=== PATIENT | male | born 1970 | race Caucasian/White ===

== ENCOUNTER 2020-08-15 13:59 | Outpatient (REF) | payer OTHER, SELFPAY ==
[2020-08-15 16:24] LABS: Alanine Aminotransferase 40 U/L (0-40); Albumin Level 3.9 g/dL (3.5-5.0); Alkaline Phosphatase 117 U/L (39-117); Anion Gap 12 (12-20); Aspartate Amino Transferase 35 U/L (5-37); Bilirubin Total 0.8 mg/dL (0.0-1.0); Blood Urea Nitrogen 10 mg/dL (9-16); Calcium 8.8 mg/dL (8.4-10.2); Carbon Dioxide 31 mmol/L (22-29); Chloride 101 mmol/L (96-108); Cholesterol 142 mg/dL; Estimated Glomerular Filt Rate > 60; Glucose Fasting 135 mg/dL (60-99); HDL Cholesterol 52 mg/dL; LDL Cholesterol Calculated 74 mg/dl; Potassium 3.7 mmol/l (3.3-5.1); Sodium 140 mmol/L (135-145); Total Protein 6.6 g/dL (6.5-8.0); Triglycerides 82 mg/dL
[2020-08-15 16:32] LABS: Creatinine Urine 97.21 mg/dL; Microalbum/Creatinine Ratio Ur 17.4 ug/mg cr
[2020-08-15 16:43] LABS: Vitamin B12 266 pg/mL (200-900)
[2020-08-16 06:47] LABS: LDL Cholesterol Direct 78 mg/dL (<100)
== END 2020-08-15 14:00 | disposition home or self-care (01) ==
LOC: HO.LAB 13:59
PROVIDERS: PCP Internal Medicine; Referring Provider Internal Medicine; Visit Provider Internal Medicine Endocrinology, Diabetes & Metabolism
DX: E11.65 Type 2 diabetes mellitus with hyperglycemia (principal); E78.5 Hyperlipidemia, unspecified; N20.0 Calculus of kidney; E66.9 Obesity, unspecified; Z68.34 Body mass index [BMI] 34.0-34.9, adult; E55.9 Vitamin D deficiency, unspecified; E53.8 Deficiency of other specified B group vitamins; E04.2 Nontoxic multinodular goiter; Z79.84 Long term (current) use of oral hypoglycemic drugs
CPT/HCPCS: 80053; 80061; 82043; 82607; 82947; 83721; 99214

== ENCOUNTER 2020-08-25 06:20 | Day surgery (SDC) | payer OTHER, SELFPAY ==
[2020-08-22 12:07] VITALS: BMI 33.3
--- NOTE | 2020-08-23 15:29 | HO.ANESPROP2 ---
Documented by User: Monica Peña 08/23/20 15:35 HPI - Anesthesia Eval Consult details Narrative: 50yo M for colonoscopy 06/27/20 [facility] [place] discharge for SBO, resolved with bowel rest EGD done 06/27/20 with recommendation of outpt colonoscopy PMF Past Medical History Medical History Anaphylaxis Anxiety Asthma B12 deficiency COPD (chronic obstructive pulmonary disease) Diabetes type 2, uncontrolled Dyslipidemia Dysphagia Fatty liver History of postoperative nausea and vomiting Hypertension IBS (irritable bowel syndrome) Nephrolithiasis Non-toxic multinodular goiter Obesity (BMI 30-39.9) Sleep apnea Vitamin D deficiency Family History Family History (Updated 08/15/20 @ 12:09 by Faith Jimenez LPN) Father Diabetes Mother CVD (cardiovascular disease) Cancer Surgical History Surgical History Hx of adenoidectomy Hx of appendectomy Hx of esophagogastroduodenoscopy Hx of hernia repair Social History Social History Smoking Status: Former smoker Tobacco Type: Cigarette Smoking Quit Date: >20 yrs ago Use of substances other than those prescribed or required for medical reasons: No Advance Directives: No Advance Directives Information Provided: No Advance Directives on File: No Meds Allergies Allergy/AdvReac Type Severity Reaction Status Date / Time MONALISA Inhibitors Allergy Severe SHORTNESS Verified 08/22/20 12:03 [MONALISA INHIBITORS] OF BREATH Penicillins AdvReac Intermediate STOMACH Verified 08/22/20 12:02 UPSET Home Medications Medication Instructions Recorded Confirmed Type blood sugar diagnostic #10 ea 08/15/20 08/22/20 History cyanocobalamin (vitamin B-12) 250 250 mcg PO DAILY 08/15/20 08/22/20 History mcg tablet empagliflozin 25 mg tablet 25 mg PO QAM 08/15/20 08/22/20 History fluticasone propionate 50 1 - 2 spray INTRANASAL DAILY 08/15/20 08/22/20 History mcg/actuation nasal spray,suspension gabapentin 100 mg capsule 100 mg PO TID 08/15/20 08/22/20 History lancets 28 gauge #100 ea 08/15/20 08/22/20 History omeprazole 40 mg capsule,delayed 40 mg PO BID 08/15/20 08/25/20 History release salmeterol 50 mcg/dose blister 1 inh PO BID 08/15/20 08/22/20 History powder for inhalation Exam Exam Date and Time: August 23, 2020 1529 Height,Weight and Vital Signs: Height 5 ft 5 in Weight 90.718 kg Pertinent Lab Results Pertinent Lab Results: Laboratory Tests 06/24/20 08/15/20 05:26 15:23 WBC 5.0 Hgb 15.9 Hct 46.3 Plt Count 149 L Sodium 140 Potassium 3.7 Chloride 101 BUN 10 Creatinine 0.82 Narrative Narrative: EKG 06/22/20: NSR@99 Assessment and Plan Assessment Anesthesia Assessment: Chart Reviewed Documented by User: Kp Ledezma 08/25/20 07:31 PMF Past Medical History Medical History Anaphylaxis Anxiety Asthma B12 deficiency COPD (chronic obstructive pulmonary disease) Diabetes type 2, uncontrolled Dyslipidemia Dysphagia Fatty liver History of postoperative nausea and vomiting Hypertension IBS (irritable bowel syndrome) Nephrolithiasis Non-toxic multinodular goiter Obesity (BMI 30-39.9) Sleep apnea Vitamin D deficiency Family History Family History (Updated 08/15/20 @ 12:09 by Faith Jimenez LPN) Father Diabetes Mother CVD (cardiovascular disease) Cancer Surgical History Surgical History Hx of adenoidectomy Hx of appendectomy Hx of esophagogastroduodenoscopy Hx of hernia repair Social History Social History Smoking Status: Former smoker Tobacco Type: Cigarette Smoking Quit Date: >20 yrs ago Use of substances other than those prescribed or required for medical reasons: No Advance Directives: No Advance Directives Information Provided: No Advance Directives on File: No Meds Allergies Allergy/AdvReac Type Severity Reaction Status Date / Time MONALISA Inhibitors Allergy Severe SHORTNESS Verified 08/22/20 12:03 [MONALISA INHIBITORS] OF BREATH Penicillins AdvReac Intermediate STOMACH Verified 08/22/20 12:02 UPSET Home Medications Medication Instructions Recorded Confirmed Type blood sugar diagnostic #10 ea 08/15/20 08/22/20 History cyanocobalamin (vitamin B-12) 250 250 mcg PO DAILY 08/15/20 08/22/20 History mcg tablet empagliflozin 25 mg tablet 25 mg PO QAM 08/15/20 08/22/20 History fluticasone propionate 50 1 - 2 spray INTRANASAL DAILY 08/15/20 08/22/20 History mcg/actuation nasal spray,suspension gabapentin 100 mg capsule 100 mg PO TID 08/15/20 08/22/20 History lancets 28 gauge #100 ea 08/15/20 08/22/20 History omeprazole 40 mg capsule,delayed 40 mg PO BID 08/15/20 08/25/20 History release salmeterol 50 mcg/dose blister 1 inh PO BID 08/15/20 08/22/20 History powder for inhalation Exam Airway Mallampati Class: III TM Dist: >3cm Neck ROM: Full Heart: RRR Assessment and Plan Assessment Anesthesia Assessment: Anesthesia Plan Discussed Final Anesthetic Review NPO: Yes (Except medications) ASA Class: III Final Preanesthetic Review: Consent Obtained/Reviewed Anesthetic Plan Anesthetic Plan: MAC:
[2020-08-25 06:43] VITALS: BP 119/81; PULSE 86; RESP 16; TEMP 37; O2SAT 97
[2020-08-25 06:43] LABS: Glucose, Whole Blood 147 mg/dL (60-115)
--- NOTE | 2020-08-25 07:19 | P.HPSUR_ITS ---
Pre-Procedural Eval Section A The History & Physical has been completed within 30 days and I have reviewed it.: No Section B Chief Complaint: GASTROPARESIS Details of Present Illness: Abdominal pain, hx of partial sbo Relevant Family History (Specify if Yes): No Relevant Social History: Tobacco Use (Past smoker, quitted > 10 yrs ago) Present Medications: see Short Stay Collaborative assessment Medical History: Significant History (GERD. Dysphagia. IBS-D. Obesity. Asthma-controlled. anxiety-managed w/ Remeron HS. Renal stones. IBS (irritable bowel syndrome). Hepatic steatosis. Esophageal ring, acquired. type II diabetes. Obstructive apnea. Mil) History of Previous Operations: Relevant previous surgery/procedure and date(s) (appendectomy hernia repair adenoidectomy EGD w/ bx-- Lujan--H. Pylori neg 09/22/2013 EGD--(C)--foreign body 05/14/14 EGD with Dilation-Ring est to be 18mm dilated to 20mm. 09/14/14 EGD-rim of inflamed tissue just below the GE Junction--area bx as mild reflux-no ring @ this time. 05/01/16 EGD@[facility] [place] 04/21/) Allergies: Allergies Allergy/AdvReac Type Severity Reaction Status Date / Time MONALISA Inhibitors Allergy Severe SHORTNESS Verified 08/22/20 12:03 [MONALISA INHIBITORS] OF BREATH Penicillins AdvReac Intermediate STOMACH Verified 08/22/20 12:02 UPSET Review of Systems Sugical H&P ROS: Negative: Constitution, Cardiovascular and Respiratory and Yes, Specify: Gastrointestinal (Abdominal pain) Exam Surgical H&P Exam: Normal: Heart, Normal: Lungs, Normal: Extremities and Normal: Abdomen Plan Diagnosis/Plan: Unchanged Patient has been examined and remains a candidate for the planned procedure
--- NOTE | 2020-08-25 08:15 | PM.OP ---
Brief Operative Note Date of procedure: 08/25/20 Pre-op diagnosis: Colon cancer screening, abdominal pain, hx of partial SBO Post-op diagnosis: other (Rectal polyp, diverticulosis, hemorrhoids) Procedure: COLONOSCOPY TILL CECUM/TI WITH BIOPSIES AND SNARE POLYPECTOMY Consent: Indications for the procedure and potential complications of bleeding, perforation, reaction to medications and missed diagnosis were discussed with the patient and informed consent was obtained. Instrument: Olympus PCF H 190 L variable stiffness pediatric colonoscope Monitoring: Vital signs and clinical assessment, intermittent blood pressure monitoring, continuous EKG monitoring, Pulse oximetry and Carbon Dioxide monitoring were done throughout the procedure. Colon withdrawl time was 18 minutes. Procedure: The patient was placed in the left lateral decubitis position and pre-procedure medications were administered. After a digital rectal examination of the ano-rectum, the video colonoscope was inserted into the rectum and advanced through the colon to the cecum. The colonoscope was slowly withdrawn in a retrograde panoramic fashion and the colon mucosa was carefully examined including a retroflexed view of the rectum. Findings and interventions are described below. Procedure Difficulty: Without difficulty Findings: Terminal Ileum: Distal 15 cms was examined and appeared normal - random bxs obtained Cecum: Normal Ascending Colon: Normal Transverse Colon: Normal Descending Colon: Moderate diverticulosis Sigmoid Colon: Moderate diverticulosis Rectum: A 1.5 cms sessile polyp just proximal to the anal verge removed with a hot snare. Ano-rectum: Small internal hemorrhoids. Colon preparation: Good after some irrigation Impression and Post Procedure Diagnosis: Colonoscopy Findings: One 1.5 cms polyp removed from the rectum Moderate diverticulosis seen in the left colon Small hemorrhoids on retroflexed exam. Plan: Await pathology results Patient has an appointment on 09/06/20 in the GI Clinic with Griselda Ko NP. Repeat Colonoscopy interval based on path results - in 3 years if polyp is adenomatous and 10 years if polyp is hyperplastic. Consider further evaluation with CT enterography or MR enterography if biopsies are normal Above findings were reviewed with the patient and colon polyps and diverticulosis handouts were given in the discharge area Surgeon: Lynsey Wen MD Anesthesia: MAC (Dr Ledezma) Aircraft Sheet Metal Mechanic: Eriberto Pendleton Estimated blood loss (mL): 0 Pathology: other (A. TI, B. Random colon bxs, C. Rectal polyp) Condition: stable Disposition: PACU
[2020-08-25 08:17] VITALS: BP 109/68; PULSE 94; RESP 18; TEMP 36.6; O2SAT 95
[2020-08-25] MEDS: Lactated Ringers 1,000 ML 100 ML IVCONT (08:17)
[2020-08-25 08:31] VITALS: BP 123/79; PULSE 94; RESP 18; TEMP 36.3; O2SAT 98
--- NOTE | 2020-08-25 08:51 | HO.POSTANES ---
Post Anesthesia Evaluation Post Anesthesia Evaluation Vital Signs: Vital Signs Temp Pulse Resp BP Pulse Ox 08/25/20 08:31 97.4 F 94 18 123/79 98 08/25/20 08:17 97.8 F 94 18 109/68 95 08/25/20 06:43 98.6 F 86 16 119/81 97 Anesthesia: Monitored Mental Status: Awake Pain Control: Satisfactory Nausea/Vomiting: None Hydration: Adequate Anesthesia-Related Issues: No Anes. Related Issues
== END 2020-08-25 09:08 | disposition home or self-care (01) ==
PROVIDERS: PCP Internal Medicine; Visit Provider Internal Medicine Gastroenterology
PROC: 0DJD8ZZ Inspection of Lower Intestinal Tract, Via Natural or Artificial Opening Endoscopic (ICD-10-PCS; CPT 45378; principal; 2020-08-25 07:30)
DX: Z12.11 Encounter for screening for malignant neoplasm of colon (principal); E11.43 Type 2 diabetes mellitus with diabetic autonomic (poly)neuropathy; K31.84 Gastroparesis; D12.8 Benign neoplasm of rectum; K57.30 Diverticulosis of large intestine without perforation or abscess without bleeding; K64.8 Other hemorrhoids; K58.0 Irritable bowel syndrome with diarrhea; K76.0 Fatty (change of) liver, not elsewhere classified; Z87.19 Personal history of other diseases of the digestive system; I10 Essential (primary) hypertension; J44.9 Chronic obstructive pulmonary disease, unspecified; G47.33 Obstructive sleep apnea (adult) (pediatric); K21.9 Gastro-esophageal reflux disease without esophagitis; Z79.51 Long term (current) use of inhaled steroids; Z99.89 Dependence on other enabling machines and devices; Z79.84 Long term (current) use of oral hypoglycemic drugs; Z79.899 Other long term (current) drug therapy; Z87.891 Personal history of nicotine dependence; Z88.0 Allergy status to penicillin; Z88.8 Allergy status to other drugs, medicaments and biological substances
CPT/HCPCS: 45385; 45380; 82947; 88305

== ENCOUNTER → 2020-09-06 14:17 | Outpatient (BNVA) | payer OTHER, SELFPAY | PROVIDERS: PCP Internal Medicine; Referring Provider Internal Medicine; Visit Provider Nurse Practitioner | DX: K31.84 Gastroparesis (principal); K58.0 Irritable bowel syndrome with diarrhea; K21.9 Gastro-esophageal reflux disease without esophagitis; K56.609 Unspecified intestinal obstruction, unspecified as to partial versus complete obstruction; Z79.899 Other long term (current) drug therapy | CPT/HCPCS: 99212 ==

== ENCOUNTER → 2020-10-11 15:22 | Outpatient (BNVA) | payer OTHER, SELFPAY | PROVIDERS: PCP Internal Medicine; Referring Provider Internal Medicine; Visit Provider Nurse Practitioner | DX: Z76.89 Persons encountering health services in other specified circumstances (principal) ==

== ENCOUNTER → 2020-11-09 11:03 | Outpatient (BNVA) | payer OTHER, SELFPAY | PROVIDERS: PCP Internal Medicine; Visit Provider Internal Medicine | DX: Z76.89 Persons encountering health services in other specified circumstances (principal) ==

== ENCOUNTER → 2021-02-17 13:58 | Outpatient (BNVA) | payer OTHER, SELFPAY | PROVIDERS: PCP Internal Medicine; Visit Provider Internal Medicine Endocrinology, Diabetes & Metabolism | DX: E11.65 Type 2 diabetes mellitus with hyperglycemia (principal); E78.5 Hyperlipidemia, unspecified; I10 Essential (primary) hypertension; N20.0 Calculus of kidney; E66.9 Obesity, unspecified; E55.9 Vitamin D deficiency, unspecified; E53.8 Deficiency of other specified B group vitamins; E04.2 Nontoxic multinodular goiter | CPT/HCPCS: 82947; 99212 ==

== ENCOUNTER 2021-04-05 15:08 | Outpatient (REF) | payer OTHER, SELFPAY ==
--- NOTE | ~2021-04-05 | US_ITS ---
EXAMINATION: US RETROPERITONEAL LIMITED (RENAL ONLY) CLINICAL INFORMATION: Renal calculus. COMPARISON: CT abdomen and pelvis 06/22/2020. Ultrasound abdomen 06/22/2020. Renal ultrasound 03/17/2020. MRI abdomen 06/27/2020. KUB 06/24/2020. TECHNIQUE: Real-time imaging of the kidneys. FINDINGS: RIGHT KIDNEY: 9.8 x 6.3 x 6.2 cm (SAG x AP x TRV). The kidney is normal in size, contour, and echogenicity. Renal cortical thickness is normal. There are multiple stones. The largest measures 4 x 7 mm in the upper pole. No focal parenchymal lesions or hydronephrosis. LEFT KIDNEY: 10.7 x 5.6 x 6.0 cm (SAG x AP x TRV). The kidney is normal in size, contour, and echogenicity. Renal cortical thickness is normal. There are 2 stones measuring 4 x 3 mm in the midpole 4 x 2 mm in the upper pole. There is a 1 x 0.8 x 0.8 cm cyst in the lower pole. No hydronephrosis. US/US renal BI IMPRESSION: Bilateral renal stones. Small left renal cyst.
== END 2021-04-05 15:09 | disposition home or self-care (01) ==
LOC: HO.US 15:08
PROVIDERS: Visit Provider Urology
DX: N20.0 Calculus of kidney (principal)
CPT/HCPCS: 76775

== ENCOUNTER → 2021-04-07 08:49 | Outpatient (BNVA) | payer OTHER, SELFPAY | PROVIDERS: PCP Internal Medicine; Visit Provider Urology ==

== ENCOUNTER → 2021-05-09 14:39 | Outpatient (BNVA) | payer OTHER, SELFPAY | PROVIDERS: PCP Internal Medicine; Visit Provider Internal Medicine | DX: G47.33 Obstructive sleep apnea (adult) (pediatric) (principal); J44.9 Chronic obstructive pulmonary disease, unspecified; J30.9 Allergic rhinitis, unspecified; I10 Essential (primary) hypertension; E11.65 Type 2 diabetes mellitus with hyperglycemia; E66.9 Obesity, unspecified; Z68.32 Body mass index [BMI] 32.0-32.9, adult; Z88.0 Allergy status to penicillin; Z88.8 Allergy status to other drugs, medicaments and biological substances; Z79.899 Other long term (current) drug therapy | CPT/HCPCS: 99212 ==

== ENCOUNTER → 2021-05-16 14:14 | Outpatient (BNVA) | payer OTHER, SELFPAY | PROVIDERS: PCP Internal Medicine; Referring Provider Internal Medicine; Visit Provider Nurse Practitioner | DX: K21.9 Gastro-esophageal reflux disease without esophagitis (principal); K58.0 Irritable bowel syndrome with diarrhea; K31.84 Gastroparesis; D12.6 Benign neoplasm of colon, unspecified | CPT/HCPCS: 99212 ==

== ENCOUNTER 2021-05-31 06:11 | Day surgery (SDC) | payer OTHER, SELFPAY ==
[2021-05-24 14:10] VITALS: BMI 32.1
--- NOTE | 2021-05-30 10:23 | HO.ANESPROP2 ---
Documented by User: Monica Peña 05/30/21 10:24 HPI - Anesthesia Eval Consult details Narrative: 51yo M for Right Lithotripsy ESW Last ESWL 2016 with [facility] Active Problems Active Problems: All Active Problems (Updated 05/16/21 @ 17:13 by BOB Castle) Gastroparesis (Acute) GERD (gastroesophageal reflux disease) (Acute) Irritable bowel syndrome with diarrhea (Acute) Small bowel obstruction (Acute) Neck pain (Acute) Tubular adenoma of colon (Acute) Allergic rhinitis (Acute) SARAH (obstructive sleep apnea) (Acute) Diverticulosis (Acute) Colon polyp (Acute) Fatty liver (Acute) Non-toxic multinodular goiter (Acute) B12 deficiency (Acute) Vitamin D deficiency (Acute) Obesity (BMI 30-39.9) (Acute) Nephrolithiasis (Acute) Hypertension (Acute) Dyslipidemia (Acute) Diabetes type 2, uncontrolled (Acute) COPD (chronic obstructive pulmonary disease) (Acute) Past Medical History Medical History Allergic rhinitis Anaphylaxis Anxiety Asthma B12 deficiency Colon polyp COPD (chronic obstructive pulmonary disease) Diabetes type 2, uncontrolled Diverticulosis Dyslipidemia Dysphagia Fatty liver History of postoperative nausea and vomiting Hypertension IBS (irritable bowel syndrome) Nephrolithiasis Non-toxic multinodular goiter Obesity (BMI 30-39.9) SARAH (obstructive sleep apnea) Sleep apnea Vitamin D deficiency Family History Family History Father Diabetes Mother CVD (cardiovascular disease) Cancer Surgical History Surgical History Hx of adenoidectomy Hx of appendectomy Hx of colonoscopy Hx of cystoscopy Hx of esophagogastroduodenoscopy Hx of hernia repair Hx of lithotripsy Hx of umbilical hernia repair Social History Social History Housing: House Alcohol intake: current Alcohol intake frequency: a few times a week Patient Tobacco Use Status: Former Tobacco user Tobacco use type: Cigarette e-Cigarette/Vaping Use: Never Used Second Hand Smoke Exposure: No Advance Directives Information Provided: No service: No Current occupational status: unemployed and disabled Meds Allergies Allergy/AdvReac Type Severity Reaction Status Date / Time MONALISA Inhibitors Allergy Severe SHORTNESS Verified 05/31/21 06:50 [MONALISA INHIBITORS] OF BREATH Penicillins AdvReac Intermediate STOMACH Verified 05/31/21 06:50 UPSET stress induced anaphylaxis Allergy Severe Anaphylaxis Uncoded 11/09/20 11:05 Home Medications Medication Instructions Recorded Confirmed Last Taken Type cyanocobalamin (vitamin B-12) 250 250 mcg PO DAILY 08/15/20 05/24/21 Unknown History mcg tablet fluticasone propionate 50 1 - 2 spray INTRANASAL DAILY 08/15/20 05/24/21 Unknown History mcg/actuation nasal spray,suspension gabapentin 100 mg capsule 100 mg PO TID 08/15/20 05/24/21 Unknown History salmeterol 50 mcg/dose blister 1 inh PO BID 08/15/20 05/24/21 Unknown History powder for inhalation flu vacc [id number] 6mos up(PF) ml IM 11/09/20 05/09/21 Unknown History Exam Exam Date and Time: May 30, 2021 1023 Height,Weight and Vital Signs: Height 5 ft 5 in Weight 87.5 kg Assessment and Plan Assessment Anesthesia Assessment: Chart Reviewed Documented by User: Debra Piña 05/31/21 07:50 [facility] Past Medical History Medical History Allergic rhinitis Anaphylaxis Anxiety Asthma B12 deficiency Colon polyp COPD (chronic obstructive pulmonary disease) Diabetes type 2, uncontrolled Diverticulosis Dyslipidemia Dysphagia Fatty liver History of postoperative nausea and vomiting Hypertension IBS (irritable bowel syndrome) Nephrolithiasis Non-toxic multinodular goiter Obesity (BMI 30-39.9) SARAH (obstructive sleep apnea) Sleep apnea Vitamin D deficiency Family History Family History Father Diabetes Mother CVD (cardiovascular disease) Cancer Surgical History Surgical History Hx of adenoidectomy Hx of appendectomy Hx of colonoscopy Hx of cystoscopy Hx of esophagogastroduodenoscopy Hx of hernia repair Hx of lithotripsy Hx of umbilical hernia repair History of Problems with Anesthesia: No Social History Social History Housing: House Alcohol intake: current Alcohol intake frequency: a few times a week Patient Tobacco Use Status: Former Tobacco user Tobacco use type: Cigarette e-Cigarette/Vaping Use: Never Used Second Hand Smoke Exposure: No Advance Directives Information Provided: No service: No Current occupational status: unemployed and disabled Meds Allergies Allergy/AdvReac Type Severity Reaction Status Date / Time MONALISA Inhibitors Allergy Severe SHORTNESS Verified 05/31/21 06:50 [MONALISA INHIBITORS] OF BREATH Penicillins AdvReac Intermediate STOMACH Verified 05/31/21 06:50 UPSET stress induced anaphylaxis Allergy Severe Anaphylaxis Uncoded 11/09/20 11:05 Home Medications Medication Instructions Recorded Confirmed Last Taken Type cyanocobalamin (vitamin B-12) 250 250 mcg PO DAILY 08/15/20 05/24/21 Unknown History mcg tablet fluticasone propionate 50 1 - 2 spray INTRANASAL DAILY 08/15/20 05/24/21 Unknown History mcg/actuation nasal spray,suspension gabapentin 100 mg capsule 100 mg PO TID 08/15/20 05/24/21 Unknown History salmeterol 50 mcg/dose blister 1 inh PO BID 08/15/20 05/24/21 Unknown History powder for inhalation flu vacc [id number] 6mos up(PF) ml IM 11/09/20 05/09/21 Unknown History Exam Airway Mallampati Class: III (Small mouth) TM Dist: >3cm Neck ROM: Full Loose/Missing/Broken Teeth: No Heart: RRR Lungs: CTA Assessment and Plan Assessment Anesthesia Assessment: Anesthesia Plan Discussed Final Anesthetic Review History of Problems with Anesthesia: No NPO: Yes ASA Class: II Final Preanesthetic Review: Meds/Allgs Chart Reviewed, Consent Obtained/Reviewed and Anes Risks/Benef Reviewed Patient Risk: Low Procedure Risk: Low Anesthetic Plan Anesthetic Plan: MAC: Disposition: Standard PACU
--- NOTE | ~2021-05-31 | XR_ITS ---
EXAMINATION: XR ABDOMEN KUB CLINICAL INDICATION: Nephrolithiasis COMPARISON: CT scan of June 22, 2020 TECHNIQUE: AP view of the abdomen. FINDINGS: The bowel gas pattern is normal with no evidence of ileus or obstruction. No unusual soft tissue calcifications are noted. No destructive bony lesions identified. Psoas margins intact. Phleboliths seen about the pelvis. XR/XR KUB IMPRESSION: The known renal calcifications are not identified on this plain film study.
[2021-05-31 06:40] VITALS: BP 167/110; PULSE 76; RESP 16; TEMP 36.3; O2SAT 98
[2021-05-31 06:50] VITALS: BP 158/106
[2021-05-31] MEDS: Acetaminophen 325 MG TABLET 650 MG PO (06:55)
[2021-05-31] MEDS: Lactated Ringers 1,000 ML 100 ML IVCONT (07:03)
[2021-05-31 07:04] VITALS: BP 149/105
[2021-05-31 07:09] LABS: Glucose, Whole Blood 100 mg/dL (60-115)
--- NOTE | 2021-05-31 07:46 | MHC.SHP ---
Pre-Procedural Eval Section A Date of Service: 05/31/21 Section B Chief Complaint: kidney stone Details of Present Illness: right renal stones Relevant Social History: None Present Medications: see Short Stay Collaborative assessment Medical History: No relevant PMH History of Previous Operations: No relevant previous surgery Allergies: Allergies Allergy/AdvReac Type Severity Reaction Status Date / Time MONALISA Inhibitors Allergy Severe SHORTNESS Verified 05/31/21 06:50 [MONALISA INHIBITORS] OF BREATH Penicillins AdvReac Intermediate STOMACH Verified 05/31/21 06:50 UPSET stress induced anaphylaxis Allergy Severe Anaphylaxis Uncoded 11/09/20 11:05 Review of Systems Sugical H&P ROS: Negative: Constitution, Cardiovascular, Respiratory, Neurological, Psychiatric, Hem-Onc, Allergic/Immunologic, Gastrointestinal, Genitourinary, Musculoskeletal, Integumentary, Endocrine and Eyes/Ears/Nose/Throat Exam Surgical H&P Exam: Normal: HEENT, Normal: Heart, Normal: Lungs, Normal: Extremities, Normal: Abdomen, Normal: Skin and Normal: Neurological Plan Diagnosis/Plan: Unchanged (right ESWL) I have reviewed the history and physical and performed a pertinent physical examination on my patient. No changes have occurred unless specified.
--- NOTE | 2021-05-31 09:07 | W.PM.OPN ---
Operative Note Operative Note Date of Service: 05/31/21 Narrative: PreOperative Diagnosis: right Renal stones Post Operative Diagnosis: right Renal stones Procedure: right ESWL Surgeon: Dr Darryl Stover Anesthesia: mac/sedation Indications for procedure: They understand ESWL may be a staged procedure and subsequent intervention may be required based on imaging after ESWL. They also understand there is a risk of bleeding, infection, damage to adjacent organs. - right 6mm upper pole stone Procedure: After informed consent was verified the patient was brought to the operating room and placed in a supine position. Anesthesia was performed per protocol. Safety pause time-out was performed. Imaging was in the room and laterality confirmed. ESWL was performed. The 1st 500 shocks were performed at 60 hertz. These were performed with increasing power. Once maximum power was reached the rate was increased to 180 hertz. A total of 2500 shocks were given. Fluoroscopy showed stone disintegration. They tolerated procedure well and was transferred to the recovery area upon completion.
[2021-05-31 09:15] VITALS: BP 138/93; PULSE 69; RESP 16; TEMP 36.2; O2SAT 95
[2021-05-31 09:30] VITALS: BP 143/93; PULSE 70; RESP 18; O2SAT 95
[2021-05-31] MEDS: oxyCODONE HCl Immed Release 5 MG TABLET PO (09:35)
[2021-05-31 09:42] VITALS: BP 153/103; PULSE 64; RESP 18; O2SAT 96
== END 2021-05-31 10:34 | disposition home or self-care (01) ==
PROVIDERS: PCP Internal Medicine; Visit Provider Urology
PROC: (CPT 50590; principal; 2021-05-31 08:10)
DX: N20.0 Calculus of kidney (principal); J44.9 Chronic obstructive pulmonary disease, unspecified; I10 Essential (primary) hypertension; E11.9 Type 2 diabetes mellitus without complications; G47.33 Obstructive sleep apnea (adult) (pediatric); Z88.0 Allergy status to penicillin; Z88.8 Allergy status to other drugs, medicaments and biological substances; Z79.899 Other long term (current) drug therapy; Z87.891 Personal history of nicotine dependence
CPT/HCPCS: 50590; 74018; 82947; J2250; J2405

== ENCOUNTER 2021-06-02 08:08 | Observation (INO) | payer OTHER, SELFPAY ==
[2021-06-02] VITALS (7 sets, daily range): BP systolic 92–140; BP diastolic 48–82; PULSE 83–104; RESP 16–19; TEMP 36.5–37.2; O2SAT 95–100; BMI 30.7
--- NOTE | 2021-06-02 | ECG_ITS ---
Test Reason : CHEST PAIN Blood Pressure : / mmHG Vent. Rate : 089 BPM Atrial Rate : 089 BPM P-R Int : 140 ms QRS Dur : 104 ms QT Int : 406 ms P-R-T Axes : 058 054 012 degrees QTc Int : 493 ms Normal sinus rhythm Prolonged QT Abnormal ECG When compared with ECG of 22-JUN-2020 21:53, Nonspecific T wave abnormality now evident in Inferior leads Referred By: Generic ED Physician Electronically Signed By:Lino Aldridge
--- NOTE | ~2021-06-02 | XR_ITS ---
EXAMINATION: XR CHEST CLINICAL INFORMATION: Chest pain COMPARISON: Chest 06/23/2020 TECHNIQUE: Frontal view of the chest was obtained. FINDINGS: No significant abnormality is noted involving the heart, lungs, mediastinum, bony thorax or soft tissues. XR/XR chest 1V IMPRESSION: Unremarkable chest exam. No major change from 06/23/2020.
--- NOTE | ~2021-06-02 | CT_ITS ---
EXAMINATION: CT ANGIOGRAM OF THE CHEST WITH AND WITHOUT CONTRAST (CT PULMONARY ANGIOGRAM FOR PE) CLINICAL INFORMATION: Reason for Exam chest pain, SOB, back pain COMPARISON: Chest radiograph 06/02/2021, CT chest noncontrast 01/26/2019. TECHNIQUE: Prior to contrast administration, noncontrast localization images were obtained. Subsequently, multidetector volumetric imaging was performed from the thoracic inlet to below the diaphragms following the administration of 65 mL Omnipaque 350 intravenous contrast. No contrast reaction reported Sagittal, coronal, and MIP oblique sagittal reformatted images were obtained on the CT workstation, uploaded to PACS, and reviewed. This CT examination was performed using dose optimization techniques as appropriate, variously including the following: *Automated exposure control *Adjustment of mA and/or kV according to patient size (this includes techniques or standardized protocols for targeted exams where dose is matched to indication/reason for exam; i.e. extremities or head) *Use of iterative reconstruction technique Total exam dose-length product 393 mGy-cm FINDINGS: QUALITY OF STUDY/CONTRAST BOLUS: Satisfactory. PULMONARY ARTERIES: No central or segmental pulmonary emboli. THORACIC AORTA: No aneurysm or dissection. LUNG: The central airways are clear and there is no endobronchial lesion or bronchiectasis. There is no lobar or segmental airspace consolidation or groundglass opacity. Trace disc atelectasis. Present at both posterior bases. PLEURA: No pleural thickening, or effusion, or pneumothorax. MEDIASTINUM: Normal heart size. No pericardial effusion. No hilar or mediastinal lymphadenopathy. No evidence of septal bowing or right heart strain. CHEST WALL/AXILLA: No axillary or internal mammary lymphadenopathy. OSSEOUS STRUCTURES: No acute or suspicious osseous abnormality. UPPER ABDOMEN: Unremarkable. No reflux of contrast into the hepatic veins to suggest elevated right heart pressures. Small incidental splenule left upper quadrant 1.[address]/CT angio chest PE protocol IMPRESSION: 1. No pulmonary embolism. 2. No thoracic aortic dissection. 3. Minor bibasilar lateral posterior basilar disc atelectasis. No airspace consolidation or groundglass opacity or effusion. VTE: negative
--- NOTE | 2021-06-02 09:43 | ED_ITS ---
HPI - Chest Pain General Chief Complaint: Chest Pain Stated Complaint: CP Time Seen by Provider: 06/02/21 09:23 Source: patient and EMS Mode of arrival: EMS Limitations: no limitations History of Present Illness HPI narrative: 51 y/o male with history of DM, HTN, SARAH not on CPAP, asthma/COPD, GERD, gastroparesis, kidney stones s/p recent lithotripsy who presents to the ER with acute onset of epigastric pain and left arm pain that started this morning when he was cooking breakfast. He reports some dizziness and upset stomach last night along with some mental fog and confusion. He woke up this morning feeling ok. When he was standing cooking he felt pain and fullness in his epigastric area he thought was indigestion. He got dizzy and diaphoretic. His left arm started having pain from shoulder down to his fin gertips. It feels heavy. He slightly SOB but has underlying COPD/asthma. He also reported left sided upper back pains. EMS was called. He was given SL nitro and ASA en route with some improvement in the pain. He has no personal cardiac history. His father had cardiac disease and in his mid 70's. MD complaint: chest pain Onset (ago): hour(s) Timing of current episode: constant Prior episodes: No Onset: during rest Pain location: epigastric Pain radiation: left arm Severity: severe Quality: heaviness and dull Relieving factors: nitroglycerin Exacerbating factors: palpation Associated symptoms: nausea Treatment prior to arrival: aspirin and nitroglycerin Risk Factors Coronary artery disease risk factors: diabetes and hypertension Related Data Home Medications Medication Instructions Recorded Confirmed cyanocobalamin (vitamin B-12) 250 250 mcg PO DAILY 08/15/20 06/02/21 mcg tablet fluticasone propionate 50 1 - 2 spray INTRANASAL DAILY 08/15/20 06/02/21 mcg/actuation nasal spray,suspension gabapentin 100 mg capsule 100 mg PO TID 08/15/20 06/02/21 salmeterol 50 mcg/dose blister 1 inh PO BID 08/15/20 06/02/21 powder for inhalation flu vacc [id number] 6mos up(PF) ml IM 11/09/20 05/09/21 chlorhexidine gluconate 0.12 % 15 ml PO BID 06/02/21 06/02/21 mouthwash clindamycin HCl 150 mg capsule 150 mg PO QID 06/02/21 06/02/21 dulaglutide 1.5 mg/0.5 mL 1.5 mg SUBCUT TH@0900 06/02/21 06/02/21 subcutaneous pen injector (Trulicity) sucralfate 1 gram tablet 1 g PO BID 06/02/21 06/02/21 Previous Rx's Medication Instructions Recorded albuterol sulfate 90 mcg/actuation 2 puff INHALATION Q6H PRN #6.7 g 08/10/20 aerosol inhaler (ProAir HFA) fluticasone propionate 110 1 puff INHALATION BID #12 g 08/10/20 mcg/actuation HFA aerosol inhaler (Flovent HFA) amlodipine 10 mg tablet 10 mg PO DAILY 30 Days #30 tab 08/15/20 losartan 25 mg tablet 25 mg PO DAILY 30 Days #30 tab 08/15/20 metoclopramide HCl 10 mg tablet 10 mg PO QIDACHS #120 tab 09/06/20 (Reglan) omeprazole 40 mg capsule,delayed 40 mg PO BID 30 Days #60 cap 01/05/21 release hydrochlorothiazide 25 mg tablet 25 mg PO DAILY 30 Days #30 tab 02/17/21 FreeStyle Lancets 28 gauge #100 ea NS 03/16/21 (lancets) blood sugar diagnostic (FreeStyle #100 ea 03/16/21 Lite Strips) allopurinol 100 mg tablet 100 mg PO DAILY 90 Days #90 tab 05/31/21 tamsulosin 0.4 mg capsule 0.4 mg PO BEDTIME 14 Days #14 cap 05/31/21 tramadol 50 mg tablet 50 mg PO Q6H PRN #14 tab 05/31/21 Allergies Allergy/AdvReac Type Severity Reaction Status Date / Time MONALISA Inhibitors Allergy Severe SHORTNESS Verified 05/31/21 06:50 [MONALISA INHIBITORS] OF BREATH Penicillins AdvReac Intermediate STOMACH Verified 05/31/21 06:50 UPSET stress induced anaphylaxis Allergy Severe Anaphylaxis Uncoded 11/09/20 11:05 Review of Systems 2 Constitutional: Constitutional: Denies chills, Denies fever(s) and Reports malaise Eyes: Eyes: Reports no additional eye complaints ENT: Reports dental pain and Reports dizziness Neurologic: Reports confusion and Reports dizziness Psychiatric: Psychiatric: Reports confusion and Denies panic attacks Hematologic/Lymphatic: Hematologic/Lymphatic: Denies easy bleeding and Denies easy bruising [facility] Past Medical History Attestation statement: The following information was validated with the patient. Medical History Allergic rhinitis Anaphylaxis Anxiety Asthma B12 deficiency Colon polyp COPD (chronic obstructive pulmonary disease) Diabetes type 2, uncontrolled Diverticulosis Dyslipidemia Dysphagia Fatty liver History of postoperative nausea and vomiting Hypertension IBS (irritable bowel syndrome) Nephrolithiasis Non-toxic multinodular goiter Obesity (BMI 30-39.9) SARAH (obstructive sleep apnea) Sleep apnea Vitamin D deficiency Surgical History Hx of adenoidectomy Hx of appendectomy Hx of colonoscopy Hx of cystoscopy Hx of esophagogastroduodenoscopy Hx of hernia repair Hx of lithotripsy Hx of umbilical hernia repair Family History Family History Father Diabetes Mother CVD (cardiovascular disease) Cancer Social History Social History Housing: House Alcohol intake: current Alcohol intake frequency: does not drink Patient Tobacco Use Status: Former Tobacco user Tobacco use type: Cigarette e-Cigarette/Vaping Use: Never Used Second Hand Smoke Exposure: No Use of substances other than those prescribed or required for medical reasons: No Advance Directives: No Advance Directives Information Provided: Yes service: No Current occupational status: unemployed and disabled Physical Exam Vital Signs: Vital Signs: Last Vital Signs Temp 97.7 F 06/02/21 08:36 Pulse 92 06/02/21 11:46 Resp 16 06/02/21 11:46 BP 92/58 L 06/02/21 11:46 Pulse Ox 96 06/02/21 11:46 Body Mass Index 30.7 Appearance: Alert. Oriented X3. No acute distress. Eyes: Pupils equal, round and reactive to light. ENT: Pharynx normal. Neck: Normal inspection. Neck supple. CVS: Normal heart rate and rhythm. Pulses normal. Respiratory: No respiratory distress. Breath sounds normal. Abdomen: Round, well healed surgical scar. Soft with epigastric tenderness, no rebound guarding. +BS x4 Skin: Skin warm and dry. Normal skin color. Normal skin turgor. No rashes. Extremities: No lower extremity edema. Left arm with normal ROM of shoulder, el bow and wrist. Mild diffuse tenderness of LUE, normal strength and sensation. No calf tenderness Neuro: Oriented X 3. No motor deficit. No sensory deficit. Const: General: confusion Orientation/consciousness: confusion Neuro: General: confusion Course Course Course Narrative: 51 y/o male presenting with epigastric pain radiating to his chest and left arm associated with diaphoresis and SOB. s/p SL nitro and ASA with some improvement. BP soft on arrival, likely due to nitro. Concern for ACS vs possible PE given recent procedure vs possible dissection given back pain. Case was d/w Dr. Correia - will get full metabolic workup, EKG, and CTA chest to r/o PE & dissection. IV morphine ordered for ongoing left arm pain and IVF for BP support. No signs of sepsis. Reevaluation(s) Reevaluation #1: BP improving with fluids. EKG is without ST elevation or depressions. Labs showing pancytopenia. Troponin negative. Will get a repeat in 3 hours. Pain improving with morphine. Reevaluation #2: CTA is negative for PE and dissection. 2nd troponin remains flat. His clinical presentation remains concerning for ACS / cardiac etiology. Spoke with Dr. Aldridge from Cardiology via TT who agrees with admission for further monitoring and workup. Recs repeat EKG and repeating a 3rd troponin. Discussed results and plan of care with patient who is agreeable. Left arm pain is improved. Reevaluation #3: TT Dr. Curtis for admission at 1:56 pm Consultations Consultation #1: Cardiology - Dr. Aldridge Time: 14:04 [facility] - Chest Pain Lab Data Result diagrams: 06/02/21 09:45 06/02/21 09:45 Labs: Lab Results 06/02/21 06/02/21 06/02/21 Range/Units 09:45 09:45 09:45 WBC 4.5 L (4.8-10.8) X10*3/uL RBC 4.04 L (4.60-5.80) X10*6/uL Hgb 14.8 (14.0-18.0) g/dl Hct 40.9 L (42-52) % MCV 101.2 H (80-98) fL MCH 36.6 H (27.0-33.0) pg MCHC 36.2 H (31.0-36.0) g/dl RDW 11.3 (11.0-16.0) % Plt Count 156 L (160-400) X10*3/uL MPV 8.9 L (9.4-12.4) fL Immature Gran % (Auto) 0.4 (0.0-0.4) % Neut % (Auto) 59.0 (45-73) % Lymph % (Auto) 28.3 (20-40) % [place] % (Auto) 8.4 (2-11) % Eos % (Auto) 3.5 (0-4) % Baso % (Auto) 0.4 (0-2) % Lymph # (Auto) 1.3 (1.2-4.9) X10*3/uL [place] # (Auto) 0.4 (0.1-1.2) X10*3/uL Eos # (Auto) 0.2 (0.0-0.4) X10*3/uL Baso # (Auto) 0.0 (0.0-0.2) X10*3/uL Abs Immat Gran (auto) 0.02 (0.00-0.03) X10*3/uL Absolute Neuts (auto) 2.7 (2.0-8.3) X10*3/uL Absolute Nucleated RBC 0.000 (0.0-0.012) X10*3/uL Nucleated RBC % (auto) 0.0 (0.0-0.2) /100WBC PT (9.9-13.0) SEC INR (0.9-1.1) APTT (24.1-38.0) SEC Sodium 136 (135-145) mmol/L Potassium 3.5 (3.3-5.1) mmol/L Chloride 103 (96-108) mmol/L Carbon Dioxide 22 (22-29) mmol/L Anion Gap 15 (12-20) BUN 7 L (9-16) mg/dL Creatinine 0.85 (0.5-1.4) mg/dL Estim Creat Clear Calc 102.4 Estimated GFR > 60 Random Glucose 124 H (60-115) mg/dL Calcium 7.9 L D (8.4-10.2) mg/dL Magnesium 1.6 (1.6-2.6) mg/dL Total Bilirubin 0.6 (0.0-1.0) mg/dL Direct Bilirubin 0.3 (0.0-0.5) mg/dL AST 28 (5-37) U/L ALT 25 (0-40) U/L Alkaline Phosphatase 97 (39-117) U/L Troponin I High Sens 3.7 (<3.5-35.0) ng/L B-Natriuretic Peptide < 10 (<100) pg/mL Total Protein 6.2 L (6.5-8.0) g/dL Albumin 3.5 (3.5-5.0) g/dL Urine Color Urine Appearance Urine pH (5.0-8.0) Ur Specific [place] (1.005-1.025) Urine Protein (NEG-TRACE) MG/DL Urine Glucose (UA) (NEG) MG/DL Urine Ketones (NEG) MG/DL Urine Blood (NEG) Urine Nitrite (NEG) Ur Leukocyte Esterase (NEG) Urine RBC (0) /HPF Urine WBC (0-4) /HPF Ur Squamous Epith Cells /LPF Calcium Phosphate Cryst /LPF Urine Bacteria /LPF Coronavirus (PCR) (Negative) Influenza Type A (PCR) (Negative) Influenza Type B (PCR) (Negative) RSV RNA Qual (PCR) (Negative) 06/02/21 06/02/21 06/02/21 Range/Units 09:45 09:46 10:03 WBC (4.8-10.8) X10*3/uL RBC (4.60-5.80) X10*6/uL Hgb (14.0-18.0) g/dl Hct (42-52) % MCV (80-98) fL MCH (27.0-33.0) pg MCHC (31.0-36.0) g/dl RDW (11.0-16.0) % Plt Count (160-400) X10*3/uL MPV (9.4-12.4) fL Immature Gran % (Auto) (0.0-0.4) % Neut % (Auto) (45-73) % Lymph % (Auto) (20-40) % [place] % (Auto) (2-11) % Eos % (Auto) (0-4) % Baso % (Auto) (0-2) % Lymph # (Auto) (1.2-4.9) X10*3/uL [place] # (Auto) (0.1-1.2) X10*3/uL Eos # (Auto) (0.0-0.4) X10*3/uL Baso # (Auto) (0.0-0.2) X10*3/uL Abs Immat Gran (auto) (0.00-0.03) X10*3/uL Absolute Neuts (auto) (2.0-8.3) X10*3/uL Absolute Nucleated RBC (0.0-0.012) X10*3/uL Nucleated RBC % (auto) (0.0-0.2) /100WBC PT 12.1 (9.9-13.0) SEC INR 1.1 (0.9-1.1) APTT 30.5 (24.1-38.0) SEC Sodium (135-145) mmol/L Potassium (3.3-5.1) mmol/L Chloride (96-108) mmol/L Carbon Dioxide (22-29) mmol/L Anion Gap (12-20) BUN (9-16) mg/dL Creatinine (0.5-1.4) mg/dL Estim Creat Clear Calc Estimated GFR Random Glucose (60-115) mg/dL Calcium (8.4-10.2) mg/dL Magnesium (1.6-2.6) mg/dL Total Bilirubin (0.0-1.0) mg/dL Direct Bilirubin (0.0-0.5) mg/dL AST (5-37) U/L ALT (0-40) U/L Alkaline Phosphatase (39-117) U/L Troponin I High Sens (<3.5-35.0) ng/L B-Natriuretic Peptide (<100) pg/mL Total Protein (6.5-8.0) g/dL Albumin (3.5-5.0) g/dL Urine Color YELLOW Urine Appearance CLEAR Urine pH 6.0 (5.0-8.0) Ur Specific [place] <= 1.005 (1.005-1.025) Urine Protein NEG (NEG-TRACE) MG/DL Urine Glucose (UA) NEG (NEG) MG/DL Urine Ketones NEG (NEG) MG/DL Urine Blood 3+ H (NEG) Urine Nitrite NEG (NEG) Ur Leukocyte Esterase NEG (NEG) Urine RBC 5-9 H (0) /HPF Urine WBC 0-2 (0-4) /HPF Ur Squamous Epith Cells TRACE /LPF Calcium Phosphate Cryst TRACE /LPF Urine Bacteria TRACE /LPF Coronavirus (PCR) NEGATIVE (Negative) Influenza Type A (PCR) NEGATIVE (Negative) Influenza Type B (PCR) NEGATIVE (Negative) RSV RNA Qual (PCR) NEGATIVE (Negative) 06/02/21 Range/Units 12:59 WBC (4.8-10.8) X10*3/uL RBC (4.60-5.80) X10*6/uL Hgb (14.0-18.0) g/dl Hct (42-52) % MCV (80-98) fL MCH (27.0-33.0) pg MCHC (31.0-36.0) g/dl RDW (11.0-16.0) % Plt Count (160-400) X10*3/uL MPV (9.4-12.4) fL Immature Gran % (Auto) (0.0-0.4) % Neut % (Auto) (45-73) % Lymph % (Auto) (20-40) % [place] % (Auto) (2-11) % Eos % (Auto) (0-4) % Baso % (Auto) (0-2) % Lymph # (Auto) (1.2-4.9) X10*3/uL [place] # (Auto) (0.1-1.2) X10*3/uL Eos # (Auto) (0.0-0.4) X10*3/uL Baso # (Auto) (0.0-0.2) X10*3/uL Abs Immat Gran (auto) (0.00-0.03) X10*3/uL Absolute Neuts (auto) (2.0-8.3) X10*3/uL Absolute Nucleated RBC (0.0-0.012) X10*3/uL Nucleated RBC % (auto) (0.0-0.2) /100WBC PT (9.9-13.0) SEC INR (0.9-1.1) APTT (24.1-38.0) SEC Sodium (135-145) mmol/L Potassium (3.3-5.1) mmol/L Chloride (96-108) mmol/L Carbon Dioxide (22-29) mmol/L Anion Gap (12-20) BUN (9-16) mg/dL Creatinine (0.5-1.4) mg/dL Estim Creat Clear Calc Estimated GFR Random Glucose (60-115) mg/dL Calcium (8.4-10.2) mg/dL Magnesium (1.6-2.6) mg/dL Total Bilirubin (0.0-1.0) mg/dL Direct Bilirubin (0.0-0.5) mg/dL AST (5-37) U/L ALT (0-40) U/L Alkaline Phosphatase (39-117) U/L Troponin I High Sens 3.6 (<3.5-35.0) ng/L B-Natriuretic Peptide (<100) pg/mL Total Protein (6.5-8.0) g/dL Albumin (3.5-5.0) g/dL Urine Color Urine Appearance Urine pH (5.0-8.0) Ur Specific [place] (1.005-1.025) Urine Protein (NEG-TRACE) MG/DL Urine Glucose (UA) (NEG) MG/DL Urine Ketones (NEG) MG/DL Urine Blood (NEG) Urine Nitrite (NEG) Ur Leukocyte Esterase (NEG) Urine RBC (0) /HPF Urine WBC (0-4) /HPF Ur Squamous Epith Cells /LPF Calcium Phosphate Cryst /LPF Urine Bacteria /LPF Coronavirus (PCR) (Negative) Influenza Type A (PCR) (Negative) Influenza Type B (PCR) (Negative) RSV RNA Qual (PCR) (Negative) Scores Heart Score History: -2- highly suspicious ECG: -1- non specific repolarization disturbance Age: -1- >45 - <65 Risk factory: -1- 1 or 2 risk factors Troponin: -0- < or = normal limit Score: 5 Risk: 16.6% Discharge Plan Discharge Clinical Impression: Chest pain Patient Disposition: Admitted As Inpatient Prescriptions: No Action Flovent HFA 110 mcg/actuation HFA aerosol inhaler 1 puff inhalation BID Qty: 12 RF: 3 albuterol sulfate [ProAir HFA] 90 mcg/actuation HFA aerosol inhaler 2 puff inhalation Q6H PRN (Reason: shortness of breath or wheezing) Qty: 6.7 RF: 3 omeprazole 40 mg capsule,delayed release(DR/EC) 40 mg PO BID 30 Days Qty: 60 RF: 3 (DME) FreeStyle Lite Strips Strip See Rx Instructions strip .ROUTE .MEDSUPPLY Qty: 100 RF: 11 (DME) lancets [FreeStyle Lancets] 28 gauge misc See Rx Instructions ea topical TID Qty: 100 RF: 11 clindamycin HCl 150 mg capsule 150 mg PO QID RF: 0 chlorhexidine gluconate 0.12 % mouthwash 15 ml PO BID RF: 0 sucralfate 1 gram Tablet 1 g PO BID RF: 0 Trulicity 1.5 mg/0.5 mL pen injector 1.5 mg subcut TH@0900 RF: 0 allopurinol 100 mg tablet 100 mg PO DAILY 90 Days Qty: 90 RF: 1 tramadol 50 mg tablet 50 mg PO Q6H PRN (Reason: pain (scale score 4-6)) Qty: 14 RF: 0 tamsulosin 0.4 mg capsule 0.4 mg PO BEDTIME 14 Days Qty: 14 RF: 0 metoclopramide HCl [Reglan] 10 mg tablet 10 mg PO QIDACHS Qty: 120 RF: 6 hydrochlorothiazide 25 mg tablet 25 mg PO DAILY 30 Days Qty: 30 RF: 6 salmeterol 50 mcg/dose blister with device 1 inh PO BID RF: 0 cyanocobalamin (vitamin B-12) 250 mcg tablet 250 mcg PO DAILY RF: 0 fluticasone propionate 50 mcg/actuation spray,suspension 1 - 2 spray intranasal DAILY RF: 0 gabapentin 100 mg capsule 100 mg PO TID RF: 0 losartan 25 mg tablet 25 mg PO DAILY 30 Days Qty: 30 RF: 6 amlodipine 10 mg tablet 10 mg PO DAILY 30 Days Qty: 30 RF: 6 flu vacc [id number] 6mos up(PF) 60 mcg (15 mcg x 4)/0.5 mL syringe IM RF: 0
[2021-06-02 09:53] LABS: MANUAL DIFF FLAG NO
[2021-06-02 09:54] LABS: Basophils Percent Auto 0.4 % (0-2); Eosinophils Absolute Auto 0.2 X10*3/uL (0.0-0.4); Eosinophils Percent Auto 3.5 % (0-4); Hematocrit 40.9 % (42-52); Hemoglobin 14.8 g/dl (14.0-18.0); Imm Gran Abs Auto 0.02 X10*3/uL (0.00-0.03); Imm Gran Pct Auto 0.4 % (0.0-0.4); Lymphocytes Absolute Auto 1.3 X10*3/uL (1.2-4.9); Lymphocytes Percent Auto 28.3 % (20-40); Mean Corpuscular HGB Conc 36.2 g/dl (31.0-36.0); Mean Corpuscular Hemoglobin 36.6 pg (27.0-33.0); Mean Corpuscular Volume 101.2 fL (80-98); Mean Platelet Volume 8.9 fL (9.4-12.4); Monocytes Absolute Auto 0.4 X10*3/uL (0.1-1.2); Monocytes Percent Auto 8.4 % (2-11); Neutrophils Absolute Auto 2.7 X10*3/uL (2.0-8.3); Platelet Count 156 X10*3/uL (160-400); Red Blood Count 4.04 X10*6/uL (4.60-5.80); Red Cell Distribution Width 11.3 % (11.0-16.0); White Blood Count 4.5 X10*3/uL (4.8-10.8)
[2021-06-02 09:57] LABS: Glucose Urine UA NEG (NEG); Leukocyte Esterase Urine NEG (NEG); Nitrite Urine NEG (NEG); Specific Gravity - Urine <= 1.005 (1.005-1.025); UACC Culture Trigger NO; Urine Blood 3+ (NEG); Urine Ketones NEG (NEG); Urine Protein NEG (NEG-TRACE)
[2021-06-02 09:59] LABS: Appearance Urine CLEAR; Color Urine YELLOW
[2021-06-02] MEDS: 0.9 % Sodium Chloride 1,000 ML 999 ML IVCONT (10:05)
[2021-06-02 10:10] LABS: Bacteria Urine TRACE /LPF; Calcium Phosphate Crystals Ur TRACE /LPF; Squamous Epithelial Cell Urine TRACE /LPF; WBC Urine 0-2 /HPF (0-4)
[2021-06-02 10:19] LABS: Alanine Aminotransferase 25 U/L (0-40); Albumin Level 3.5 g/dL (3.5-5.0); Alkaline Phosphatase 97 U/L (39-117); Anion Gap 15 (12-20); Aspartate Amino Transferase 28 U/L (5-37); Bilirubin Direct 0.3 mg/dL (0.0-0.5); Bilirubin Total 0.6 mg/dL (0.0-1.0); Blood Urea Nitrogen 7 mg/dL (9-16); Calcium 7.9 mg/dL (8.4-10.2); Carbon Dioxide 22 mmol/L (22-29); Chloride 103 mmol/L (96-108); Creatinine Clr Calc Pharmacy 102.4; Estimated Glomerular Filt Rate > 60; Glucose Random 124 mg/dL (60-115); Magnesium 1.6 mg/dL (1.6-2.6); Potassium 3.5 mmol/L (3.3-5.1); Sodium 136 mmol/L (135-145); Total Protein 6.2 g/dL (6.5-8.0)
[2021-06-02 10:23] LABS: B Type Natriuretic Peptide < 10 pg/mL (<100); Troponin-I High Sensitivity 3.7 ng/L (<3.5-35.0)
[2021-06-02 10:31] LABS: INTERNATIONAL NORM RATIO 1.1 (0.9-1.1); Prothrombin Time 12.1 SEC (9.9-13.0)
[2021-06-02] MEDS: Morphine Sulfate 4 MG/ML CARTRIDGE IVPUSH (10:32)
[2021-06-02 10:34] LABS: Partial Thromboplastin Time 30.5 SEC (24.1-38.0)
--- NOTE | 2021-06-02 10:54 | PHA.MEDREC ---
Pharmacy Consult ? Medication Reconciliation Pharmacy has completed the medication reconciliation.
[2021-06-02] MEDS: iohexoL 350 MG/ML 100 ML INFUS..BTL 65 ML IV (10:56)
[2021-06-02 11:42] LABS: Influenza A PCR NEGATIVE (Negative); Influenza B PCR NEGATIVE (Negative); Resp Syncy Virus RNA Qual PCR NEGATIVE (Negative); SARS COV2 PCR INHOUSE NEGATIVE (Negative)
[2021-06-02 13:38] LABS: Troponin-I High Sensitivity 3.6 ng/L (<3.5-35.0)
--- NOTE | 2021-06-02 15:55 | PC.NURSE ---
bedside echo at this time, plan for repeat troponin
--- NOTE | 2021-06-02 15:57 | PM.IMHP ---
History of Present Illness Date of Service: 06/02/21 Chief Complaint: chest pain 51M presented with chest pain. patient states on am of presentation was standing in kitchen, felt sudden 10/10 midsternal chest pressure, radiating to left arm, associared with diaphoresis and sob, continued for several hours then resolved. some improvement with asa and nitro. in ED ekg and 2 sets of troponin negative. Review of Systems Review of Systems: Constitutional: Denies fever, denies Chills Eyes: denies blurry vision ENT: denies sore throat CVS: chest pain Respiratory: dyspnea GI: no abdominal pain : denies dysuria MSK: denies neck pain Skin: denies rash Neuro: denies specific motor weakness Psych: denies suicidal ideation Endocrine: denies heat/cold intolerance Hematologic: denies easy bleeding Allergy: denies hives PMFSH Medical History Allergic rhinitis Anaphylaxis Anxiety Asthma B12 deficiency Colon polyp COPD (chronic obstructive pulmonary disease) Diabetes type 2, uncontrolled Diverticulosis Dyslipidemia Dysphagia Fatty liver History of postoperative nausea and vomiting Hypertension IBS (irritable bowel syndrome) Nephrolithiasis Non-toxic multinodular goiter Obesity (BMI 30-39.9) SARAH (obstructive sleep apnea) Sleep apnea Vitamin D deficiency Family History Father Diabetes Mother CVD (cardiovascular disease) Cancer Family history: reviewed and not pertinent Surgical History Hx of adenoidectomy Hx of appendectomy Hx of colonoscopy Hx of cystoscopy Hx of esophagogastroduodenoscopy Hx of hernia repair Hx of lithotripsy Hx of umbilical hernia repair Social History Housing: House Alcohol intake: current Alcohol intake frequency: does not drink Patient Tobacco Use Status: Former Tobacco user Tobacco use type: Cigarette e-Cigarette/Vaping Use: Never Used Second Hand Smoke Exposure: No Use of substances other than those prescribed or required for medical reasons: No Advance Directives: No Advance Directives Information Provided: Yes service: No Current occupational status: unemployed and disabled Meds Allergies Allergy/AdvReac Type Severity Reaction Status Date / Time MONALISA Inhibitors Allergy Severe SHORTNESS Verified 05/31/21 06:50 [MONALISA INHIBITORS] OF BREATH Penicillins AdvReac Intermediate STOMACH Verified 05/31/21 06:50 UPSET stress induced anaphylaxis Allergy Severe Anaphylaxis Uncoded 11/09/20 11:05 Active Medications: Current Medications Generic Name Dose Route Start Last Admin Trade Name Freq PRN Reason Stop Dose Admin Albuterol Sulfate 2 puff 06/02/21 15:48 Albuterol Sulfate 90 Mcg 8 Gm Inhaler INHALE Q6H PRN shortness of breath or wheezing Allopurinol 100 mg 06/03/21 09:00 Allopurinol 100 Mg Tablet PO DAILY [facility] Amlodipine Besylate 10 mg 06/03/21 09:00 Amlodipine Besylate 10 Mg Tablet PO DAILY [facility] Protocol Cyanocobalamin 250 mcg 06/03/21 09:00 Cyanocobalamin (Vitamin B-12) 500 Mcg Tablet PO DAILY [facility] Gabapentin 100 mg 06/02/21 21:00 Gabapentin 100 Mg Capsule PO TID [facility] Hydrochlorothiazide 25 mg 06/03/21 09:00 Hydrochlorothiazide 25 Mg Tablet PO DAILY [facility] Protocol Losartan Potassium 25 mg 06/03/21 09:00 Losartan Potassium 25 Mg Tablet PO DAILY [facility] Protocol Metoclopramide HCl 10 mg 06/02/21 16:30 Metoclopramide Hcl 10 Mg Tablet PO QIDACHS [facility] Non-Formulary Medication 1 puff 06/02/21 21:00 Fluticasone Propionate [Flovent Hfa] INHALE BID [facility] Omeprazole 40 mg 06/02/21 21:00 Omeprazole 40 Mg Capsule. PO BID [facility] Pharmacy Consult 1 each 06/02/21 09:24 Consult Rx Perform Med Rec MISCELLANE ONCE PRN Consult order Sucralfate 1 gm 06/02/21 21:00 Sucralfate 1 Gm Tablet PO BID [facility] Tamsulosin HCl 0.4 mg 06/02/21 21:00 Tamsulosin Hcl 0.4 Mg Capsule PO BEDTIME [facility] Tramadol HCl 50 mg 06/02/21 15:48 Tramadol Hcl 50 Mg Tablet PO Q6H PRN pain (scale score 4-6) Home Medications Medication Instructions Recorded Confirmed Last Taken Type cyanocobalamin (vitamin B-12) 250 250 mcg PO DAILY 08/15/20 06/02/21 Unknown History mcg tablet fluticasone propionate 50 1 - 2 spray INTRANASAL DAILY 08/15/20 06/02/21 Unknown History mcg/actuation nasal spray,suspension gabapentin 100 mg capsule 100 mg PO TID 08/15/20 06/02/21 Unknown History salmeterol 50 mcg/dose blister 1 inh PO BID 08/15/20 06/02/21 Unknown History powder for inhalation flu vacc [id number] 6mos up(PF) ml IM 11/09/20 05/09/21 Unknown History chlorhexidine gluconate 0.12 % 15 ml PO BID 06/02/21 06/02/21 Unknown History mouthwash clindamycin HCl 150 mg capsule 150 mg PO QID 06/02/21 06/02/21 Unknown History dulaglutide 1.5 mg/0.5 mL 1.5 mg SUBCUT TH@0900 06/02/21 06/02/21 Unknown History subcutaneous pen injector (Trulicity) sucralfate 1 gram tablet 1 g PO BID 06/02/21 06/02/21 Unknown History Physical Exam Vital Signs and Narrative: Vital Signs: Last Vital Signs Temp 97.7 F 06/02/21 08:36 Pulse 83 06/02/21 14:41 Resp 16 06/02/21 14:41 BP 126/71 06/02/21 14:41 Pulse Ox 96 06/02/21 14:41 Body Mass Index 30.7 General: no acute distress HEENT: atraumatic Neck: normal to visual inspection CVS: S1, S2, RRR Resp: CTA bilateral Chest: non tender GI: soft, non tender, non distended : no CVA tenderness Skin: no rashes Extremities: no edema Neuro: Oriented X3, grossly intact Psych: cooperative Results Labs CBC and Chem 7: 06/02/21 09:45 06/02/21 09:45 Labs: Laboratory Results - last 24 hr 06/02/21 06/02/21 06/02/21 09:45 09:45 09:45 MCV 101.2 H MCH 36.6 H MCHC 36.2 H RDW 11.3 Plt Count 156 L MPV 8.9 L Immature Gran % (Auto) 0.4 Neut % (Auto) 59.0 Lymph % (Auto) 28.3 [place] % (Auto) 8.4 Eos % (Auto) 3.5 Baso % (Auto) 0.4 Lymph # (Auto) 1.3 [place] # (Auto) 0.4 Eos # (Auto) 0.2 Baso # (Auto) 0.0 Abs Immat Gran (auto) 0.02 Absolute Neuts (auto) 2.7 Absolute Nucleated RBC 0.000 Nucleated RBC % (auto) 0.0 PT INR APTT Anion Gap 15 Estim Creat Clear Calc 102.4 Estimated GFR > 60 Random Glucose 124 H Calcium 7.9 L D Magnesium 1.6 Total Bilirubin 0.6 Direct Bilirubin 0.3 AST 28 ALT 25 Alkaline Phosphatase 97 Troponin I High Sens 3.7 B-Natriuretic Peptide < 10 Total Protein 6.2 L Albumin 3.5 Urine Color Urine Appearance Urine pH Ur Specific [place] Urine Protein Urine Glucose (UA) Urine Ketones Urine Blood Urine Nitrite Ur Leukocyte Esterase Urine RBC Urine WBC Ur Squamous Epith Cells Calcium Phosphate Cryst Urine Bacteria Coronavirus (PCR) Influenza Type A (PCR) Influenza Type B (PCR) RSV RNA Qual (PCR) 06/02/21 06/02/21 06/02/21 09:45 09:46 10:03 MCV MCH MCHC RDW Plt Count MPV Immature Gran % (Auto) Neut % (Auto) Lymph % (Auto) [place] % (Auto) Eos % (Auto) Baso % (Auto) Lymph # (Auto) [place] # (Auto) Eos # (Auto) Baso # (Auto) Abs Immat Gran (auto) Absolute Neuts (auto) Absolute Nucleated RBC Nucleated RBC % (auto) PT 12.1 INR 1.1 APTT 30.5 Anion Gap Estim Creat Clear Calc Estimated GFR Random Glucose Calcium Magnesium Total Bilirubin Direct Bilirubin AST ALT Alkaline Phosphatase Troponin I High Sens B-Natriuretic Peptide Total Protein Albumin Urine Color YELLOW Urine Appearance CLEAR Urine pH 6.0 Ur Specific [place] <= 1.005 Urine Protein NEG Urine Glucose (UA) NEG Urine Ketones NEG Urine Blood 3+ H Urine Nitrite NEG Ur Leukocyte Esterase NEG Urine RBC 5-9 H Urine WBC 0-2 Ur Squamous Epith Cells TRACE Calcium Phosphate Cryst TRACE Urine Bacteria TRACE Coronavirus (PCR) NEGATIVE Influenza Type A (PCR) NEGATIVE Influenza Type B (PCR) NEGATIVE RSV RNA Qual (PCR) NEGATIVE 06/02/21 12:59 MCV MCH MCHC RDW Plt Count MPV Immature Gran % (Auto) Neut % (Auto) Lymph % (Auto) [place] % (Auto) Eos % (Auto) Baso % (Auto) Lymph # (Auto) [place] # (Auto) Eos # (Auto) Baso # (Auto) Abs Immat Gran (auto) Absolute Neuts (auto) Absolute Nucleated RBC Nucleated RBC % (auto) PT INR APTT Anion Gap Estim Creat Clear Calc Estimated GFR Random Glucose Calcium Magnesium Total Bilirubin Direct Bilirubin AST ALT Alkaline Phosphatase Troponin I High Sens 3.6 B-Natriuretic Peptide Total Protein Albumin Urine Color Urine Appearance Urine pH Ur Specific [place] Urine Protein Urine Glucose (UA) Urine Ketones Urine Blood Urine Nitrite Ur Leukocyte Esterase Urine RBC Urine WBC Ur Squamous Epith Cells Calcium Phosphate Cryst Urine Bacteria Coronavirus (PCR) Influenza Type A (PCR) Influenza Type B (PCR) RSV RNA Qual (PCR) Imaging Radiologist's Impressions: Impressions Chest X-Ray 06/02/21 09:24 IMPRESSION: Unremarkable chest exam. No major change from 06/23/2020. Chest CTA 06/02/21 10:06 IMPRESSION: 1. No pulmonary embolism. 2. No thoracic aortic dissection. 3. Minor bibasilar lateral posterior basilar disc atelectasis. No airspace consolidation or groundglass opacity or effusion. VTE: negative Assessment and Plan (1) SARAH (obstructive sleep apnea): Status: Acute 51M presented wtih chest pain chest pain follow up repeat troponin, echo, cardio eval asa, statin DM insulin htn losartan, hctz, amlodipine gout allopurinol pud ppi, carafate nephrolithiasis flomax Quality Stroke Does the patient have a stroke diagnosis?: No VTE Prior VTE?: No VTE Risk Level:: Medical - moderate - high VTE Device Contraindication: Treatment Not Indicated VTE Drug Contraindication: N/A - Med Ordered
--- NOTE | 2021-06-02 16:00 | CA_ITS ---
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 - No RWMA. - Normal biventricular function. Findings Procedure Information Contrast agent, definity, is being given per protocol without apparent complications. Left Ventricle Normal left ventricular size, thickness, and systolic function. The visually estimated ejection fraction is between 60-65%. There is no evidence of regional wall motion abnormalities. Diastolic function is indeterminate on the basis of available data. Right Ventricle Normal right ventricular cavity size and systolic function. Pericardium/Pleural There is no evidence of pericardial effusion. Prior Study Comparison No significant change compared to prior study dated: 07/06/2017. Measurements 2D Linear Measurements IVSd: 1.05 0.6-0.9/0.6-1.0 cm LVIDd: 4.40 3.9-5.3/4.2-5.9 cm LVIDd Index: 2.30 2.4-3.2/2.2-3.1 cm/m2 LVIDs: 2.56 2.0-3.6 cm LVPWd: 1.05 0.7-1.1 cm LV Mass: 197.02 67-162/88-224 g LV Mass Index: 103.15 43-95/49-115 g/m2 Updated in Other Vendor System with Status of Final Lino Aldridge MD electronically signed on 06/02/2021 8:59:19 PM with status of Final
[2021-06-02 17:57] LABS: Troponin-I High Sensitivity 3.7 ng/L (<3.5-35.0)
[2021-06-02 18:10] LABS: Glucose, Whole Blood 108 mg/dL (60-115)
[2021-06-02] MEDS: Metoclopramide HCl 10 MG TABLET PO ×2 (18:10→20:30)
[2021-06-02] MEDS: Enoxaparin Sodium 40 MG/0.4 ML SYRINGE SUBCUT (18:10)
[2021-06-02] MEDS: 0.9 % Sodium Chloride Flush 3 ML SYRINGE IVFLUSH ×2 (18:10→20:30)
--- NOTE | 2021-06-02 18:31 | PC.NURSE ---
Patient arrived to unit from ED around 1800. Admitted to [facility]. Patient A+O x 4, denies chest pain, dizziness, and nausea at this time. Patient low fall risk, no assistance required with ambulation/ADL's; patient instructed to not get up if he feels dizzy/lightheaded and to utilize call tracy for staff assistance, patient verbalizes understanding. Urinal also placed at bedside. Lungs clear throughout, HR regular, abdomen large/round/soft, patient reports last BM yesterday. No issues with urination, just that he urinates frequently due to having diabetes . POC 108, no insulin coverage per SSI. +1 edema noted to extremities, + CMS. No skin issues. Sinus/sinus tach in low 100s on monitor. Patient given dinner tray, at the bedside. No further issues reported. Will pass to oncoming RN.
[2021-06-02] MEDS: Sucralfate 1 GM TABLET PO (20:30)
[2021-06-02] MEDS: Tamsulosin HCL 0.4 MG CAPSULE PO (20:30)
[2021-06-02] MEDS: Omeprazole 40 MG CAPSULE.DR PO (20:30)
[2021-06-02] MEDS: Gabapentin 100 MG CAPSULE PO (20:30)
[2021-06-02] MEDS: Atorvastatin Calcium 40 MG TABLET PO (20:30)
[2021-06-02 21:09] LABS: Glucose, Whole Blood 115 mg/dL (60-115)
[2021-06-03 03:53] VITALS: BP 111/63; PULSE 84; RESP 18; TEMP 37.1; O2SAT 97
[2021-06-03] MEDS: Omeprazole 40 MG CAPSULE.DR PO (05:59)
[2021-06-03 07:24] VITALS: BP 119/73; PULSE 78; RESP 17; TEMP 37.1; O2SAT 95
[2021-06-03 07:31] LABS: Glucose, Whole Blood 109 mg/dL (60-115)
[2021-06-03 08:01] VITALS: BP 119/73; PULSE 78
[2021-06-03] MEDS: Sucralfate 1 GM TABLET PO (08:01)
[2021-06-03] MEDS: Metoclopramide HCl 10 MG TABLET PO ×2 (08:01→11:37)
[2021-06-03] MEDS: Cyanocobalamin (Vitamin B-12) 500 MCG TABLET 250 MCG PO (08:01)
[2021-06-03] MEDS: Losartan Potassium 25 MG TABLET PO (08:01)
[2021-06-03] MEDS: hydroCHLOROthiazide 25 MG TABLET PO (08:01)
[2021-06-03] MEDS: allopurinoL 100 MG TABLET PO (08:01)
[2021-06-03] MEDS: Gabapentin 100 MG CAPSULE PO (08:01)
[2021-06-03 08:02] VITALS: BP 119/73; PULSE 78
[2021-06-03] MEDS: amLODIPine Besylate 10 MG TABLET PO (08:02)
[2021-06-03] MEDS: 0.9 % Sodium Chloride Flush 3 ML SYRINGE IVFLUSH (08:02)
[2021-06-03] MEDS: Aspirin Enteric Coated 81 MG TABLET.DR PO (08:02)
[2021-06-03 11:08] LABS: Glucose, Whole Blood 131 mg/dL (60-115)
[2021-06-03 11:15] VITALS: BP 119/68; PULSE 86; RESP 18; TEMP 36.8; O2SAT 96
--- NOTE | 2021-06-03 12:18 | PM.CNCAR ---
History of Present Illness History of Present Illness Date of Service: 06/03/21 Requesting physician: Dave Encinas Chief complaint: Chest pain Narrative: 51-year-old gentleman with background history of gastroesophageal reflux disease, gastroparesis, atrial bowel syndrome, small-bowel obstruction, obstructive sleep apnea, hypertension, diabetes, COPD and hyperlipidemia who is presenting for chest pain. He said he has sudden-onset epigastric sharp chest pain and left arm weakness and per pressure-like feeling. These symptoms started suddenly and were quite severe from the start. He was given nitroglycerin and morphine with some relief. With symptoms ongoing he had normal echocardiogram without any wall motion abnormalities. His EKG did not show any dynamic changes. His troponins have been normal. He is now pain-free. He was fairly active at home before this happened and denied any exertional symptoms preceding this event. [facility] Past Medical History Medical History Allergic rhinitis Anaphylaxis Anxiety Asthma B12 deficiency Colon polyp COPD (chronic obstructive pulmonary disease) Diabetes type 2, uncontrolled Diverticulosis Dyslipidemia Dysphagia Fatty liver History of postoperative nausea and vomiting Hypertension IBS (irritable bowel syndrome) Nephrolithiasis Non-toxic multinodular goiter Obesity (BMI 30-39.9) SARAH (obstructive sleep apnea) Sleep apnea Vitamin D deficiency Family History Family History Father Diabetes Mother CVD (cardiovascular disease) Cancer Family history: reviewed and not pertinent Surgical History Surgical History Hx of adenoidectomy Hx of appendectomy Hx of colonoscopy Hx of cystoscopy Hx of esophagogastroduodenoscopy Hx of hernia repair Hx of lithotripsy Hx of umbilical hernia repair Social History Social History Housing: House Alcohol intake: current Alcohol intake frequency: does not drink Patient Tobacco Use Status: Former Tobacco user Tobacco use type: Cigarette e-Cigarette/Vaping Use: Never Used Second Hand Smoke Exposure: No Use of substances other than those prescribed or required for medical reasons: No Advance Directives: No Advance Directives Information Provided: Yes service: No Current occupational status: unemployed and disabled Meds Allergies Allergy/AdvReac Type Severity Reaction Status Date / Time MONALISA Inhibitors Allergy Severe SHORTNESS Verified 05/31/21 06:50 [MONALISA INHIBITORS] OF BREATH Penicillins AdvReac Intermediate STOMACH Verified 05/31/21 06:50 UPSET stress induced anaphylaxis Allergy Severe Anaphylaxis Uncoded 11/09/20 11:05 Active Medications: Current Medications Generic Name Dose Route Start Last Admin Trade Name Freq PRN Reason Stop Dose Admin Albuterol Sulfate 2 puff 06/02/21 15:48 Albuterol Sulfate 90 Mcg 8 Gm Inhaler INHALE Q6H PRN shortness of breath or wheezing Allopurinol 100 mg 06/03/21 09:00 06/03/21 08:01 Allopurinol 100 Mg Tablet PO 100 mg DAILY [facility] Administration Amlodipine Besylate 10 mg 06/03/21 09:00 06/03/21 08:02 Amlodipine Besylate 10 Mg Tablet PO 10 mg DAILY [facility] Administration Protocol Aspirin 81 mg 06/03/21 09:00 06/03/21 08:02 Aspirin Enteric Coated 81 Mg Tablet.Dr PO 81 mg DAILY SO Administration Atorvastatin Calcium 40 mg 06/02/21 21:00 06/02/21 20:30 Atorvastatin Calcium 40 Mg Tablet PO 40 mg BEDTIME SO Administration Cyanocobalamin 250 mcg 06/03/21 09:00 06/03/21 08:01 Cyanocobalamin (Vitamin B-12) 500 Mcg Tablet PO 250 mcg DAILY SO Administration Dextrose 25 gm 06/02/21 15:52 Dextrose 50 % 25 Gm/50 Ml Vial IVPUSH Q15M PRN per Hypoglycemia Standing Ord. Protocol Enoxaparin Sodium 40 mg 06/02/21 16:00 06/02/21 18:10 Enoxaparin Sodium 40 Mg/0.4 Ml Syringe SUBCUT 40 mg Q24H SO Administration Fluticasone Propionate 1 puff 06/02/21 20:00 06/03/21 08:16 Fluticasone Propionate 100 Mcg Blst.W.Dev INHALE Not Given RBID SO Gabapentin 100 mg 06/02/21 21:00 06/03/21 08:01 Gabapentin 100 Mg Capsule PO 100 mg TID SO Administration Glucose 15 gm 06/02/21 15:52 Glucose Gel 15 Gm Gel..Gram. PO Q15M PRN per Hypoglycemia Standing Ord. Protocol Hydrochlorothiazide 25 mg 06/03/21 09:00 06/03/21 08:01 Hydrochlorothiazide 25 Mg Tablet PO 25 mg DAILY SO Administration Protocol Insulin Human Lispro 0 unit 06/02/21 16:30 06/03/21 11:19 Insulin Lispro 100 Unit/Ml 3 Ml [facility]ial [facility]BC[facility] Losartan Potassium 25 mg 06/03/21 09:00 06/03/21 08:01 Losartan Potassium 25 Mg Tablet PO 25 mg DAILY [facility] Administration Protocol Metoclopramide HCl 10 mg 06/02/21 16:30 06/03/21 11:37 Metoclopramide Hcl 10 Mg Tablet PO 10 mg QIDACHS [facility] Administration Omeprazole 40 mg 06/02/21 21:00 06/03/21 05:59 Omeprazole 40 Mg Capsule.Dr PO 40 mg BID@[id number] [facility] Administration Pharmacy Consult 1 each 06/02/21 09:24 Consult Rx Perform Med Rec MISCELLANE ONCE PRN Consult order Sodium Chloride 3 ml 06/02/21 16:00 06/03/21 08:02 0.9 % Sodium Chloride Flush 3 Ml Syringe IVFLUSH 3 ml QSHIFT [facility] Administration Sucralfate 1 gm 06/02/21 21:00 06/03/21 08:01 Sucralfate 1 Gm Tablet PO 1 gm BID [facility] Administration Tamsulosin HCl 0.4 mg 06/02/21 21:00 06/02/21 20:30 Tamsulosin Hcl 0.4 Mg Capsule PO 0.4 mg BEDTIME [facility] Administration Tramadol HCl 50 mg 06/02/21 15:48 Tramadol Hcl 50 Mg Tablet PO Q6H PRN pain (scale score 4-6) Home Medications Medication Instructions Recorded Confirmed Last Taken Type cyanocobalamin (vitamin B-12) 250 250 mcg PO DAILY 08/15/20 06/02/21 Unknown History mcg tablet fluticasone propionate 50 1 - 2 spray INTRANASAL DAILY 08/15/20 06/02/21 Unknown History mcg/actuation nasal spray,suspension gabapentin 100 mg capsule 100 mg PO TID 08/15/20 06/02/21 Unknown History salmeterol 50 mcg/dose blister 1 inh PO BID 08/15/20 06/02/21 Unknown History powder for inhalation flu vacc [id number] 6mos up(PF) ml IM 11/09/20 05/09/21 Unknown History chlorhexidine gluconate 0.12 % 15 ml PO BID 06/02/21 06/02/21 Unknown History mouthwash clindamycin HCl 150 mg capsule 150 mg PO QID 06/02/21 06/02/21 Unknown History dulaglutide 1.5 mg/0.5 mL 1.5 mg SUBCUT TH@0900 06/02/21 06/02/21 Unknown History subcutaneous pen injector (Trulicity) sucralfate 1 gram tablet 1 g PO BID 06/02/21 06/02/21 Unknown History Physical Exam Vital Signs: Vital Signs: Last Vital Signs Temp 98.3 F 06/03/21 11:15 Pulse 86 06/03/21 11:15 Resp 18 06/03/21 11:15 BP 119/68 06/03/21 11:15 Pulse Ox 96 06/03/21 11:15 Body Mass Index 30.7 GENERAL APPEARANCE: in no acute distress, pleasant. NECK: no carotid bruit, no jugular venous distention. SKIN: no suspicious lesions, warm and dry. HEART: no murmurs, regular rate and rhythm. LUNGS: clear to auscultation bilaterally. ABDOMEN: soft, nontender. EXTREMITIES: no edema. PERIPHERAL PULSES: equal. NEUROLOGIC: No gross deficits, AAO X 3 Results Labs and Meds Result diagrams: 06/02/21 09:45 06/02/21 09:45 Lab results: Laboratory Results - last 24 hr 06/02/21 06/02/21 06/02/21 12:59 17:22 18:06 POC Glucose 108 Troponin I High Sens 3.6 3.7 06/02/21 06/03/21 06/03/21 21:05 07:21 10:59 POC Glucose 115 109 131 H Troponin I High Sens Imaging Radiologist's impression: Impressions Chest X-Ray 06/02/21 09:24 IMPRESSION: Unremarkable chest exam. No major change from 06/23/2020. Chest CTA 06/02/21 10:06 IMPRESSION: 1. No pulmonary embolism. 2. No thoracic aortic dissection. 3. Minor bibasilar lateral posterior basilar disc atelectasis. No airspace consolidation or groundglass opacity or effusion. VTE: negative Assessment and Plan (1) Chest pain: Qualifiers: Chest pain type: unspecified Qualified Code(s): R07.9 - Chest pain, unspecified Status: Acute Pleasant 51 year gentleman with past medical history as above who is presenting for chest pain. The chest pain is atypical in character. His biomarkers, EKG as well as echocardiogram were normal. He has significant GI issues. He has been ambulating the hallways without any symptoms. I think he can be discharged home and can have an exercise stress test as outpatient. We will arrange for next week. I have also given him the option to stay in the hospital and have it done on Saturday but he wishes to go home. Thank you for allowing me to participate in the care of your patient. Please feel free to contact me if you have any questions. Procedures Date of Service Date of Service: 06/03/21
--- NOTE | 2021-06-03 12:22 | PM.DS ---
DS: Providers Provider Date of Service: 06/03/21 Date of admission: 06/02/21 15:52 Primary care physician: eBto Kelly MD Consults: 06/02/21 13:51 Consult to Cardiology Stat Consulting Provider: Lino Aldridge Reason for consultation: chest pain radiating to left arm 06/02/21 15:50 Consult to Cardiology Routine Consulting Provider: Lino Aldridge Reason for consultation: chest pain DS: Diagnosis Discharge Diagnosis (1) SARAH (obstructive sleep apnea): Status: Acute DS: Medications Discharge Medications Home Medications: Home Medications Medication Instructions Recorded Confirmed cyanocobalamin (vitamin B-12) 250 250 mcg PO DAILY 08/15/20 06/02/21 mcg tablet fluticasone propionate 50 1 - 2 spray INTRANASAL DAILY 08/15/20 06/02/21 mcg/actuation nasal spray,suspension gabapentin 100 mg capsule 100 mg PO TID 08/15/20 06/02/21 salmeterol 50 mcg/dose blister 1 inh PO BID 08/15/20 06/02/21 powder for inhalation flu vacc [id number] 6mos up(PF) ml IM 11/09/20 05/09/21 chlorhexidine gluconate 0.12 % 15 ml PO BID 06/02/21 06/02/21 mouthwash clindamycin HCl 150 mg capsule 150 mg PO QID 06/02/21 06/02/21 dulaglutide 1.5 mg/0.5 mL 1.5 mg SUBCUT TH@0900 06/02/21 06/02/21 subcutaneous pen injector (Trulicity) sucralfate 1 gram tablet 1 g PO BID 06/02/21 06/02/21 Previous Rx's Medication Instructions Recorded albuterol sulfate 90 mcg/actuation 2 puff INHALATION Q6H PRN #6.7 g 08/10/20 aerosol inhaler (ProAir HFA) fluticasone propionate 110 1 puff INHALATION BID #12 g 08/10/20 mcg/actuation HFA aerosol inhaler (Flovent HFA) amlodipine 10 mg tablet 10 mg PO DAILY 30 Days #30 tab 08/15/20 losartan 25 mg tablet 25 mg PO DAILY 30 Days #30 tab 08/15/20 metoclopramide HCl 10 mg tablet 10 mg PO QIDACHS #120 tab 09/06/20 (Reglan) omeprazole 40 mg capsule,delayed 40 mg PO BID 30 Days #60 cap 01/05/21 release hydrochlorothiazide 25 mg tablet 25 mg PO DAILY 30 Days #30 tab 02/17/21 FreeStyle Lancets 28 gauge #100 ea NS 03/16/21 (lancets) blood sugar diagnostic (FreeStyle #100 ea 03/16/21 Lite Strips) allopurinol 100 mg tablet 100 mg PO DAILY 90 Days #90 tab 05/31/21 tamsulosin 0.4 mg capsule 0.4 mg PO BEDTIME 14 Days #14 cap 05/31/21 tramadol 50 mg tablet 50 mg PO Q6H PRN #14 tab 05/31/21 DS: Summary Hospital Course Hospital Course: patient was observed for chest pain, pain eventually subsided, troponin were negative, echo unremarkable. he will be discharged home. should follow up with cardiology for outpatient stress test. Time Spent with Patient Time attestation: Total time spent providing and/or coordinating discharge services: Discharge coordination time: Greater than 30 minutes Quality: Stroke Does the patient have a stroke diagnosis?: No Physical Exam Vital Signs: Vital Signs: Last Vital Signs Temp 98.3 F 06/03/21 11:15 Pulse 86 06/03/21 11:15 Resp 18 06/03/21 11:15 BP 119/68 06/03/21 11:15 Pulse Ox 96 06/03/21 11:15 Body Mass Index 30.7 General: AO X 3, no acute distress Resp: CTA bilateral CVS: S1,S2,RRR GI: soft, non tender, non distended Neuro: motor grossly intact Psych: appropriate affect DS: Data Data Completed and Pending Labs on day of discharge: Laboratory Results - last 24 hr 06/02/21 06/02/21 06/02/21 12:59 17:22 18:06 POC Glucose 108 Troponin I High Sens 3.6 3.7 06/02/21 06/03/21 06/03/21 21:05 07:21 10:59 POC Glucose 115 109 131 H Troponin I High Sens Discharge Plan Discharge Patient Disposition: Home, Self-Care Discharge Diagnosis: chest pain Referrals: Beto Kelly MD [Primary Care Provider] - 1 Week Discharge Medications: Continued Flovent HFA 110 mcg/actuation HFA aerosol inhaler 1 puff inhalation BID Qty: 12 RF: 3 albuterol sulfate [ProAir HFA] 90 mcg/actuation HFA aerosol inhaler 2 puff inhalation Q6H PRN (Reason: shortness of breath or wheezing) Qty: 6.7 RF: 3 omeprazole 40 mg capsule,delayed release(DR/EC) 40 mg PO BID 30 Days Qty: 60 RF: 3 (DME) FreeStyle Lite Strips Strip See Rx Instructions strip .ROUTE .MEDSUPPLY Qty: 100 RF: 11 (DME) lancets [FreeStyle Lancets] 28 gauge misc See Rx Instructions ea topical TID Qty: 100 RF: 11 clindamycin HCl 150 mg capsule 150 mg PO QID RF: 0 chlorhexidine gluconate 0.12 % mouthwash 15 ml PO BID RF: 0 sucralfate 1 gram Tablet 1 g PO BID RF: 0 Trulicity 1.5 mg/0.5 mL pen injector 1.5 mg subcut TH@0900 RF: 0 allopurinol 100 mg tablet 100 mg PO DAILY 90 Days Qty: 90 RF: 1 tramadol 50 mg tablet 50 mg PO Q6H PRN (Reason: pain (scale score 4-6)) Qty: 14 RF: 0 tamsulosin 0.4 mg capsule 0.4 mg PO BEDTIME 14 Days Qty: 14 RF: 0 metoclopramide HCl [Reglan] 10 mg tablet 10 mg PO QIDACHS Qty: 120 RF: 6 hydrochlorothiazide 25 mg tablet 25 mg PO DAILY 30 Days Qty: 30 RF: 6 salmeterol 50 mcg/dose blister with device 1 inh PO BID RF: 0 cyanocobalamin (vitamin B-12) 250 mcg tablet 250 mcg PO DAILY RF: 0 fluticasone propionate 50 mcg/actuation spray,suspension 1 - 2 spray intranasal DAILY RF: 0 gabapentin 100 mg capsule 100 mg PO TID RF: 0 losartan 25 mg tablet 25 mg PO DAILY 30 Days Qty: 30 RF: 6 amlodipine 10 mg tablet 10 mg PO DAILY 30 Days Qty: 30 RF: 6 flu vacc [id number] 6mos up(PF) 60 mcg (15 mcg x 4)/0.5 mL syringe IM RF: 0 Discharge Orders: Discharge Order (Routine); Ordered 06/03/21 Ordered By: Dave Encinas Diet: advance to usual diet Activity on Discharge: As tolerated Stand Alone Forms: Patient Portal Discharge page Care Plan Goals: work up symptoms Health Concerns: chest pain Plan of Treatment: follow up with cardiology for stress test Assessment: see above
== END 2021-06-03 14:19 | disposition home or self-care (01) ==
LOC: HO.ED 14:35 → HO.EDOVER 16:02 → HO.IMC 17:02
PROVIDERS: Physician Assistant; Admitting Provider Internal Medicine; Emergency Provider Emergency Medicine Emergency Medical Services; PCP Internal Medicine; Visit Provider Internal Medicine
DX: G47.33 Obstructive sleep apnea (adult) (pediatric) (principal); R07.9 Chest pain, unspecified; K21.9 Gastro-esophageal reflux disease without esophagitis; E11.65 Type 2 diabetes mellitus with hyperglycemia; E11.43 Type 2 diabetes mellitus with diabetic autonomic (poly)neuropathy; K31.84 Gastroparesis; I10 Essential (primary) hypertension; E78.5 Hyperlipidemia, unspecified; E66.01 Morbid (severe) obesity due to excess calories; Z68.30 Body mass index [BMI] 30.0-30.9, adult; Z87.891 Personal history of nicotine dependence; Z88.0 Allergy status to penicillin; Z88.8 Allergy status to other drugs, medicaments and biological substances; Z79.4 Long term (current) use of insulin; Z79.899 Other long term (current) drug therapy; Z53.29 Procedure and treatment not carried out because of patient's decision for other reasons
CPT/HCPCS: 0241U; 36415; 71045; 71275; 80048; 80076; 81001; 82947; 83735; 83880; 84484; 85025; 85610; 85730; 93005; 93308; 96361; 96372; 96374; 96375; 99219; 99285; J1650; J2270; J2405; Q9957; Q9967

== ENCOUNTER → 2021-06-08 08:28 | Outpatient (REF) | payer OTHER, SELFPAY ==
--- NOTE | 2021-06-08 08:30 | CA_ITS ---
Acquisition Time: 2021-06-08 08:27:10 Total Exercise Time: 00:08:00 Test Indications: Chest Pain Medications: FLOVENT OMEPRAZOLE ALBUTEROL SULCRAFATE ALLOPURINOL TRAMADOL TAMSULOSIN HCTZ GABAPENTIN LOSARTAN Protocol: MEGHANN Max HR: 148 BPM 87% of Pred: 169 BPM Max BP: 140/080 mmHG Max Work Load: 10.1 METS Exercise stress test with exercise 8 min of Meghann protocol, with mild to moderate shortness of breath, no chest discomfort, with isolated PVC in recovery, with normotensive response to exercise, with artifact at peak exercise, without EKG changes of ischemia at 13 sec of recovery, with nonspecific ST changes by 41 min recovery then with downsloping ST inferiorly, V5-6 with gradual improvement back to baseline. Test reviewed with Dr Mosher Will order stress echo to further evaluate for ischemia. Referred By: Lino Aldridge Overread By: LUCIO BOX
== END ==
LOC: HO.CARD 08:28
PROVIDERS: Visit Provider Internal Medicine Cardiovascular Disease
DX: R07.9 Chest pain, unspecified (principal)
CPT/HCPCS: 93017

== ENCOUNTER 2021-06-20 13:59 | Outpatient (REF) | payer OTHER, SELFPAY ==
--- NOTE | ~2021-06-20 | US_ITS ---
EXAMINATION: US RETROPERITONEAL LIMITED (RENAL ONLY) CLINICAL INFORMATION: Calculus of kidney. COMPARISON: KUB dated 05/31/2021 and 06/24/2020. Bilateral renal ultrasound dated 04/05/2021. MR abdomen without and with contrast dated 06/27/2020. CT abdomen and pelvis with intravenous contrast only dated 06/22/2020. Ultrasound abdomen complete dated 06/22/2020. TECHNIQUE: Real-time imaging of the kidneys. FINDINGS: RIGHT KIDNEY: 9.9 x 5.8 x 4.6 cm (SAG x AP x TRV). The kidney is normal in size, contour, and echogenicity. Renal cortical thickness is normal. There are several small echogenic foci with twinkle artifact questionable for stones. The largest measures 4 mm in the upper pole. No focal parenchymal lesions or hydronephrosis. LEFT KIDNEY: 10.3 x 4.9 x 5.1 cm (SAG x AP x TRV). The kidney is normal in size, contour, and echogenicity. Renal cortical thickness is normal. There is a 1 cm peripelvic cyst in the upper pole. There is a 5 mm echogenic foci in the upper pole with twinkle artifact questionable for a small stone. No hydronephrosis. US/US renal BI IMPRESSION: Question small bilateral renal stones. 1 cm left renal cyst.
== END 2021-06-20 14:00 | disposition home or self-care (01) ==
LOC: HO.US 13:59
PROVIDERS: PCP Internal Medicine; Visit Provider Urology
DX: N20.0 Calculus of kidney (principal)
CPT/HCPCS: 76775

== ENCOUNTER → 2021-06-21 10:57 | Outpatient (BNVA) | payer OTHER, SELFPAY | PROVIDERS: PCP Internal Medicine; Visit Provider Urology ==

== ENCOUNTER → 2021-07-05 10:27 | Outpatient (BNVA) | payer OTHER, SELFPAY | PROVIDERS: PCP Internal Medicine; Referring Provider Internal Medicine; Visit Provider Internal Medicine Cardiovascular Disease | DX: R07.9 Chest pain, unspecified (principal); I10 Essential (primary) hypertension; J44.9 Chronic obstructive pulmonary disease, unspecified; E11.65 Type 2 diabetes mellitus with hyperglycemia; E55.9 Vitamin D deficiency, unspecified; E53.8 Deficiency of other specified B group vitamins; E04.2 Nontoxic multinodular goiter; E66.9 Obesity, unspecified; Z68.31 Body mass index [BMI] 31.0-31.9, adult; Z88.0 Allergy status to penicillin; Z88.8 Allergy status to other drugs, medicaments and biological substances; Z79.4 Long term (current) use of insulin; Z79.899 Other long term (current) drug therapy | CPT/HCPCS: 99212 ==

== ENCOUNTER 2021-10-02 06:34 | Outpatient (REF) | payer OTHER, SELFPAY ==
[2021-10-02 06:48] LABS: MANUAL DIFF FLAG NO
[2021-10-02 06:54] LABS: Basophils Percent Auto 0.5 % (0-2); Eosinophils Absolute Auto 0.2 X10*3/uL (0.0-0.4); Eosinophils Percent Auto 6.1 % (0-4); Hematocrit 43.2 % (42.0-52.0); Hemoglobin 15.2 g/dl (14.0-18.0); Imm Gran Abs Auto 0.01 X10*3/uL (0.00-0.03); Imm Gran Pct Auto 0.3 % (0.0-0.4); Lymphocytes Absolute Auto 1.2 X10*3/uL (1.2-4.9); Lymphocytes Percent Auto 32.5 % (20-40); Mean Corpuscular HGB Conc 35.2 g/dl (31.0-36.0); Mean Corpuscular Hemoglobin 36.1 pg (27.0-33.0); Mean Corpuscular Volume 102.6 fL (80.0-98.0); Mean Platelet Volume 8.9 fL (9.4-12.4); Monocytes Absolute Auto 0.4 X10*3/uL (0.1-1.2); Monocytes Percent Auto 9.5 % (2-11); Neutrophils Absolute Auto 1.9 x10*3/uL (2.0-8.3); Neutrophils Percent Auto 51.1 % (45-73); Platelet Count 173 X10*3/uL (160-400); Red Blood Count 4.21 X10*6/uL (4.60-5.80); Red Cell Distribution Width 12.2 % (11.0-16.0); White Blood Count 3.8 X10*3/uL (4.8-10.8)
[2021-10-02 07:21] LABS: Alanine Aminotransferase 37 U/L (0-40); Albumin Level 3.8 g/dL (3.5-5.0); Alkaline Phosphatase 100 U/L (39-117); Anion Gap 11 (12-20); Aspartate Amino Transferase 36 U/L (5-37); Bilirubin Total 0.5 mg/dL (0.0-1.0); Blood Urea Nitrogen 8 mg/dL (9-16); Calcium 8.4 mg/dL (8.4-10.2); Carbon Dioxide 26 mmol/L (22-29); Chloride 107 mmol/L (96-108); Cholesterol 123 mg/dL; Estimated Glomerular Filt Rate > 60; Glucose Fasting 126 mg/dL (60-99); HDL Cholesterol 56 mg/dL; LDL Cholesterol Calculated 32 mg/dl; Potassium 3.7 mmol/L (3.3-5.1); Sodium 140 mmol/L (135-145); Total Protein 6.5 g/dL (6.5-8.0); Triglycerides 175 mg/dL
[2021-10-02 07:43] LABS: Prostate Specific Antigen Scr 0.89 ng/mL (<0.05-4.0)
[2021-10-02 08:33] LABS: Creatinine Urine 121.87 mg/dL; Microalbum/Creatinine Ratio Ur 50.8 ug/mg cr
== END 2021-10-02 06:35 | disposition home or self-care (01) ==
LOC: HO.LAB 06:34
PROVIDERS: PCP Internal Medicine; Visit Provider Internal Medicine
DX: Z00.00 Encounter for general adult medical examination without abnormal findings (principal); E11.9 Type 2 diabetes mellitus without complications; E03.9 Hypothyroidism, unspecified; R35.1 Nocturia; Z12.5 Encounter for screening for malignant neoplasm of prostate
CPT/HCPCS: 36415; 80053; 80061; 82043; 84153; 84443; 85025

== ENCOUNTER → 2021-10-03 12:35 | Outpatient (BNVA) | payer OTHER, SELFPAY | PROVIDERS: PCP Internal Medicine; Visit Provider Nurse Practitioner Gerontology | DX: E11.65 Type 2 diabetes mellitus with hyperglycemia (principal); E78.5 Hyperlipidemia, unspecified; E66.9 Obesity, unspecified; E55.9 Vitamin D deficiency, unspecified; E53.8 Deficiency of other specified B group vitamins; I10 Essential (primary) hypertension | CPT/HCPCS: 82947; 83036; 99212 ==

== ENCOUNTER → 2021-10-04 12:34 | Outpatient (BNVA) | payer OTHER, SELFPAY | PROVIDERS: PCP Internal Medicine; Referring Provider Internal Medicine; Visit Provider Internal Medicine Cardiovascular Disease | DX: I10 Essential (primary) hypertension (principal) | CPT/HCPCS: 99212 ==

== ENCOUNTER → 2021-11-09 14:40 | Outpatient (BNVA) | payer OTHER, SELFPAY | PROVIDERS: PCP Internal Medicine; Visit Provider Internal Medicine ==

== ENCOUNTER 2021-11-30 08:59 | Outpatient (REF) | payer OTHER, SELFPAY ==
--- NOTE | ~2021-11-30 | US_ITS ---
EXAMINATION: US RETROPERITONEAL LIMITED (RENAL ONLY) CLINICAL INFORMATION: Calculus of kidney. COMPARISON: Renal ultrasound 06/20/2021 and 04/05/2021. X-ray KUB 05/31/2021. MRI abdomen 06/27/2020. CT abdomen and pelvis 06/22/2020. TECHNIQUE: Real-time imaging of the kidneys. FINDINGS: RIGHT KIDNEY: 10.0 x 5.3 x 5.6 cm (SAG x AP x TRV). The kidney is normal in size, contour, and echogenicity. Renal cortical thickness is normal. There is a 4 mm nonobstructing mid pole calculus. There is no hydronephrosis of the right kidney. LEFT KIDNEY: 0.6 x 4.8 x 4.8 cm (SAG x AP x TRV). The kidney is normal in size, contour, and echogenicity. Renal cortical thickness is normal. There are several tiny nonobstructing calculi the left kidney, the largest measures 3 mm. There is no hydronephrosis of the left kidney. An approximately 1 cm parapelvic midpole cyst is again noted. US/US renal BI IMPRESSION: Tiny nonobstructing renal calculi bilaterally. No hydronephrosis.
== END 2021-11-30 09:00 | disposition home or self-care (01) ==
LOC: HO.HMGCX 08:59
PROVIDERS: PCP Internal Medicine; Visit Provider Urology
DX: N20.0 Calculus of kidney (principal)
CPT/HCPCS: 76775

== ENCOUNTER → 2021-12-22 10:18 | Outpatient (BNVA) | payer OTHER, SELFPAY | PROVIDERS: PCP Internal Medicine; Visit Provider Urology ==

== ENCOUNTER 2022-03-27 09:11 | Outpatient (REF) | payer OTHER, SELFPAY ==
[2022-03-27 10:51] LABS: Vitamin D 25-OH Total 22.5 ng/mL (>30)
[2022-03-27 11:07] LABS: Vitamin B12 < 146 pg/mL (200-900)
== END 2022-03-27 09:12 | disposition home or self-care (01) ==
LOC: HO.LAB 09:11
PROVIDERS: PCP Internal Medicine; Visit Provider Nurse Practitioner Gerontology
DX: E55.9 Vitamin D deficiency, unspecified (principal); E11.65 Type 2 diabetes mellitus with hyperglycemia
CPT/HCPCS: 36415; 82306; 82607

== ENCOUNTER 2022-03-28 09:17 | Outpatient (REF) | payer OTHER, SELFPAY ==
[2022-04-01 21:21] LABS: Intrinsic Factor Antibodies Negative (Negative)
== END 2022-03-28 09:18 | disposition home or self-care (01) ==
LOC: HO.LAB 09:17
PROVIDERS: PCP Internal Medicine; Visit Provider Nurse Practitioner Gerontology
DX: E53.8 Deficiency of other specified B group vitamins (principal)
CPT/HCPCS: 36415; 83516; 86340

== ENCOUNTER 2022-06-15 08:21 | Outpatient (REF) | payer OTHER, SELFPAY ==
--- NOTE | ~2022-06-15 | XR_ITS ---
Indication: Contusion EXAMINATION: Right hand. 4 views Findings; Probable fracture deformities of the distal fourth and fifth metacarpal. There is no acute fracture or dislocation is seen. XR/XR hand wrist RT IMPRESSION: No acute fracture or dislocation.
== END 2022-06-15 08:22 | disposition home or self-care (01) ==
LOC: HO.HMGCX 08:21
PROVIDERS: PCP Internal Medicine; Visit Provider Internal Medicine
DX: S60.211A Contusion of right wrist, initial encounter (principal)
CPT/HCPCS: 73110; 73130

== ENCOUNTER → 2022-07-11 09:04 | Outpatient (BNVA) | payer OTHER, SELFPAY | PROVIDERS: PCP Internal Medicine; Referring Provider Internal Medicine; Visit Provider Internal Medicine Cardiovascular Disease | DX: I10 Essential (primary) hypertension (principal) | CPT/HCPCS: 93005; 99212 ==

== ENCOUNTER → 2022-08-15 09:09 | Outpatient (BNVA) | payer OTHER, SELFPAY | PROVIDERS: PCP Internal Medicine; Visit Provider Nurse Practitioner | DX: K21.9 Gastro-esophageal reflux disease without esophagitis (principal); K31.84 Gastroparesis; K58.0 Irritable bowel syndrome with diarrhea | CPT/HCPCS: 99212 ==

== ENCOUNTER → 2022-09-12 08:53 | Outpatient (BNVA) | payer OTHER, SELFPAY | PROVIDERS: PCP Internal Medicine; Visit Provider Nurse Practitioner | DX: K58.0 Irritable bowel syndrome with diarrhea (principal); K21.9 Gastro-esophageal reflux disease without esophagitis; K31.84 Gastroparesis; R11.2 Nausea with vomiting, unspecified | CPT/HCPCS: 99212 ==

== ENCOUNTER 2022-09-28 12:20 | Outpatient (REF) | payer OTHER, SELFPAY ==
--- NOTE | ~2022-09-28 | US_ITS ---
EXAMINATION: US RETROPERITONEAL LIMITED (RENAL ONLY) CLINICAL INFORMATION: Calculus of kidney. COMPARISON: Renal ultrasound 11/30/2021 and 06/20/2021. X-ray KUB 05/31/2021 and 06/24/2020. MRI abdomen 06/27/2020. CT abdomen and pelvis 06/22/2020. TECHNIQUE: Real-time imaging of the kidneys. Technically limited study secondary to body habitus. FINDINGS: RIGHT KIDNEY: 10.6 x 6.2 x 6.1 cm (SAG x AP x TRV). The kidney is normal in size, contour, and echogenicity. Renal cortical thickness is normal. No focal parenchymal lesions or hydronephrosis. At the interpolar aspect, a 5 mm nonobstructing calculus is redemonstrated. LEFT KIDNEY: 10.1 x 4.3 x 4.9 cm (SAG x AP x TRV). The kidney is normal in size, contour, and echogenicity. Renal cortical thickness is normal. No definite renal calculi or hydronephrosis. At the interpolar aspect, a 1.1 cm in maximal diameter anechoic, simple cyst is seen. US/US renal BI IMPRESSION: 1. A 5 mm nonobstructing right renal calculus is redemonstrated. 2. A 1.1 cm in maximal diameter benign, simple left renal cyst is seen. This requires no imaging follow-up.
== END 2022-09-28 12:21 | disposition home or self-care (01) ==
LOC: HO.US 12:20
PROVIDERS: Visit Provider Urology
DX: N20.0 Calculus of kidney (principal); K58.0 Irritable bowel syndrome with diarrhea; K56.609 Unspecified intestinal obstruction, unspecified as to partial versus complete obstruction; K21.9 Gastro-esophageal reflux disease without esophagitis; K31.84 Gastroparesis
CPT/HCPCS: 76775; 99212

== ENCOUNTER → 2022-11-29 10:48 | Outpatient (BNVA) | payer OTHER, SELFPAY | PROVIDERS: PCP Internal Medicine; Visit Provider Nurse Practitioner | DX: K58.0 Irritable bowel syndrome with diarrhea (principal); K21.9 Gastro-esophageal reflux disease without esophagitis; K31.84 Gastroparesis | CPT/HCPCS: 99212 ==

== ENCOUNTER 2022-12-21 09:00 | Outpatient (REF) | payer OTHER, SELFPAY ==
[2022-12-21 11:29] LABS: Prostate Specific Antigen 1.12 ng/mL (<0.05-4.0)
[2022-12-21 11:51] LABS: Appearance Urine Clear; Color Urine Yellow; Glucose Urine UA Negative (Negative); Leukocyte Esterase Urine Negative (Negative); Nitrite Urine Negative (Negative); UMIC TRIGGER UACC YES; Urine Blood Negative (Negative); Urine Ketones Negative (Negative); Urine Protein 30 (1+) mg/dL (Neg-Trace)
[2022-12-21 11:57] LABS: Bacteria Urine None Seen (None Seen); RBC Urine 0-2 /HPF (0-2); Squamous Epithelial Cell Urine 0-2 /HPF (0-2); WBC Urine 0-5 /HPF (0-5)
== END 2022-12-21 09:01 | disposition home or self-care (01) ==
LOC: HO.LAB 09:00
PROVIDERS: Absent Provider Internal Medicine; PCP Internal Medicine; Visit Provider Urology
DX: N40.0 Benign prostatic hyperplasia without lower urinary tract symptoms (principal); N20.0 Calculus of kidney; E11.65 Type 2 diabetes mellitus with hyperglycemia; R39.9 Unspecified symptoms and signs involving the genitourinary system; Z79.899 Other long term (current) drug therapy
CPT/HCPCS: 36415; 81001; 84153; 99212

== ENCOUNTER → 2022-12-24 10:51 | Outpatient (BNVA) | payer OTHER, SELFPAY | PROVIDERS: PCP Internal Medicine; Visit Provider Internal Medicine | DX: J44.9 Chronic obstructive pulmonary disease, unspecified (principal); J30.9 Allergic rhinitis, unspecified; R05.9 Cough, unspecified; G47.33 Obstructive sleep apnea (adult) (pediatric); Z79.899 Other long term (current) drug therapy | CPT/HCPCS: 99212 ==

== ENCOUNTER → 2023-01-10 08:21 | Outpatient (BNVA) | payer OTHER, SELFPAY | PROVIDERS: PCP Internal Medicine; Visit Provider Nurse Practitioner | DX: K58.0 Irritable bowel syndrome with diarrhea (principal); K21.9 Gastro-esophageal reflux disease without esophagitis; K31.84 Gastroparesis; Z79.899 Other long term (current) drug therapy | CPT/HCPCS: 99212 ==

== ENCOUNTER → 2023-02-20 08:04 | Outpatient (BNVA) | payer OTHER, SELFPAY | PROVIDERS: PCP Internal Medicine; Visit Provider Nurse Practitioner | DX: K22.4 Dyskinesia of esophagus (principal); K21.9 Gastro-esophageal reflux disease without esophagitis; K58.0 Irritable bowel syndrome with diarrhea; K31.84 Gastroparesis | CPT/HCPCS: 99212 ==

== ENCOUNTER → 2023-03-21 08:33 | Outpatient (BNVA) | payer OTHER, SELFPAY | PROVIDERS: PCP Internal Medicine; Visit Provider Nurse Practitioner | DX: K58.0 Irritable bowel syndrome with diarrhea (principal); K21.9 Gastro-esophageal reflux disease without esophagitis; K31.84 Gastroparesis; K22.4 Dyskinesia of esophagus | CPT/HCPCS: 99212 ==

== ENCOUNTER 2023-07-03 07:50 | Outpatient (AMB) | payer OTHER, SELFPAY ==
[2023-07-03 08:31] VITALS: BP 119/60; PULSE 85; O2SAT 98; BMI 38.4
--- NOTE | 2023-07-03 08:31 | MHC.PC.OV ---
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 Accompanied by: Self / Same As Patient Allergies MONALISA Inhibitors [MONALISA INHIBITORS] Allergy (Severe, Verified 07/03/23 08:32) SHORTNESS OF BREATH Penicillins Adverse Reaction (Intermediate, Verified 07/03/23 08:32) STOMACH UPSET stress induced anaphylaxis Allergy (Severe, Uncoded 07/03/23 08:32) Anaphylaxis Medication List - Last Reconciled 07/03/23 by Beto Kelly MD allopurinol 100 mg PO DAILY 90 days amlodipine 10 mg PO DAILY 30 days blood sugar diagnostic (FreeStyle Lite Strips) 3 jeremias a day cholecalciferol (vitamin D3) 25 mcg PO DAILY cyanocobalamin (vitamin B-12) (Vitamin B-12) 250 mcg PO DAILY 60 days dorzolamide-timolol 22.3-6.8 mg/mL 1 drp ophthalmic (eye) BID eluxadoline (Viberzi) 75 mg PO BID eluxadoline (Viberzi) 100 mg PO BID epinephrine (EpiPen 2-Benedict) 0.3 mg (0.3 mL) IM ONCE PRN flash glucose sensor (FreeStyle Arnulfo 14 Day Sensor kit) As directed fluticasone propionate 50 mcg/actuation 1 - 2 sprays intranasal DAILY fluticasone propionate 110 mcg/actuation (Flovent HFA) 1 puff inhalation BID FreeStyle Lancets (lancets) 3 times a day NS gabapentin 100 mg PO TID hydrochlorothiazide 25 mg PO DAILY 30 days losartan 50 mg PO DAILY metoclopramide HCl (Reglan) 1 tabs qac tid and 2 qhs orally 4 times a day before meal/bed; omeprazole 40 mg PO DAILY pyridoxine (vitamin B6) 100 mg PO DAILY 90 days salmeterol (Serevent Diskus) 1 inh inhalation BID 30 days semaglutide (Ozempic) 0.5 mg (0.4 mL) subcut QWEEK tirzepatide (Mounjaro) 5 mg (0.5 mL) subcut QWEEK Ventolin HFA 90 mcg/actuation (albuterol sulfate) 2 puffs inhalation Q6H PRN 30 days NS Tobacco use date assessed: 12/28/22 Dental Screening Dental Screen Date: 07/03/23 Did you have a dental visit in the last 12 months?: Yes Did you have a dental problem in the last 6 months where you did not have access to dental care?: No Was dental information given to patient?: Patient has dentist HPI 6m F/U HPI Details DM gout and HTN; doing well; A1C fine PFSH Medical History Allergic rhinitis Anaphylaxis Anxiety Asthma Asthma B12 deficiency BPH (benign prostatic hyperplasia) COPD (chronic obstructive pulmonary disease) Diabetes type 2, uncontrolled Diverticulosis Dyslipidemia Dysphagia Fatty liver History of postoperative nausea and vomiting Hypertension IBS (irritable bowel syndrome) Nephrolithiasis Non-toxic multinodular goiter Obesity Obesity (BMI 30-39.9) SARAH (obstructive sleep apnea) Sleep apnea Type 2 diabetes mellitus with obesity Vitamin D deficiency Surgical History Hx of adenoidectomy Hx of appendectomy Hx of colonoscopy Hx of cystoscopy Hx of esophagogastroduodenoscopy Hx of hernia repair Hx of lithotripsy Hx of umbilical hernia repair Family History Father Diabetes Mother CVD (cardiovascular disease) Cancer Social History Housing: House Alcohol intake: current Alcohol intake frequency: a few times a week Patient Tobacco Use Status: Former Tobacco user Tobacco use type: Cigarette e-Cigarette/Vaping Use: Never Used Second Hand Smoke Exposure: No service: No Current occupational status: unemployed and disabled Cognitive needs: No Hearing needs: No Vision needs: No Questionnaire PHQ-9 Over the last 2 weeks, how often have you been bothered by any of the following problems? 1. Little interest or pleasure in doing things: not at all 2. Feeling down, depressed, or hopeless: not at all 3. Trouble falling or staying asleep, or sleeping too much: not at all 4. Feeling tired or having little energy: not at all 5. Poor appetite or overeating: not at all 6. Feeling bad about yourself - or that you are a failure or have let yourself or your family down: not at all 7. Trouble concentrating on things, such as reading the newspaper or watching television: not at all 8. Moving or speaking so slowly that other people could have noticed. Or the opposite - being so fidgety or restless that you have been moving around a lot more than usual: not at all 9. Thoughts that you would be better off or of hurting yourself in some way: not at all Total score: 0 Depression Screening Interpretation: Negative [id number] - PHQ-9 Billing: Yes Source: Developed by Drs. Sam Sharp, Paula Allen, Samson Zavala and colleagues, with an educational fawn from [employer]. Thrive Questionnaire Date Thrive assessed: 12/28/22 Currently or been in a relationship where the following occur: no concerns reported AUDIT C Alcohol Use Questionnaire (AUDIT-C) 1. How often do you have a drink containing alcohol?: 2-3 times a week 2. How many drinks containing alcohol do you have on a typical day when you are drinking?: 1 or 2 3. How often do you have six or more drinks on one occasion?: Never Total Score: 3 Score Reviewed/Action Taken: Yes VILLA-7 AMB Questionnaire VILLA-7 Date VILLA - 7 assessed: 12/28/22 Source: Developed by Drs. Sam Sharp, Paula Allen, Samson Zavala and colleagues, with an educational fawn from [employer]. Review of Systems Const Denies chills, Denies headache(s) and Denies weight loss ENT Denies headache(s) Card Denies chest pain, Denies syncope, Denies irregular heart rhythm and Denies dyspnea Resp Denies chest congestion, Denies cough and Denies dyspnea GI Denies abdominal pain, Denies change in stool character, Denies nausea and Denies vomiting Musc Denies deformity and Denies joint swelling Neuro Denies syncope and Denies headache(s) Physical exam (Primary Care) Vital Signs: Last Vital Signs Pulse 85 07/03/23 08:31 BP 119/60 07/03/23 08:31 Pulse Ox 98 07/03/23 08:31 Oxygen Delivery Method Room Air 07/03/23 08:31 BMI result Body Mass Index 38.4 Tobacco/Smoking Status: Tobacco use Status Tobacco use date assessed 12/28/22 07/03/23 08:32 Patient Tobacco Use Status Former Tobacco user 07/03/23 08:32 Tobacco use type Cigarette 07/03/23 08:32 e-Cigarette/Vaping Use Never Used 07/03/23 08:32 PHQ-9: PHQ-9 Score PHQ-9: Total score 0 07/03/23 08:44 Depression Screening Interpretation: Negative Thrive Assessment: Date of Thrive Assessment Date Thrive assessed 12/28/22 07/03/23 08:32 Currently or been in a relationship where the following occur: no concerns reported Const General: cooperative, comfortable and no acute distress Resp Effort & Inspection: normal respiratory effort Auscultation: clear to auscultation bilaterally Percussion: percussion normal Cardio Jugular venous distension: no JVD Rate: regular rate GI Inspection: Yes normal to inspection Results AMB Hemoglobin A1c AMB Hemoglobin A1c 6.1 % Last Edit by JUAN Omalley on 07/03/23 08:45 Results Reviewed Results Reviewed: Laboratory Last Values Hgb A1c (Clinic) 6.1 % (4.0-6.0) H 07/03/23 08:33 Assessment and Plan Assessment & Plan (1) Type 2 diabetes mellitus with obesity: Code(s): E11.69 - Type 2 diabetes mellitus with other specified complication; E66.9 - Obesity, unspecified Plan: stable; same rx; do labs (2) Hypertension: Code(s): I10 - Essential (primary) hypertension Plan: stable; same rx (3) Gout: Code(s): M10.9 - Gout, unspecified Plan: stable; same rx Orders: Orders AMB Hemoglobin A1c Today E11.65 - Type 2 diabetes mellitus with hyperglycemia Coding Level of Care Code Est Pt Level 4 (33893) Diagnoses Type 2 diabetes mellitus with obesity E11.69; E66.9 Hypertension I10 Gout M10.9
== END 2023-07-03 08:56 | disposition home or self-care (01) ==
PROVIDERS: PCP Internal Medicine; Visit Provider Internal Medicine
DX: E11.69 Type 2 diabetes mellitus with other specified complication (principal); I10 Essential (primary) hypertension; E66.9 Obesity, unspecified; Z68.38 Body mass index [BMI] 38.0-38.9, adult; E11.65 Type 2 diabetes mellitus with hyperglycemia; M10.9 Gout, unspecified
CPT/HCPCS: 83036; 99214

== ENCOUNTER 2023-07-10 10:21 | Outpatient (AMB) | payer OTHER, SELFPAY ==
[2023-07-10 10:52] VITALS: BP 120/62; PULSE 93; BMI 38.7
--- NOTE | 2023-07-10 10:52 | A.OFFVIS_ITS ---
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 by: Spouse Allergies MONALISA Inhibitors [MONALISA INHIBITORS] Allergy (Severe, Verified 07/10/23 10:56) SHORTNESS OF BREATH Penicillins Adverse Reaction (Intermediate, Verified 07/10/23 10:56) STOMACH UPSET stress induced anaphylaxis Allergy (Severe, Uncoded 07/03/23 08:32) Anaphylaxis Medication List - Last Reconciled 07/10/23 by Lino Aldridge MD allopurinol 100 mg PO DAILY 90 days amlodipine 10 mg PO DAILY 30 days blood sugar diagnostic (FreeStyle Lite Strips) 3 jeremias a day cholecalciferol (vitamin D3) 25 mcg PO DAILY cyanocobalamin (vitamin B-12) (Vitamin B-12) 250 mcg PO DAILY 60 days dorzolamide-timolol 22.3-6.8 mg/mL 1 drp ophthalmic (eye) BID eluxadoline (Viberzi) 75 mg PO BID eluxadoline (Viberzi) 100 mg PO BID epinephrine (EpiPen 2-Benedict) 0.3 mg (0.3 mL) IM ONCE PRN flash glucose sensor (FreeStyle Arnulfo 14 Day Sensor kit) As directed fluticasone propionate 50 mcg/actuation 1 - 2 sprays intranasal DAILY fluticasone propionate 110 mcg/actuation (Flovent HFA) 1 puff inhalation BID FreeStyle Lancets (lancets) 3 times a day NS gabapentin 100 mg PO TID hydrochlorothiazide 25 mg PO DAILY 30 days losartan 50 mg PO DAILY metoclopramide HCl (Reglan) 1 tabs qac tid and 2 qhs orally 4 times a day before meal/bed; omeprazole 40 mg PO DAILY pyridoxine (vitamin B6) 100 mg PO DAILY 90 days salmeterol (Serevent Diskus) 1 inh inhalation BID 30 days tirzepatide (Mounjaro) 5 mg (0.5 mL) subcut QWEEK Ventolin HFA 90 mcg/actuation (albuterol sulfate) 2 puffs inhalation Q6H PRN 30 days NS HPI HPI Comments History of Present Illness Details Pleasant 53-year-old gentleman here for follow-up. He was seen for sharp epigastric and lower chest pain as well as left arm weakness/numbness. He was ruled out and sent home and underwent exercise stress test. He was able to exercise for 8 minutes on Pietro protocol achieving 10.1 metabolic equivalents. There was significant artifact during exercise but in recovery he had some nonspecific ST changes with mild depressions. He had no chest discomfort in particular or arm discomfort/numbness during exercise. He has done well. He takes care of his mother and is quite active at home. He denies any chest pain or shortness of breath while doing any activities. 07/10/23: He returns for follow-up. He has been doing well and is denying any chest discomfort. He has asthma and has been using albuterol more frequently but that helps his breathing. He has been taking his blood pressure medications regularly. Blood pressure control is good. [facility] Medical History Allergic rhinitis Anaphylaxis Anxiety Asthma Asthma B12 deficiency BPH (benign prostatic hyperplasia) COPD (chronic obstructive pulmonary disease) Diabetes type 2, uncontrolled Diverticulosis Dyslipidemia Dysphagia Fatty liver History of postoperative nausea and vomiting Hypertension IBS (irritable bowel syndrome) Nephrolithiasis Non-toxic multinodular goiter Obesity Obesity (BMI 30-39.9) SARAH (obstructive sleep apnea) Sleep apnea Type 2 diabetes mellitus with obesity Vitamin D deficiency Surgical History Hx of umbilical hernia repair Hx of cystoscopy Hx of lithotripsy Hx of colonoscopy Hx of esophagogastroduodenoscopy Hx of adenoidectomy Hx of hernia repair Hx of appendectomy Family History Father Diabetes Mother CVD (cardiovascular disease) Cancer Social History Housing: House Alcohol intake: current Alcohol intake frequency: a few times a week Patient Tobacco Use Status: Former Tobacco user Tobacco use type: Cigarette e-Cigarette/Vaping Use: Never Used Second Hand Smoke Exposure: No service: No Current occupational status: unemployed and disabled Cognitive needs: No Hearing needs: No Vision needs: No Review of Systems ENT Reports dizziness Card Denies chest pain, Denies chest pain at rest, Denies chest pain with activity, Denies rapid heart rate, Denies pedal edema, Denies edema, Denies leg edema, Denies lightheadedness, Denies palpitations, Denies dyspnea, Denies dyspnea on exertion and Denies orthopnea Resp Denies cough, Denies dyspnea and Denies dyspnea on exertion GI Denies hematochezia and Denies change in stool character Musc Denies abnormal gait, Reports limited range of motion, Reports muscle cramps, Denies muscle weakness, Denies numbness, Denies radiating pain into limb, Denies stiffness and Denies tingling Neuro Denies abnormal gait, Reports dizziness, Denies numbness and Denies tingling Endo Denies palpitations Physical Exam Vital Signs: Last Vital Signs Pulse 93 07/10/23 10:52 BP 120/62 07/10/23 10:52 BMI result Body Mass Index 38.7 GENERAL APPEARANCE: in no acute distress, pleasant. NECK: no carotid bruit, no jugular venous distention. SKIN: no suspicious lesions, warm and dry. HEART: no murmurs, regular rate and rhythm. LUNGS: clear to auscultation bilaterally. ABDOMEN: soft, nontender. EXTREMITIES: no edema. PERIPHERAL PULSES: equal. NEUROLOGIC: No gross deficits, AAO X 3 Office Procedures EKG Details: Sinus rhythm 93 beats per minute, normal axis, QTC 460 milliseconds. [id number], Complete Assessment & Plan Assessment & Plan (1) Hypertension: Code(s): I10 - Essential (primary) hypertension (2) Dyslipidemia: Code(s): E78.5 - Hyperlipidemia, unspecified Plan Pleasant 53-year-old gentleman who is here for follow-up. He has hypertension and is currently taking losartan 50 mg and hydrochlorothiaz manny 25 mg daily. His blood pressure control is good. Being a diabetic, he should be on statin therapy. I have discussed this with the patient and have started him on Crestor 20 mg once a day. He will see us back in 6 months. Thank you for allowing me to participate in the care of your patient. Please feel free to contact me if you have any questions. Medications: New rosuvastatin 20 mg PO DAILY 60 tabs 3RF E11.69 - Type 2 diabetes mellitus with other specified complication, E66.9 - Obesity, unspecified Coding Level of Care Code Est Pt Level 4 (68428) Diagnoses Hypertension I10 Dyslipidemia E78.5 CPT Codes EKG - CPT: 00205-[id number], Complete ([id number])
== END 2023-07-10 11:52 | disposition home or self-care (01) ==
PROVIDERS: PCP Internal Medicine; Referring Provider Internal Medicine; Visit Provider Internal Medicine Cardiovascular Disease
DX: I10 Essential (primary) hypertension (principal); E78.5 Hyperlipidemia, unspecified
CPT/HCPCS: 93010; 99214

== ENCOUNTER → 2023-07-10 10:21 | Outpatient (BNVA) | payer OTHER, SELFPAY | PROVIDERS: PCP Internal Medicine; Referring Provider Internal Medicine; Visit Provider Internal Medicine Cardiovascular Disease | DX: I10 Essential (primary) hypertension (principal); E78.5 Hyperlipidemia, unspecified | CPT/HCPCS: 93005; 99212 ==

== ENCOUNTER 2023-07-12 08:10 | Outpatient (REF) | payer OTHER, SELFPAY ==
[2023-07-12 08:30] LABS: MANUAL DIFF FLAG NO
[2023-07-12 09:26] LABS: Basophils Percent Auto 0.6 % (0-2); Eosinophils Absolute Auto 0.3 X10*3/uL (0.0-0.4); Eosinophils Percent Auto 4.1 % (0-4); Hematocrit 45.7 % (42.0-52.0); Hemoglobin 15.6 g/dl (14.0-18.0); Imm Gran Abs Auto 0.02 X10*3/uL (0.00-0.03); Imm Gran Pct Auto 0.3 % (0.0-0.4); Lymphocytes Percent Auto 45.6 % (20-40); Mean Corpuscular HGB Conc 34.1 g/dl (31.0-36.0); Mean Corpuscular Hemoglobin 33.9 pg (27.0-33.0); Mean Corpuscular Volume 99.3 fL (80.0-98.0); Mean Platelet Volume 9.8 fL (9.4-12.4); Monocytes Absolute Auto 0.6 X10*3/uL (0.1-1.2); Monocytes Percent Auto 9.4 % (2-11); Neutrophils Absolute Auto 2.6 x10*3/uL (2.0-8.3); Platelet Count 208 X10*3/uL (160-400); Red Cell Distribution Width 12.6 % (11.0-16.0); White Blood Count 6.5 X10*3/uL (4.8-10.8)
[2023-07-12 09:27] LABS: Estimated Average Glucose 126 mg/dL
[2023-07-12 10:27] LABS: Alanine Aminotransferase 29 U/L (0-40); Albumin Level 3.8 g/dL (3.5-5.0); Alkaline Phosphatase 96 U/L (39-117); Anion Gap 12 (12-20); Aspartate Amino Transferase 26 U/L (5-37); Bilirubin Total 0.5 mg/dL (0.0-1.0); Blood Urea Nitrogen 8 mg/dL (9-16); Calcium 8.8 mg/dL (8.4-10.2); Carbon Dioxide 28 mmol/L (22-29); Chloride 103 mmol/L (96-108); Cholesterol 131 mg/dL (<200); Estimated Glomerular Filt Rate > 60; Glucose Fasting 136 mg/dL (60-99); HDL Cholesterol 53 mg/dL (>40); LDL Cholesterol Calculated 61 mg/dL (<100); Potassium 3.8 mmol/L (3.3-5.1); Sodium 139 mmol/L (135-145); Total Protein 6.7 g/dL (6.5-8.0); Triglycerides 85 mg/dL (<150)
[2023-07-12 10:30] LABS: Thyroid Stimulating Hormone 2.38 uIU/mL (0.32-4.0)
== END 2023-07-12 08:11 | disposition home or self-care (01) ==
LOC: HO.LAB 08:10
PROVIDERS: PCP Internal Medicine; Visit Provider Internal Medicine
DX: E03.9 Hypothyroidism, unspecified (principal); E78.5 Hyperlipidemia, unspecified; R73.9 Hyperglycemia, unspecified; N28.9 Disorder of kidney and ureter, unspecified; D64.9 Anemia, unspecified
CPT/HCPCS: 36415; 80053; 80061; 83036; 84443; 85025

== ENCOUNTER 2023-08-12 13:28 | Outpatient (AMB) | payer OTHER, SELFPAY ==
[2023-08-12 13:31] VITALS: BP 132/82; PULSE 86; O2SAT 95; BMI 38.3
--- NOTE | 2023-08-12 13:31 | A.OFFVIS_ITS ---
Intake Vital Signs 08/12/23 13:31 Height 5 ft 1 in Weight 202 lb 13.204 oz BMI 38.3 BP 132/82 Blood Pressure Location Lt brachial Position Sitting Pulse 86 Pulse Source Doppler Pulse Oximetry (%) 95 Oxygen Delivery Method Room Air Intake Visit Reasons: productive cough/SOB Intake Note: Patient is here for a sick visit, pt c/o clear productive cough/ sob for 3 weeks, tested negative for covid Allergies MONALISA Inhibitors [MONALISA INHIBITORS] Allergy (Severe, Verified 08/12/23 13:43) SHORTNESS OF BREATH Penicillins Adverse Reaction (Intermediate, Verified 08/12/23 13:43) STOMACH UPSET stress induced anaphylaxis Allergy (Severe, Uncoded 08/12/23 13:43) Anaphylaxis Medication List - Last Reconciled 08/12/23 by Jovita Parrish MD allopurinol 100 mg PO DAILY 90 days amlodipine 10 mg PO DAILY 30 days blood sugar diagnostic (FreeStyle Lite Strips) 3 jeremias a day cholecalciferol (vitamin D3) 25 mcg PO DAILY cyanocobalamin (vitamin B-12) (Vitamin B-12) 250 mcg PO DAILY 60 days dorzolamide-timolol 22.3-6.8 mg/mL 1 drp ophthalmic (eye) BID eluxadoline (Viberzi) 75 mg PO BID eluxadoline (Viberzi) 100 mg PO BID epinephrine (EpiPen 2-Benedict) 0.3 mg (0.3 mL) IM ONCE PRN flash glucose sensor (FreeStyle Arnulfo 14 Day Sensor kit) As directed fluticasone propionate 50 mcg/actuation 1 - 2 sprays intranasal DAILY fluticasone propionate 110 mcg/actuation (Flovent HFA) 1 puff inhalation BID FreeStyle Lancets (lancets) 3 times a day NS gabapentin 100 mg PO TID hydrochlorothiazide 25 mg PO DAILY 30 days losartan 50 mg PO DAILY metoclopramide HCl (Reglan) 1 tabs qac tid and 2 qhs orally 4 times a day before meal/bed; omeprazole 40 mg PO DAILY pyridoxine (vitamin B6) 100 mg PO DAILY 90 days rosuvastatin 20 mg PO DAILY salmeterol (Serevent Diskus) 1 inh inhalation BID 30 days tirzepatide (Mounjaro) 5 mg (0.5 mL) subcut QWEEK Ventolin HFA 90 mcg/actuation (albuterol sulfate) 2 puffs inhalation Q6H PRN 30 days NS Do you need a note to return to daycare/school/sports/work: No HPI productive cough/SOB HPI Details THIS 53 YEARS OLD GENTLEMAN COMES AFTER. 6 MONTHS FOR FOLLOW-UP DURING THE PAST 6 MONTHS HE HAS BEEN DOING VERY WELL BUT, IN THE LAST 3 WEEKS HE HAS BEEN SUFFERING FROM UPPER RESPIRATORY INFECTION SYMPTOMS. IT STARTED WITH NASAL CONGESTION POSTNASAL DRIP AND COUGH WHICH HE COURT FROM HIS , THE INITIAL SYMPTOMS OF URI DID CLEAR BUT HE CONTINUES TO HAVE VERY FREQUENT COUGH, AND. IT IS NOT GOING AWAY SOMETIMES THE COUGH MAKES HIM SHORT OF BREATH. HIS ASTHMA/COPD HAS BEEN UNDER CONTROL WITH THE USE OF FLOVENT AND SEREVENT. HE HAS BEEN USING ALBUTEROL HFA ONCE IN A WHILE BUT NOW FOR THE PAST 2 WEEKS HE IS USING IT FREQUENTLY. AT THIS TIME HE DENIES ANY FEVER CHILLS OR CHEST PAIN. PER HIS SLEEP APNEA IS CONCERNED THE SYMPTOMS HAVE RESOLVED AND HE SAY IS HE SLEEPS VERY GOOD HE DOES NOT NEED TO USE THE CPAP. [facility]LY [facility], [facility] Medical History (Updated 08/12/23 @ 14:06 by Jovita Parrish MD) Bronchitis Obesity BPH (benign prostatic hyperplasia) Asthma Type 2 diabetes mellitus with obesity Allergic rhinitis SARAH (obstructive sleep apnea) Diverticulosis History of postoperative nausea and vomiting Anaphylaxis Anxiety Dysphagia IBS (irritable bowel syndrome) Asthma Sleep apnea Fatty liver Non-toxic multinodular goiter B12 deficiency Vitamin D deficiency Obesity (BMI 30-39.9) Nephrolithiasis Hypertension Dyslipidemia Diabetes type 2, uncontrolled COPD (chronic obstructive pulmonary disease) Surgical History Hx of umbilical hernia repair Hx of cystoscopy Hx of lithotripsy Hx of colonoscopy Hx of esophagogastroduodenoscopy Hx of adenoidectomy Hx of hernia repair Hx of appendectomy Family History Father Diabetes Mother CVD (cardiovascular disease) Cancer Social History Housing: House Alcohol intake: current Alcohol intake frequency: a few times a week Patient Tobacco Use Status: Former Tobacco user Tobacco use type: Cigarette e-Cigarette/Vaping Use: Never Used Second Hand Smoke Exposure: No service: No Current occupational status: unemployed and disabled Cognitive needs: No Hearing needs: No Vision needs: No Review of Systems Const All systems reviewed & are unremarkable except as noted in HPI and below Eyes Reports no additional complaints ENT Reports nasal congestion (INTERMITTENT USUALLY WITH CHANGE OF WEATHER) Card Denies chest pain, Denies irregular heart rhythm and Denies leg edema Resp Reports as per HPI GI Reports no additional complaints Reports no additional complaints Musc Reports no additional complaints Skin/Breast Reports system reviewed and no additional complaints, except as documented Neuro Reports no additional complaints Psych Reports no additional complaints Physical Exam Vital Signs: Last Vital Signs Pulse 86 08/12/23 13:31 BP 132/82 08/12/23 13:31 Pulse Ox 95 08/12/23 13:31 Oxygen Delivery Method Room Air 08/12/23 13:31 BMI result Body Mass Index 38.3 Const General: healthy appearing, comfortable, no acute distress, alert and awake Orientation/consciousness: patient oriented x3 HEENT Head: Yes normal to inspection General nose exam: No nasal polyps present, No nasal discharge present and Other nasal findings present (HE DOES HAVE MILD BILATERAL NASAL CONGESTION) Face and sinus: Yes sinuses nontender Mouth: oropharynx normal (THERE IS MILD ERYTHEMA THE OROPHARYNX) Throat: Yes posterior oropharynx normal Eyes General: appearance normal, both eyes and all related structures Neck Neck: Yes normal visual inspection, Yes no lymphadenopathy, Yes trachea midline and Yes no JVD Thyroid: Thyroid normal Chest Chest palpation & inspection: normal inspection of the chest, normal palpation of entire chest wall and no tenderness Resp Other: Percussion note is resonant, breath sounds are distant and especially decreased over the basilar areas. But there are no wheezes . TODAY THERE ARE A FEW FINE CREPITATIONS OVER THE LEFT UPPER CHEST , POSTERIORLY. Cardio Palpation: normal PMI Rate: regular rate Rhythm: regular rhythm Heart sounds: no gallops and no murmurs Peripheral pulses: Peripheral pulses 2+ throughout GI Palpation (GI): Soft to palpation, nontender, No hepatosplenomegaly present and no masses Auscultation: normal bowel sounds Back/Spine/Pelvis Thoracic/Lumbar Spine: thoracic and lumbar spine normal to inspection Skin General skin exam: no rashes or lesions noted Neuro General: patient oriented x3 and no focal motor deficits Cranial nerves: Yes CN's II-XII intact bilaterally Extrem General: Yes normal to inspection, Yes no clubbing, cyanosis or edema and Yes no calf tenderness Psych Speech and movement: Normal speech and movement present Assessment & Plan Assessment & Plan (1) SARAH (obstructive sleep apnea): Comment: SARAH HAS RESOLVED AFTER SIGNIFICANT WEIGHT LOSS. DOES NOT USE CPAP, CLAIMS THAT HE IS SLEEPING OKAY, I DID CAUTION HIM THAT HE NEEDS TO LOSE SOME WEIGHT , HIS GOAL SHOULD BE TO KEEP HIS WEIGHT BELOW 200 LB. Code(s): G47.33 - Obstructive sleep apnea (adult) (pediatric) (2) Allergic rhinitis: Comment: MINIMAL. USE FLONASE 2 SPRAY EACH NOSTRIL ONLY P.R.N. Code(s): J30.9 - Allergic rhinitis, unspecified (3) COPD (chronic obstructive pulmonary disease): Comment: [id number] as under ASTHMA/COPD overlap . [place] FLOVENT-110 2 PUFFS B.I.D. SEREVENT -50 1 INHALATION B.I.D. PROAIR HFA 2 PUFFS Q 4-6 HOURS ONLY P.R.N. Code(s): J44.9 - Chronic obstructive pulmonary disease, unspecified (4) Bronchitis: Comment: HE HAS POST URI , PERSISTENT BRONCHITIS. TX: USE STEAM INHALATIONS 3 TIMES A DAY. MAY USE ROBITUSSIN 2 TSP T.I.D.. COURSE OF DOXYCYCLINE 100 B.I.D. FOR 10 DAYS. Code(s): J40 - Bronchitis, not specified as acute or chronic Medications: New doxycycline hyclate 100 mg PO BID 20 tabs 0RF BRONCHITIS 10 days Coding Level of Care Code Est Pt Level 3 (13245) Diagnoses SARAH (obstructive sleep apnea) G47.33 Allergic rhinitis J30.9 COPD (chronic obstructive pulmonary disease) J44.9 Bronchitis J40
== END 2023-08-12 13:53 | disposition home or self-care (01) ==
PROVIDERS: PCP Internal Medicine; Visit Provider Internal Medicine
DX: G47.33 Obstructive sleep apnea (adult) (pediatric) (principal); J30.9 Allergic rhinitis, unspecified; J44.9 Chronic obstructive pulmonary disease, unspecified; J40 Bronchitis, not specified as acute or chronic
CPT/HCPCS: 99213

== ENCOUNTER → 2023-08-12 13:28 | Outpatient (BNVA) | payer OTHER, SELFPAY | PROVIDERS: PCP Internal Medicine; Visit Provider Internal Medicine | DX: J44.9 Chronic obstructive pulmonary disease, unspecified (principal); J30.9 Allergic rhinitis, unspecified; J40 Bronchitis, not specified as acute or chronic; G47.33 Obstructive sleep apnea (adult) (pediatric) | CPT/HCPCS: 99212 ==

== ENCOUNTER 2023-09-17 08:55 | Outpatient (AMB) | payer OTHER, SELFPAY ==
--- NOTE | 2023-09-17 09:06 | A.OFFVIS_ITS ---
Intake Vital Signs 09/17/23 09:07 Height 5 ft 1 in Weight 196 lb 10.437 oz BMI 37.2 BP 135/88 Blood Pressure Location Lt brachial Position Sitting Pulse 94 Intake Visit Reasons: 6 mnth follow up Intake Note: Jonn presents in office today in 6 months follow up of IBS. CC: Pt reports he continues having the same symptoms and nausea and dry heaves. 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 He finally received the Viberzi and at 100mg he is doing well!! He used the. bentyl until he received the Viberzi but does not need it anymore. He also continues on his Reglan with good control of his gastroparesis and is omeprazole with good control of his GERD. At this time he is quite satisfied with his GI regimen. ROV 6 mos. (2) GERD (gastroesophageal reflux diseas e): Code(s): K21.9 - Gastro-esophageal reflux disease without esophagitis (3) Gastroparesis: Code(s): K31.84 - Gastroparesis (4) Esophageal spasm: Code(s): K22.4 - Dyskinesia of esophagus Medications: Refilled omeprazole 40 mg PO DAILY 30 days 30 caps 6RF insurance not cove ring bid metoclopramide HCl (Reglan) 1 tabs qac tid an d 2 qhs orally 4 t imes a day before meal/bed; 150 tab s 6RF K31.84 - Gastropar esis eluxadoline (Viber zi) must admini ster with a meal/f ood 100 mg PO BID 60 t abs 5RF Discontinued alosetron (Lotrone x) Discontinued Reason: Doctor's Order 1 mg (2 x 0.5 mg) PO BID 60 tabs 3RF K58.0 - Irritable bowel syndrome wit h diarrhea dicyclomine Dis continued Reason: Doctor's Order 20 mg PO QID 30 d ays 120 tabs 3RF K22.4 - Dyskinesia of esophagus CORRESPONDENCE On 08/26/23 @ 09:49 Lynsey Wen Wrote To Griselda Ko (2) Pt due for a 3 year FU colon He has an appt with January on 09/17/23. January! can you schedule and order the prep ThanksThe Laboratory Tests 07/03/23 07/12/23 07/12/23 08:33 08:29 08:29 WBC 6.5 Hgb 15.6 Hct 45.7 MCV 99.3 H MCH 33.9 H Plt Count 208 Estimated GFR > 60 Hgb A1c (Clinic) 6.1 H Total Bilirubin 0.5 AST 26 ALT 29 Alkaline Phosphata se 96 TSH 2.38 TODAY'S VISIT. HE IS HERE TODAY WITH HIS who is supportive. His GI conditions continue and really has quite a lot of irritability of the smooth muscle areas of the GI tract from the esophagus, which continues to spasm midsternally when he goes out to a restaurant and causes dysphagia, to gastroparesis, to history of small-bowel obstruction, to bowel irritability that ranges from formed stools to urgent diarrhea. So far medical interventions of had limited success. His nausea and vomiting is a little bit better on the Reglan but he is already max the dose. The Viberzi has made a little bit of difference in the diarrhea but has not solve the problem. In the past he has tried things like dicyclomine for esophageal spasm and is currently on amlodi pine. Were going to have him try adding p.r.n. loperamide to the Viberzi when he has diarrhea since he never has severe constipation. I have cautioned him to start with half a tablet because of his history of bowel obstruction. He is not done well on fiber as that is what seem to of caused a small-bowel obstruction in the past. He did have some mild relief with his dysphagia when he would be dilated by Dr. Lujan. We may need to try serial dilations every 3 months to see if we can sustain the affect since it tends to only last for about 3 months after the procedure before the symptoms return. Sadly most of the medical interventions to date have not worked. I may consider having 1 of the physicians see him after the procedures to get a 2nd opinion about his general condition. He is on Mounjaro for diabetes and I am uncertain how much this may be affecting his motility. He has sleep apnea and asthma/COPD which she says are well controlled and denies any cardiac problems. He has a history of postop nausea and vomiting but no other problems with anesthesia or sedation. There are no infectious disease problems. He has a history of a 1.5 cm sessile polyp for years ago that necessitate colonoscopy repeat. Return office visit to be determined after the procedures are scheduled. [facility] Medical History (Updated 09/17/23 @ 16:34 by BOB Castle) Bronchitis Obesity BPH (benign prostatic hyperplasia) Asthma Type 2 diabetes mellitus with obesity Allergic rhinitis SARAH (obstructive sleep apnea) Diverticulosis History of postoperative nausea and vomiting Anaphylaxis Anxiety Dysphagia IBS (irritable bowel syndrome) Asthma Sleep apnea Fatty liver Non-toxic multinodular goiter B12 deficiency Vitamin D deficiency Obesity (BMI 30-39.9) Nephrolithiasis Hypertension Dyslipidemia Diabetes type 2, uncontrolled COPD (chronic obstructive pulmonary disease) Surgical History Hx of umbilical hernia repair Hx of cystoscopy Hx of lithotripsy Hx of colonoscopy Hx of esophagogastroduodenoscopy Hx of adenoidectomy Hx of hernia repair Hx of appendectomy Family History Father Diabetes Mother CVD (cardiovascular disease) Cancer Housing: House Alcohol intake: current Alcohol intake frequency: a few times a week Patient Tobacco Use Status: Former Tobacco user Tobacco use type: Cigarette e-Cigarette/Vaping Use: Never Used Second Hand Smoke Exposure: No service: No Current occupational status: unemployed and disabled Cognitive needs: No Hearing needs: No Vision needs: No Review of Systems Const Denies fatigue, Denies fever(s), Denies night sweats, Denies poor appetite and Denies weight loss ENT Reports Normal hearing present, Denies dental pain, Reports dysphagia, Denies hearing loss, Denies mouth pain, Denies odynophagia, Denies throat swelling, Denies tongue swelling and Reports other (Dentition adequate) Card Reports no additional complaints Resp Reports no additional complaints GI Denies abdominal pain, Denies melena, Denies bloating, Denies hematochezia, Denies constipation, Denies GI cramping, Reports dysphagia, Denies excessive flatus, Denies early satiety, Reports heartburn, Reports diarrhea, Reports nausea, Denies odynophagia, Reports vomiting and Denies hematemesis Skin/Breast Denies pruritus, Denies lesions, Denies rash and Denies jaundice Neuro Reports Normal hearing present and Denies Abnormal speech present Psych Reports anxiety Endo Denies fatigue Aller/Immun Denies throat swelling and Denies tongue swelling Physical Exam Vital Signs: Last Vital Signs Pulse 94 09/17/23 09:07 BP 135/88 09/17/23 09:07 BMI result Body Mass Index 37.2 Const General: cooperative, no acute distress, well developed and well groomed Nutritional Appearance: well nourished and obese Orientation/consciousness: oriented to person, oriented to place and oriented to time Limitations: No language barrier HEENT Head: Yes normocephalic and Yes atraumatic Eyes General: appearance normal, both eyes and all related structures Pupils: Equal, round and reactive pupils present Neck Neck: Yes normal visual inspection and Yes no lymphadenopathy Thyroid: Thyroid normal Resp Effort & Inspection: normal respiratory effort and able to speak in complete sentences Auscultation: clear to auscultation bilaterally Cardio Rate: regular rate Rhythm: regular rhythm Heart sounds: Normal, physiologic split S2 sound present Peripheral pulses: radial pulses present and posterior tibial pulses present GI Inspection: No distended, No Abdominal panniculus present and Yes obesity Palpation (GI): Soft to palpation, nontender, no guarding, not rigid and No hepatosplenomegaly present Percussion: Yes normal to percussion Auscultation: normal bowel sounds Rectal Exam - Male: Yes deferred Skin General skin exam: no rashes or lesions noted, turgor normal, skin not dry, no jaundice, No spider nevi and no striae Rashes: no rashes Nails: normal Neuro General: oriented to person, oriented to place and oriented to time Cranial nerves: Yes Equal, round and reactive pupils present and Yes Normal hearing present Speech: No Abnormal speech present Extrem General: Yes normal to inspection, No clubbing, No cyanosis and No edema Psych Appearance: grossly normal and well kempt Mental Status: mental status grossly normal Speech and movement: Normal speech and movement present Affect: normal affect Attitude: cooperative Thought process: Normal thought process present and not confabulating Thought content: Normal thought content present Insight: Limited insight present (Psych) Judgement: Limited judgement present (Psych) Assessment & Plan Assessment & Plan (1) Dysphagia: Code(s): R13.10 - Dysphagia, unspecified Plan: HE IS HERE TODAY WITH HIS who is supportive. His GI conditions continue and really has quite a lot of irritability of the smooth muscle areas of the GI tract from the esophagus, which continues to spasm midsternally when he goes out to a restaurant and causes dysphagia, to gastroparesis, to history of small-bowel obstruction, to bowel irritability that ranges from formed stools to urgent diarrhea. So far medical interventions of had limited success. His nausea and vomiting is a little bit better on the Reglan but he is already max the dose. The Viberzi has made a little bit of difference in the diarrhea but has not solve the problem. In the past he has tried things like dicyclomine for esophageal spasm and is currently on amlodipine. Were going to have him try adding p.r.n. loperamide to the Viberzi when he has diarrhea since he never has severe constipation. I have cautioned him to start with half a tablet because of his history of bowel obstruction. He is not done well on fiber as that is what seem to of caused a small-bowel obstruction in the past. He did have some mild relief with his dysphagia when he would be dilated by Dr. Lujan. We may need to try serial dilations every 3 months to see if we can sustain the affect since it tends to only last for about 3 months after the procedure before the symptoms return. Sadly most of the medical interventions to date have not worked. I may consider having 1 of the physicians see him after the procedures to get a 2nd opinion about his general condition. He is on Mounjaro for diabetes and I am uncertain how much this may be affecting his motility. He has sleep apnea and asthma/COPD which she says are well controlled and denies any cardiac problems. He has a history of postop nausea and vomiting but no other problems with anesthesia or sedation. There are no infectious disease problems. He has a history of a 1.5 cm sessile polyp for years ago that necessitate colonoscopy repeat. Return office visit to be determined after the procedures are scheduled. (2) Tubular adenoma of colon: Comment: 2019 scope repeat 5 years 2024 Code(s): D12.6 - Benign neoplasm of colon, unspecified (3) Irritable bowel syndrome with diarrhea: Code(s): K58.0 - Irritable bowel syndrome with diarrhea (4) Gastroparesis: Code(s): K31.84 - Gastroparesis (5) Esophageal spasm: Comment: Failed a trial of dicyclomine is already on amlodipine Code(s): K22.4 - Dyskinesia of esophagus (6) Nausea and vomiting: Comment: . Better with Reglan but not completely resolved Code(s): R11.2 - Nausea with vomiting, unspecified (7) GERD (gastroesophageal reflux disease): Code(s): K21.9 - Gastro-esophageal reflux disease without esophagitis (8) Small bowel obstruction: Comment: 06/2020 with inflammation in the jejunum uncertain cause but may be related to him running out of his Reglan and taking Metamucil Code(s): K56.609 - Unspecified intestinal obstruction, unspecified as to partial versus complete obstruction Plan HE IS HERE TODAY WITH HIS who is supportive. His GI conditions continue and really has quite a lot of irritability of the smooth muscle areas of the GI tract from the esophagus, which continues to spasm midsternally when he goes out to a restaurant and causes dysphagia, to gastroparesis, to history of small-bowel obstruction, to bowel irritability that ranges from formed stools to urgent diarrhea. So far medical interventions of had limited success. His nausea and vomiting is a little bit better on the Reglan but he is already max the dose. The Viberzi has made a little bit of difference in the diarrhea but has not solve the problem. In the past he has tried things like dicyclomine for esophageal spasm and is currently on amlodipine. Were going to have him try adding p.r.n. loperamide to the Viberzi when he has diarrhea since he never has severe constipation. I have cautioned him to start with half a tablet because of his history of bowel obstruction. He is not done well on fiber as that is what seem to of caused a small-bowel obstruction in the past. He did have some mild relief with his dysphagia when he would be dilated by Dr. Lujan. We may need to try serial dilations every 3 months to see if we can sustain the affect since it tends to only last for about 3 months after the procedure before the symptoms return. Sadly most of the medical interventions to date have not worked. I may consider having 1 of the physicians see him after the procedures to get a 2nd opinion about his general condition. He is on Mounjaro for diabetes and I am uncertain how much this may be affecting his motility. He has sleep apnea and asthma/COPD which she says are well controlled and denies any cardiac problems. He has a history of postop nausea and vomiting but no other problems with anesthesia or sedation. There are no infectious disease problems. He has a history of a 1.5 cm sessile polyp for years ago that necessitate colonoscopy repeat. Return office visit to be determined after the procedures are scheduled. Orders: Orders EGD/[place] Combo - GI Use Only Today K56.609 - Unspecified intestinal obstruction, unspecified as to partial versus complete obstruction, K58.0 - Irritable bowel syndrome with diarrhea Medications: New sodium,potassium,mag sulfates 17.5-3.13-1.6 gram (Suprep Bowel Prep Kit) 480 mL orally; colonoscopy screening 354 mL 0RF D12.6 - Benign neoplasm of colon, unspecified, R13.10 - Dysphagia, unspecified loperamide (Imodium A-D) 2 mg PO Q6H PRN 60 caps 6RF loose stool K58.0 - Irritable bowel syndrome with diarrhea Discontinued eluxadoline (Viberzi) must administer with a meal/food Discontinued Reason: Doctor's Order 75 mg PO BID 60 tabs 3RF Coding Level of Care Code Est Pt Level 4 (25746) Diagnoses Dysphagia R13.10 Tubular adenoma of colon D12.6 Irritable bowel syndrome with diarrhea K58.0 Gastroparesis K31.84 Esophageal spasm K22.4 Nausea and vomiting R11.2 GERD (gastroesophageal reflux disease) K21.9 Small bowel obstruction K56.609 Time Spent (min) 40 Comment Thirty-five [id number] 5 chart
[2023-09-17 09:07] VITALS: BP 135/88; PULSE 94; BMI 37.2
== END 2023-09-17 10:05 | disposition home or self-care (01) ==
PROVIDERS: Visit Provider Nurse Practitioner
DX: R13.10 Dysphagia, unspecified (principal); D12.6 Benign neoplasm of colon, unspecified; K58.0 Irritable bowel syndrome with diarrhea; K31.84 Gastroparesis; K22.4 Dyskinesia of esophagus; R11.2 Nausea with vomiting, unspecified; K21.9 Gastro-esophageal reflux disease without esophagitis; K56.609 Unspecified intestinal obstruction, unspecified as to partial versus complete obstruction
CPT/HCPCS: 99214

== ENCOUNTER → 2023-09-17 08:55 | Outpatient (BNVA) | payer OTHER, SELFPAY | PROVIDERS: Visit Provider Nurse Practitioner | DX: R13.10 Dysphagia, unspecified (principal); K31.84 Gastroparesis; K58.0 Irritable bowel syndrome with diarrhea; K22.4 Dyskinesia of esophagus; K21.9 Gastro-esophageal reflux disease without esophagitis; K56.609 Unspecified intestinal obstruction, unspecified as to partial versus complete obstruction; D12.6 Benign neoplasm of colon, unspecified; R11.2 Nausea with vomiting, unspecified | CPT/HCPCS: 99212 ==

== ENCOUNTER 2023-10-17 09:22 | Emergency (ER) | payer OTHER, SELFPAY ==
--- NOTE | ~2023-10-17 | XR_ITS ---
EXAMINATION: XR CHEST CLINICAL INFORMATION: Dyspnea COMPARISON: May 2021. TECHNIQUE: 2 views of the chest were obtained. FINDINGS: No dominant airspace consolidation observed. Slight blunting of a posterior sulcus suggests a small effusion. Pulmonary vascularity unremarkable. XR/XR chest 2V IMPRESSION: No evidence for focal infiltrate. Slight blunting of a posterior sulcus suggests a small effusion.
[2023-10-17 09:25] VITALS: BP 159/106; PULSE 88; RESP 24; TEMP 37; O2SAT 96; BMI 32.4
--- NOTE | 2023-10-17 09:36 | ECG_ITS ---
Test Reason : sob Blood Pressure : / mmHG Vent. Rate : 080 BPM Atrial Rate : 080 BPM P-R Int : 138 ms QRS Dur : 094 ms QT Int : 396 ms P-R-T Axes : 045 062 045 degrees QTc Int : 456 ms Normal sinus rhythm Normal ECG When compared with ECG of 02-JUN-2021 08:18, No significant change was found Referred By: Generic ED Physician Electronically Signed By:CARLY ALONSO MD
--- NOTE | 2023-10-17 09:40 | ED_ITS ---
HPI - General Adult General Chief complaint: Dyspnea Stated complaint: Difficulty breathing Time Seen by Provider: 10/17/23 09:40 Source: patient and family () Mode of arrival: ambulatory Limitations: no limitations History of Present Illness HPI narrative: 53 year old male with pmhx signifcant for DM, HTN, SARAH not on CPAP, asthma/COPD, GERD, gastroparesis, kidney stones, anxiety presents to the ED today for evaluation of shortness of breath beginning [employer] SAL[employer]. States he was at his friends house, standing in the garage when he took a breath in and had trouble exhaling. Endorses using a third of his albuterol inhaler without relief of symptoms. Admits that after using his inhaler, he began having chest discomfort/ tightness. Reports improvement in shortness of breath en route to ED. Denies fever, chills, vision changes, cough, sputum production, hemoptysis, nausea, vomiting. Denies recent travel or long car rides. Related Data Home Medications Medication Instructions Recorded Confirmed fluticasone propionate 50 1 - 2 spray intranasal DAILY 08/15/20 10/17/23 mcg/actuation nasal spray,suspension dorzolamide 22.3 mg-timolol 6.8 1 drp ophthalmic (eye) BID 08/15/22 07/10/23 mg/mL eye drops metoclopramide HCl 10 mg tablet 10 mg PO QIDACHS 10/17/23 10/17/23 (Reglan) Previous Rx's Medication Instructions Recorded hydrochlorothiazide 25 mg tablet 25 mg PO DAILY 30 days #30 tabs 02/17/21 FreeStyle Lancets 28 gauge #100 ea 03/16/21 (lancets) blood sugar diagnostic (FreeStyle #100 ea 03/16/21 Lite Strips) allopurinol 100 mg tablet 100 mg PO DAILY 90 days #90 tabs 05/31/21 cyanocobalamin (vitamin B-12) 250 250 mcg PO DAILY 60 days #60 tabs 08/31/21 mcg tablet (Vitamin B-12) cholecalciferol (vitamin D3) 25 25 mcg PO DAILY #30 caps 04/13/22 mcg (1,000 unit) capsule amlodipine 10 mg tablet 10 mg PO DAILY 30 days #30 tabs 04/23/22 flash glucose sensor (FreeStyle #2 ea 12/21/22 Arnulfo 14 Day Sensor kit) losartan 50 mg tablet 50 mg PO DAILY #30 tabs 12/23/22 pyridoxine (vitamin B6) 100 mg 100 mg PO DAILY 90 days #90 tabs 12/28/22 tablet salmeterol 50 mcg/dose blister 1 inh inhalation BID copd 30 days 01/02/23 powder for inhalation (Serevent #60 ea Diskus) eluxadoline 100 mg tablet (Viberzi) 100 mg PO BID #60 tabs 03/21/23 omeprazole 40 mg capsule,delayed 40 mg PO DAILY #30 caps 05/29/23 release epinephrine 0.3 mg/0.3 mL 0.3 mg (0.3 mL) IM ONCE PRN 07/03/23 injection, auto-injector (EpiPen anaphylaxis #2 ea 2-Benedict) rosuvastatin 20 mg tablet 20 mg PO DAILY #60 tabs 07/10/23 fluticasone propionate 110 1 puff inhalation BID #12 grams 08/29/23 mcg/actuation HFA aerosol inhaler (Flovent HFA) Ventolin HFA 90 mcg/actuation 2 puff inhalation Q6H PRN for 09/18/23 aerosol inhaler (albuterol sulfate) wheezing #18 grams tirzepatide 5 mg/0.5 mL 5 mg (0.5 mL) subcut QWEEK #2 mL 10/14/23 subcutaneous pen injector (Mounjaro) Allergies Allergy/AdvReac Type Severity Reaction Status Date / Time MONALISA Inhibitors Allergy Severe SHORTNESS Verified 10/17/23 15:16 [MONALISA INHIBITORS] OF BREATH Penicillins AdvReac Intermediate STOMACH Verified 10/17/23 15:16 UPSET stress induced anaphylaxis Allergy Severe Anaphylaxis Uncoded 08/12/23 13:43 Review of Systems 2 Review of Systems: Constitutional: No fever, chills, fatigue, night sweats, weight changes ENT/Mouth: No ear pain, hearing loss, nasal congestion, sinus pain, rhinorrhea, sore throat Eyes: No eye pain, swelling, redness, vision changes, discharge Cardio: +chest discomfort, No palpitations, BYRNE, orthopnea, peripheral edema Pulm: +SOB, No cough, sputum, wheezing, dyspnea, hemoptysis GI: No nausea, vomiting, hematemesis, abdominal pain, diarrhea, constipation, hematochezia, melena : No irregular bleeding, dysuria, frequency, urgency, hesitancy, hematuria, flank pain, urinary flow changes, urinary incontinence or retention MSK: No back pain, neck pain, joint pain, myalgias Skin: No lesions, rashes Neuro: No weakness, numbness, paresthesias, LOC, dizziness, headache All other systems reviewed and are negative. [facility] Past Medical History Attestation statement: The following information was validated with the patient. Source: old records reviewed and nursing notes reviewed Medical History Bronchitis Obesity BPH (benign prostatic hyperplasia) Asthma Type 2 diabetes mellitus with obesity Allergic rhinitis SARAH (obstructive sleep apnea) Diverticulosis History of postoperative nausea and vomiting Anaphylaxis Anxiety Dysphagia IBS (irritable bowel syndrome) Asthma Sleep apnea Fatty liver Non-toxic multinodular goiter B12 deficiency Vitamin D deficiency Obesity (BMI 30-39.9) Nephrolithiasis Hypertension Dyslipidemia Diabetes type 2, uncontrolled COPD (chronic obstructive pulmonary disease) Surgical History Hx of umbilical hernia repair Hx of cystoscopy Hx of lithotripsy Hx of colonoscopy Hx of esophagogastroduodenoscopy Hx of adenoidectomy Hx of hernia repair Hx of appendectomy Family History Family History Father Diabetes Mother CVD (cardiovascular disease) Cancer Social History Social History Housing: House Alcohol intake: current Alcohol intake frequency: a few times a week Patient Tobacco Use Status: Former Tobacco user Tobacco use type: Cigarette e-Cigarette/Vaping Use: Never Used Second Hand Smoke Exposure: No Use of substances other than those prescribed or required for medical reasons: No Advance Directives: No service: No Current occupational status: unemployed and disabled Cognitive needs: No Hearing needs: No Vision needs: No Physical Exam ED Vital Signs: Vital Signs - 24 hr 10/17/23 09:25 10/17/23 10:23 10/17/23 11:50 Temperature 98.6 F Pulse Rate 88 95 79 Respiratory Rate 24 H 16 16 Blood Pressure 159/106 H 157/90 H Pulse Oximetry 96 97 Oxygen Delivery Method Room Air Room Air BMI result Body Mass Index 32.4 VS notable for tachypnea and hypertension. Const Other: + patient lying comfortably on exam bed General: cooperative, healthy appearing, comfortable, no acute distress, alert and awake Nutritional Appearance: overweight Orientation/consciousness: patient oriented x3 Limitations: no limitations HENMT Head: Yes normal to inspection, Yes normocephalic and Yes atraumatic Ears: hearing grossly normal bilaterally General nose exam: Normal external nose present, Normal nares present, Normal septum present and No nasal discharge present Eyes General: appearance normal, both eyes and all related structures Conjunctivae: conjunctivae normal Sclerae: sclerae normal Pupils: Equal, round and reactive pupils present EOM: EOMs intact bilaterally Neck Neck: Yes normal visual inspection, Yes full ROM, Yes no lymphadenopathy and Yes no JVD Thyroid: Thyroid normal Resp Other: + initially noted to be tripoding/ using accessory muscles. On my examination, patient lying comfortably in bed. no acute signs of respiratory distress. + expiratory wheezes bilaterally. Effort & Inspection: normal respiratory effort, able to speak in complete sentences, no nasal flaring, no respiratory distress, no retractions, not tachypneic, no tripod positioning and no use of accessory muscles Cardio Other: + no peripheral edema Jugular venous distension: no JVD Rate: regular rate Rhythm: regular rhythm Peripheral pulses: radial pulses present GI Inspection: Yes normal to inspection Palpation (GI): Soft to palpation, nontender and no guarding Skin General skin exam: no rashes or lesions noted Neuro General: patient oriented x3, gait normal and moves all extremities Cranial nerves: Yes Equal, round and reactive pupils present Extrem General: Yes normal to inspection, Yes full ROM, Yes capillary refill normal, Yes no clubbing, cyanosis or edema, Yes no pedal edema and Yes no calf tenderness Course Course Course Narrative: 1054-- CBC without leukocytosis. Chemistry without acute electrolyte abnormality requiring intervention. D-dimer negative > low suspicion for PE. EKG showing NSR with a rate of 80 beats per minute, QT 396, QT 456, no acute ischemic changes or ST elevations, undetectable troponin > unlikely ACS. BNP wnl. > patient receiving high dose albuterol treatment via RT. 1333-- CXR does not show pneumonia. There is slight blunting of the posterior sulcus suggesting a small effusion. Patient's BMP is wnl. He has no pedal edema to suggest fluid overload. Patient's symptoms are consistent with asthma exacerbation. >> on re-evaluation, patient states that he feels much better. He no longer feels short of breath. Sitting up in bed stating that he would like to go home. His lungs are CTA b/l, no wheezes. Speaking in complete sentences. No tripoding or accessory muscle use. Not hypoxic. >> I informed him of imaging and lab results. I discussed follow-up with paste mixer liquid regarding CXR findings. I also educated him on albuterol use and how excessive albuterol use can cause rebound tachycardia and worsen his symptoms. He verbalizes understanding. Patient has remained stable throughout ED visit today. Discussed strict return precautions. All questions answered at this time. Patient is agreeable with disposition and stable for discharge. Medications Administered Discontinued Medications Generic Name Dose Route Start Last Admin Trade Name Freq PRN Reason Stop Dose Admin Albuterol Sulfate 2.5 mg 10/17/23 10:19 10/17/23 10:21 Albuterol Sulfate (0.083%) 2.5 Mg/3 Ml Vial.Neb INHALE 10/17/23 10:20 2.5 mg ONCE ONE Administration Medical Decision Making Medical Decision Making MDM Narrative: 53 year old male with pmhx signifcant for DM, HTN, SARHA not on CPAP, asthma/COPD, GERD, gastroparesis, kidney stones, anxiety presents to the ED today for evaluation of shortness of breath beginning [employer] SAL[employer]. On arrival, vital signs notable for tachypnea and hypertension. These have now normalized. Patient is nontoxic appearing and in NAD. Per nursing report, patient initially noted to be tripoding and using accessory muscles. On my initial examination, patient is lying in bed comfortably. Speaking in complete sentences. No signs of acute respiratory distress. Lungs with bilateral expiratory wheezes. RRR. No JVD. No peripheral edema. No calf tenderness b/l. Clinical concern for acute asthma exacerbation, COPD exacerbation, pneumonia, pulmonary embolism, pleural effusion, arrythmia, ACS, anemia, electrolyte abnormality, bronchitis. Unlikely CHF, pneumothorax, cardiac tamponade, epiglottitis. Plan for basic labs, ekg, trop, ddimer, CXR, and RT breathing treament. Differential Diagnosis Differential Diagnoses: The differential diagnosis associated with the presentation includes as above Admission/Observation Consideration of admission/observation: Escalation of care including admission/observation considered In this patient with hx of asthma/ copd presenting with acute shortness of breath and chest pain despite albuterol treatment, admission was considered. Lab Data MDM Lab Attestation statement: I reviewed the patient's lab results. as above. 10/17/23 09:48 10/17/23 09:48 Labs: Lab Results 10/17/23 Range/Units 09:48 WBC 5.9 (4.8-10.8) X10*3/uL RBC 4.72 (4.60-5.80) X10*6/uL Hgb 16.5 (14.0-18.0) g/dl Hct 47.6 (42.0-52.0) % MCV 100.8 H (80.0-98.0) fL MCH 35.0 H (27.0-33.0) pg MCHC 34.7 (31.0-36.0) g/dl RDW 13.3 (11.0-16.0) % Plt Count 155 L D (160-400) X10*3/uL MPV 9.1 L (9.4-12.4) fL Immature Gran % (Auto) 0.3 (0.0-0.4) % Neut % (Auto) 61.2 (45-73) % Lymph % (Auto) 27.1 (20-40) % Ingham % (Auto) 6.3 (2-11) % Eos % (Auto) 4.4 H (0-4) % Baso % (Auto) 0.7 (0-2) % Lymph # (Auto) 1.6 (1.2-4.9) X10*3/uL [place] # (Auto) 0.4 (0.1-1.2) X10*3/uL Eos # (Auto) 0.3 (0.0-0.4) X10*3/uL Baso # (Auto) 0.0 (0.0-0.2) X10*3/uL Abs Immat Gran (auto) 0.02 (0.00-0.03) X10*3/uL Absolute Neuts (auto) 3.6 (2.0-8.3) x10*3/uL Absolute Nucleated RBC 0.000 (0.0-0.012) X10*3/uL Nucleated RBC % (auto) 0.0 (0.0-0.2) /100WBC PT 11.9 (11.1-13.3) SEC INR 1.0 (0.9-1.1) D-Dimer High Sensitivty < 150 NG/ML Sodium 141 (135-145) mmol/L Potassium 3.8 (3.3-5.1) mmol/L Chloride 106 (96-108) mmol/L Carbon Dioxide 27 (22-29) mmol/L Anion Gap 12 (12-20) BUN 7 L (9-16) mg/dL Creatinine 0.91 (0.5-1.4) mg/dL Estim Creat Clear Calc 95.9 Estimated GFR > 60 Random Glucose 136 H (60-115) mg/dL Calcium 8.7 (8.4-10.2) mg/dL Magnesium 1.6 (1.6-2.6) mg/dL Total Bilirubin 0.6 (0.0-1.0) mg/dL AST 27 (5-37) U/L ALT 28 (0-40) U/L Alkaline Phosphatase 82 (39-117) U/L Troponin I High Sens 3.5 (<3.5-35.0) ng/L B-Natriuretic Peptide 32 (<100) pg/mL Total Protein 6.9 (6.5-8.0) g/dL Albumin 4.0 (3.5-5.0) g/dL Independent Interpretation I performed an independent interpretation of an: EKG and Plain X-Ray Interpretation: EKG showing NSR with a rate of 80 bpm, QT 396, no acute ischemic changes or ST elevations, unchanged from previous EKG on 06/02/2021. CXR without consolidations or infiltrates, agree with radiologist's interpretation. Radiology Impression Discussion of test interpretation with radiology: I have reviewed the radiologist's reading. Radiologist Impression: XR chest 2V IMPRESSION: No evidence for focal infiltrate. Slight blunting of a posterior sulcus suggests a small effusion. Independent Historian Clinical information obtained from an independent historian. History obtained from or confirmed by: Spouse External Record Review External record reviewed: Inpatient record Prescription Management I considered prescription management with: Other (steroid) Chronic Conditions Patient?s care impacted by: Other (asthma, copd, bronchitis) Critical Care Time Critical Care Time Critical Care Time: Yes Total Critical Care Time: 31 Attestation: Critical care time in the amount of 31 minutes has been provided to the patient in terms of direct patient care, frequent reevaluation, consultation with respiratory therapy, review and interpretation of medical data and results, and management of potentially life-threatening conditions. This is all outside of any medical procedures. Discharge Plan Discharge Clinical Impression: Asthma exacerbation Patient Disposition: Home, Self-Care Instructions: Asthma (ED), How to Use a Metered-Dose Inhaler (ED), How to Use a Nebulizer (ED), Wheezing (ED), How Your Lungs Work (ED) Additional Instructions: Your labs today were normal. Your EKG was normal and did not show acute ischemic changes. Your chest x-ray did not show pneumonia. It shows a possible small effusion. This is not likely the cause of your symptoms today. Please follow-up with your paste mixer liquid regarding this finding. You likely had an asthma exacerbation. Please use your albuterol inhaler if you become short of breath. Only use 2 puffs every 6 hours. Using your inhaler more than this increases your heart rate and places you at risk for further breathing and heart issues. Please follow-up with your primary care provider. If symptoms persist or worsen please return to the emergency department. Case of an emergency call 911. Prescriptions: No Action (DME) FreeStyle Lite Strips Strip See Rx Instructions .ROUTE .MEDSUPPLY Qty: 100 11RF Rx Instructions: 3 jeremias a day (DME) lancets [FreeStyle Lancets] 28 gauge misc See Rx Instructions topical TID Qty: 100 11RF Rx Instructions: 3 times a day cyanocobalamin (vitamin B-12) [Vitamin B-12] 250 mcg tablet 250 mcg PO DAILY 60 Days Qty: 60 3RF cholecalciferol (vitamin D3) 25 mcg (1,000 unit) capsule 25 mcg PO DAILY Qty: 30 11RF amlodipine 10 mg tablet 10 mg PO DAILY 30 Days Qty: 30 6RF losartan 50 mg tablet 50 mg PO DAILY Qty: 30 11RF Serevent Diskus 50 mcg/dose blister with device 1 inh inhalation BID 30 Days Qty: 60 5RF omeprazole 40 mg capsule,delayed release(DR/EC) 40 mg PO DAILY Qty: 30 3RF Flovent HFA 110 mcg/actuation HFA aerosol inhaler 1 puff inhalation BID Qty: 12 3RF albuterol sulfate [Ventolin HFA] 90 mcg/actuation HFA aerosol inhaler 2 puff inhalation Q6H PRN (Reason: for wheezing) Qty: 18 3RF Mounjaro 5 mg/0.5 mL pen injector 5 mg subcut QWEEK Qty: 2 0RF allopurinol 100 mg tablet 100 mg PO DAILY 90 Days Qty: 90 1RF metoclopramide HCl [Reglan] 10 mg tablet 10 mg PO QIDACHS pyridoxine (vitamin B6) 100 mg tablet 100 mg PO DAILY 90 Days Qty: 90 1RF epinephrine [EpiPen 2-Benedict] 0.3 mg/0.3 mL auto-injector 0.3 mg IM ONCE PRN (Reason: anaphylaxis) Qty: 2 0RF hydrochlorothiazide 25 mg tablet 25 mg PO DAILY 30 Days Qty: 30 6RF fluticasone propionate 50 mcg/actuation spray,suspension 1 - 2 spray intranasal DAILY (DME) [employer] Arnulfo 14 Day Sensor Kit See Rx Instructions miscellaneous .MEDSUPPLY Qty: 2 0RF Rx Instructions: As directed dorzolamide-timolol 22.3-6.8 mg/mL drops 1 drp ophthalmic (eye) BID Viberzi 100 mg tablet 100 mg PO BID Qty: 60 5RF Hold Instructions: Doctor's Order Rx Instructions: must administer with a meal/food rosuvastatin 20 mg tablet 20 mg PO DAILY Qty: 60 3RF Referrals: Beto Kelly MD [Primary Care Provider] - Stand Alone Forms: Work/School Release Interventions: ED Discharge Assessment Last Done: 10/17/23 13:28 Discharge Date/Time: 10/17/23 13:29
[2023-10-17 09:55] LABS: MANUAL DIFF FLAG NO
[2023-10-17 09:59] LABS: Basophils Percent Auto 0.7 % (0-2); Eosinophils Absolute Auto 0.3 X10*3/uL (0.0-0.4); Eosinophils Percent Auto 4.4 % (0-4); Hematocrit 47.6 % (42.0-52.0); Hemoglobin 16.5 g/dl (14.0-18.0); Imm Gran Abs Auto 0.02 X10*3/uL (0.00-0.03); Imm Gran Pct Auto 0.3 % (0.0-0.4); Lymphocytes Absolute Auto 1.6 X10*3/uL (1.2-4.9); Lymphocytes Percent Auto 27.1 % (20-40); Mean Corpuscular HGB Conc 34.7 g/dl (31.0-36.0); Mean Corpuscular Volume 100.8 fL (80.0-98.0); Mean Platelet Volume 9.1 fL (9.4-12.4); Monocytes Absolute Auto 0.4 X10*3/uL (0.1-1.2); Monocytes Percent Auto 6.3 % (2-11); Neutrophils Absolute Auto 3.6 x10*3/uL (2.0-8.3); Neutrophils Percent Auto 61.2 % (45-73); Platelet Count 155 X10*3/uL (160-400); Red Blood Count 4.72 X10*6/uL (4.60-5.80); Red Cell Distribution Width 13.3 % (11.0-16.0); White Blood Count 5.9 X10*3/uL (4.8-10.8)
[2023-10-17 10:03] LABS: Prothrombin Time 11.9 SEC (11.1-13.3)
[2023-10-17 10:05] LABS: D Dimer High Sensitivity < 150 NG/ML
[2023-10-17 10:13] LABS: Alanine Aminotransferase 28 U/L (0-40); Alkaline Phosphatase 82 U/L (39-117); Anion Gap 12 (12-20); Aspartate Amino Transferase 27 U/L (5-37); Bilirubin Total 0.6 mg/dL (0.0-1.0); Blood Urea Nitrogen 7 mg/dL (9-16); Calcium 8.7 mg/dL (8.4-10.2); Carbon Dioxide 27 mmol/L (22-29); Chloride 106 mmol/L (96-108); Creatinine Clr Calc Pharmacy 95.9; Estimated Glomerular Filt Rate > 60; Glucose Random 136 mg/dL (60-115); Magnesium 1.6 mg/dL (1.6-2.6); Potassium 3.8 mmol/L (3.3-5.1); Sodium 141 mmol/L (135-145); Total Protein 6.9 g/dL (6.5-8.0)
[2023-10-17 10:19] LABS: B Type Natriuretic Peptide 32 pg/mL (<100)
[2023-10-17 10:20] LABS: Troponin-I High Sensitivity 3.5 ng/L (<3.5-35.0)
[2023-10-17] MEDS: Albuterol Sulfate (0.083%) 2.5 MG/3 ML VIAL.NEB INHALE (10:21)
[2023-10-17 10:23] VITALS: PULSE 95; RESP 16; O2SAT 97
--- NOTE | 2023-10-17 11:48 | PC.NURSE ---
late entry - pt aox4, reporting sudden onset shortness of breath. pt using accessory muscles/tripoding to breath. Saturation strong 96%. Lung sounds clear. Hx bronchitis. Pt reporting some heaviness on his chest. Since initial presentation and respiratory treatment pt reports improvment.
[2023-10-17 11:50] VITALS: BP 157/90; PULSE 79; RESP 16; O2SAT 97
== END 2023-10-17 13:29 | disposition home or self-care (01) ==
PROVIDERS: Physician Assistant Medical; Emergency Provider Emergency Medicine Emergency Medical Services; PCP Internal Medicine
DX: J45.901 Unspecified asthma with (acute) exacerbation (principal); R06.02 Shortness of breath; R07.89 Other chest pain; G47.33 Obstructive sleep apnea (adult) (pediatric); E11.9 Type 2 diabetes mellitus without complications; E66.9 Obesity, unspecified; Z68.39 Body mass index [BMI] 39.0-39.9, adult; Z87.891 Personal history of nicotine dependence; Z79.899 Other long term (current) drug therapy
CPT/HCPCS: 36415; 71046; 80053; 83735; 83880; 84484; 85025; 85379; 85610; 93005; 94640; 99283; 99284; 99285

== ENCOUNTER → 2023-10-17 09:36 | Outpatient (BNV) | payer OTHER, SELFPAY | PROVIDERS: Emergency Provider Emergency Medicine Emergency Medical Services; PCP Internal Medicine; Visit Provider Internal Medicine Cardiovascular Disease | DX: R06.02 Shortness of breath (principal) | CPT/HCPCS: 93010 ==

== ENCOUNTER 2023-10-17 15:08 | Inpatient (IN) | payer OTHER, SELFPAY ==
[2023-10-17] VITALS (10 sets, daily range): BP systolic 133–163; BP diastolic 67–103; PULSE 93–128; RESP 16–24; TEMP 35.9–36.9; O2SAT 93–98; BMI 32.4
--- NOTE | 2023-10-17 15:16 | ED_ITS ---
HPI - SOB/Dyspnea General Chief Complaint: Asthma Stated Complaint: trouble breathing/discharges about 1 hr ago Time Seen by Provider: 10/17/23 16:00 Source: patient, RN notes reviewed and old records reviewed Mode of arrival: ambulatory Limitations: no limitations History of Present Illness HPI Narrative: 53-year-old male past medical history significant for asthma, obesity, type 2 diabetes, GERD, COPD O2 independent presents for evaluation of shortness of breath. Patient was just discharged prior to the presentation He had labs, a chest x-ray there was treated for asthma with high-dose albuterol Patient reports that he went home changed his clothes and then immediately started to feel short of breath with wheezing again Used approximately 32 puffs of his albuterol prior to his 1st presentation today He used it once in between ER presentations At the time my evaluation he has already received 2 high dose nebulizers on his 2nd visit He received Solu-Medrol 125 mg IV He denies any fevers, chills. He states he did have some chest pain earlier but currently does not Related Data Home Medications Medication Instructions Recorded Confirmed fluticasone propionate 50 1 - 2 spray intranasal DAILY 08/15/20 07/10/23 mcg/actuation nasal spray,suspension gabapentin 100 mg capsule 100 mg PO TID 08/15/20 07/10/23 dorzolamide 22.3 mg-timolol 6.8 1 drp ophthalmic (eye) BID 08/15/22 07/10/23 mg/mL eye drops Previous Rx's Medication Instructions Recorded hydrochlorothiazide 25 mg tablet 25 mg PO DAILY 30 days #30 tabs 02/17/21 FreeStyle Lancets 28 gauge #100 ea 03/16/21 (lancets) blood sugar diagnostic (FreeStyle #100 ea 03/16/21 Lite Strips) allopurinol 100 mg tablet 100 mg PO DAILY 90 days #90 tabs 05/31/21 cyanocobalamin (vitamin B-12) 250 250 mcg PO DAILY 60 days #60 tabs 08/31/21 mcg tablet (Vitamin B-12) cholecalciferol (vitamin D3) 25 25 mcg PO DAILY #30 caps 04/13/22 mcg (1,000 unit) capsule amlodipine 10 mg tablet 10 mg PO DAILY 30 days #30 tabs 04/23/22 flash glucose sensor (FreeStyle #2 ea 02/24/23 Arnulfo 14 Day Sensor kit) losartan 50 mg tablet 50 mg PO DAILY #30 tabs 12/23/22 pyridoxine (vitamin B6) 100 mg 100 mg PO DAILY 90 days #90 tabs 12/28/22 tablet salmeterol 50 mcg/dose blister 1 inh inhalation BID copd 30 days 01/02/23 powder for inhalation (Serevent #60 ea Diskus) eluxadoline 100 mg tablet (Viberzi) 100 mg PO BID #60 tabs 03/21/23 metoclopramide HCl 10 mg tablet See Rx Instructions PO QIDACHS 03/21/23 (Reglan) #150 tabs omeprazole 40 mg capsule,delayed 40 mg PO DAILY #30 caps 05/29/23 release epinephrine 0.3 mg/0.3 mL 0.3 mg (0.3 mL) IM ONCE PRN 07/03/23 injection, auto-injector (EpiPen anaphylaxis #2 ea 2-Benedict) rosuvastatin 20 mg tablet 20 mg PO DAILY #60 tabs 07/10/23 fluticasone propionate 110 1 puff inhalation BID #12 grams 08/29/23 mcg/actuation HFA aerosol inhaler (Flovent HFA) loperamide 2 mg capsule (Imodium 2 mg PO Q6H PRN loose stool #60 09/17/23 A-D) caps sodium,potassium,mag sulfates 17.5 480 ml PO .COMPLEX #354 mL 09/17/23 gram-3.13 gram-1.6 gram oral soln (Suprep Bowel Prep Kit) Ventolin HFA 90 mcg/actuation 2 puff inhalation Q6H PRN for 09/18/23 aerosol inhaler (albuterol sulfate) wheezing #18 grams tirzepatide 5 mg/0.5 mL 5 mg (0.5 mL) subcut QWEEK #2 mL 10/14/23 subcutaneous pen injector (Fritzunlucillero) Allergies Allergy/AdvReac Type Severity Reaction Status Date / Time MONALISA Inhibitors Allergy Severe SHORTNESS Verified 10/17/23 15:16 [MONALISA INHIBITORS] OF BREATH Penicillins AdvReac Intermediate STOMACH Verified 10/17/23 15:16 UPSET stress induced anaphylaxis Allergy Severe Anaphylaxis Uncoded 08/12/23 13:43 Review of Systems Constitutional: Constitutional: Denies chills, Denies fever(s) and Reports weakness Cardiovascular: Cardiovascular: Reports chest pain and Reports dyspnea Respiratory: Respiratory: Denies cough, Reports dyspnea and Reports wheezing Gastrointestinal: Gastrointestinal: Denies abdominal pain, Denies nausea and Denies vomiting Musculoskeletal: Musculoskeletal: Denies back pain Integumentary/Breasts: Skin/Breast: Denies rash Neurologic: Reports weakness Allergic/Immunologic: Allergic/Immunologic: Reports wheezing [facility] Past Medical History Medical History Bronchitis Obesity BPH (benign prostatic hyperplasia) Asthma Type 2 diabetes mellitus with obesity Allergic rhinitis SARAH (obstructive sleep apnea) Diverticulosis History of postoperative nausea and vomiting Anaphylaxis Anxiety Dysphagia IBS (irritable bowel syndrome) Asthma Sleep apnea Fatty liver Non-toxic multinodular goiter B12 deficiency Vitamin D deficiency Obesity (BMI 30-39.9) Nephrolithiasis Hypertension Dyslipidemia Diabetes type 2, uncontrolled COPD (chronic obstructive pulmonary disease) Surgical History Hx of umbilical hernia repair Hx of cystoscopy Hx of lithotripsy Hx of colonoscopy Hx of esophagogastroduodenoscopy Hx of adenoidectomy Hx of hernia repair Hx of appendectomy Family History Family History Father Diabetes Mother CVD (cardiovascular disease) Cancer Social History Social History Housing: House Alcohol intake: current Alcohol intake frequency: a few times a week Patient Tobacco Use Status: Former Tobacco user Tobacco use type: Cigarette e-Cigarette/Vaping Use: Never Used Second Hand Smoke Exposure: No Use of substances other than those prescribed or required for medical reasons: No Advance Directives: No service: No Current occupational status: unemployed and disabled Cognitive needs: No Hearing needs: No Vision needs: No Physical Exam Vital Signs: Vital Signs: Last Vital Signs Temp 98.4 F 10/17/23 18:00 Pulse 109 H 10/17/23 18:00 Resp 22 H 10/17/23 18:00 BP 133/85 10/17/23 18:00 Pulse Ox 97 10/17/23 18:00 O2 Del Method Nasal Cannula 10/17/23 18:00 O2 Flow Rate 3 10/17/23 18:00 BMI result Body Mass Index 32.4 Const: General: healthy appearing, comfortable, alert and awake Nutritional Appearance: well nourished Orientation/consciousness: patient oriented x3 HEENT: Head: Yes normocephalic and Yes atraumatic Eyes: Eyelids: Yes eyelids normal Conjunctivae: conjunctivae normal Sclerae: sclerae normal Corneas: corneas normal Pupils: Equal, round and reactive pupils present EOM: EOMs intact bilaterally Neck: Neck: Yes full ROM Resp: Effort & Inspection: abnormal respiratory effort, not able to speak in complete sentences (Patient speaks in 6-10 word sentences), labored, tripod positioning and prolonged expiratory phase Auscultation: wheezes Cardio: Rhythm: regular rhythm GI: Inspection: No distended Palpation (GI): Soft to palpation, not firm, nontender, no guarding and not rigid Skin: General skin exam: elasticity normal Neuro: General: patient oriented x3 Cranial nerves: Yes Equal, round and reactive pupils present and Yes Bilaterally intact EOM present Cognition (Neuro): normal cognition Course Course Course Narrative: RME: 53yo M w/PMHx DM, HTN, SARAH not on CPAP, asthma/COPD, GERD, gastroparesis, kidney stones presents back to ED c/o worsening SOB since discharge 1hr ago. Patient reports sx improvement after leaving ED but went home & after changing clothes became very short of breath again. Was seen & tx in ED this morning for asthma exacerbation 92-93% on RA in triage >3L NC put on in triage, tachypneic, diffuse exp wheeze Viral testing, Repeat Troponin, IV Solumedrol & ED bronch protocol ordered Full HPI, ROS and PE to be performed by primary ED provider. Medications Administered Discontinued Medications Generic Name Dose Route Start Last Admin Trade Name Freq PRN Reason Stop Dose Admin Albuterol Sulfate 7.5 mg/ 10 mg 10/17/23 15:46 10/17/23 15:50 Albuterol Sulfate 2.5 mg INHALE 10/17/23 15:47 10 mg ONCE ONE Administration Albuterol Sulfate 7.5 mg/ 0 mg 10/17/23 15:30 10/17/23 15:33 Albuterol/Ipratropium 3 ml INHALE 10/17/23 15:31 2.5 each ONCE ONE Administration Magnesium Sulfate 2 gm in 50 mls @ 25 mls/hr 10/17/23 16:16 12/21/23 16:47 Magnesium Sulfate/H2o IV 10/17/23 18:15 25 mls/hr ONCE ONE Administration Sodium Chloride 1,000 mls @ 999 mls/hr 10/17/23 16:30 10/17/23 18:20 Ns IV 10/17/23 17:30 Infused .Q1H1M SO Infusion Methylprednisolone Sodium Succinate 125 mg 10/17/23 15:19 10/17/23 16:01 Methylprednisolone Sod Succ 125 Mg/2 Ml Vial IVPUSH 10/17/23 15:20 125 mg ONCE ONE Administration Medical Decision Making Medical Decision Making MDM Narrative: This is the patient's 2nd ER visit in the last few hours. He was given multiple high dose nebulizers and remains tripoding with a respiratory rate as high as 32. On exam he still has expiratory wheezing. I do not see any indication to repeat labs at warm earlier, he had a negative D-dimer, labs reassuring. We will repeat the troponin as he reported chest pain earlier. I added on magnesium 2 g IV and some fluids to hopefully a help with his increased heart rate which is 140. However this is most likely due to significant amounts of albuterol. Will not give more than 1 L of IV fluid and I expect his heart rate to come down as the albuterol started to leave his system. Viral swab is pending. There is currently no suspicion for infection Differential Diagnosis Differential Diagnoses: The differential diagnosis associated with the presentation includes Asthma exacerbation Bronchitis COPD exacerbation Viral syndrome COVID-19 RSV Fluid Admission/Observation Consideration of admission/observation: Escalation of care including admission/observation considered (Patient will likely require admission due to respiratory distress and his 2nd ER present take) Consult Healthcare Provider Management of the patient was discussed with: Hospitalist (Dr Curtis who will admit the patient) Lab Data MDM Lab Attestation statement: I reviewed the patient's lab results. (Reviewed labs from earlier in the day with no leukocytosis, no electrolyte abnormalities. Normal renal function. Glucose elevated to 136. Troponin 3.5, BNP 32.) Labs: Lab Results 10/17/23 Range/Units 16:29 Troponin I High Sens 4.8 (<3.5-35.0) ng/L Influenza Type A (PCR) NEGATIVE (Negative) Influenza Type B (PCR) NEGATIVE (Negative) RSV RNA Qual (PCR) NEGATIVE (Negative) SARS-CoV-2 RNA (RT-PCR) NEGATIVE (Negative) Independent Interpretation I performed an independent interpretation of an: Plain X-Ray (From earlier today, no focal infiltrate) Radiology Impression Discussion of test interpretation with radiology: I have reviewed the radiologist's reading. (Slight blunting of posterior sulcus suggestive of a small effusion) Discharge Plan Discharge Clinical Impression: Acute asthma exacerbation Patient Disposition: Admitted As Inpatient
[2023-10-17] MEDS: Albuterol Sulfate 7.5 MG, Albuterol/Iprat 2.5/0.5MG 3 ML 3 ML INHALE (15:33)
[2023-10-17] MEDS: Albuterol Sulfate 7.5 MG, Albuterol Sulfate (0.083%) 2.5 MG 10 MG INHALE (15:50)
[2023-10-17] MEDS: methylPREDNISolone Sod Succ 125 MG/2 ML VIAL IVPUSH (16:01)
--- NOTE | 2023-10-17 16:33 | MHC.EDTECH ---
This pct assumed care of pt ,vitals taken ,trop drawn and rsv/covid collected and sent to lab .
[2023-10-17] MEDS: Magnesium Sulfate/H2O 2 GM/50 ML PIGGYBACK IV (16:47)
[2023-10-17] MEDS: 0.9 % Sodium Chloride 1,000 ML 999 ML IV (16:51)
[2023-10-17 16:59] LABS: Troponin-I High Sensitivity 4.8 ng/L (<3.5-35.0)
[2023-10-17 17:15] LABS: Influenza A PCR NEGATIVE (Negative); Influenza B PCR NEGATIVE (Negative); Resp Syncy Virus RNA Qual PCR NEGATIVE (Negative); SARS COV2 PCR INHOUSE NEGATIVE (Negative)
--- NOTE | 2023-10-17 18:37 | PC.NURSE ---
20g iv inserted LAC, meds and fluid given as documented. pt satting high 90s r/a. no sob/wheezing.
--- NOTE | 2023-10-17 18:40 | PM.IMHP ---
History of Present Illness Date of Service: 10/17/23 <CHIN Marques - Last Filed: 10/17/23 20:49> Attending physician on admission: Sukh Simons <CHIN Marques - Last Filed: 10/17/23 20:49> Chief Complaint: SOB <CHIN Marques - Last Filed: 10/17/23 20:49> Pt is a 53-year-old male with a PMH significant for?moderate persistent asthma, HTN, HLD, niv-oajqhzk-nktynkear diabetes type 2, GERD,stress induced anaphylaxis, and hx of gout, who presents to the ED with?worsening SOB and wheezing. Patient states symptoms began earlier this morning at approximately 08:00 when he was outside in a friend's garage and he took a deep breath of cold arrhythmia that made his ?lungs lock up tight . He says he could not get his breath in or out despite using his albuterol rescue inhaler, the only 1 he had on hand, up to 33 times. Patient then presented to the ED where he was given high-dose albuterol treatments and then discharged back home after feeling much better. Less than 1 hour after pt's lungs again locked up tight while he was home in a warm environment. This episode was much worse than the previous one. He then re- presented to the ED where he was tachypneic, in respiratory distress, and tripoding. Patient has never been previously hospitalized for an asthma exacerbation, and says last attack was 8-10 years ago. History of smoking only when much younger ?when he was a kid?. Also complains of anterior chest wall pain associated with coughing. Denies nausea, vomiting, abdominal pain. In the ED pt was tachycardic up to 128, tachypneic up to 24, slightly hypertensive up to 163/93, and satting at 97% on 2 L NC. Labs were grossly unremarkable. No leukocytosis. Stable H&H. Electrolytes WNL. Renal and hepatic function WNL. Troponin 3.5 with repeat flat at 4.8. Patient tested negative for COVID, RSV, influenza type a and B. CXR showed no evidence for focal infiltrate. EKG demonstrated normal sinus rhythm without evidence of significant ST elevation or depression. Pt was treated with IVF, Mag sulfate, DuoNebs, Solu-Medrol. Pt will be admitted to the hospital and treatment for acute respiratory distress in the setting of moderate persistent asthma exacerbation. <CHIN Marques - Last Filed: 10/17/23 20:49> Review of Systems Review of Systems: Shortness of breath Nonproductive cough Chest tightness Racing heart No nausea, vomiting, abdominal pain <CHIN Marques - Last Filed: 10/17/23 20:49> [facility] Medical History: Medical History Bronchitis Obesity BPH (benign prostatic hyperplasia) Asthma Type 2 diabetes mellitus with obesity Allergic rhinitis SARAH (obstructive sleep apnea) Diverticulosis History of postoperative nausea and vomiting Anaphylaxis Anxiety Dysphagia IBS (irritable bowel syndrome) Asthma Sleep apnea Fatty liver Non-toxic multinodular goiter B12 deficiency Vitamin D deficiency Obesity (BMI 30-39.9) Nephrolithiasis Hypertension Dyslipidemia Diabetes type 2, uncontrolled COPD (chronic obstructive pulmonary disease) <CHIN Marques - Last Filed: 10/17/23 20:49> Family History: Family History Father Diabetes Mother CVD (cardiovascular disease) Cancer <CHIN Marques - Last Filed: 10/17/23 20:49> Surgical History: Surgical History Hx of umbilical hernia repair Hx of cystoscopy Hx of lithotripsy Hx of colonoscopy Hx of esophagogastroduodenoscopy Hx of adenoidectomy Hx of hernia repair Hx of appendectomy <CHIN Marques - Last Filed: 10/17/23 20:49> Social History: Social History Household Members: Significant Other Housing: Apartment Do you presently have visiting nurse or other home services: No Alcohol intake: current Alcohol intake frequency: a few times a week Patient Tobacco Use Status: Former Tobacco user Tobacco use type: Cigarette e-Cigarette/Vaping Use: Never Used Second Hand Smoke Exposure: No Use of substances other than those prescribed or required for medical reasons: No Have you been hit, kicked, punched, or otherwise hurt by someone within the past year? If so, by whom?: No Do you feel safe in your current relationship?: Yes Is there a partner from a previous relationship who is making you feel unsafe now?: No Are you made to feel afraid or neglected: No Advance Directives: No Do you have thoughts of harming others: None Do you have a plan to hurt others: No Plan Recently lost weight without trying: No Eating poorly because of decreased appetite: No Nutrition Risks: No Nutritional Risk Poor oral hygiene: No service: No Current occupational status: unemployed and disabled Cognitive needs: No Hearing needs: No Vision needs: No <CHIN Marques - Last Filed: 10/17/23 20:49> Meds Allergies/Adverse reactions: Allergies Allergy/AdvReac Type Severity Reaction Status Date / Time MONALISA Inhibitors Allergy Severe SHORTNESS Verified 10/17/23 15:16 [MONALISA INHIBITORS] OF BREATH Penicillins AdvReac Intermediate STOMACH Verified 10/17/23 15:16 UPSET stress induced anaphylaxis Allergy Severe Anaphylaxis Uncoded 08/12/23 13:43 <CHIN Marques Last Filed: 10/17/23 20:49> Home medications: Home Medications Medication Instructions Recorded Confirmed Last Taken Type fluticasone propionate 50 1 - 2 spray intranasal DAILY 08/15/20 10/17/23 Unknown History mcg/actuation nasal spray,suspension metoclopramide HCl 10 mg tablet 10 mg PO QIDACHS 10/17/23 10/17/23 Unknown History (Reglan) <CHIN Marques - Last Filed: 10/17/23 20:49> Physical Exam Vital Signs and Narrative: Vital Signs: Last Vital Signs Temp 98.4 F 10/17/23 18:00 Pulse 109 H 10/17/23 18:00 Resp 22 H 10/17/23 18:00 BP 133/85 10/17/23 18:00 Pulse Ox 97 10/17/23 18:00 O2 Del Method Nasal Cannula 10/17/23 18:00 O2 Flow Rate 3 10/17/23 18:00 BMI result Body Mass Index 32.4 <CHIN Marques - Last Filed: 10/17/23 20:49> Constitutional: Alert, in no acute distress. Mental Status: Oriented to person, place and time. Eyes: Pupils are equal, round, and reactive to light. Ear, Nose, and Throat: Oropharynx clear, mucous membranes moist. Ears and nose without deformities. Trachea midline. Respiratory: Diffuse wheezing bilatrally. Cardiovascular: S1, S2 regular. No murmurs, rubs, or gallops. Gastrointestinal: Abdomen soft, non-tender, non-distended. Normal bowel sounds. Neurologic: Cranial nerves II-XII are grossly intact bilaterally. No focal neurological deficits. Moves all extremities spontaneously. Skin: Warm, dry. Musculoskeletal: No cyanosis or clubbing. Extremities: No edema. Psychiatric: Normal mood and affect. <CHIN Marques - Last Filed: 10/17/23 20:49> Results Labs CBC and Chem 7: 10/17/23 20:02 <CHIN Marques - Last Filed: 10/17/23 20:49> Labs: Laboratory Results - last 24 hr 10/17/23 16:29 Influenza Type A (PCR) NEGATIVE Influenza Type B (PCR) NEGATIVE RSV RNA Qual (PCR) NEGATIVE SARS-CoV-2 RNA (RT-PCR) NEGATIVE <CHIN Marques - Last Filed: 10/17/23 20:49> Assessment and Plan (1) Acute asthma exacerbation: Status: Acute <CHIN Marques - Last Filed: 10/17/23 20:49> Pt is a 53-year-old male with a PMH significant for?moderate persistent asthma, HTN, HLD, yrj-mficjst-stuyzumae diabetes type 2, GERD,stress induced anaphylaxis, and hx of gout, who presents to the ED with?worsening SOB and wheezing. Pt will be admitted to the hospital and treatment for acute respiratory distress in the setting of moderate persistent asthma exacerbation. Acute respiratory distress setting of asthma exacerbation Dyspnea, nonproductive cough, wheezing Patient with continued wheezing on auscultation despite multiple rounds breathing treatments, IV steroids, and Mag sulfate in the ED; patient with 2 separate presentations to ED today for wheezing Will treat with DuoNebs, Solu-Medrol, benzonatate Titrate supplemental O2>92, wean as tolerated Monitor respiratory status Tachycardia, tachypnea Secondary to albuterol use and respiratory distress, not sepsis No indication of acute bacterial infection at this time, no indication for antibiotics Wnb-rffaftt-duhgepgam diabetes type 2 SSI, diabetic diet HTN Continue hydrochlorothiazide, losartan, amlodipine HLD Continue statin IBS Continue eluxadoline Gout Continue allopurinol Full Code Attending:?Dr. Simons DVT Prophylaxis: Lovenox Pt will require a hospitalization of at least two nights for treatment of?acute respiratory distress in the setting of moderate persistent asthma exacerbation. Patient be treated with IV steroids, breathing treatments, supplemental oxygen, and with close monitoring of respiratory status. <CHIN Marques - Last Filed: 10/17/23 20:49> Pt is a 53-year-old male with a PMH significant for?moderate persistent asthma, HTN, HLD, oxf-itxracb-vlwtslsib diabetes type 2, GERD,stress induced anaphylaxis, and hx of gout, who presents to the ED with?worsening SOB and wheezing. Pt will be admitted to the hospital and treatment for acute respiratory distress in the setting of moderate persistent asthma exacerbation. Acute hypoxic respiratory failure in the setting of asthma exacerbation Dyspnea, nonproductive cough, wheezing Patient with continued wheezing on auscultation despite multiple rounds breathing treatments, IV steroids, and Mag sulfate in the ED; patient with 2 separate presentations to ED today for wheezing Will treat with DuoNebs, Solu-Medrol, benzonatate Titrate supplemental O2>92, wean as tolerated Monitor respiratory status Tachycardia, tachypnea Secondary to albuterol use and respiratory distress, not sepsis No indication of acute bacterial infection at this time, no indication for antibiotics Aqz-uagkzpg-kmnvdhifo diabetes type 2 SSI, diabetic diet HTN Continue hydrochlorothiazide, losartan, amlodipine HLD Continue statin IBS Continue eluxadoline Gout Continue allopurinol Full Code Attending:?Dr. Simons DVT Prophylaxis: Lovenox Pt will require a hospitalization of at least two nights for treatment of?acute respiratory distress in the setting of moderate persistent asthma exacerbation. Patient be treated with IV steroids, breathing treatments, supplemental oxygen, and with close monitoring of respiratory status. <Sukh Simons MD - Last Filed: 10/17/23 21:29> Quality Stroke Does the patient have a stroke diagnosis?: No <CHIN Marques - Last Filed: 10/17/23 20:49> VTE Prior VTE?: No <CHIN Marques - Last Filed: 10/17/23 20:49> VTE Risk Level:: Medical - moderate - high <CHIN Marques - Last Filed: 10/17/23 20:49> VTE Device Contraindication: Treatment Not Indicated <CHIN Marques - Last Filed: 10/17/23 20:49> VTE Drug Contraindication: N/A - Med Ordered <CHIN Marques - Last Filed: 10/17/23 20:49>
--- NOTE | 2023-10-17 19:59 | PHA.MEDREC ---
Pharmacy Consult ? Medication Reconciliation Pharmacy has completed the medication reconciliation. Spoke to patient and confirmed medication list.
[2023-10-17] MEDS: Albuterol/Iprat 2.5/0.5MG 3 ML AMPUL.NEB INHALE (20:23)
[2023-10-17 20:26] LABS: Creatinine Clr Calc Pharmacy 72.1; Estimated Glomerular Filt Rate > 60
[2023-10-17 20:52] LABS: Glucose, Whole Blood 286 mg/dL (60-115)
[2023-10-17] MEDS: Insulin Lispro 100 UNIT/ML 3 ML VIAL SUBCUT (21:20)
[2023-10-17] MEDS: Enoxaparin Sodium 40 MG/0.4 ML SYRINGE SUBCUT (21:20)
[2023-10-17] MEDS: Metoclopramide HCl 10 MG TABLET PO (21:24)
[2023-10-17] MEDS: 0.9 % Sodium Chloride Flush 3 ML SYRINGE IVFLUSH (21:25)
[2023-10-17] MEDS: Salmeterol Xinafoate 50 MCG BLST.W.DEV 1 PUFF INHALE (22:49)
--- NOTE | 2023-10-17 22:53 | PC.RT ---
Pt refusing CPAP at this time; this RT made PT aware that they may call if they change their mind
[2023-10-18 04:55] LABS: Hematocrit 44.7 % (42.0-52.0); Hemoglobin 15.1 g/dl (14.0-18.0); Imm Gran Abs Auto 0.02 X10*3/uL (0.00-0.03); Imm Gran Pct Auto 0.4 % (0.0-0.4); Lymphocytes Absolute Auto 0.4 X10*3/uL (1.2-4.9); Lymphocytes Percent Auto 7.4 % (20-40); MANUAL DIFF FLAG SCAN; Mean Corpuscular HGB Conc 33.8 g/dl (31.0-36.0); Mean Corpuscular Hemoglobin 35.4 pg (27.0-33.0); Mean Corpuscular Volume 104.7 fL (80.0-98.0); Mean Platelet Volume 9.6 fL (9.4-12.4); Monocytes Absolute Auto 0.1 X10*3/uL (0.1-1.2); Monocytes Percent Auto 1.3 % (2-11); Neutrophils Absolute Auto 4.8 x10*3/uL (2.0-8.3); Neutrophils Percent Auto 90.9 % (45-73); Platelet Count 145 X10*3/uL (160-400); Red Blood Count 4.27 X10*6/uL (4.60-5.80); Red Cell Distribution Width 13.4 % (11.0-16.0); SCAN SMEAR FLAG 1; White Blood Count 5.3 X10*3/uL (4.8-10.8)
[2023-10-18 05:14] LABS: Anion Gap 15 (12-20); Blood Urea Nitrogen 10 mg/dL (9-16); Calcium 8.6 mg/dL (8.4-10.2); Carbon Dioxide 20 mmol/L (22-29); Chloride 106 mmol/L (96-108); Creatinine Clr Calc Pharmacy 92.9; Estimated Glomerular Filt Rate > 60; Glucose Random 249 mg/dL (60-115); Potassium 3.6 mmol/L (3.3-5.1); SLIDE REVIEW VERIFIED; Sodium 137 mmol/L (135-145)
[2023-10-18] MEDS: methylPREDNISolone Sod Succ 40 MG/ML VIAL IVPUSH (05:45)
[2023-10-18 07:24] LABS: Glucose, Whole Blood 272 mg/dL (60-115)
[2023-10-18 07:38] VITALS: BP 152/86; PULSE 75; RESP 12; TEMP 36; O2SAT 96
[2023-10-18 07:53] VITALS: PULSE 85; RESP 12; O2SAT 99
[2023-10-18] MEDS: Salmeterol Xinafoate 50 MCG BLST.W.DEV 1 PUFF INHALE (07:53)
[2023-10-18] MEDS: Albuterol/Iprat 2.5/0.5MG 3 ML AMPUL.NEB INHALE (07:53)
--- NOTE | 2023-10-18 08:27 | P.DS_ITS ---
DS: Providers Provider Date of Service: 10/18/23 Date of admission: 10/17/23 19:25 Primary care physician: Beto Kelly MD DS: Diagnosis Discharge Diagnosis (1) Acute asthma exacerbation: Status: Acute DS: Summary Hospital Course Hospital Course: from initial hpi: 53-year-old male with a PMH significant for?moderate persistent asthma, HTN, HLD, [id number] diabetes type 2, GERD,stress induced anaphylaxis, and hx of gout, who presents to the ED with?worsening SOB and wheezing. Patient states symptoms began earlier this morning at approximately 08:00 when he was outside in a friend's garage and he took a deep breath of cold arrhythmia that made his ?lungs lock up tight . He says he could not get his breath in or out despite using his albuterol rescue inhaler, the only 1 he had on hand, up to 33 times. Patient then presented to the ED where he was given high-dose albuterol treatments and then discharged back home after feeling much better. Less than 1 hour after pt's lungs again locked up tight while he was home in a warm environment. This episode was much worse than the previous one. He then re- presented to the ED where he was tachypneic, in respiratory distress, and tripoding. Patient has never been previously hospitalized for an asthma exacerbation, and says last attack was 8-10 years ago. History of smoking only when much younger ?when he was a kid?. Also complains of anterior chest wall pain associated with coughing. Denies nausea, vomiting, abdominal pain. In the ED pt was tachycardic up to 128, tachypneic up to 24, slightly hypertensive up to 163/93, and satting at 97% on 2 L NC. Labs were grossly unremarkable. No leukocytosis. Stable H&H. Electrolytes WNL. Renal and hepatic function WNL. Troponin 3.5 with repeat flat at 4.8. Patient tested negative for COVID, RSV, influenza type a and B. CXR showed no evidence for focal infiltrate. EKG demonstrated normal sinus rhythm without evidence of significant ST elevation or depression. Pt was treated with IVF, Mag sulfate, DuoNebs, Solu-Medrol. Pt will be admitted to the hospital and treatment for acute respiratory distress in the setting of moderate persistent asthma exacerbation. hospital course: Patient was admitted for acute hypoxic respiratory failure due to moderate persistent asthma with acute decompensation. He was treated with IV steroids and DuoNebs. He was able to be weaned off oxygen. His wheezing improved, shortness of breath significantly improved faster than expected. He will be discharged on 5 more days of prednisone 40 mg daily. For diabetes he was given insulin sliding scale. For hypertension he was continued on hy drochlorothiazide, losartan, amlodipine. Hyperlipidemia is continue statin. For gout was continue on allopurinol. Patient is feeling better will be discharged home. Time Attestation Discharge coordination time: Greater than 30 minutes Quality: Safe Use of Opioids Does Pt have an Active Cancer Diagnosis on the Problem List?: No Quality: Stroke Does the patient have a stroke diagnosis?: No Physical Exam Vital Signs: Vital Signs: Last Vital Signs Temp 96.8 F 10/18/23 07:38 Pulse 85 10/18/23 07:53 Resp 12 10/18/23 07:53 BP 152/86 H 10/18/23 07:38 Pulse Ox 96 10/18/23 07:38 O2 Del Method Nasal Cannula 10/18/23 07:38 O2 Flow Rate 3 10/18/23 07:38 BMI result Body Mass Index 32.4 General: AO X 3, no acute distress Resp: CTA bilateral, no accessory muscles used CVS: S1,S2,RRR GI: soft, non tender, non distended Neuro: motor grossly intact, alert Psych: appropriate affect, appropriate insight DS: Data Data Completed and Pending Labs on day of discharge: Laboratory Results - last 24 hr 10/17/23 10/17/23 10/17/23 16:29 20:02 20:48 WBC RBC Hgb Hct MCV MCH MCHC RDW Plt Count MPV Immature Gran % (Auto) Neut % (Auto) Lymph % (Auto) [place] % (Auto) Eos % (Auto) Baso % (Auto) Lymph # (Auto) [place] # (Auto) Eos # (Auto) Baso # (Auto) Abs Immat Gran (auto) Absolute Neuts (auto) Absolute Nucleated RBC Nucleated RBC % (auto) Smear Tech's Comments Sodium Potassium Chloride Carbon Dioxide Anion Gap BUN Creatinine 1.21 Estim Creat Clear Calc 72.1 Estimated GFR > 60 POC Glucose 286 H Random Glucose Calcium Troponin I High Sens 4.8 Influenza Type A (PCR) NEGATIVE Influenza Type B (PCR) NEGATIVE RSV RNA Qual (PCR) NEGATIVE SARS-CoV-2 RNA (RT-PCR) NEGATIVE 10/18/23 10/18/23 04:43 07:20 WBC 5.3 RBC 4.27 L Hgb 15.1 Hct 44.7 MCV 104.7 H MCH 35.4 H MCHC 33.8 RDW 13.4 Plt Count 145 L MPV 9.6 Immature Gran % (Auto) 0.4 Neut % (Auto) 90.9 H Lymph % (Auto) 7.4 L [place] % (Auto) 1.3 L Eos % (Auto) 0.0 Baso % (Auto) 0.0 Lymph # (Auto) 0.4 L [place] # (Auto) 0.1 Eos # (Auto) 0.0 Baso # (Auto) 0.0 Abs Immat Gran (auto) 0.02 Absolute Neuts (auto) 4.8 Absolute Nucleated RBC 0.000 Nucleated RBC % (auto) 0.0 Smear Tech's Comments VERIFIED Sodium 137 Potassium 3.6 Chloride 106 Carbon Dioxide 20 L Anion Gap 15 BUN 10 Creatinine 0.94 Estim Creat Clear Calc 92.9 Estimated GFR > 60 POC Glucose 272 H Random Glucose 249 H Calcium 8.6 Troponin I High Sens Influenza Type A (PCR) Influenza Type B (PCR) RSV RNA Qual (PCR) SARS-CoV-2 RNA (RT-PCR) Discharge Plan Discharge Anticipated Discharge Date/Time: 10/18/23 08:25 Patient Disposition: Home, Self-Care Discharge Diagnosis: asthma Referrals: Beto Kelly MD [Primary Care Provider] - 1 Week Discharge Medications: New prednisone 20 mg tablet 40 mg PO DAILY Qty: 10 0RF Continued (DME) FreeStyle Lite Strips Strip See Rx Instructions .ROUTE .MEDSUPPLY Qty: 100 11RF Rx Instructions: 3 jeremias a day (DME) lancets [FreeStyle Lancets] 28 gauge misc See Rx Instructions topical TID Qty: 100 11RF Rx Instructions: 3 times a day cyanocobalamin (vitamin B-12) [Vitamin B-12] 250 mcg tablet 250 mcg PO DAILY 60 Days Qty: 60 3RF cholecalciferol (vitamin D3) 25 mcg (1,000 unit) capsule 25 mcg PO DAILY Qty: 30 11RF amlodipine 10 mg tablet 10 mg PO DAILY 30 Days Qty: 30 6RF losartan 50 mg tablet 50 mg PO DAILY Qty: 30 11RF Serevent Diskus 50 mcg/dose blister with device 1 inh inhalation BID 30 Days Qty: 60 5RF omeprazole 40 mg capsule,delayed release(DR/EC) 40 mg PO DAILY Qty: 30 3RF Flovent HFA 110 mcg/actuation HFA aerosol inhaler 1 puff inhalation BID Qty: 12 3RF albuterol sulfate [Ventolin HFA] 90 mcg/actuation HFA aerosol inhaler 2 puff inhalation Q6H PRN (Reason: for wheezing) Qty: 18 3RF Mounjaro 5 mg/0.5 mL pen injector 5 mg subcut QWEEK Qty: 2 0RF allopurinol 100 mg tablet 100 mg PO DAILY 90 Days Qty: 90 1RF metoclopramide HCl [Reglan] 10 mg tablet 10 mg PO QIDACHS pyridoxine (vitamin B6) 100 mg tablet 100 mg PO DAILY 90 Days Qty: 90 1RF epinephrine [EpiPen 2-Benedict] 0.3 mg/0.3 mL auto-injector 0.3 mg IM ONCE PRN (Reason: anaphylaxis) Qty: 2 0RF hydrochlorothiazide 25 mg tablet 25 mg PO DAILY 30 Days Qty: 30 6RF fluticasone propionate 50 mcg/actuation spray,suspension 1 - 2 spray intranasal DAILY (DME) FreeStyle Arnulfo 14 Day Sensor Kit See Rx Instructions miscellaneous .MEDSUPPLY Qty: 2 0RF Rx Instructions: As directed Viberzi 100 mg tablet 100 mg PO BID Qty: 60 5RF Hold Instructions: Doctor's Order Rx Instructions: must administer with a meal/food rosuvastatin 20 mg tablet 20 mg PO DAILY Qty: 60 3RF Discharge Orders: Discharge Order (Routine); Ordered 10/18/23 Ordered By: Dave Encinas Diet: Advance to usual diet Activity on Discharge: As tolerated Stand Alone Forms: Patient Portal Discharge page Care Plan Goals: prevent asthma attacks Health Concerns: asthma Plan of Treatment: 5 more days prendisone, follow up with pcp/pulm, extend steroid taper if needed Assessment: see above
--- NOTE | 2023-10-18 08:48 | MHC.CM.PN ---
PATIENT IS INDEPENDENT WITH ALL ADLS. HE USES NO DME FRO AMBULATION ASSIST. RELIES ON INHALERS. NO CPAP. NO HCP ON FILE AND HE IS AWARE THAT CASE MANAGEMENT CAN ASSIST WITH ONE IF HE CHOOSES PRIOR TO DC. HE HAS TRANSPORT HOME TODAY PLAN IS - NO SERVICES.
[2023-10-18 09:20] VITALS: BP 138/80
[2023-10-18] MEDS: Insulin Lispro 100 UNIT/ML 3 ML VIAL SUBCUT (09:25)
[2023-10-18] MEDS: Losartan Potassium 50 MG TABLET PO (09:26)
[2023-10-18] MEDS: Cyanocobalamin (Vitamin B-12) 500 MCG TABLET 250 MCG PO (09:26)
[2023-10-18] MEDS: Cholecalciferol (Vitamin D3) 25 MCG TABLET PO (09:26)
[2023-10-18] MEDS: Metoclopramide HCl 10 MG TABLET PO (09:26)
[2023-10-18] MEDS: Atorvastatin Calcium 80 MG TABLET PO (09:26)
[2023-10-18] MEDS: Pyridoxine HCl (Vitamin B6) 50 MG TABLET 100 MG PO (09:26)
[2023-10-18] MEDS: hydroCHLOROthiazide 25 MG TABLET PO (09:26)
[2023-10-18] MEDS: allopurinoL 100 MG TABLET PO (09:27)
[2023-10-18] MEDS: amLODIPine Besylate 10 MG TABLET PO (09:27)
[2023-10-18] MEDS: Omeprazole 40 MG CAPSULE.DR PO (09:27)
== END 2023-10-18 10:12 | disposition home or self-care (01) | DRG 141 ==
LOC: HO.ED 17:23 → HO.EDOVER 19:30 → HO.S3 19:47
PROVIDERS: Physician Assistant; Admitting Provider Student in an Organized Health Care Education/Training Program; Emergency Provider Internal Medicine; PCP Internal Medicine; Visit Provider Internal Medicine
DX: J45.41 Moderate persistent asthma with (acute) exacerbation (principal); E11.9 Type 2 diabetes mellitus without complications; I10 Essential (primary) hypertension; E78.5 Hyperlipidemia, unspecified; K58.9 Irritable bowel syndrome, unspecified; M10.9 Gout, unspecified; Z20.822 Contact with and (suspected) exposure to COVID-19; Z79.51 Long term (current) use of inhaled steroids; Z79.899 Other long term (current) drug therapy
CPT/HCPCS: 0241U; 36415; 80048; 82565; 82947; 84484; 85025; 94640; 99285; J1650; J2920; J2930; J3475

== ENCOUNTER → 2023-10-17 19:25 | Outpatient (BNV) | payer OTHER, SELFPAY | PROVIDERS: Admitting Provider Student in an Organized Health Care Education/Training Program; Emergency Provider Internal Medicine; PCP Internal Medicine; Visit Provider Student in an Organized Health Care Education/Training Program | DX: J45.901 Unspecified asthma with (acute) exacerbation (principal); J96.01 Acute respiratory failure with hypoxia | CPT/HCPCS: 99223; 99239 ==

== ENCOUNTER 2023-10-29 09:18 | Outpatient (AMB) | payer OTHER, SELFPAY ==
[2023-10-29 09:52] VITALS: BP 160/80; PULSE 87; BMI 32.9
--- NOTE | 2023-10-29 09:52 | MHC.OFFVIS ---
Intake Vital Signs 10/29/23 09:52 Height 5 ft 5 in Weight 197 lb 8.547 oz BMI 32.9 BP 160/80 H Blood Pressure Location Rt brachial Position Sitting Pulse 87 Pulse Source Pulse Oximeter Intake Visit Reasons: c d/c/Confirmed Intake Note: pt its feeling fine says that due to his asthma attack he still feel some pain in the left side. 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 Accompanied by: Spouse Allergies MONALISA Inhibitors [MONALISA INHIBITORS] Allergy (Severe, Verified 10/17/23 15:16) SHORTNESS OF BREATH Penicillins Adverse Reaction (Intermediate, Verified 10/17/23 15:16) STOMACH UPSET stress induced anaphylaxis Allergy (Severe, Uncoded 08/12/23 13:43) Anaphylaxis Medication List - Last Reconciled 10/29/23 by EROS Flores allopurinol 100 mg PO DAILY 90 days amlodipine 10 mg PO DAILY 30 days blood sugar diagnostic (FreeStyle Lite Strips) 3 jeremias a day cholecalciferol (vitamin D3) 25 mcg PO DAILY cyanocobalamin (vitamin B-12) (Vitamin B-12) 250 mcg PO DAILY 60 days eluxadoline (Viberzi) 100 mg PO BID epinephrine (EpiPen 2-Benedict) 0.3 mg (0.3 mL) IM ONCE PRN flash glucose sensor (FreeStyle Arnulfo 14 Day Sensor kit) As directed fluticasone propionate 50 mcg/actuation 1 - 2 sprays intranasal DAILY fluticasone propionate 110 mcg/actuation (Flovent HFA) 1 puff inhalation BID FreeStyle Lancets (lancets) 3 times a day NS hydrochlorothiazide 25 mg PO DAILY 30 days losartan 50 mg PO DAILY metoclopramide HCl (Reglan) 10 mg PO QIDACHS omeprazole 40 mg PO DAILY pyridoxine (vitamin B6) 100 mg PO DAILY 90 days rosuvastatin 20 mg PO DAILY salmeterol (Serevent Diskus) 1 inh inhalation BID 30 days tirzepatide (Mounjaro) 5 mg (0.5 mL) subcut QWEEK Ventolin HFA 90 mcg/actuation (albuterol sulfate) 2 puffs inhalation Q6H PRN NS HPI c d/c/Confirmed HPI Details Jonn is a 53-year-old male past medical history obesity, hypertension, prior chest discomfort who was [place] [facility] [place] and he now presents for cardiac follow-up. Today he reports that he was told during his last admission that his heart was strained. He has not had any chest discomfort at rest or with activity. He did have asthma attacks on the day of admission causing severe respiratory distress. He tells me he used nearly half of an inhaler without affect. His breathing has been stable since his hospital discharge. He is quite fearful of having another attack as they have been out of no where. He is still not aware of the trigger that occurred that day. He tells me he had had bronchitis about 3 weeks prior. He continues to have an intermittent cough with white sputum causing him concern. No palpitations, presyncope, syncope, PND, orthopnea or edema. He is doing only light physical activity. He is taking all meds as directed. His is present. [facility] Medical History Bronchitis Obesity BPH (benign prostatic hyperplasia) Asthma Type 2 diabetes mellitus with obesity Allergic rhinitis SARAH (obstructive sleep apnea) Diverticulosis History of postoperative nausea and vomiting Anaphylaxis Anxiety Dysphagia IBS (irritable bowel syndrome) Asthma Sleep apnea Fatty liver Non-toxic multinodular goiter B12 deficiency Vitamin D deficiency Obesity (BMI 30-39.9) Nephrolithiasis Hypertension Dyslipidemia Diabetes type 2, uncontrolled COPD (chronic obstructive pulmonary disease) Surgical History Hx of umbilical hernia repair Hx of cystoscopy Hx of lithotripsy Hx of colonoscopy Hx of esophagogastroduodenoscopy Hx of adenoidectomy Hx of hernia repair Hx of appendectomy Family History Father Diabetes Mother CVD (cardiovascular disease) Cancer Social History Household Members: Significant Other Housing: Apartment Do you presently have visiting nurse or other home services: No Alcohol intake: current Alcohol intake frequency: a few times a week Patient Tobacco Use Status: Former Tobacco user Tobacco use type: Cigarette e-Cigarette/Vaping Use: Never Used Second Hand Smoke Exposure: No service: No Current occupational status: unemployed and disabled Cognitive needs: No Hearing needs: No Vision needs: No Review of Systems Const Denies chills, Denies fatigue, Denies fever(s), Denies frequent falls, Denies weakness, Denies weight gain and Denies weight loss ENT Denies dizziness Card Denies chest pain, Denies leg edema, Denies lightheadedness, Denies palpitations, Reports dyspnea and Denies dyspnea on exertion Resp Reports cough, Reports dyspnea and Denies dyspnea on exertion GI Denies hematochezia Musc Denies abnormal gait, Denies muscle weakness, Denies numbness, Denies radiating pain into limb and Denies tingling Neuro Denies abnormal gait, Denies dizziness, Denies frequent falls, Denies numbness, Denies tingling and Denies weakness Endo Denies fatigue and Denies palpitations Physical Exam Vital Signs: Last Vital Signs Pulse 87 10/29/23 09:52 BP 160/80 H 10/29/23 09:52 BMI result Body Mass Index 32.9 Const General: cooperative, healthy appearing, comfortable and no acute distress Orientation/consciousness: patient oriented x3 Neck Neck: Yes normal visual inspection Resp Effort & Inspection: normal respiratory effort Auscultation: clear to auscultation bilaterally, no rhonchi and no wheezes Cardio Jugular venous distension: no JVD Rate: regular rate Rhythm: regular rhythm Heart sounds: S1 normal heart sound present, S2 normal heart sound present, no murmurs and no rubs Neuro General: patient oriented x3 Extrem General: Yes normal to inspection Psych Appearance: grossly normal Mental Status: mental status grossly normal Speech and movement: Normal speech and movement present Assessment & Plan Assessment & Plan (1) Cough: Code(s): R05.9 - Cough, unspecified Plan[place] [facility] [place] with acute asthma exacerbation. He had also been seen in the ER earlier that day with the same problem. He tells me his shortness of breath came on suddenly and his asthma inhaler did not improve his symptom. Once in the hospital he was treated with updrafts, magnesium and steroids with gradual improvement. He is concerned that his chest x-ray at that time showed small pleural effusions. Since his hospital discharge he has continued to have an intermittent cough with white sputum. No fevers reported. His breathing is on labored but he has been mostly sedentary. He is very fearful of having recurrent asthma exacerbation. 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 Chart reviewed and no clear evidence that his pleural effusion was cardiac related. His BNP and troponin levels were normal. At this time will update a chest x-ray due to persistent cough and to re-evaluate size of effusions. (2) Pleural effusion: Code(s): J90 - Pleural effusion, not elsewhere classified Plan: As above (3) Acute asthma exacerbation: Code(s): J45.901 - Unspecified asthma with (acute) exacerbation Qualifiers: Asthma severity: moderate Asthma persistence: unspecified Qualified Code(s): J45.901 - Unspecified asthma with (acute) exacerbation Plan: As above (4) Chest pain: Code(s): R07.9 - Chest pain, unspecified Qualifiers: Chest pain type: unspecified Qualified Code(s): R07.9 - Chest pain, unspecified Plan: Prior reports of chest discomfort, not recent. An echocardiogram was done 06/02/2021 showing normal EF and no regional wall motion abnormality. An exercise stress test was done 06/08/2021 showing exercise 8 minutes with shortness of breath, without EKG changes of ischemia at peak exercise and nonspecific changes in recovery. At this time he no longer reports having chest discomfort. Continue with cardiac risk factor modifications including weight loss, increasing physical activity, good blood pressure control. (5) Hypertension: Code(s): I10 - Essential (primary) hypertension Plan: Elevated at this visit. He reports being worked up and anxious over his lung issues. This can contribute to elevated blood pressure reading. He has visit with his PCP later this afternoon. At this moment will continue current meds without change. Blood pressure remains elevated losartan dose can be increased. (6) Hospital discharge follow-up: Code(s): Z09 - Encounter for follow-up examination after completed treatment for conditions other than malignant neoplasm Plan: As above Plan Time spent on chart review, documentation, interview and assessment Orders: Orders XR chest 2V Today J45.901 - Unspecified asthma with (acute) exacerbation Coding Level of Care Code Est Pt Level 4 (75666) Diagnoses Cough R05.9 Pleural effusion J90 Moderate asthma with acute exacerbation, unspecified whether persistent J45.901 Asthma severity: moderate Asthma persistence: unspecified Chest pain R07.9 Chest pain type: unspecified Hypertension I10 Hospital discharge follow-up Z09 Time Spent (min) 28
== END 2023-10-29 10:35 | disposition home or self-care (01) ==
PROVIDERS: PCP Internal Medicine; Visit Provider Nurse Practitioner Family
DX: R05.9 Cough, unspecified (principal); J90 Pleural effusion, not elsewhere classified; J45.901 Unspecified asthma with (acute) exacerbation; R07.9 Chest pain, unspecified; I10 Essential (primary) hypertension; Z09 Encounter for follow-up examination after completed treatment for conditions other than malignant neoplasm
CPT/HCPCS: 99214

== ENCOUNTER 2023-10-29 09:18 | Outpatient (REF) | payer OTHER, SELFPAY ==
--- NOTE | ~2023-10-29 | XR_ITS ---
EXAMINATION: XR CHEST CLINICAL INFORMATION: Asthma with acute exacerbation. COMPARISON: 10/17/2023 TECHNIQUE: 2 views of the chest were obtained. FINDINGS: Levoscoliosis of the thoracic spine with multilevel degenerative changes. There is no gross pneumothorax. Heart size is normal. No pleural effusion. Mild bibasilar streaky opacities may represent atelectasis and/or pneumonia. XR/XR chest 2V IMPRESSION: Mild bibasilar streaky opacities may represent atelectasis and/or pneumonia. Recommend follow-up imaging in 4-6 weeks to confirm resolution and exclude underlying pathology. Report provided as requested to the referring clinician at the time of interpretation. This study was presented today October, at 8:20 a.m. for interpretation. PSA staff will provide results to referring provider at this time.
== END 2023-10-29 09:19 | disposition home or self-care (01) ==
LOC: HO.XRAY 09:18
PROVIDERS: PCP Internal Medicine; Visit Provider Nurse Practitioner Family
DX: J45.901 Unspecified asthma with (acute) exacerbation (principal); R05.9 Cough, unspecified; R07.9 Chest pain, unspecified; I10 Essential (primary) hypertension
CPT/HCPCS: 71046; 99212

== ENCOUNTER 2023-10-29 13:59 | Outpatient (AMB) | payer OTHER, SELFPAY ==
--- NOTE | 2023-10-29 14:04 | A.OFFPC_ITS ---
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: No Radio Host: Present Accompanied by: Spouse Allergies MONALISA Inhibitors [MONALISA INHIBITORS] Allergy (Severe, Verified 10/29/23 14:10) SHORTNESS OF BREATH Penicillins Adverse Reaction (Intermediate, Verified 10/29/23 14:10) STOMACH UPSET stress induced anaphylaxis Allergy (Severe, Uncoded 10/29/23 14:10) Anaphylaxis Medication List - Last Reconciled 10/29/23 by Beto Kelly MD allopurinol 100 mg PO DAILY 90 days amlodipine 10 mg PO DAILY 30 days blood sugar diagnostic (FreeStyle Lite Strips) 3 jeremias a day cholecalciferol (vitamin D3) 25 mcg PO DAILY cyanocobalamin (vitamin B-12) (Vitamin B-12) 250 mcg PO DAILY 60 days eluxadoline (Viberzi) 100 mg PO BID epinephrine (EpiPen 2-Benedict) 0.3 mg (0.3 mL) IM ONCE PRN flash glucose sensor (FreeStyle Arnulfo 14 Day Sensor kit) As directed fluticasone propionate 50 mcg/actuation 1 - 2 sprays intranasal DAILY fluticasone propionate 110 mcg/actuation (Flovent HFA) 1 puff inhalation BID FreeStyle Lancets (lancets) 3 times a day NS hydrochlorothiazide 25 mg PO DAILY 30 days losartan 50 mg PO DAILY metoclopramide HCl (Reglan) 10 mg PO QIDACHS omeprazole 40 mg PO DAILY pyridoxine (vitamin B6) 100 mg PO DAILY 90 days rosuvastatin 20 mg PO DAILY salmeterol (Serevent Diskus) 1 inh inhalation BID 30 days tirzepatide (Mounjaro) 5 mg (0.5 mL) subcut QWEEK Ventolin HFA 90 mcg/actuation (albuterol sulfate) 2 puffs inhalation Q6H PRN NS Tobacco use date assessed: 12/28/22 Dental Screening Dental Screen Date: 10/29/23 Did you have a dental visit in the last 12 months?: Yes Did you have a dental problem in the last 6 months where you did not have access to dental care?: No Was dental information given to patient?: Patient has dentist HPI [facility] [place]/18/23 acute asthma exacerbation HPI Details 2 er visits for asthma; doing well; smal l pleural effusion noted; had repeat cxr today [facility] Medical History Bronchitis Obesity BPH (benign prostatic hyperplasia) Asthma Type 2 diabetes mellitus with obesity Allergic rhinitis SARAH (obstructive sleep apnea) Diverticulosis History of postoperative nausea and vomiting Anaphylaxis Anxiety Dysphagia IBS (irritable bowel syndrome) Asthma Sleep apnea Fatty liver Non-toxic multinodular goiter B12 deficiency Vitamin D deficiency Obesity (BMI 30-39.9) Nephrolithiasis Hypertension Dyslipidemia Diabetes type 2, uncontrolled COPD (chronic obstructive pulmonary disease) Surgical History Hx of umbilical hernia repair Hx of cystoscopy Hx of lithotripsy Hx of colonoscopy Hx of esophagogastroduodenoscopy Hx of adenoidectomy Hx of hernia repair Hx of appendectomy Family History Father Diabetes Mother CVD (cardiovascular disease) Cancer Social History Household Members: Significant Other Housing: Apartment Do you presently have visiting nurse or other home services: No Alcohol intake: current Alcohol intake frequency: a few times a week Patient Tobacco Use Status: Former Tobacco user Tobacco use type: Cigarette e-Cigarette/Vaping Use: Never Used Second Hand Smoke Exposure: No service: No Current occupational status: unemployed and disabled Cognitive needs: No Hearing needs: No Vision needs: No Questionnaire Thrive Questionnaire Date Thrive assessed: 10/18/23 VILLA-7 AMB Questionnaire VILLA-7 Date VILLA - 7 assessed: 12/28/22 Source: Developed by Drs. Sam Sharp, Paula Allen, Samson Zavala and colleagues, with an educational fawn from [employer]. Review of Systems Const Denies chills, Denies headache(s) and Denies weight loss ENT Denies headache(s) Card Denies chest pain, Denies syncope, Denies irregular heart rhythm and Denies dyspnea Resp Denies chest congestion, Denies cough and Denies dyspnea GI Denies abdominal pain, Denies change in stool character, Denies nausea and Denies vomiting Musc Denies deformity and Denies joint swelling Neuro Denies syncope and Denies headache(s) Physical exam (Primary Care) Vital Signs: Last Vital Signs Pulse 82 10/29/23 14:09 BP 132/88 10/29/23 14:09 Pulse Ox 98 10/29/23 14:09 Oxygen Delivery Method Room Air 10/29/23 14:09 BMI result Body Mass Index 32.8 Tobacco/Smoking Status: Tobacco use Status Tobacco use date assessed 12/28/22 10/29/23 14:04 Patient Tobacco Use Status Former Tobacco user 10/29/23 14:04 Tobacco use type Cigarette 10/29/23 14:04 e-Cigarette/Vaping Use Never Used 10/29/23 14:04 Thrive Assessment: Date of Thrive Assessment Date Thrive assessed 10/18/23 10/29/23 14:04 Const General: cooperative, comfortable, no acute distress and alert Neck Neck: Yes no lymphadenopathy Thyroid: Thyroid normal Resp Effort & Inspection: normal respiratory effort Auscultation: clear to auscultation bilaterally Percussion: percussion normal Cardio Jugular venous distension: no JVD Palpation: normal PMI Rate: regular rate Rhythm: regular rhythm Heart sounds: S1 normal heart sound present and S2 normal heart sound present GI Inspection: Yes normal to inspection Palpation (GI): No hepatosplenomegaly present Skin General skin exam: no rashes or lesions noted Extrem General: Yes no clubbing, cyanosis or edema Assessment and Plan Assessment & Plan (1) Asthma: Code(s): J45.909 - Unspecified asthma, uncomplicated Plan stable; same rx Orders: Orders AMB Hemoglobin A1c Today E11.69 - Type 2 diabetes mellitus with other specified complication, E66.9 - Obesity, unspecified Coding Level of Care Code Est Pt Level 3 (62764) Diagnoses Asthma J45.909
[2023-10-29 14:09] VITALS: BP 132/88; PULSE 82; O2SAT 98; BMI 32.8
== END 2023-10-29 14:24 | disposition home or self-care (01) ==
PROVIDERS: PCP Internal Medicine; Visit Provider Internal Medicine
DX: E11.69 Type 2 diabetes mellitus with other specified complication (principal); E66.9 Obesity, unspecified; J45.909 Unspecified asthma, uncomplicated; Z68.32 Body mass index [BMI] 32.0-32.9, adult
CPT/HCPCS: 83036; 99213

== ENCOUNTER 2023-11-11 08:56 | Outpatient (AMB) | payer OTHER, SELFPAY ==
[2023-11-11 09:00] VITALS: BP 132/76; PULSE 84; O2SAT 99; BMI 33.2
--- NOTE | 2023-11-11 09:00 | A.OFFVIS_ITS ---
Intake Vital Signs 11/11/23 09:00 Height 5 ft 5 in Weight 199 lb 8.293 oz BMI 33.2 BP 132/76 Blood Pressure Location Lt brachial Position Sitting Pulse 84 Pulse Source Doppler Pulse Oximetry (%) 99 Oxygen Delivery Method Room Air Intake Visit Reasons: f/u to chest xray Allergies MONALISA Inhibitors [MONALISA INHIBITORS] Allergy (Severe, Verified 11/11/23 09:24) SHORTNESS OF BREATH Penicillins Adverse Reaction (Intermediate, Verified 11/11/23 09:24) STOMACH UPSET stress induced anaphylaxis Allergy (Severe, Uncoded 11/11/23 09:24) Anaphylaxis Medication List - Last Reconciled 11/11/23 by Jovita Parrish MD allopurinol 100 mg PO DAILY 90 days amlodipine 10 mg PO DAILY 30 days blood sugar diagnostic (FreeStyle Lite Strips) 3 jeremias a day cholecalciferol (vitamin D3) 25 mcg PO DAILY cyanocobalamin (vitamin B-12) (Vitamin B-12) 250 mcg PO DAILY 60 days eluxadoline (Viberzi) 100 mg PO BID epinephrine (EpiPen 2-Benedict) 0.3 mg (0.3 mL) IM ONCE PRN flash glucose sensor (FreeStyle Arnulfo 14 Day Sensor kit) As directed fluticasone propionate 50 mcg/actuation 1 - 2 sprays intranasal DAILY fluticasone propionate 110 mcg/actuation (Flovent HFA) 1 puff inhalation BID FreeStyle Lancets (lancets) 3 times a day NS hydrochlorothiazide 25 mg PO DAILY 30 days losartan 50 mg PO DAILY metoclopramide HCl (Reglan) 10 mg PO QIDACHS omeprazole 40 mg PO DAILY pyridoxine (vitamin B6) 100 mg PO DAILY 90 days rosuvastatin 20 mg PO DAILY salmeterol (Serevent Diskus) 1 inh inhalation BID 30 days tirzepatide (Mounjaro) 5 mg (0.5 mL) subcut QWEEK Ventolin HFA 90 mcg/actuation (albuterol sulfate) 2 puffs inhalation Q6H PRN NS Do you need a note to return to daycare/school/sports/work: No HPI f/u to chest xray HPI Details This 53 years old gentleman is a known case of bronchial asthma/COPD, along with chronic allergic rhinitis. He has stayed well and symptoms controlled with the use of Serevent plus Flovent . On October 17 he was at a friend's house, and developed acute asthma symptoms, this was not preceded by any chest infection. Seen in the emergency room and treated with the nebulized treatment and sent home. He returned back to the emergency room with the persistent cough, shortness of breath and tachycardia. Had used albuterol HFA every few hours his, somewhat excessively On his 2nd visit to the emergency room the main issue was tachycardia, secondary to overuse of albuterol. His chest x-ray showed streaky markings in the lower parts of the lungs, raising a question off small pleural effusions atelectasis. On 10/29/23 he was seen in cardiology office, hard findings were okay, chest x- ray again showed some abnormalities, suggesting possible micro atelectasis in the basilar areas. Patient was advised to come for a good checkup at our of [facility]. Since that day he has been doing well, and his asthma remains under controlled with his usual combination of Serevent and Flovent. He has had no fever chills or chest pain. [facility] Medical History (Updated 11/11/23 @ 10:18 by Jovita Parrish MD) Radiologic findings of lung field, abnormal Bronchitis Obesity BPH (benign prostatic hyperplasia) Asthma Type 2 diabetes mellitus with obesity Allergic rhinitis SARAH (obstructive sleep apnea) Diverticulosis History of postoperative nausea and vomiting Anaphylaxis Anxiety Dysphagia IBS (irritable bowel syndrome) Asthma Sleep apnea Fatty liver Non-toxic multinodular goiter B12 deficiency Vitamin D deficiency Obesity (BMI 30-39.9) Nephrolithiasis Hypertension Dyslipidemia Diabetes type 2, uncontrolled COPD (chronic obstructive pulmonary disease) Surgical History Hx of umbilical hernia repair Hx of cystoscopy Hx of lithotripsy Hx of colonoscopy Hx of esophagogastroduodenoscopy Hx of adenoidectomy Hx of hernia repair Hx of appendectomy Family History Father Diabetes Mother CVD (cardiovascular disease) Cancer Social History Household Members: Significant Other Housing: Apartment Do you presently have visiting nurse or other home services: No Alcohol intake: current Alcohol intake frequency: a few times a week Patient Tobacco Use Status: Former Tobacco user Tobacco use type: Cigarette e-Cigarette/Vaping Use: Never Used Second Hand Smoke Exposure: No service: No Current occupational status: unemployed and disabled Cognitive needs: No Hearing needs: No Vision needs: No Review of Systems Const All systems reviewed & are unremarkable except as noted in HPI and below Eyes Reports no additional complaints ENT Reports nasal congestion (INTERMITTENT USUALLY WITH CHANGE OF WEATHER) Card Denies chest pain, Denies irregular heart rhythm and Denies leg edema Resp Reports as per HPI GI Reports no additional complaints Reports no additional complaints Musc Reports no additional complaints Skin/Breast Reports system reviewed and no additional complaints, except as documented Neuro Reports no additional complaints Psych Reports no additional complaints Physical Exam Vital Signs: Last Vital Signs Pulse 84 11/11/23 09:00 BP 132/76 11/11/23 09:00 Pulse Ox 99 11/11/23 09:00 Oxygen Delivery Method Room Air 11/11/23 09:00 BMI result Body Mass Index 33.2 Const General: healthy appearing, comfortable, no acute distress, alert and awake Orientation/consciousness: patient oriented x3 HEENT Head: Yes normal to inspection General nose exam: No nasal polyps present, No nasal discharge present and Other nasal findings present (HE DOES HAVE MILD BILATERAL NASAL CONGESTION) Face and sinus: Yes sinuses nontender Mouth: oropharynx normal (THERE IS MILD ERYTHEMA THE OROPHARYNX) Throat: Yes posterior oropharynx normal Eyes General: appearance normal, both eyes and all related structures Neck Neck: Yes normal visual inspection, Yes no lymphadenopathy, Yes trachea midline and Yes no JVD Thyroid: Thyroid normal Chest Chest palpation & inspection: normal inspection of the chest, normal palpation of entire chest wall and no tenderness Resp Other: Percussion note is resonant, breath sounds are distant and especially decreased over the basilar areas. But there are no wheezes . Also no Crepitation are heard . Cardio Palpation: normal PMI Rate: regular rate Rhythm: regular rhythm Heart sounds: no gallops and no murmurs Peripheral pulses: Peripheral pulses 2+ throughout GI Palpation (GI): Soft to palpation, nontender, No hepatosplenomegaly present and no masses Auscultation: normal bowel sounds Back/Spine/Pelvis Thoracic/Lumbar Spine: thoracic and lumbar spine normal to inspection Skin General skin exam: no rashes or lesions noted Neuro General: patient oriented x3 and no focal motor deficits Cranial nerves: Yes CN's II-XII intact bilaterally Extrem General: Yes normal to inspection, Yes no clubbing, cyanosis or edema and Yes no calf tenderness Psych Speech and movement: Normal speech and movement present Results Reviewed Results Reviewed: CHEST XRA on 10/29/23 IMPRESSION: Mild bibasilar streaky opacities may represent atelectasis and/or pneumonia. Recommend follow-up imaging in 4-6 weeks to confirm resolution and exclude underlying pathology. Assessment & Plan Assessment & Plan (1) COPD (chronic obstructive pulmonary disease): Comment: [id number] as under ASTHMA/COPD overlap . Code(s): J44.9 - Chronic obstructive pulmonary disease, unspecified Plan: [place] FLOVENT-110 2 PUFFS B.I.D. SEREVENT -50 1 INHALATION B.I.D. PROAIR HFA 2 PUFFS Q 4-6 HOURS ONLY P.R.N. Advised to avoid excessive use of Proair . May use Proair with a Spacer device , No need of a Nebulizer (2) Allergic rhinitis: Comment: MINIMAL.and CONTROLLED Code(s): J30.9 - Allergic rhinitis, unspecified Plan: USE FLONASE 2 SPRAY EACH NOSTRIL ONLY P.R.N. (3) SARAH (obstructive sleep apnea): Comment: SARAH HAS RESOLVED AFTER SIGNIFICANT WEIGHT LOSS. DOES NOT USE CPAP, CLAIMS THAT HE IS SLEEPING OKAY, I DID CAUTION HIM THAT HE NEEDS TO LOSE SOME WEIGHT , HIS GOAL SHOULD BE TO KEEP HIS WEIGHT BELOW 200 LB. Code(s): G47.33 - Obstructive sleep apnea (adult) (pediatric) Plan: ABOVE (4) Radiologic findings of lung field, abnormal: Comment: X-RAY CHEST ON 10/29/23 REPORTED TO SHOWS STREAKY MARKINGS IN THE BASILAR AREAS, RAISING POSSIBILITY OF MICROATELECTASIS. WHEN I REVIEW THE FILMS THESE MARKINGS ARE VERY MILD AND NONSPECIFIC AND NOT ANY DIFFERENT THAN BEFORE. Code(s): R91.8 - Other nonspecific abnormal finding of lung field Plan: EXPLAINED TO THE PATIENT, NOT TO WORRY ABOUT THE RADIOLOGIC FINDINGS, WILL REPEAT CHEST X-RAY AFTER 2 MONTHS FOR FOLLOW-UP. Orders: Orders XR chest 2V 6 Weeks R91.8 - Other nonspecific abnormal finding of lung field Medications: New inhalat.spacing dev,large mask (BreatheRite Spacer and Mask, Adult) As directed 1 ea 0RF Coding Level of Care Code Est Pt Level 4 (78561) Diagnoses COPD (chronic obstructive pulmonary disease) J44.9 Allergic rhinitis J30.9 SARAH (obstructive sleep apnea) G47.33 Radiologic findings of lung field, abnormal R91.8
== END 2023-11-11 09:24 | disposition home or self-care (01) ==
PROVIDERS: PCP Internal Medicine; Visit Provider Internal Medicine
DX: J44.9 Chronic obstructive pulmonary disease, unspecified (principal); J30.9 Allergic rhinitis, unspecified; G47.33 Obstructive sleep apnea (adult) (pediatric); R91.8 Other nonspecific abnormal finding of lung field
CPT/HCPCS: 99214

== ENCOUNTER → 2023-11-11 08:56 | Outpatient (BNVA) | payer OTHER, SELFPAY | PROVIDERS: PCP Internal Medicine; Visit Provider Internal Medicine | DX: J44.9 Chronic obstructive pulmonary disease, unspecified (principal); J30.9 Allergic rhinitis, unspecified; G47.33 Obstructive sleep apnea (adult) (pediatric); R91.8 Other nonspecific abnormal finding of lung field | CPT/HCPCS: 99212 ==

== ENCOUNTER 2023-11-25 13:16 | Outpatient (REF) | payer OTHER, SELFPAY ==
--- NOTE | ~2023-11-25 | US_ITS ---
EXAMINATION: US RETROPERITONEAL LIMITED (RENAL ONLY) CLINICAL INFORMATION: Calculus of kidney. COMPARISON: Renal ultrasound 09/28/2022 and 11/30/2021. TECHNIQUE: Real-time imaging of the kidneys. FINDINGS: RIGHT KIDNEY: 10.0 x 6.1 x 5.4 cm (SAG x AP x TRV). The kidney is normal in size, contour, and echogenicity. Renal cortical thickness is normal. No focal parenchymal lesions or hydronephrosis. Nonobstructive 0.4 cm calculus in the lower pole. LEFT KIDNEY: 10.6 x 4.7 x 4.6 cm (SAG x AP x TRV). The kidney is normal in size, contour, and echogenicity. Renal cortical thickness is normal. No hydronephrosis. Nonobstructive 0.4 cm calculus in the lower pole. Simple appearing cyst in the upper pole measuring 0.9 cm, for which no imaging follow-up is recommended. US/US renal BI IMPRESSION: Nonobstructive bilateral renal calculi.
== END 2023-11-25 13:17 | disposition home or self-care (01) ==
LOC: HO.US 13:16
PROVIDERS: PCP Internal Medicine; Visit Provider Urology
DX: N20.0 Calculus of kidney (principal)
CPT/HCPCS: 76775

== ENCOUNTER 2023-12-24 08:54 | Outpatient (AMB) | payer OTHER, SELFPAY ==
--- NOTE | 2023-12-24 09:05 | MHC.OFFVIS ---
Intake Intake Visit Reasons: 1Y US(SET)(Portal Confirmed) Intake Note: Patient is Present for Follow Up Ultrasound Urology Medication: Vitamin B6 Antibiotic Allergies: Penicillins Blood Thinners: None Confirmed Pharmacy: [facility] [place] Reports no change in medications Allergies MONALISA Inhibitors [MONALISA INHIBITORS] Allergy (Severe, Verified 12/24/23 09:06) SHORTNESS OF BREATH Penicillins Adverse Reaction (Intermediate, Verified 12/24/23 09:06) STOMACH UPSET stress induced anaphylaxis Allergy (Severe, Uncoded 12/24/23 09:06) Anaphylaxis Medication List - Last Reconciled 12/24/23 by Darryl Stover MD allopurinol 100 mg PO DAILY 90 days amlodipine 10 mg PO DAILY 30 days blood sugar diagnostic (FreeStyle Lite Strips) 3 jeremias a day cholecalciferol (vitamin D3) 25 mcg PO DAILY cyanocobalamin (vitamin B-12) (Vitamin B-12) 250 mcg PO DAILY 60 days eluxadoline (Viberzi) 100 mg PO BID epinephrine (EpiPen 2-Benedict) 0.3 mg (0.3 mL) IM ONCE PRN flash glucose sensor (FreeStyle Arnulfo 14 Day Sensor kit) As directed fluticasone propionate 50 mcg/actuation 1 - 2 sprays intranasal DAILY fluticasone propionate 110 mcg/actuation (Flovent HFA) 1 puff inhalation BID FreeStyle Lancets (lancets) 3 times a day NS hydrochlorothiazide 25 mg PO DAILY 30 days inhalat.spacing dev,large mask (BreatheRite Spacer and Mask, Adult) As directed losartan 50 mg PO DAILY metoclopramide HCl (Reglan) 10 mg PO QIDACHS omeprazole 40 mg PO DAILY pyridoxine (vitamin B6) 100 mg PO DAILY 90 days rosuvastatin 20 mg PO DAILY salmeterol (Serevent Diskus) 1 inh inhalation BID 30 days tirzepatide (Mounjaro) 5 mg (0.5 mL) subcut QWEEK Ventolin HFA 90 mcg/actuation (albuterol sulfate) 2 puffs inhalation Q6H PRN NS HPI HPI Comments History of Present Illness Details Jonn is a pleasant male. He is a patient of Dr. Sinha. He is seen for variety of urologic issues - nephrolithiasis - BPH Imaging results - ultrasound 3 mm bilateral Did pass small stone while at [facility] 2 weeks ago Would continue combination allopurinol vitamin B6 12 month imaging Nephrolithiasis Longstanding recurrent stone formers Multiple prior [facility] Imaging - 04/16 renal ultrasound 2 x 4 mm stone left kidney asymptomatic - 04/17 renal ultrasound multiple 4 mm - 7mm stones on the right kidney, 2 small stones in left kidney - 12/19 renal ultrasound 3 mm stone bilateral - 12/20 renal ultrasound, left cyst 1.1 cm, right 3 mm stone - 12/21 renal ultrasound left cyst confirmed, bilateral 3 mm small stone Intervention - 06/17 ESWL Therapy - lemon water with allopurinol and vitamin B6 Plan - surveillance imaging Lower urinary tract symptoms PSA 0.9 PFSH Medical History (Updated 11/11/23 @ 10:18 by Jovita Parrish MD) Radiologic findings of lung field, abnormal Bronchitis Obesity BPH (benign prostatic hyperplasia) Asthma Type 2 diabetes mellitus with obesity Allergic rhinitis SARAH (obstructive sleep apnea) Diverticulosis History of postoperative nausea and vomiting Anaphylaxis Anxiety Dysphagia IBS (irritable bowel syndrome) Asthma Sleep apnea Fatty liver Non-toxic multinodular goiter B12 deficiency Vitamin D deficiency Obesity (BMI 30-39.9) Nephrolithiasis Hypertension Dyslipidemia Diabetes type 2, uncontrolled COPD (chronic obstructive pulmonary disease) Surgical History Hx of umbilical hernia repair Hx of cystoscopy Hx of lithotripsy Hx of colonoscopy Hx of esophagogastroduodenoscopy Hx of adenoidectomy Hx of hernia repair Hx of appendectomy Family History Father Diabetes Mother CVD (cardiovascular disease) Cancer Social History Household Members: Significant Other Housing: Apartment Do you presently have visiting nurse or other home services: No Alcohol intake: current Alcohol intake frequency: a few times a week Patient Tobacco Use Status: Former Tobacco user Tobacco use type: Cigarette e-Cigarette/Vaping Use: Never Used Second Hand Smoke Exposure: No service: No Current occupational status: unemployed and disabled Cognitive needs: No Hearing needs: No Vision needs: No Review of Systems Const Denies chills and Denies fever(s) Card Reports no additional complaints and Denies syncope Resp Denies cough GI Denies abdominal pain and Denies heartburn Reports as per HPI and Denies change in libido Neuro Denies syncope Psych Denies change in libido Endo Denies change in libido Physical Exam Const General: cooperative, healthy appearing, comfortable and no acute distress Orientation/consciousness: patient oriented x3 HEENT Face and sinus: Yes normal facial exam Mouth: moist mucous membranes Neck Neck: Yes normal visual inspection, Yes full ROM and Yes trachea midline Chest Chest palpation & inspection: normal inspection of the chest Resp Effort & Inspection: normal respiratory effort, able to speak in complete sentences and no respiratory distress GI Inspection: Yes normal to inspection Back/Spine/Pelvis Cervical Spine: normal cervical lordosis Thoracic/Lumbar Spine: thoracic and lumbar spine normal to inspection Skin General skin exam: no rashes or lesions noted Neuro General: patient oriented x3, gait normal, tone normal and moves all extremities Extrem General: Yes normal to inspection and Yes capillary refill normal Assessment & Plan Assessment & Plan (1) BPH (benign prostatic hyperplasia): Code(s): N40.0 - Benign prostatic hyperplasia without lower urinary tract symptoms (2) Nephrolithiasis: Code(s): N20.0 - Calculus of kidney Plan Twelve month follow-up renal ultrasound Orders: Orders US renal BI 365 Days N20.0 - Calculus of kidney Patient Instructions: Imaging studies, laboratory and physical exam results were discussed and reviewed in detail. No major barriers to patient understanding were identified. An opportunity to ask questions regarding the treatment plan was provided. All questions were answered. The patient expressed understanding and agreement with the above treatment plan. The patient is aware they should contact our office by phone for worsening of their current condition or the appearance of new urologic symptoms. Compliance is encouraged with any medications and followup testing that is ordered. It is a privilege to participate in the urologic care of your patient. If you have any questions or concerns regarding treatment for the above conditions, or other urologic issues, please do not hesitate to contact me. The office telephone contact is [phone]. This note is constructed using voice recognition software. While every effort has been made to ensure accuracy match up worker errors may have been included. Yours sincerely, Dr Darryl Stover MD, [facility] - Urology Providers of Expert, Compassionate Care for the Genitourinary System Coding Level of Care Code Est Pt Level 3 (63682) Diagnoses BPH (benign prostatic hyperplasia) N40.0 Nephrolithiasis N20.0
== END 2023-12-24 09:51 | disposition home or self-care (01) ==
PROVIDERS: Visit Provider Urology
DX: N40.0 Benign prostatic hyperplasia without lower urinary tract symptoms (principal); N20.0 Calculus of kidney
CPT/HCPCS: 99213

== ENCOUNTER → 2023-12-24 08:54 | Outpatient (BNVA) | payer OTHER, SELFPAY | PROVIDERS: Visit Provider Urology | DX: N40.0 Benign prostatic hyperplasia without lower urinary tract symptoms (principal); N20.0 Calculus of kidney | CPT/HCPCS: 99212 ==

== ENCOUNTER 2024-01-20 08:30 | Outpatient (AMB) | payer OTHER, SELFPAY ==
[2024-01-20 09:18] VITALS: BP 112/82; PULSE 93; O2SAT 99; BMI 33.6
--- NOTE | 2024-01-20 09:18 | MHC.OFFVIS ---
Intake Vital Signs 01/20/24 09:18 Height 5 ft 5 in Weight 201 lb 11.567 oz BMI 33.6 BP 112/82 Blood Pressure Location Lt brachial Position Sitting Pulse 93 Pulse Source Pulse Oximeter Pulse Oximetry (%) 99 Oxygen Delivery Method Room Air Intake Visit Reasons: asthma Intake Note: pt is here for follow up and states, doing okay, needs all inhalers and flonase refilled. 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: No Allergies MONALISA Inhibitors [MONALISA INHIBITORS] Allergy (Severe, Verified 01/20/24 09:27) SHORTNESS OF BREATH Penicillins Adverse Reaction (Intermediate, Verified 01/20/24 09:27) STOMACH UPSET stress induced anaphylaxis Allergy (Severe, Uncoded 01/20/24 09:27) Anaphylaxis Medication List - Last Reconciled 01/20/24 by Jovita Parrish MD allopurinol 100 mg PO DAILY 90 days amlodipine 10 mg PO DAILY 30 days blood sugar diagnostic (FreeStyle Lite Strips) 3 jeremias a day cholecalciferol (vitamin D3) 25 mcg PO DAILY cyanocobalamin (vitamin B-12) (Vitamin B-12) 250 mcg PO DAILY 60 days eluxadoline (Viberzi) 100 mg PO BID epinephrine (EpiPen 2-Benedict) 0.3 mg (0.3 mL) IM ONCE PRN flash glucose sensor (FreeStyle Arnulfo 14 Day Sensor kit) As directed fluticasone propionate 50 mcg/actuation 1 - 2 sprays intranasal DAILY fluticasone propionate 110 mcg/actuation (Flovent HFA) 1 puff inhalation BID FreeStyle Lancets (lancets) 3 times a day NS hydrochlorothiazide 25 mg PO DAILY 30 days inhalat.spacing dev,large mask (BreatheRite Spacer and Mask, Adult) As directed losartan 50 mg PO DAILY metoclopramide HCl (Reglan) 10 mg PO QIDACHS omeprazole 40 mg PO DAILY pyridoxine (vitamin B6) 100 mg PO DAILY 90 days rosuvastatin 20 mg PO DAILY salmeterol (Serevent Diskus) 1 inh inhalation BID 30 days sodium,potassium,mag sulfates 17.5-3.13-1.6 gram (Suprep Bowel Prep Kit) DILUTE each bottle with 16oz of water; drink first bottle 5pm evening before procedure AND second bottle at 11pm; follow each bottle with at least 32 oz.of water within 1 hour after each bottle tirzepatide (Mounjaro) 5 mg (0.5 mL) subcut QWEEK Ventolin HFA 90 mcg/actuation (albuterol sulfate) 2 puffs inhalation Q6H PRN NS Do you need a note to return to daycare/school/sports/work: No HPI asthma HPI Details THIS 53 YEARS OLD GENTLEMAN IS HERE FOR FOLLOW-UP AFTER 3 MONTHS. MOSTLY HIS THE COUGH WHEEZING AND SHORTNESS OF BREATH IS UNDER CONTROL, BUT WHEN HE IS WORKING OUTDOORS IN THE [place] OUTSIDE IN COLD WEATH[place] HE HAS FLARE UPS OF COUGH AND WHEEZING. HE HAS HAD NO FEVER OR CHILLS. NO SYMPTOMS OF SLEEP APNEA. [facility]LY [facility] Medical History Radiologic findings of lung field, abnormal Bronchitis Obesity BPH (benign prostatic hyperplasia) Asthma Type 2 diabetes mellitus with obesity Allergic rhinitis SARAH (obstructive sleep apnea) Diverticulosis History of postoperative nausea and vomiting Anaphylaxis Anxiety Dysphagia IBS (irritable bowel syndrome) Asthma Sleep apnea Fatty liver Non-toxic multinodular goiter B12 deficiency Vitamin D deficiency Obesity (BMI 30-39.9) Nephrolithiasis Hypertension Dyslipidemia Diabetes type 2, uncontrolled COPD (chronic obstructive pulmonary disease) Surgical History Hx of umbilical hernia repair Hx of cystoscopy Hx of lithotripsy Hx of colonoscopy Hx of esophagogastroduodenoscopy Hx of adenoidectomy Hx of hernia repair Hx of appendectomy Family History Father Diabetes Mother CVD (cardiovascular disease) Cancer Social History Household Members: Significant Other Housing: Apartment Do you presently have visiting nurse or other home services: No Alcohol intake: current Alcohol intake frequency: a few times a week Patient Tobacco Use Status: Former Tobacco user Tobacco use type: Cigarette e-Cigarette/Vaping Use: Never Used Second Hand Smoke Exposure: No service: No Current occupational status: unemployed and disabled Cognitive needs: No Hearing needs: No Vision needs: No Review of Systems Const All systems reviewed & are unremarkable except as noted in HPI and below Eyes Reports no additional complaints ENT Reports nasal congestion (INTERMITTENT USUALLY WITH CHANGE OF WEATHER) Card Denies chest pain, Denies irregular heart rhythm and Denies leg edema Resp Reports as per HPI GI Reports no additional complaints Reports no additional complaints Musc Reports no additional complaints Skin/Breast Reports system reviewed and no additional complaints, except as documented Neuro Reports no additional complaints Psych Reports no additional complaints Physical Exam Const General: healthy appearing, comfortable, no acute distress, alert and awake Orientation/consciousness: patient oriented x3 HEENT Head: Yes normal to inspection General nose exam: No nasal polyps present, No nasal discharge present and Other nasal findings present (HE DOES HAVE MILD BILATERAL NASAL CONGESTION) Face and sinus: Yes sinuses nontender Mouth: oropharynx normal (THERE IS MILD ERYTHEMA THE OROPHARYNX) Throat: Yes posterior oropharynx normal Eyes General: appearance normal, both eyes and all related structures Neck Neck: Yes normal visual inspection, Yes no lymphadenopathy, Yes trachea midline and Yes no JVD Thyroid: Thyroid normal Chest Chest palpation & inspection: normal inspection of the chest, normal palpation of entire chest wall and no tenderness Resp Other: Percussion note is resonant, breath sounds are distant and especially decreased over the basilar areas. But there are no wheezes . Also no Crepitation are heard . Cardio Palpation: normal PMI Rate: regular rate Rhythm: regular rhythm Heart sounds: no gallops and no murmurs Peripheral pulses: Peripheral pulses 2+ throughout GI Palpation (GI): Soft to palpation, nontender, No hepatosplenomegaly present and no masses Auscultation: normal bowel sounds Back/Spine/Pelvis Thoracic/Lumbar Spine: thoracic and lumbar spine normal to inspection Skin General skin exam: no rashes or lesions noted Neuro General: patient oriented x3 and no focal motor deficits Cranial nerves: Yes CN's II-XII intact bilaterally Extrem General: Yes normal to inspection, Yes no clubbing, cyanosis or edema and Yes no calf tenderness Psych Speech and movement: Normal speech and movement present Assessment & Plan Assessment & Plan (1) Radiologic findings of lung field, abnormal: Comment: X-RAY CHEST ON 10/29/23 REPORTED TO SHOWS STREAKY MARKINGS IN THE BASILAR AREAS, RAISING POSSIBILITY OF MICROATELECTASIS. WHEN I REVIEW THE FILMS THESE MARKINGS ARE VERY MILD AND NONSPECIFIC AND NOT ANY DIFFERENT THAN BEFORE. Code(s): R91.8 - Other nonspecific abnormal finding of lung field Plan: WILL REPEAT CHEST X-RAY TODAY (2) Allergic rhinitis: Comment: MINIMAL.and CONTROLLED Code(s): J30.9 - Allergic rhinitis, unspecified Plan: CONTINUE FLONASE 2 SPRAY EACH NOSTRIL DAILY. USE LORATADINE 10 MG DAILY P.R.N.. (3) COPD (chronic obstructive pulmonary disease): Comment: [id number] ASTHMA/COPD overlap . CONTROLLED WITH THE CURRENT REGIMEN BUT HE DOES NEED REFILLS. Code(s): J44.9 - Chronic obstructive pulmonary disease, unspecified Plan: CONTINUE FLUTICASONE 110 2 PUFFS B.I.D.. [id number] INHALATION B.I.D. VENTOLIN HFA 2 PUFFS Q 4-6 HOURS P.R.N. SCRIPTS ARE RENEWED . Orders: Orders XR chest 2V Today R91.8 - Other nonspecific abnormal finding of lung field Coding Level of Care Code Est Pt Level 3 (00967) Diagnoses Radiologic findings of lung field, abnormal R91.8 Allergic rhinitis J30.9 COPD (chronic obstructive pulmonary disease) J44.9
== END 2024-01-20 09:37 | disposition home or self-care (01) ==
PROVIDERS: PCP Internal Medicine; Visit Provider Internal Medicine
DX: R91.8 Other nonspecific abnormal finding of lung field (principal); J30.9 Allergic rhinitis, unspecified; J44.9 Chronic obstructive pulmonary disease, unspecified
CPT/HCPCS: 99213

== ENCOUNTER 2024-01-20 08:30 | Outpatient (REF) | payer OTHER, SELFPAY ==
--- NOTE | ~2024-01-20 | XR_ITS ---
EXAMINATION: XR CHEST CLINICAL INFORMATION: Nonspecific abnormal finding of lung field, needs follow up. COMPARISON: November 04, 2023, October 17, 2023 chest radiographs. TECHNIQUE: 2 views of the chest were obtained. FINDINGS: There is no gross pneumothorax. Heart size is normal. No pleural effusion. Mild degenerative changes in the thoracic spine. Decreased mild bibasilar streaky opacities. XR/XR chest 2V IMPRESSION: Decreased mild bibasilar streaky opacities.
== END 2024-01-20 08:31 | disposition home or self-care (01) ==
LOC: HO.XRAY 08:30
PROVIDERS: PCP Internal Medicine; Visit Provider Internal Medicine
DX: R91.8 Other nonspecific abnormal finding of lung field (principal); J30.9 Allergic rhinitis, unspecified; J44.9 Chronic obstructive pulmonary disease, unspecified; Z79.899 Other long term (current) drug therapy
CPT/HCPCS: 71046; 99212

== ENCOUNTER 2024-01-23 13:46 | Outpatient (AMB) | payer OTHER, SELFPAY ==
[2024-01-23 14:16] VITALS: BP 130/90; PULSE 72; BMI 33.4
--- NOTE | 2024-01-23 14:16 | MHC.OFFVIS ---
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 Allergies MONALISA Inhibitors [MONALISA INHIBITORS] Allergy (Severe, Verified 01/23/24 14:22) SHORTNESS OF BREATH Penicillins Adverse Reaction (Intermediate, Verified 01/23/24 14:22) STOMACH UPSET stress induced anaphylaxis Allergy (Severe, Uncoded 01/23/24 14:22) Anaphylaxis Medication List - Last Reconciled 01/23/24 by EROS Flores allopurinol 100 mg PO DAILY 90 days amlodipine 10 mg PO DAILY 30 days blood sugar diagnostic (FreeStyle Lite Strips) 3 jeremias a day cholecalciferol (vitamin D3) 25 mcg PO DAILY cyanocobalamin (vitamin B-12) (Vitamin B-12) 250 mcg PO DAILY 60 days eluxadoline (Viberzi) 100 mg PO BID epinephrine (EpiPen 2-Benedict) 0.3 mg (0.3 mL) IM ONCE PRN flash glucose sensor (FreeStyle Arnulfo 14 Day Sensor kit) As directed fluticasone propionate 50 mcg/actuation 1 - 2 sprays intranasal DAILY fluticasone propionate 110 mcg/actuation 2 puffs inhalation BID 30 days MDD ASTHMA/COPD FreeStyle Lancets (lancets) 3 times a day NS hydrochlorothiazide 25 mg PO DAILY 30 days inhalat.spacing dev,large mask (BreatheRite Spacer and Mask, Adult) As directed losartan 50 mg PO DAILY metoclopramide HCl (Reglan) 10 mg PO QIDACHS omeprazole 40 mg PO DAILY pyridoxine (vitamin B6) 100 mg PO DAILY 90 days rosuvastatin 20 mg PO DAILY salmeterol (Serevent Diskus) 1 inh inhalation BID 30 days sodium,potassium,mag sulfates 17.5-3.13-1.6 gram (Suprep Bowel Prep Kit) DILUTE each bottle with 16oz of water; drink first bottle 5pm evening before procedure AND second bottle at 11pm; follow each bottle with at least 32 oz.of water within 1 hour after each bottle tirzepatide (Mounjaro) 5 mg (0.5 mL) subcut QWEEK Ventolin HFA 90 mcg/actuation (albuterol sulfate) 2 puffs inhalation Q6H PRN NS HPI (rs) 6 mth fu (KM) HPI Details Jonn is a 53-year-old male past medical history obesity, hypertension, prior chest discomfort who was recently admitted to [facility] [place] with asthma exacerbation, severe respiratory distress, pleural effusion who now presents for follow-up. Today he reports that he has not had any recurrent acute respiratory distress episodes. He has some minor shortness of breath and is undergoing treatment for his asthma. He is following with pulmonology. He has not had any at rest or with activity. No palpitations, presyncope, syncope, PND, orthopnea or edema. He is doing only light physical activity. He is taking all meds as directed. He had a chest x-ray recently and is awaiting the results. [facility] Medical History Radiologic findings of lung field, abnormal Bronchitis Obesity BPH (benign prostatic hyperplasia) Asthma Type 2 diabetes mellitus with obesity Allergic rhinitis SARAH (obstructive sleep apnea) Diverticulosis History of postoperative nausea and vomiting Anaphylaxis Anxiety Dysphagia IBS (irritable bowel syndrome) Asthma Sleep apnea Fatty liver Non-toxic multinodular goiter B12 deficiency Vitamin D deficiency Obesity (BMI 30-39.9) Nephrolithiasis Hypertension Dyslipidemia Diabetes type 2, uncontrolled COPD (chronic obstructive pulmonary disease) Surgical History Hx of umbilical hernia repair Hx of cystoscopy Hx of lithotripsy Hx of colonoscopy Hx of esophagogastroduodenoscopy Hx of adenoidectomy Hx of hernia repair Hx of appendectomy Family History Father Diabetes Mother CVD (cardiovascular disease) Cancer Social History Household Members: Significant Other Housing: Apartment Do you presently have visiting nurse or other home services: No Alcohol intake: current Alcohol intake frequency: a few times a week Patient Tobacco Use Status: Former Tobacco user Tobacco use type: Cigarette e-Cigarette/Vaping Use: Never Used Second Hand Smoke Exposure: No service: No Current occupational status: unemployed and disabled Cognitive needs: No Hearing needs: No Vision needs: No Review of Systems Const All systems reviewed & are unremarkable except as noted in HPI and below ENT Denies dizziness Card Denies chest pain, Denies chest pain at rest, Denies chest pain with activity, Denies rapid heart rate, Denies pedal edema, Denies edema, Denies leg edema, Denies lightheadedness, Denies palpitations, Denies dyspnea, Denies dyspnea on exertion and Denies orthopnea Resp Denies cough, Denies dyspnea and Denies dyspnea on exertion GI Denies hematochezia and Denies change in stool character Musc Denies abnormal gait, Denies limited range of motion, Denies muscle cramps, Denies muscle weakness, Denies numbness, Denies radiating pain into limb, Denies stiffness and Denies tingling Neuro Denies abnormal gait, Denies dizziness, Denies numbness and Denies tingling Endo Denies palpitations Physical Exam Vital Signs: Last Vital Signs Pulse 72 01/23/24 14:16 BP 130/90 H 01/23/24 14:16 BMI result Body Mass Index 33.4 Const General: healthy appearing, comfortable, no acute distress, alert and awake Orientation/consciousness: patient oriented x3 HEENT Head: Yes normal to inspection General nose exam: No nasal polyps present, No nasal discharge present and Other nasal findings present (HE DOES HAVE MILD BILATERAL NASAL CONGESTION) Face and sinus: Yes sinuses nontender Mouth: oropharynx normal (THERE IS MILD ERYTHEMA THE OROPHARYNX) Throat: Yes posterior oropharynx normal Eyes General: appearance normal, both eyes and all related structures Neck Neck: Yes normal visual inspection and Yes no JVD Chest Chest palpation & inspection: tenderness Resp Other: Effort & Inspection: normal respiratory effort and able to speak in complete sentences Auscultation: clear to auscultation bilaterally, no crackles, no rales, no rhonchi and no wheezes Cardio Palpation: normal PMI Rate: regular rate Rhythm: regular rhythm Heart sounds: no gallops and no murmurs GI Palpation (GI): not soft Neuro General: patient oriented x3 and no focal motor deficits Cranial nerves: Yes CN's II-XII intact bilaterally Extrem General: Yes normal to inspection, Yes no clubbing, cyanosis or edema and Yes no calf tenderness Psych Speech and movement: Normal speech and movement present Assessment & Plan Assessment & Plan (1) Pleural effusion: Code(s): J90 - Pleural effusion, not elsewhere classified Plan: [facility] [place] admission on 10/17/2023 with acute asthma exacerbation. He had also been seen in the ER earlier that day with the same problem. He tells me his shortness of breath came on suddenly and his asthma inhaler did not improve his symptom. Once in the hospital he was treated with updrafts, magnesium and steroids with gradual improvement. Chest x-ray at that time showed small pleural effusions. BNP was 32. Since that time he has not had any severe respiratory distress. He has some intermittent shortness of breath and cough. He is following with pulmonology for his asthma. Did have a chest x-ray on 01/19/2024 and is still awaiting the results. 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 If he continues to have pleural effusion will plan to repeat echocardiogram. He does not appear fluid overloaded on examination today. Chart reviewed and no clear evidence that his pleural effusion or respiratory distress was cardiac related. His BNP and troponin levels were normal. Cardiology follow-up as needed (2) Acute asthma exacerbation: Code(s): J45.901 - Unspecified asthma with (acute) exacerbation Qualifiers: Asthma persistence: unspecified Asthma severity: moderate Qualified Code(s): J45.901 - Unspecified asthma with (acute) exacerbation Plan: As above (3) Chest pain: Code(s): R07.9 - Chest pain, unspecified Qualifiers: Chest pain type: unspecified Qualified Code(s): R07.9 - Chest pain, unspecified Plan: Prior reports of chest discomfort, not recent. An echocardiogram was done 06/02/2021 showing normal EF and no regional wall motion abnormality. An exercise stress test was done 06/08/2021 showing exercise 8 minutes with shortness of breath, without EKG changes of ischemia at peak exercise and nonspecific changes in recovery. At this time he no longer reports having chest discomfort. Continue with cardiac risk factor modifications including weight loss, increasing physical activity, good blood pressure control. (4) Hypertension: Code(s): I10 - Essential (primary) hypertension Plan: Mildly Elevated at this visit. At this moment will continue current meds without change. Blood pressure remains elevated losartan dose can be increased. Plan Time spent on chart review, documentation, interview and assessment Coding Level of Care Code Est Pt Level 3 (54698) Diagnoses Pleural effusion J90 Moderate asthma with acute exacerbation, unspecified whether persistent J45.901 Asthma persistence: unspecified Asthma severity: moderate Chest pain R07.9 Chest pain type: unspecified Hypertension I10 Time Spent (min) 24
== END 2024-01-23 14:54 | disposition home or self-care (01) ==
PROVIDERS: PCP Internal Medicine; Visit Provider Nurse Practitioner Family
DX: J90 Pleural effusion, not elsewhere classified (principal); J45.901 Unspecified asthma with (acute) exacerbation; R07.9 Chest pain, unspecified; I10 Essential (primary) hypertension
CPT/HCPCS: 99213

== ENCOUNTER → 2024-01-23 13:46 | Outpatient (BNVA) | payer OTHER, SELFPAY | PROVIDERS: PCP Internal Medicine; Visit Provider Nurse Practitioner Family | DX: R07.9 Chest pain, unspecified (principal); I10 Essential (primary) hypertension | CPT/HCPCS: 99212 ==

== ENCOUNTER 2024-02-07 09:16 | Day surgery (SDC) | payer OTHER, SELFPAY ==
--- NOTE | 2024-02-06 10:09 | HO.ANESPROP2 ---
Documented by User: Monica Peña NP 02/06/24 10:19 HPI - Anesthesia Eval Consult details Narrative: 54yo M for Upper Endoscopy with Balloon Dilitation, Colonoscopy Follows [facility] [place]. [facility] [place] admit 09/2023 for asthma exac. Stable at 12/2023 office visit. Follows [facility] [place] cardiology. Stable at last office visit 12/2023. Continue with risk factor modification Anesthesia Pre-Procedure Meds Is the patient on any of the following meds?: Any other SGL-1 drugs or drugs that delay gastric emptying (Tirzepatide) PMFSH Active Problems Active Problems: All Active Problems Radiologic findings of lung field, abnormal (Acute) Hospital discharge follow-up (Acute) Pleural effusion (Acute) Cough (Acute) Acute asthma exacerbation (Acute) Dysphagia (Acute) Bronchitis (Acute) Gout (Acute) Esophageal spasm (Acute) Nausea and vomiting (Acute) Contusion of right hand (Acute) Tendinitis of right forearm (Acute) Obesity (Acute) BPH (benign prostatic hyperplasia) (Acute) Asthma (Acute) Type 2 diabetes mellitus with obesity (Acute) Physical exam (Acute) Abnormal stress ECG with treadmill (Acute) Chest pain (Acute) Gastroparesis (Acute) GERD (gastroesophageal reflux disease) (Acute) Irritable bowel syndrome with diarrhea (Acute) Small bowel obstruction (Acute) Neck pain (Acute) Tubular adenoma of colon (Acute) Chest pain (Acute) Allergic rhinitis (Acute) SARAH (obstructive sleep apnea) (Acute) Diverticulosis (Acute) Fatty liver (Acute) Non-toxic multinodular goiter (Acute) B12 deficiency (Acute) Vitamin D deficiency (Acute) Obesity (BMI 30-39.9) (Acute) Nephrolithiasis (Acute) Hypertension (Acute) Dyslipidemia (Acute) Diabetes type 2, uncontrolled (Acute) COPD (chronic obstructive pulmonary disease) (Acute) Past Medical History Medical History Radiologic findings of lung field, abnormal Bronchitis Obesity BPH (benign prostatic hyperplasia) Asthma Type 2 diabetes mellitus with obesity Allergic rhinitis SARAH (obstructive sleep apnea) Diverticulosis History of postoperative nausea and vomiting Anaphylaxis Anxiety Dysphagia IBS (irritable bowel syndrome) Asthma Sleep apnea Fatty liver Non-toxic multinodular goiter B12 deficiency Vitamin D deficiency Obesity (BMI 30-39.9) Nephrolithiasis Hypertension Dyslipidemia Diabetes type 2, uncontrolled COPD (chronic obstructive pulmonary disease) Family History Family History Father Diabetes Mother CVD (cardiovascular disease) Cancer Surgical History Surgical History Hx of umbilical hernia repair Hx of cystoscopy Hx of lithotripsy Hx of colonoscopy Hx of esophagogastroduodenoscopy Hx of adenoidectomy Hx of hernia repair Hx of appendectomy History of Problems with Anesthesia: No Social History Social History Household Members: Significant Other Housing: Apartment Do you presently have visiting nurse or other home services: No Alcohol intake: current Alcohol intake frequency: a few times a week Patient Tobacco Use Status: Former Tobacco user Tobacco use type: Cigarette e-Cigarette/Vaping Use: Never Used Second Hand Smoke Exposure: No Are you DNR?: No Advance Directives: No Advance Directives Information Provided: Yes Nutrition Risks: No Nutritional Risk service: No Current occupational status: unemployed and disabled Cognitive needs: No Hearing needs: No Vision needs: No Meds Allergies Allergy/AdvReac Type Severity Reaction Status Date / Time MONALISA Inhibitors Allergy Severe SHORTNESS Verified 02/07/24 10:10 [MONALISA INHIBITORS] OF BREATH Penicillins AdvReac Intermediate STOMACH Verified 02/07/24 10:10 UPSET stress induced anaphylaxis Allergy Severe Anaphylaxis Uncoded 02/07/24 10:10 Home Medications ?Medication ?Instructions ?Recorded ?Confirmed ?Last Taken ?Type fluticasone propionate 50 1 - 2 spray intranasal DAILY 08/15/20 02/07/24 Unknown History mcg/actuation nasal spray,suspension metoclopramide HCl 10 mg tablet 10 mg PO QIDACHS 10/17/23 02/07/24 Unknown History (Reglan) Exam Pertinent Lab Results Pertinent Lab Results: Laboratory Tests 10/18/23 04:43 WBC 5.3 Hgb 15.1 Hct 44.7 Plt Count 145 L Sodium 137 Potassium 3.6 Chloride 106 Carbon Dioxide 20 L BUN 10 Creatinine 0.94 Narrative Narrative: EKG 09/2023 Vent. Rate : 080 BPM Atrial Rate : 080 BPM P-R Int : 138 ms QRS Dur : 094 ms QT Int : 396 ms P-R-T Axes : 045 062 045 degrees QTc Int : 456 ms Normal sinus rhythm Normal ECG When compared with ECG of 02-JUN-2021 08:18, No significant change was found XR chest 2V 12/2023 IMPRESSION: Decreased mild bibasilar streaky opacities. Assessment and Plan Assessment Anesthesia Assessment: Chart Reviewed Final Anesthetic Review History of Problems with Anesthesia: No Documented by User: Kaye Louise MD 02/07/24 11:32 HPI - Anesthesia Eval Anesthesia Pre-Procedure Meds If Yes to any meds - educate patient: Pt education - increased risk of aspiration and Pt education - possibility of cancelled proc at provider's discretion PMFSH Past Medical History Medical History Radiologic findings of lung field, abnormal Bronchitis Obesity BPH (benign prostatic hyperplasia) Asthma Type 2 diabetes mellitus with obesity Allergic rhinitis SARAH (obstructive sleep apnea) Diverticulosis History of postoperative nausea and vomiting Anaphylaxis Anxiety Dysphagia IBS (irritable bowel syndrome) Asthma Sleep apnea Fatty liver Non-toxic multinodular goiter B12 deficiency Vitamin D deficiency Obesity (BMI 30-39.9) Nephrolithiasis Hypertension Dyslipidemia Diabetes type 2, uncontrolled COPD (chronic obstructive pulmonary disease) Family History Family History Father Diabetes Mother CVD (cardiovascular disease) Cancer Family history of problems with anesthesia: No Surgical History Surgical History Hx of umbilical hernia repair Hx of cystoscopy Hx of lithotripsy Hx of colonoscopy Hx of esophagogastroduodenoscopy Hx of adenoidectomy Hx of hernia repair Hx of appendectomy Social History Social History Household Members: Significant Other Housing: Apartment Do you presently have visiting nurse or other home services: No Alcohol intake: current Alcohol intake frequency: a few times a week Patient Tobacco Use Status: Former Tobacco user Tobacco use type: Cigarette e-Cigarette/Vaping Use: Never Used Second Hand Smoke Exposure: No Are you DNR?: No Advance Directives: No Advance Directives Information Provided: Yes Nutrition Risks: No Nutritional Risk service: No Current occupational status: unemployed and disabled Cognitive needs: No Hearing needs: No Vision needs: No Meds Allergies Allergy/AdvReac Type Severity Reaction Status Date / Time MONALISA Inhibitors Allergy Severe SHORTNESS Verified 02/07/24 10:10 [MONALISA INHIBITORS] OF BREATH Penicillins AdvReac Intermediate STOMACH Verified 02/07/24 10:10 UPSET stress induced anaphylaxis Allergy Severe Anaphylaxis Uncoded 02/07/24 10:10 Home Medications ?Medication ?Instructions ?Recorded ?Confirmed ?Last Taken ?Type fluticasone propionate 50 1 - 2 spray intranasal DAILY 08/15/20 02/07/24 Unknown History mcg/actuation nasal spray,suspension metoclopramide HCl 10 mg tablet 10 mg PO QIDACHS 10/17/23 02/07/24 Unknown History (Reglan) Exam Airway Mallampati Class: III TM Dist: <=3cm Neck ROM: Limited Heart: rrr Lungs: cta Assessment and Plan Assessment Anesthesia Assessment: Anesthesia Plan Discussed Final Anesthetic Review Family History of Problems with Anesthesia: No NPO: Yes ASA Class: III Final Preanesthetic Review: No Changes in Pt Med Stat, Meds/Allgs Chart Reviewed, Consent Obtained/Reviewed and Anes Risks/Benef Reviewed Patient Risk: Intermediate Procedure Risk: Intermediate Anesthetic Plan Anesthetic Plan: MAC: Disposition: Standard PACU
[2024-02-07 10:00] VITALS: BMI 36.8
--- NOTE | 2024-02-07 10:48 | MHC.SHP ---
Pre-Procedural Eval Section A - 24 Hr Update-Section A only Date of Service: 02/07/24 Section B - Complete if H&P > 30 days Chief Complaint: Evidence of colon polyps, dysphagia Relevant Family History (Specify if Yes): No Relevant Social History: Tobacco Use (former smoker) Present Medications: see Short Stay Collaborative assessment Medical History: Significant History (Bronchitis Obesity BPH (benign prostatic hyperplasia) Asthma Type 2 diabetes mellitus with obesity Allergic rhinitis SARAH (obstructive sleep apnea) Diverticulosis History of postoperative nausea and vomiting Anaphylaxis Anxiety Dysphagia IBS (irritable bowel syndrome) Asthma Sleep apnea Fatty liver N) History of Previous Operations: Relevant previous surgery/procedure and date(s) (Hx of umbilical hernia repair Hx of cystoscopy Hx of lithotripsy Hx of colonoscopy Hx of esophagogastroduodenoscopy Hx of adenoidectomy Hx of hernia repair Hx of appendectomy) Allergies: Allergies Allergy/AdvReac Type Severity Reaction Status Date / Time MONALISA Inhibitors Allergy Severe SHORTNESS Verified 02/07/24 10:10 [MONALISA INHIBITORS] OF BREATH Penicillins AdvReac Intermediate STOMACH Verified 02/07/24 10:10 UPSET stress induced anaphylaxis Allergy Severe Anaphylaxis Uncoded 02/07/24 10:10 Review of Systems Sugical H&P ROS: Negative: Constitution, Cardiovascular and Respiratory and Yes, Specify: Gastrointestinal (Dysphagia) Exam Surgical H&P Exam: Normal: Heart, Normal: Lungs, Normal: Extremities and Normal: Abdomen Plan Diagnosis/Plan: Unchanged I have reviewed the history and physical and performed a pertinent physical examination on my patient. No changes have occurred unless specified. Time Spent With Patient Time: Total time managing care of this patient today ____ minutes.
[2024-02-07] MEDS: Lactated Ringers 1,000 ML 100 ML IVCONT (11:02)
[2024-02-07 11:03] LABS: Glucose, Whole Blood 102 mg/dL (60-115)
[2024-02-07 11:04] VITALS: BMI 31.9
[2024-02-07 11:16] VITALS: BP 158/97; PULSE 68; RESP 18; TEMP 36.6; O2SAT 96
--- NOTE | 2024-02-07 11:50 | P.OP_ITS ---
Operative Note Operative Note Date of Service: 02/07/24 Narrative: FLEXIBLE TRANSORAL UPPER GASTROINTESTINAL ENDOSCOPY WITH BIOPSIES AND ESOPHAGEAL BALLOON DILATION AND COLONOSCOPY TILL CECUM WITH BIOPSIES AND SNARE POLYPECTOMY Pre-op diagnosis: Surveillance for colon polyp, GERD, dyphagia Post-op diagnosis: GERD, dysphagia, Gastritis, Gastric polyp, duodenal nodule Colon Polyps, Diverticulosis, hemorrhoids Endoscopist:? Lynsey Wen MD Anesthesia:?MAC UPPER ENDOSCOPY Consent: Indications for the procedure and potential complications of bleeding, perforation, reaction to medications and missed diagnosis were discussed with the patient and informed consent was obtained. Instrument: Olympus GIF H 190 mid size upper endoscope Monitoring: Vital signs and clinical assessment, continuous EKG monitoring, Pulse oximetry, Carbon Dioxide monitoring and blood pressure monitoring were done throughout the procedure. Procedure: The patient was placed in the left lateral decubitis position and pre-procedure medications were administered and a bite block was placed. The endoscope was inserted into the mouth and advanced under direct vision to the third part of duodenum. A careful inspection was made as the upper endoscope was withdrawn including a retroflexed examination of the proximal stomach; Findings and interventions are described below. Findings: Larynx: Normal Esophagus: GE junction at 38 cms. Irregular Z line and a few superficial healing erosions at the GE junction. Esophageal balloon dilation was performed with a 20 mm (60 F) CRE balloon x 60 seconds. Biopsies obtained to check for Zuniga's. Stomach: One 4-5 mm benign appearing polyp in the gastric body - biopsied. Moderate diffuse gastric erythema - biopsies were obtained from the antrum. Grade 2 flap valve on retroflexed examination of the cardia. Duodenum: Normal bulb. A 10 mm benign appearing nodule with calcifications in the proximal descending duodenum - biopsied Intervention: Biopsies and esophageal balloon dilation as noted above COLONOSCOPY PROCEDURE NOTE Instrument: Olympus PCF H 190 L variable stiffness pediatric colonoscope Monitoring: Vital signs and clinical assessment, intermittent blood pressure monitoring, continuous EKG monitoring, Pulse oximetry and Carbon Dioxide monitoring were done throughout the procedure. Please see anesthesia flowsheet. Colon withdrawl time was 22 minutes. Procedure: The patient was placed in the left lateral decubitis position and pre-procedure medications were administered. After a digital rectal examination of the ano-rectum, the video colonoscope was inserted into the rectum and advanced through the colon to the cecum. The colonoscope was slowly withdrawn in a retrograde panoramic fashion and the colon mucosa was carefully examined including a retroflexed view of the rectum. Findings and interventions are described below. Procedure Difficulty: without difficulty Findings: Terminal Ileum: Not evaluated Cecum: Normal Ascending Colon: A 10-12 mm sessile polyp in the mid AC - removed with a hot snare. Transverse Colon: Normal Descending Colon: Moderate diverticulosis Sigmoid Colon: A 5-6 mm polyp/inverted diverticulum - biopsied. Moderate diverticulosis Rectum: Normal Ano-rectum: Small internal hemorrhoids Colon preparation: Good to Fair after copious irrigation. [place] Bowel Preparation Scale Right colon; 2 Transverse colon: 2 Left colon; 1 (0 = Unprepared colon segment with mucosa not seen due to solid stool that cannot be cleared. 1 = Portion of mucosa of the colon segment seen, but other areas of the colon segment not well seen due to staining, residual stool and/or opaque liquid. 2 = Minor amount of residual staining, small fragments of stool and/or opaque liquid, but mucosa of colon segment seen well. 3 = Entire mucosa of colon segment seen well with no residual staining, small fragments of stool or opaque liquid) Impression and Post Procedure Diagnosis: Endoscopy Findings: ESOPHAGUS: Irregular Z line and a few superficial healing erosions at the GE junction. Esophageal balloon dilation was performed with a 20 mm (60 F) CRE balloon x 60 seconds. Biopsies obtained to check for Zuniga's. STOMACH: Gastritis and gastric polyp DUODENUM: A 10 mm benign appearing nodule with calcifications in the proximal descending duodenum - biopsied Colonoscopy Findings: One medium sized and one small polyps were removed Moderate diverticulosis seen in the left colon Small hemorrhoids on retroflexed exam. Plan: Pt has FU appointment scehduled for repeat EGD and dilation on 04/20/24, 07/20/24 and 10/12/24 FU appt with Griselda Ko NP scheduled in January, (I will ask GI schedulers to move up his FU appt) Repeat Colonoscopy in 3-5 years if polyps are adenomatous and due to history of adenomatous colon polyps. Above findings were reviewed with the patient and relevant handouts were given and the discharge area.
[2024-02-07 12:47] VITALS: BP 120/79; PULSE 73; RESP 12; TEMP 36.6; O2SAT 94
[2024-02-07 13:00] VITALS: BP 137/96; PULSE 72; RESP 18; TEMP 36.1; O2SAT 97
== END 2024-02-07 13:35 | disposition home or self-care (01) ==
PROVIDERS: PCP Internal Medicine; Visit Provider Internal Medicine Gastroenterology
PROC: (CPT 45385; principal; 2024-02-07 11:30)
PROC: 0DJD8ZZ Inspection of Lower Intestinal Tract, Via Natural or Artificial Opening Endoscopic (ICD-10-PCS; CPT 45378; 2024-02-07 11:30)
DX: Z12.11 Encounter for screening for malignant neoplasm of colon (principal); Z86.010 Personal history of colon polyps; D12.2 Benign neoplasm of ascending colon; K63.5 Polyp of colon; K57.30 Diverticulosis of large intestine without perforation or abscess without bleeding; K64.8 Other hemorrhoids; R13.10 Dysphagia, unspecified; K58.0 Irritable bowel syndrome with diarrhea; K29.50 Unspecified chronic gastritis without bleeding; K21.9 Gastro-esophageal reflux disease without esophagitis; K22.4 Dyskinesia of esophagus; K22.89 Other specified disease of esophagus; K31.7 Polyp of stomach and duodenum; D13.2 Benign neoplasm of duodenum; G47.33 Obstructive sleep apnea (adult) (pediatric); I10 Essential (primary) hypertension; E11.9 Type 2 diabetes mellitus without complications; J44.9 Chronic obstructive pulmonary disease, unspecified; K76.0 Fatty (change of) liver, not elsewhere classified; Z79.51 Long term (current) use of inhaled steroids; Z79.899 Other long term (current) drug therapy; Z88.0 Allergy status to penicillin; Z88.8 Allergy status to other drugs, medicaments and biological substances; Z87.891 Personal history of nicotine dependence
CPT/HCPCS: 45385; 45380; 43249; 43239; 82947; 88305; 88313; 88342; C1726; J1100; J1596; J2250; J2405; J2704

== ENCOUNTER → 2024-02-07 09:16 | Outpatient (BNV) | payer OTHER, SELFPAY | PROVIDERS: PCP Internal Medicine; Visit Provider Internal Medicine Gastroenterology | DX: Z12.11 Encounter for screening for malignant neoplasm of colon (principal); K21.9 Gastro-esophageal reflux disease without esophagitis; K31.7 Polyp of stomach and duodenum; K31.89 Other diseases of stomach and duodenum; K57.30 Diverticulosis of large intestine without perforation or abscess without bleeding; K64.8 Other hemorrhoids; D12.2 Benign neoplasm of ascending colon; D12.5 Benign neoplasm of sigmoid colon | CPT/HCPCS: 43239; 43249; 45380; 45385 ==

== ENCOUNTER 2024-02-26 12:49 | Outpatient (AMB) | payer OTHER, SELFPAY ==
--- NOTE | 2024-02-26 12:51 | MHC.OFFVIS ---
Vital Signs 02/26/24 12:53 Height 5 ft 5 in Weight 196 lb 10.437 oz BMI 32.7 BP 162/94 H Blood Pressure Location Lt brachial Position Sitting Temp 85 F L Intake Visit Reasons: s/p EGD and colonoscopy Intake Note: Patient in office today for follow up s/p EGD anc colonoscopy. CC: Allergies MONALISA Inhibitors [MONALISA INHIBITORS] Allergy (Severe, Verified 02/07/24 10:10) SHORTNESS OF BREATH Penicillins Adverse Reaction (Intermediate, Verified 02/07/24 10:10) STOMACH UPSET stress induced anaphylaxis Allergy (Severe, Uncoded 02/07/24 10:10) Anaphylaxis HPI HPI s/p EGD and colonoscopy: Details: Assessment & Plan (1) Dysphagia: Code(s): R13.10 - Dysphagia, unspecified Plan: HE IS HERE TODAY WITH HIS who is supportive. His GI conditions continue and really has quite a lot of irritability of the smooth muscle areas of the GI tract from the esophagus, which continues to spasm midsternally when he goes out to a restaurant and causes dysphagia, to gastroparesis, to history of small-bowel obstruction, to bowel irritability that ranges from formed stools to urgent diarrhea. So far medical interventions of had limited success. His nausea and vomiting is a little bit better on the Reglan but he is already max the dose. The Viberzi has made a little bit of difference in the diarrhea but has not solve the problem. In the past he has tried things like dicyclomine for esophageal spasm and is currently on amlodipine. Were going to have him try adding p.r.n. loperamide to the Viberzi when he has diarrhea since he never has severe constipation. I have cautioned him to start with half a tablet because of his history of bowel obstruction. He is not done well on fiber as that is what seem to of caused a small-bowel obstruction in the past. He did have some mild relief with his dysphagia when he would be dilated by Dr. Lujan. We may need to try serial dilations every 3 months to see if we can sustain the affect since it tends to only last for about 3 months after the procedure before the symptoms return. Sadly most of the medical interventions to date have not worked. I may consider having 1 of the physicians see him after the procedures to get a 2nd opinion about his general condition. He is on Mounjaro for diabetes and I am uncertain how much this may be affecting his motility. He has sleep apnea and asthma/COPD which she says are well controlled and denies any cardiac problems. He has a history of postop nausea and vomiting but no other problems with anesthesia or sedation. There are no infectious disease problems. He has a history of a 1.5 cm sessile polyp for years ago that necessitate colonoscopy repeat. Return office visit to be determined after the procedures are scheduled. (2) Tubular adenoma of colon: Comment: 2019 scope repeat 5 years 2024 Code(s): D12.6 - Benign neoplasm of colon, unspecified (3) Irritable bowel syndrome with diarrhea: Code(s): K58.0 - Irritable bowel syndrome with diarrhea (4) Gastroparesis: Code(s): K31.84 - Gastroparesis (5) Esophageal spasm: Comment: Failed a trial of dicyclomine is already on amlodipine Code(s): K22.4 - Dyskinesia of esophagus (6) Nausea and vomiting: Comment: . Better with Reglan but not completely resolved Code(s): R11.2 - Nausea with vomiting, unspecified (7) GERD (gastroesophageal reflux disease): Code(s): K21.9 - Gastro-esophageal reflux disease without esophagitis (8) Small bowel obstruction: Comment: 06/2020 with inflammation in the jejunum uncertain cause but may be related to him running out of his Reglan and taking Metamucil Code(s): K56.609 - Unspecified intestinal obstruction, unspecified as to partial versus complete obstruction Plan HE IS HERE TODAY WITH HIS who is supportive. His GI conditions continue and really has quite a lot of irritability of the smooth muscle areas of the GI tract from the esophagus, which continues to spasm midsternally when he goes out to a restaurant and causes dysphagia, to gastroparesis, to history of small-bowel obstruction, to bowel irritability that ranges from formed stools to urgent diarrhea. So far medical interventions of had limited success. His nausea and vomiting is a little bit better on the Reglan but he is already max the dose. The Viberzi has made a little bit of difference in the diarrhea but has not solve the problem. In the past he has tried things like dicyclomine for esophageal spasm and is currently on amlodipine. Were going to have him try adding p.r.n. loperamide to the Viberzi when he has diarrhea since he never has severe constipation. I have cautioned him to start with half a tablet because of his history of bowel obstruction. He is not done well on fiber as that is what seem to of caused a small-bowel obstruction in the past. He did have some mild relief with his dysphagia when he would be dilated by Dr. Lujan. We may need to try serial dilations every 3 months to see if we can sustain the affect since it tends to only last for about 3 months after the procedure before the symptoms return. Sadly most of the medical interventions to date have not worked. I may consider having 1 of the physicians see him after the procedures to get a 2nd opinion about his general condition. He is on Mounjaro for diabetes and I am uncertain how much this may be affecting his motility. He has sleep apnea and asthma/COPD which she says are well controlled and denies any cardiac problems. He has a history of postop nausea and vomiting but no other problems with anesthesia or sedation. There are no infectious disease problems. He has a history of a 1.5 cm sessile polyp for years ago that necessitate colonoscopy repeat. Return office visit to be determined after the procedures are scheduled. Orders: Orders EGD/Chase Combo - GI Use Only Today K56.609 - Unspecified intestinal obstruction, unspecified as to partial versus complete obstruction, K58.0 - Irritable bowel syndrome with diarrhea Medications: New sodium,potassium,mag sulfates 17.5-3.13-1.6 gram (Suprep Bowel Prep Kit) 480 mL orally; colonoscopy screening 354 mL 0RF D12.6 - Benign neoplasm of colon, unspecified, R13.10 - Dysphagia, unspecified loperamide (Imodium A-D) 2 mg PO Q6H PRN 60 caps 6RF loose stool K58.0 - Irritable bowel syndrome with diarrhea Discontinued eluxadoline (Viberzi) must administer with a meal/food Discontinued Reason: Doctor's Order 75 mg PO BID 60 tabs 3RF EGD/COLONOSCOPY 02/07/24 Findings: Larynx: Normal Esophagus: GE junction at 38 cms. Irregular Z line and a few superficial healing erosions at the GE junction. Esophageal balloon dilation was performed with a 20 mm (60 F) CRE balloon x 60 seconds. Biopsies obtained to check for Zuniga's. Stomach: One 4-5 mm benign appearing polyp in the gastric body - biopsied. Moderate diffuse gastric erythema - biopsies were obtained from the antrum. Grade 2 flap valve on retroflexed examination of the cardia. Duodenum: Normal bulb. A 10 mm benign appearing nodule with calcifications in the proximal descending duodenum - biopsied Findings: Terminal Ileum: Not evaluated Cecum: Normal Ascending Colon: A 10-12 mm sessile polyp in the mid AC - removed with a hot snare. Transverse Colon: Normal Descending Colon: Moderate diverticulosis Sigmoid Colon: A 5-6 mm polyp/inverted diverticulum - biopsied. Moderate diverticulosis Rectum: Normal Ano-rectum: Small internal hemorrhoids Impression and Post Procedure Diagnosis: Endoscopy Findings: ESOPHAGUS: Irregular Z line and a few superficial healing erosions at the GE junction. Esophageal balloon dilation was performed with a 20 mm (60 F) CRE balloon x 60 seconds. Biopsies obtained to check for Zuniga's. STOMACH: Gastritis and gastric polyp DUODENUM: A 10 mm benign appearing nodule with calcifications in the proximal descending duodenum - biopsied Colonoscopy Findings: One medium sized and one small polyps were removed Moderate diverticulosis seen in the left colon Small hemorrhoids on retroflexed exam. Plan: Pt has FU appointment scheduled for repeat EGD and dilation on 04/20/24, 07/20/24 and 10/12/24 FU appt with Griselda Ko NP scheduled in January, (I will ask GI schedulers to move up his FU appt) Repeat Colonoscopy in 3-5 years if polyps are adenomatous and due to history of adenomatous colon polyps. BIOPSY Addendum Addendum #1 (A): Additional tissue levels show duodenal mucosa with preserved villi and dilated lymphatics (see comment). (F): Additional tissue levels show colonic mucosa with no specific change; no adenomatous dysplasia seen. Comment: (A): The findings are non-specific, but a localized lymphangioma or lymphangiectasia (primary, secondary to inflammatory, neoplastic, or other obstructive processes, or idiopathic) cannot be excluded. No organisms are identified. Clinical correlation necessary. Electronically Signed By: Cher Burr 02/13/24 0982 Diagnosis A. Duodenum, nodule, biopsy: Duodenal mucosa with preserved villi and a dilated lymphatic on initial levels (see comment). B. Gastric antrum, biopsy: Gastric antral mucosa with focal minimal chronic inactive inflammation; negative for H. pylori, intestinal metaplasia and dysplasia. C. Gastric polyp, biopsy: Fundic gland polyp with focal minimal chronic inactive inflammation; negative for H. pylori, intestinal metaplasia and dysplasia. D. Gastro-esophageal junction, biopsy: Squamous mucosa with hyperplasia and focal intraepithelial eosinophils (up to 3 per high power field) consistent with esophagitis, and columnar mucosa with moderate chronic active inflammation, and reactive and hyperplastic changes; negative for intestinal metaplasia and dysplasia. E. Colon, ascending, polyp: Tubular adenoma; negative for high grade dysplasia and carcinoma. F. Colon, at 20 cm, polyp: Colonic mucosa with minimal hyperplastic changes on initial levels (see comment). Patient: Jonn Hussein Age/Sex: 54/M MR#: [id number] Page 1 of 3 Surgical Pathology [id number] Comment: (A and F): Additional deeper tissue levels pending; addendum to follow CORRESPONDENCE On 08/26/23 @ 09:49 Lynsey Wen Wrote To Stefani,Griselda (2) Pt due for a 3 year FU colon He has an appt with January on 09/17/23. January! can you schedule and order the prep ThanksThe TODAY'S VISIT. He is here today with his who is supportive. He is agreeable to a 3 year recall for EGD/colonoscopy. The procedure was well tolerated. The results were explained and the patient is agreeable to the follow-up interval as stated. The bowel pattern has returned to normal. Education was provided to tell any 1st degree relatives about their findings to be sure that they are screened by age 45. Educated that they will be put on a recall list when it is time for their repeat scope but should they move out of state or away from the hospital they will need to remember along with their primary to repeat the procedure in a timely fashion to avoid any adverse complications. Still has intermittent am (mostly) and sometimes later in the day dry heaves. This despite being adherent to his Reglan 10 mg 4 times a day. It is likely that is this dry heaving is causing continued splashing and the erosions of the esophagus. Nevertheless I think will try changing the PPI to see if we can do better, especially since there was signs of continued irritation in the early duodenum. He had healing erosions in the esophagus and a calcified mass that was biopsied in the duodenum. Will change him from omeprazole to pantoprazole twice a day. This also avoids any possible diarrheal effect of omeprazole that is seem less often with pantoprazole. He is now taking the Viberzi only as needed since the diarrhea that he was plagued with for quite a long time seems to have resolved after he initiated this therapy. His swallowing did improve after the dilation but he laments, ?but it always goes back to being a problem. ? This is likely because we have never attempted serial dilations but he is scheduled for his next dilation in March and then again in June. Has repeat EGD 04/20 will see after that. FORMERLY [facility] Medical History Radiologic findings of lung field, abnormal Bronchitis Obesity BPH (benign prostatic hyperplasia) Asthma Type 2 diabetes mellitus with obesity Allergic rhinitis SARAH (obstructive sleep apnea) Diverticulosis History of postoperative nausea and vomiting Anaphylaxis Anxiety Dysphagia IBS (irritable bowel syndrome) Asthma Sleep apnea Fatty liver Non-toxic multinodular goiter B12 deficiency Vitamin D deficiency Obesity (BMI 30-39.9) Nephrolithiasis Hypertension Dyslipidemia Diabetes type 2, uncontrolled COPD (chronic obstructive pulmonary disease) Surgical History Hx of umbilical hernia repair Hx of cystoscopy Hx of lithotripsy Hx of colonoscopy Hx of esophagogastroduodenoscopy Hx of adenoidectomy Hx of hernia repair Hx of appendectomy Family History Father Diabetes Mother CVD (cardiovascular disease) Cancer Social History Household Members: Significant Other Housing: Apartment Do you presently have visiting nurse or other home services: No Alcohol intake: current Alcohol intake frequency: a few times a week Patient Tobacco Use Status: Former Tobacco user Tobacco use type: Cigarette e-Cigarette/Vaping Use: Never Used Second Hand Smoke Exposure: No service: No Current occupational status: unemployed and disabled Cognitive needs: No Hearing needs: No Vision needs: No Review of Systems Const Denies fatigue, Denies fever(s), Denies night sweats, Denies poor appetite and Denies weight loss ENT Reports Normal hearing present, Denies dental pain, Reports dysphagia, Denies hearing loss, Denies mouth pain, Denies odynophagia, Denies throat swelling, Denies tongue swelling and Reports other (Dentition adequate) Card Reports no additional complaints Resp Reports no additional complaints GI Details: Denies abdominal pain, Denies melena, Denies bloating, Denies hematochezia, Denies constipation, Denies GI cramping, Reports dysphagia, Denies excessive flatus, Denies early satiety, Reports heartburn, Reports diarrhea, Reports nausea, Denies odynophagia, Reports vomiting and Denies hematemesis Skin/Breast Denies pruritus, Denies lesions, Denies rash and Denies jaundice Neuro Reports Normal hearing present and Denies Abnormal speech present Endo Denies fatigue Aller/Immun Denies throat swelling and Denies tongue swelling Physical Exam Vital Signs: Last Vital Signs Temp 85 F L 02/26/24 12:53 BP 162/94 H 02/26/24 12:53 BMI result Body Mass Index 32.7 Const General: cooperative, no acute distress, well developed and well groomed Nutritional Appearance: well nourished and obese Orientation/consciousness: oriented to person, oriented to place and oriented to time Limitations: No language barrier HEENT Head: Yes normocephalic and Yes atraumatic Eyes General: appearance normal, both eyes and all related structures Pupils: Equal, round and reactive pupils present Neck Neck: Yes normal visual inspection and Yes no lymphadenopathy Thyroid: Thyroid normal Resp Effort & Inspection: normal respiratory effort and able to speak in complete sentences Auscultation: clear to auscultation bilaterally Cardio Rate: regular rate Rhythm: regular rhythm Heart sounds: Normal, physiologic split S2 sound present Peripheral pulses: radial pulses present and posterior tibial pulses present GI Inspection: No distended, No Abdominal panniculus present and Yes obesity Palpation (GI): Soft to palpation, nontender, no guarding, not rigid and No hepatosplenomegaly present Percussion: Yes normal to percussion Auscultation: normal bowel sounds Rectal Exam - Male: Yes deferred Skin General skin exam: no rashes or lesions noted, turgor normal, skin not dry, no jaundice, No spider nevi and no striae Rashes: no rashes Nails: normal Neuro General: oriented to person, oriented to place and oriented to time Cranial nerves: Yes Equal, round and reactive pupils present and Yes Normal hearing present Speech: No Abnormal speech present Extrem General: Yes normal to inspection, No clubbing, No cyanosis and No edema Psych Appearance: grossly normal and well kempt Mental Status: mental status grossly normal Speech and movement: Normal speech and movement present Affect: normal affect Attitude: cooperative Thought process: Normal thought process present and not confabulating Thought content: Normal thought content present Insight: Good insight present (Psych) Judgement: Good judgement present (Psych) Results Reviewed Results Reviewed: EGD/COLONOSCOPY 02/07/24 Findings: Larynx: Normal Esophagus: GE junction at 38 cms. Irregular Z line and a few superficial healing erosions at the GE junction. Esophageal balloon dilation was performed with a 20 mm (60 F) CRE balloon x 60 seconds. Biopsies obtained to check for Zuniga's. Stomach: One 4-5 mm benign appearing polyp in the gastric body - biopsied. Moderate diffuse gastric erythema - biopsies were obtained from the antrum. Grade 2 flap valve on retroflexed examination of the cardia. Duodenum: Normal bulb. A 10 mm benign appearing nodule with calcifications in the proximal descending duodenum - biopsied Findings: Terminal Ileum: Not evaluated Cecum: Normal Ascending Colon: A 10-12 mm sessile polyp in the mid AC - removed with a hot snare. Transverse Colon: Normal Descending Colon: Moderate diverticulosis Sigmoid Colon: A 5-6 mm polyp/inverted diverticulum - biopsied. Moderate diverticulosis Rectum: Normal Ano-rectum: Small internal hemorrhoids Impression and Post Procedure Diagnosis: Endoscopy Findings: ESOPHAGUS: Irregular Z line and a few superficial healing erosions at the GE junction. Esophageal balloon dilation was performed with a 20 mm (60 F) CRE balloon x 60 seconds. Biopsies obtained to check for Zuniga's. STOMACH: Gastritis and gastric polyp DUODENUM: A 10 mm benign appearing nodule with calcifications in the proximal descending duodenum - biopsied Colonoscopy Findings: One medium sized and one small polyps were removed Moderate diverticulosis seen in the left colon Small hemorrhoids on retroflexed exam. Plan: Pt has FU appointment scheduled for repeat EGD and dilation on 04/20/24, 07/20/24 and 10/12/24 FU appt with Griselda Ko NP scheduled in January, (I will ask GI schedulers to move up his FU appt) Repeat Colonoscopy in 3-5 years if polyps are adenomatous and due to history of adenomatous colon polyps. BIOPSY Addendum Addendum #1 (A): Additional tissue levels show duodenal mucosa with preserved villi and dilated lymphatics (see comment). (F): Additional tissue levels show colonic mucosa with no specific change; no adenomatous dysplasia seen. Comment: (A): The findings are non-specific, but a localized lymphangioma or lymphangiectasia (primary, secondary to inflammatory, neoplastic, or other obstructive processes, or idiopathic) cannot be excluded. No organisms are identified. Clinical correlation necessary. Electronically Signed By: Cher Burr 02/13/24 1716 Diagnosis A. Duodenum, nodule, biopsy: Duodenal mucosa with preserved villi and a dilated lymphatic on initial levels (see comment). B. Gastric antrum, biopsy: Gastric antral mucosa with focal minimal chronic inactive inflammation; negative for H. pylori, intestinal metaplasia and dysplasia. C. Gastric polyp, biopsy: Fundic gland polyp with focal minimal chronic inactive inflammation; negative for H. pylori, intestinal metaplasia and dysplasia. D. Gastro-esophageal junction, biopsy: Squamous mucosa with hyperplasia and focal intraepithelial eosinophils (up to 3 per high power field) consistent with esophagitis, and columnar mucosa with moderate chronic active inflammation, and reactive and hyperplastic changes; negative for intestinal metaplasia and dysplasia. E. Colon, ascending, polyp: Tubular adenoma; negative for high grade dysplasia and carcinoma. F. Colon, at 20 cm, polyp: Colonic mucosa with minimal hyperplastic changes on initial levels (see comment). Patient: Jonn Hussein Age/Sex: 54/M MR#: [id number] Page 1 of 3 Surgical Pathology [id number] Comment: (A and F): Additional deeper tissue levels pending; addendum to follow Assessment & Plan Assessment & Plan (1) GERD (gastroesophageal reflux disease): Code(s): K21.9 - Gastro-esophageal reflux disease without esophagitis Category: Medical (2) Erosive esophagitis: Code(s): K22.10 - Ulcer of esophagus without bleeding Category: Medical Plan He is here today with his who is supportive. He is agreeable to a 3 year recall for EGD/colonoscopy. The procedure was well tolerated. The results were explained and the patient is agreeable to the follow-up interval as stated. The bowel pattern has returned to normal. Education was provided to tell any 1st degree relatives about their findings to be sure that they are screened by age 45. Educated that they will be put on a recall list when it is time for their repeat scope but should they move out of state or away from the hospital they will need to remember along with their primary to repeat the procedure in a timely fashion to avoid any adverse complications. Still has intermittent am (mostly) and sometimes later in the day dry heaves. This despite being adherent to his Reglan 10 mg 4 times a day. It is likely that is this dry heaving is causing continued splashing and the erosions of the esophagus. Nevertheless I think will try changing the PPI to see if we can do better, especially since there was signs of continued irritation in the early duodenum. He had healing erosions in the esophagus and a calcified mass that was biopsied in the duodenum. Will change him from omeprazole to pantoprazole twice a day. This also avoids any possible diarrheal effect of omeprazole that is seem less often with pantoprazole. He is now taking the Viberzi only as needed since the diarrhea that he was plagued with for quite a long time seems to have resolved after he initiated this therapy. His swallowing did improve after the dilation but he laments, ?but it always goes back to being a problem. ? This is likely because we have never attempted serial dilations but he is scheduled for his next dilation in March and then again in June. Has repeat EGD 04/20 will see after that. Medications: New pantoprazole (Protonix) 40 mg PO BID 60 tabs 6RF 30 days K21.9 - Gastro-esophageal reflux disease without esophagitis, K22.10 - Ulcer of esophagus without bleeding Discontinued omeprazole Discontinued Reason: Doctor's Order 40 mg PO DAILY 30 caps 6RF Coding Level of Care Code Est Pt Level 3 (81030) Diagnoses GERD (gastroesophageal reflux disease) K21.9 Erosive esophagitis K22.10
[2024-02-26 12:53] VITALS: BP 162/94; TEMP 29.4; BMI 32.7
== END 2024-02-26 13:30 | disposition home or self-care (01) ==
PROVIDERS: PCP Internal Medicine; Visit Provider Nurse Practitioner
DX: K21.9 Gastro-esophageal reflux disease without esophagitis (principal); K22.10 Ulcer of esophagus without bleeding
CPT/HCPCS: 99213

== ENCOUNTER → 2024-02-26 12:49 | Outpatient (BNVA) | payer OTHER, SELFPAY | PROVIDERS: PCP Internal Medicine; Visit Provider Nurse Practitioner | DX: K21.9 Gastro-esophageal reflux disease without esophagitis (principal); K22.10 Ulcer of esophagus without bleeding | CPT/HCPCS: 99212 ==

== ENCOUNTER 2024-04-20 06:57 | Day surgery (SDC) | payer OTHER, SELFPAY ==
--- NOTE | 2024-04-16 13:01 | P.CONAN_ITS ---
HPI - Anesthesia Eval Consult details Narrative: 54yo M for Upper Endoscopy with Balloon Dilitation s/p EGD, [place] 01/2024 with TIVA [place] [facility] [place] [facility] [place]2023 for asthma exac. Stable at 12/2023 office visit. Follows [facility] [place]. Stable at last office visit 12/2023. Continue with risk factor modification Anesthesia Pre-Procedure Meds Is the patient on any of the following meds?: GLP1/DPP4 PMFSH Active Problems Active Problems: All Active Problems Erosive esophagitis (Acute) Radiologic findings of lung field, abnormal (Acute) Hospital discharge follow-up (Acute) Pleural effusion (Acute) Cough (Acute) Acute asthma exacerbation (Acute) Dysphagia (Acute) Bronchitis (Acute) Gout (Acute) Esophageal spasm (Acute) Nausea and vomiting (Acute) Contusion of right hand (Acute) Tendinitis of right forearm (Acute) Obesity (Acute) BPH (benign prostatic hyperplasia) (Acute) Asthma (Acute) Type 2 diabetes mellitus with obesity (Acute) Physical exam (Acute) Abnormal stress ECG with treadmill (Acute) Chest pain (Acute) Gastroparesis (Acute) GERD (gastroesophageal reflux disease) (Acute) Irritable bowel syndrome with diarrhea (Acute) Small bowel obstruction (Acute) Neck pain (Acute) Tubular adenoma of colon (Acute) Chest pain (Acute) Allergic rhinitis (Acute) SARAH (obstructive sleep apnea) (Acute) Diverticulosis (Acute) Fatty liver (Acute) Non-toxic multinodular goiter (Acute) B12 deficiency (Acute) Vitamin D deficiency (Acute) Obesity (BMI 30-39.9) (Acute) Nephrolithiasis (Acute) Hypertension (Acute) Dyslipidemia (Acute) Diabetes type 2, uncontrolled (Acute) COPD (chronic obstructive pulmonary disease) (Acute) Past Medical History Medical History (Updated 04/22/24 @ 12:22 by BOB Castle) Hospital discharge follow-up Radiologic findings of lung field, abnormal Bronchitis Obesity BPH (benign prostatic hyperplasia) Asthma Type 2 diabetes mellitus with obesity Allergic rhinitis ASRAH (obstructive sleep apnea) Diverticulosis History of postoperative nausea and vomiting Anaphylaxis Anxiety Dysphagia IBS (irritable bowel syndrome) Asthma Sleep apnea Fatty liver Non-toxic multinodular goiter B12 deficiency Vitamin D deficiency Obesity (BMI 30-39.9) Nephrolithiasis Hypertension Dyslipidemia Diabetes type 2, uncontrolled COPD (chronic obstructive pulmonary disease) Family History Family History Father Diabetes Mother CVD (cardiovascular disease) Cancer Family history of problems with anesthesia: No Surgical History Surgical History Hx of umbilical hernia repair Hx of cystoscopy Hx of lithotripsy Hx of colonoscopy Hx of esophagogastroduodenoscopy Hx of adenoidectomy Hx of hernia repair Hx of appendectomy History of Problems with Anesthesia: No Social History Social History Household Members: Significant Other Housing: Apartment Do you presently have visiting nurse or other home services: No Alcohol intake: current Alcohol intake frequency: a few times a week Patient Tobacco Use Status: Former Tobacco user Tobacco use type: Cigarette e-Cigarette/Vaping Use: Never Used Second Hand Smoke Exposure: No service: No Current occupational status: unemployed and disabled Cognitive needs: No Hearing needs: No Vision needs: No Meds Allergies Allergy/AdvReac Type Severity Reaction Status Date / Time MONALISA Inhibitors Allergy Severe SHORTNESS Verified 05/04/24 13:05 [MONALISA INHIBITORS] OF BREATH Penicillins AdvReac Intermediate STOMACH Verified 05/04/24 13:05 UPSET stress induced anaphylaxis Allergy Severe Anaphylaxis Uncoded 05/04/24 13:05 Home Medications ?Medication ?Instructions ?Recorded ?Confirmed ?Last Taken ?Type fluticasone propionate 50 1 - 2 spray intranasal DAILY 08/15/20 05/04/24 Unknown History mcg/actuation nasal spray,suspension Exam Pertinent Lab Results Pertinent Lab Results: Laboratory Tests 10/18/23 04:43 WBC 5.3 Hgb 15.1 Hct 44.7 Plt Count 145 L Sodium 137 Potassium 3.6 Chloride 106 Carbon Dioxide 20 L BUN 10 Creatinine 0.94 Narrative Narrative: EKG 09/2023 Vent. Rate : 080 BPM Atrial Rate : 080 BPM P-R Int : 138 ms QRS Dur : 094 ms QT Int : 396 ms P-R-T Axes : 045 062 045 degrees QTc Int : 456 ms Normal sinus rhythm Normal ECG When compared with ECG of 02-JUN-2021 08:18, No significant change was found XR chest 2V 12/2023 IMPRESSION: Decreased mild bibasilar streaky opacities. Assessment and Plan Assessment Anesthesia Assessment: Chart Reviewed Final Anesthetic Review Family History of Problems with Anesthesia: No History of Problems with Anesthesia: No
[2024-04-20 07:09] VITALS: BMI 32.9
[2024-04-20 07:12] VITALS: BP 146/95; PULSE 83; RESP 16; TEMP 36.6; O2SAT 97
--- NOTE | 2024-04-20 07:16 | MHC.SHP ---
Pre-Procedural Eval Section A - 24 Hr Update-Section A only Date of Service: 04/20/24 The patient is an INPATIENT: No The patient has been examined within 24 hours of the surgical procedure. The History & Physical has been completed within 30 days and I have reviewed it.: No Section B - Complete if H&P > 30 days Chief Complaint: Dysphagia Relevant Family History (Specify if Yes): No Relevant Social History: Tobacco Use (Former smoker) Present Medications: see Short Stay Collaborative assessment Medical History: Significant History (Bronchitis Obesity BPH (benign prostatic hyperplasia) Asthma Type 2 diabetes mellitus with obesity Allergic rhinitis SARAH (obstructive sleep apnea) Diverticulosis History of postoperative nausea and vomiting Anaphylaxis Anxiety Dysphagia IBS (irritable bowel syndrome) Asthma Sleep apnea Fatty liver N) History of Previous Operations: Relevant previous surgery/procedure and date(s) (Hx of umbilical hernia repair Hx of cystoscopy Hx of lithotripsy Hx of colonoscopy Hx of esophagogastroduodenoscopy Hx of adenoidectomy Hx of hernia repair Hx of appendectomy) Allergies: Allergies Allergy/AdvReac Type Severity Reaction Status Date / Time MONALISA Inhibitors Allergy Severe SHORTNESS Verified 02/07/24 10:10 [MONALISA INHIBITORS] OF BREATH Penicillins AdvReac Intermediate STOMACH Verified 02/07/24 10:10 UPSET stress induced anaphylaxis Allergy Severe Anaphylaxis Uncoded 02/07/24 10:10 Review of Systems Sugical H&P ROS: Negative: Constitution, Cardiovascular and Respiratory and Yes, Specify: Gastrointestinal (Dysphagia) Exam Surgical H&P Exam: Normal: Heart, Normal: Lungs, Normal: Extremities and Normal: Abdomen Plan Diagnosis/Plan: Unchanged I have reviewed the history and physical and performed a pertinent physical examination on my patient. No changes have occurred unless specified. Time Spent With Patient Time: Total time managing care of this patient today ____ minutes.
[2024-04-20 07:20] LABS: Glucose, Whole Blood 121 mg/dL (60-115)
--- NOTE | 2024-04-20 07:28 | P.CONAN_ITS ---
[facility] Active Problems Active Problems: All Active Problems Erosive esophagitis (Acute) Radiologic findings of lung field, abnormal (Acute) Hospital discharge follow-up (Acute) Pleural effusion (Acute) Cough (Acute) Acute asthma exacerbation (Acute) Dysphagia (Acute) Bronchitis (Acute) Gout (Acute) Esophageal spasm (Acute) Nausea and vomiting (Acute) Contusion of right hand (Acute) Tendinitis of right forearm (Acute) Obesity (Acute) BPH (benign prostatic hyperplasia) (Acute) Asthma (Acute) Type 2 diabetes mellitus with obesity (Acute) Physical exam (Acute) Abnormal stress ECG with treadmill (Acute) Chest pain (Acute) Gastroparesis (Acute) GERD (gastroesophageal reflux disease) (Acute) Irritable bowel syndrome with diarrhea (Acute) Small bowel obstruction (Acute) Neck pain (Acute) Tubular adenoma of colon (Acute) Chest pain (Acute) Allergic rhinitis (Acute) SARAH (obstructive sleep apnea) (Acute) Diverticulosis (Acute) Fatty liver (Acute) Non-toxic multinodular goiter (Acute) B12 deficiency (Acute) Vitamin D deficiency (Acute) Obesity (BMI 30-39.9) (Acute) Nephrolithiasis (Acute) Hypertension (Acute) Dyslipidemia (Acute) Diabetes type 2, uncontrolled (Acute) COPD (chronic obstructive pulmonary disease) (Acute) Past Medical History Medical History Radiologic findings of lung field, abnormal Bronchitis Obesity BPH (benign prostatic hyperplasia) Asthma Type 2 diabetes mellitus with obesity Allergic rhinitis SARAH (obstructive sleep apnea) Diverticulosis History of postoperative nausea and vomiting Anaphylaxis Anxiety Dysphagia IBS (irritable bowel syndrome) Asthma Sleep apnea Fatty liver Non-toxic multinodular goiter B12 deficiency Vitamin D deficiency Obesity (BMI 30-39.9) Nephrolithiasis Hypertension Dyslipidemia Diabetes type 2, uncontrolled COPD (chronic obstructive pulmonary disease) Functional capacity: independent ambulation Family History Family History Father Diabetes Mother CVD (cardiovascular disease) Cancer Family history of problems with anesthesia: No Surgical History Surgical History Hx of umbilical hernia repair Hx of cystoscopy Hx of lithotripsy Hx of colonoscopy Hx of esophagogastroduodenoscopy Hx of adenoidectomy Hx of hernia repair Hx of appendectomy History of Problems with Anesthesia: No Social History Social History Household Members: Significant Other Housing: Apartment Do you presently have visiting nurse or other home services: No Alcohol intake: current Alcohol intake frequency: a few times a week Patient Tobacco Use Status: Former Tobacco user Tobacco use type: Cigarette e-Cigarette/Vaping Use: Never Used Second Hand Smoke Exposure: No Use of substances other than those prescribed or required for medical reasons: No Are you DNR?: No Advance Directives: No Advance Directives Information Provided: Yes service: No Current occupational status: unemployed and disabled Cognitive needs: No Hearing needs: No Vision needs: No Meds Allergies Allergy/AdvReac Type Severity Reaction Status Date / Time MONALISA Inhibitors Allergy Severe SHORTNESS Verified 02/07/24 10:10 [MONALISA INHIBITORS] OF BREATH Penicillins AdvReac Intermediate STOMACH Verified 02/07/24 10:10 UPSET stress induced anaphylaxis Allergy Severe Anaphylaxis Uncoded 02/07/24 10:10 Active Medications: Current Medications Albuterol Sulfate (Albuterol Sulfate (0.083%) 2.5 Mg/3 Ml Vial.Neb) 2.5 mg IN LOCO ONCE PRN PRN Reason: Shortness of Breath/Wheezing Lactated Ringer's (Lr) 1,000 mls @ 100 mls/hr IVCONT .Q10H SO Home Medications ?Medication ?Instructions ?Recorded ?Confirmed ?Last Taken ?Type fluticasone propionate 50 1 - 2 spray intranasal DAILY 08/15/20 02/07/24 Unknown History mcg/actuation nasal spray,suspension metoclopramide HCl 10 mg tablet 10 mg PO QIDACHS 10/17/23 02/07/24 Unknown History (Reglan) Exam Height,Weight and Vital Signs: Height 5 ft 5 in Weight 89.721 kg Last Vital Signs Temp 97.8 F 04/20/24 07:12 Pulse 83 04/20/24 07:12 Resp 16 04/20/24 07:12 BP 146/95 H 04/20/24 07:12 Pulse Ox 97 04/20/24 07:12 O2 Del Method Room Air 04/20/24 07:12 Pertinent Lab Results Pertinent Lab Results: Laboratory Tests 04/20/24 07:17 POC Glucose 121 H Airway Mallampati Class: III TM Dist: >3cm Neck ROM: Full Heart: RRR Lungs: CTA Assessment and Plan Assessment Anesthesia Assessment: Anesthesia Plan Discussed Final Anesthetic Review Family History of Problems with Anesthesia: No History of Problems with Anesthesia: No NPO: Yes ASA Class: III Final Preanesthetic Review: Meds/Allgs Chart Reviewed, Consent Obtained/Reviewed and Anes Risks/Benef Reviewed Patient Risk: Intermediate Procedure Risk: Low Anesthetic Plan Anesthetic Plan: MAC: Disposition: Standard PACU
[2024-04-20] MEDS: Lactated Ringers 1,000 ML 100 ML IVCONT (07:36)
--- NOTE | 2024-04-20 08:44 | W.PM.OPN ---
Operative Note Operative Note Date of Service: 04/20/24 Narrative: FLEXIBLE TRANSORAL UPPER GASTROINTESTINAL ENDOSCOPY WITH BIOPSIES AND ESOPHAGEAL BALLOON DILATION Pre-op diagnosis: GERD, Dysphagia Post-op diagnosis: GERD, dysphagia, Endoscopist:? Lynsey Wen MD Anesthesia:?MAC UPPER ENDOSCOPY Consent: Indications for the procedure and potential complications of bleeding, perforation, reaction to medications and missed diagnosis were discussed with the patient and informed consent was obtained. Instrument: Olympus GIF H 190 mid size upper endoscope Monitoring: Vital signs and clinical assessment, continuous EKG monitoring, Pulse oximetry, Carbon Dioxide monitoring and blood pressure monitoring were done throughout the procedure. Procedure: The patient was placed in the left lateral decubitis position and pre-procedure medications were administered and a bite block was placed. The endoscope was inserted into the mouth and advanced under direct vision to the third part of duodenum. A careful inspection was made as the upper endoscope was withdrawn including a retroflexed examination of the proximal stomach; Findings and interventions are described below. Findings: Larynx: Normal Esophagus: GE junction at 38 cms. Irregular Z line at the GE junction. Biopsies obtained during past EGD were negative for Zuniga's. No stricture or ring seen - empiric esophageal balloon dilation was performed with a 20 mm (60 F) CRE balloon x 60 seconds. Biopsies were obtained from proximal esophagus to check for EOE. Stomach: One 4-5 mm benign appearing polyp in the gastric body - benign on previous biopsies Grade 2 flap valve on retroflexed examination of the cardia. Duodenum: Normal bulb. A 10 mm benign appearing nodule with calcifications in the proximal descending duodenum - benign on previous biopsies Intervention: Biopsies and esophageal balloon dilation as noted above Impression and Post Procedure Diagnosis: Endoscopy Findings: ESOPHAGUS: GE junction at 38 cms. Irregular Z line at the GE junction. Biopsies obtained during past EGD were negative for Zuniga's. No stricture or ring seen - empiric esophageal balloon dilation was performed with a 20 mm (60 F) CRE balloon x 60 seconds. Biopsies were obtained from proximal esophagus to check for EOE. STOMACH: One 4-5 mm benign appearing polyp in the gastric body - benign on previous biopsies DUODEUM: A 10 mm benign appearing nodule with calcifications in the proximal descending duodenum - benign on previous biopsies Pt's symptoms of dysphagia likely due to esophageal motility disorder Plan: Pt has a FU appointment on 04/22/24 with Griselda Ko NP. Above findings were reviewed with the patient and it was explained to the pt that dysphagia is likely due to esophageal motility disorder since no stricture or ring was seen. Repeated dilations are not likely to be helpful in relieving his symptoms. He was advised to eat slowly, chew his food well and take sips of fluids while eating. Advise further evaluation with a barium swallow if patient continues to have dysphagia symptoms Of note pt had a barium swallow in 06/2014 which showed: Slight hold up of barium tablet at the GE junction which subsequently cleared with full glass of water. No obstruction or narrowing seen with thick barium and solid barium coated food . BIOPSIES SHOWED: Esophagus, proximal, biopsy: Active esophagitis (rare neutrophils); negative for eosinophilic esophagitis.
[2024-04-20 08:48] VITALS: BP 133/82; PULSE 82; RESP 16; TEMP 36.3; O2SAT 97
[2024-04-20 09:03] VITALS: BP 146/89; PULSE 79; RESP 16; TEMP 36.4; O2SAT 98
--- NOTE | 2024-04-20 09:52 | HO.POSTANES ---
Post Anesthesia Evaluation Post Anesthesia Evaluation Date of Service: 04/20/24 Vital Signs: Vital Signs Temp Pulse Resp BP Pulse Ox O2 Del Method 04/20/24 09:03 97.6 F 79 16 146/89 H 98 Room Air 04/20/24 08:48 97.3 F 82 16 133/82 97 Room Air 04/20/24 07:12 97.8 F 83 16 146/95 H 97 Room Air Anesthesia: Monitored Mental Status: Awake Pain Control: Satisfactory Nausea/Vomiting: None Hydration: Adequate Anesthesia-Related Issues: No Anes. Related Issues
== END 2024-04-20 09:30 | disposition home or self-care (01) ==
PROVIDERS: PCP Internal Medicine; Visit Provider Internal Medicine Gastroenterology
PROC: (CPT 43249; principal; 2024-04-20 08:30)
DX: R13.10 Dysphagia, unspecified (principal); K21.00 Gastro-esophageal reflux disease with esophagitis, without bleeding; K22.89 Other specified disease of esophagus; G47.33 Obstructive sleep apnea (adult) (pediatric); K31.7 Polyp of stomach and duodenum; K76.0 Fatty (change of) liver, not elsewhere classified; J44.9 Chronic obstructive pulmonary disease, unspecified; G47.30 Sleep apnea, unspecified; I10 Essential (primary) hypertension; E11.9 Type 2 diabetes mellitus without complications; Z79.85 Long-term (current) use of injectable non-insulin antidiabetic drugs; Z88.0 Allergy status to penicillin; Z88.8 Allergy status to other drugs, medicaments and biological substances; Z56.0 Unemployment, unspecified
CPT/HCPCS: 43249; 43239; 82947; 88305; C1726; J2704

== ENCOUNTER → 2024-04-20 06:57 | Outpatient (BNV) | payer OTHER, SELFPAY | PROVIDERS: PCP Internal Medicine; Visit Provider Internal Medicine Gastroenterology | DX: K21.00 Gastro-esophageal reflux disease with esophagitis, without bleeding (principal); R13.10 Dysphagia, unspecified | CPT/HCPCS: 43239; 43249 ==

== ENCOUNTER 2024-04-22 11:54 | Outpatient (AMB) | payer OTHER, SELFPAY ==
--- NOTE | 2024-04-22 12:04 | A.OFFVIS_ITS ---
Vital Signs 04/22/24 12:05 Height 5 ft 5 in Weight 191 lb 12.835 oz BMI 31.9 BP 141/76 H Blood Pressure Location Lt brachial Position Sitting Pulse 82 Intake Visit Reasons: 1 month follow up Intake Note: Jonn presents in the office as a 1 month follow up. CC: He states that he is not having any concerns at this time. Soil Checker Required: No Allergies MONALISA Inhibitors [MONALISA INHIBITORS] Allergy (Severe, Verified 05/25/24 09:25) SHORTNESS OF BREATH Penicillins Adverse Reaction (Intermediate, Verified 05/25/24 09:25) STOMACH UPSET stress induced anaphylaxis Allergy (Severe, Uncoded 05/25/24 09:25) Anaphylaxis HPI HPI 1 month follow up: Details: Assessment & Plan (1) GERD (gastroesophageal reflux disease): Code(s): K21.9 - Gastro-esophageal reflux disease without esophagitis Category: Medical (2) Erosive esophagitis: Code(s): K22.10 - Ulcer of esophagus without bleeding Category: Medical Plan He is here today with his who is supportive. He is agreeable to a 3 year recall for EGD/colonoscopy. The procedure was well tolerated. The results were explained and the patient is agreeable to the follow-up interval as stated. The bowel pattern has returned to normal. Education was provided to tell any 1st degree relatives about their findings to be sure that they are screened by age 45. Educated that they will be put on a recall list when it is time for their repeat scope but should they move out of state or away from the hospital they will need to remember along with their primary to repeat the procedure in a timely fashion to avoid any adverse complications. Still has intermittent am (mostly) and sometimes later in the day dry heaves. This despite being adherent to his Reglan 10 mg 4 times a day. It is likely that is this dry heaving is causing continued splashing and the erosions of the esophagus. Nevertheless I think will try changing the PPI to see if we can do better, especially since there was signs of continued irritation in the early duodenum. He had healing erosions in the esophagus and a calcified mass that was biopsied in the duodenum. Will change him from omeprazole to pantoprazole twice a day. This also avoids any possible diarrheal effect of omeprazole that is seem less often with pantoprazole. He is now taking the Viberzi only as needed since the diarrhea that he was plagued with for quite a long time seems to have resolved after he initiated this therapy. His swallowing did improve after the dilation but he laments, ?but it always goes back to being a problem. ? This is likely because we have never attempted serial dilations but he is scheduled for his next dilation in March and then again in June. Has repeat EGD 04/20 will see after that. Medications: New pantoprazole (Protonix) 40 mg PO BID 60 tabs 6RF 30 days K21.9 - Gastro- esophageal reflux disease without esophagitis, K22.10 - Ulcer of esophagus without bleeding Discontinued omeprazole Discontinued Reason: Doctor's Order 40 mg PO DAILY 30 caps 6RF EGD/COLONOSCOPY 04/20/24 Findings: Larynx: Normal Esophagus: GE junction at 38 cms. Irregular Z line at the GE junction. Biopsies obtained during past EGD were negative for Zuniga's. Esophageal balloon dilation was performed with a 20 mm (60 F) CRE balloon x 60 seconds. Biopsies were obtained from proximal esophagus to check for EOE. Stomach: One 4-5 mm benign appearing polyp in the gastric body - benign on previous biopsies Grade 2 flap valve on retroflexed examination of the cardia. Duodenum: Normal bulb. A 10 mm benign appearing nodule with calcifications in the proximal descending duodenum - benign on previous biopsies Intervention: Biopsies and esophageal balloon dilation as noted above Impression and Post Procedure Diagnosis: Endoscopy Findings: ESOPHAGUS: GE junction at 35 cms. Mildly tortuous esophagus STOMACH: Nodular appearing mucosa in the gastric body and fundus - biopsied. Moderate diffuse gastric erythema - biopsies were obtained from the antrum. Plan: Received: 04/20/24 Diagnosis Esophagus, proximal, biopsy: Active esophagitis (rare neutrophils); negative for eosinophilic esophagitis. TODAY'S VISIT. He says that Dr. Wen said to him I don't know why I am doing this again.... apparently, she did not read my note about serial dilations, but she did the procedure. She wants himk to have a barium swallow, and since this is low risk I will order it. but given his clinical improvement with dilations, this does not present a strong argument for acalasia etc. He feels that the pantoprozole bid is working well for the GERD. ROV 3 mos. [facility] Medical History Hospital discharge follow-up Radiologic findings of lung field, abnormal Bronchitis Obesity BPH (benign prostatic hyperplasia) Asthma Type 2 diabetes mellitus with obesity Allergic rhinitis SARAH (obstructive sleep apnea) Diverticulosis History of postoperative nausea and vomiting Anaphylaxis Anxiety Dysphagia IBS (irritable bowel syndrome) Asthma Sleep apnea Fatty liver Non-toxic multinodular goiter B12 deficiency Vitamin D deficiency Obesity (BMI 30-39.9) Nephrolithiasis Hypertension Dyslipidemia Diabetes type 2, uncontrolled COPD (chronic obstructive pulmonary disease) Surgical History Hx of umbilical hernia repair Hx of cystoscopy Hx of lithotripsy Hx of colonoscopy Hx of esophagogastroduodenoscopy Hx of adenoidectomy Hx of hernia repair Hx of appendectomy Family History Father Diabetes Mother CVD (cardiovascular disease) Cancer Social History Household Members: Significant Other Housing: Apartment Do you presently have visiting nurse or other home services: No Alcohol intake: current Alcohol intake frequency: a few times a week Patient Tobacco Use Status: Former Tobacco user Tobacco use type: Cigarette e-Cigarette/Vaping Use: Never Used Second Hand Smoke Exposure: No service: No Current occupational status: unemployed and disabled Cognitive needs: No Hearing needs: No Vision needs: No Review of Systems Const Denies fatigue, Denies fever(s), Denies night sweats, Denies poor appetite and Denies weight loss ENT Reports Normal hearing present, Denies dental pain, Reports dysphagia, Denies hearing loss, Denies mouth pain, Denies odynophagia, Denies throat swelling, Denies tongue swelling and Reports other (Dentition adequate) Card Reports no additional complaints Resp Reports no additional complaints GI Details: Denies abdominal pain, Denies melena, Denies bloating, Denies hematochezia, Denies constipation, Denies GI cramping, Reports dysphagia, Denies excessive f latus, Denies early satiety, Reports heartburn, Denies diarrhea, Denies nausea, Denies odynophagia, Denies vomiting and Denies hematemesis Skin/Breast Denies pruritus, Denies lesions, Denies rash and Denies jaundice Neuro Reports Normal hearing present and Denies Abnormal speech present Endo Denies fatigue Aller/Immun Denies throat swelling and Denies tongue swelling Physical Exam Vital Signs: Last Vital Signs Pulse 82 04/22/24 12:05 BP 141/76 H 04/22/24 12:05 BMI result Body Mass Index 31.9 Const General: cooperative, no acute distress, well developed and well groomed Nutritional Appearance: well nourished and obese Orientation/consciousness: oriented to person, oriented to place and oriented to time Limitations: No language barrier HEENT Head: Yes normocephalic and Yes atraumatic Eyes General: appearance normal, both eyes and all related structures Pupils: Equal, round and reactive pupils present Neck Neck: Yes normal visual inspection and Yes no lymphadenopathy Thyroid: Thyroid normal Resp Effort & Inspection: normal respiratory effort and able to speak in complete sentences Auscultation: clear to auscultation bilaterally Cardio Rate: regular rate Rhythm: regular rhythm Heart sounds: Normal, physiologic split S2 sound present Peripheral pulses: radial pulses present and posterior tibial pulses present GI Inspection: No distended, No Abdominal panniculus present and Yes obesity Palpation (GI): Soft to palpation, nontender, no guarding, not rigid and No hepatosplenomegaly present Percussion: Yes normal to percussion Auscultation: normal bowel sounds Rectal Exam - Male: Yes deferred Skin General skin exam: no rashes or lesions noted, turgor normal, skin not dry, no jaundice, No spider nevi and no striae Rashes: no rashes Nails: normal Neuro General: oriented to person, oriented to place and oriented to time Cranial nerves: Yes Equal, round and reactive pupils present and Yes Normal hearing present Speech: No Abnormal speech present Extrem General: Yes normal to inspection, No clubbing, No cyanosis and No edema Psych Appearance: grossly normal and well kempt Mental Status: mental status grossly normal Speech and movement: Normal speech and movement present Affect: normal affect Attitude: cooperative Thought process: Normal thought process present and not confabulating Thought content: Normal thought content present Insight: Limited insight present (Psych) Judgement: Limited judgement present (Psych) Results Reviewed Results Reviewed: EGD/COLONOSCOPY 04/20/24 Findings: Larynx: Normal Esophagus: GE junction at 38 cms. Irregular Z line at the GE junction. Biopsies obtained during past EGD were negative for Zuniga's. Esophageal balloon dilation was performed with a 20 mm (60 F) CRE balloon x 60 seconds. Biopsies were obtained from proximal esophagus to check for EOE. Stomach: One 4-5 mm benign appearing polyp in the gastric body - benign on previous biopsies Grade 2 flap valve on retroflexed examination of the cardia. Duodenum: Normal bulb. A 10 mm benign appearing nodule with calcifications in the proximal descending duodenum - benign on previous biopsies Intervention: Biopsies and esophageal balloon dilation as noted above Impression and Post Procedure Diagnosis: Endoscopy Findings: ESOPHAGUS: GE junction at 35 cms. Mildly tortuous esophagus STOMACH: Nodular appearing mucosa in the gastric body and fundus - biopsied. Moderate diffuse gastric erythema - biopsies were obtained from the antrum. Plan: Received: 04/20/24 Diagnosis Esophagus, proximal, biopsy: Active esophagitis (rare neutrophils); negative for eosinophilic esophagitis Assessment & Plan Assessment & Plan (1) Dysphagia: Code(s): R13.10 - Dysphagia, unspecified Category: Medical (2) Esophageal spasm: Comment: Failed a trial of dicyclomine is already on amlodipine Code(s): K22.4 - Dyskinesia of esophagus Category: Medical (3) Gastroparesis: Code(s): K31.84 - Gastroparesis Category: Medical Plan He says that Dr. Wen said to him I don't know why I am doing this again.... apparently, she did not read my note about serial dilations, but she did the procedure. She wants him to have a barium swallow, and since this is low risk I will order it. but given his clinical improvement with dilations, this does not present a strong argument for acalasia etc. He feels that the pantoprozole bid is working well for the GERD. ROV 3 mos. Orders: Orders [place] barium swallow 04/22/24 R13.10 - Dysphagia, unspecified, K22.4 - Dyskinesia of esophagus Medications: New metoclopramide HCl (Reglan) 10 mg PO QIDACHS 120 tabs 6RF K31.84 - Gastroparesis Coding Level of Care Code Est Pt Level 3 (90541) Diagnoses Dysphagia R13.10 Esophageal spasm K22.4 Gastroparesis K31.84
[2024-04-22 12:05] VITALS: BP 141/76; PULSE 82; BMI 31.9
== END 2024-04-22 12:33 | disposition home or self-care (01) ==
PROVIDERS: PCP Internal Medicine; Visit Provider Nurse Practitioner
DX: R13.10 Dysphagia, unspecified (principal); K22.4 Dyskinesia of esophagus; K31.84 Gastroparesis
CPT/HCPCS: 99213

== ENCOUNTER → 2024-04-22 11:54 | Outpatient (BNVA) | payer OTHER, SELFPAY | PROVIDERS: PCP Internal Medicine; Visit Provider Nurse Practitioner | DX: R13.10 Dysphagia, unspecified (principal); K22.4 Dyskinesia of esophagus; K31.84 Gastroparesis | CPT/HCPCS: 99212 ==

== ENCOUNTER 2024-05-04 12:58 | Outpatient (AMB) | payer OTHER, SELFPAY ==
[2024-05-04 13:05] VITALS: BP 132/90; PULSE 85; O2SAT 99; BMI 32.1
--- NOTE | 2024-05-04 13:05 | MHC.PC.OV ---
Vital Signs 05/04/24 13:05 Height 5 ft 5 in Weight 193 lb BMI 32.1 BP 132/90 H Blood Pressure Location Lt brachial Position Sitting Pulse 85 Pulse Source Pulse Oximeter Pulse Oximetry (%) 99 Oxygen Delivery Method Room Air Intake Visit Reasons: 6 month f/u Bulk Loader Required: No Rotating Equipment Engineer: Not Required per policy Accompanied by: Self / Same As Patient Allergies MONALISA Inhibitors [MONALISA INHIBITORS] Allergy (Severe, Verified 05/04/24 13:05) SHORTNESS OF BREATH Penicillins Adverse Reaction (Intermediate, Verified 05/04/24 13:05) STOMACH UPSET stress induced anaphylaxis Allergy (Severe, Uncoded 05/04/24 13:05) Anaphylaxis Medication List - Last Reconciled 05/04/24 by Beto Kelly MD allopurinol 100 mg PO DAILY 90 days amlodipine 10 mg PO DAILY 30 days blood sugar diagnostic (FreeStyle Lite Strips) 3 jeremias a day cholecalciferol (vitamin D3) 25 mcg PO DAILY cyanocobalamin (vitamin B-12) (Vitamin B-12) 250 mcg PO DAILY 60 days eluxadoline (Viberzi) 100 mg PO BID epinephrine (EpiPen 2-Benedict) 0.3 mg (0.3 mL) IM ONCE PRN flash glucose sensor (FreeStyle Arnulfo 14 Day Sensor kit) As directed fluticasone propion-salmeterol 250-50 mcg/dose (Advair Diskus) 1 inh inhalation BID 90 days fluticasone propionate 110 mcg/actuation 2 puffs inhalation BID 30 days MDD ASTHMA/COPD fluticasone propionate 50 mcg/actuation 1 - 2 sprays intranasal DAILY FreeStyle Lancets (lancets) 3 times a day NS hydrochlorothiazide 25 mg PO DAILY 30 days inhalat.spacing dev,large mask (BreatheRite Spacer and Mask, Adult) As directed losartan 50 mg PO DAILY metoclopramide HCl (Reglan) 10 mg PO QIDACHS pantoprazole (Protonix) 40 mg PO BID 30 days pyridoxine (vitamin B6) 100 mg PO DAILY 90 days rosuvastatin 20 mg PO DAILY salmeterol (Serevent Diskus) 1 inh inhalation BID 30 days tirzepatide (Mounjaro) 5 mg (0.5 mL) subcut QWEEK Ventolin HFA 90 mcg/actuation (albuterol sulfate) 2 puffs inhalation Q6H PRN NS Tobacco use date assessed: 05/04/24 Dental Screening Dental Screen Date: 10/29/23 HPI 6 month f/u HPI Details HTN DM and gout; stable; BS in good control PFSH Medical History (Updated 04/22/24 @ 12:22 by BOB Castle) Hospital discharge follow-up Radiologic findings of lung field, abnormal Bronchitis Obesity BPH (benign prostatic hyperplasia) Asthma Type 2 diabetes mellitus with obesity Allergic rhinitis SARAH (obstructive sleep apnea) Diverticulosis History of postoperative nausea and vomiting Anaphylaxis Anxiety Dysphagia IBS (irritable bowel syndrome) Asthma Sleep apnea Fatty liver Non-toxic multinodular goiter B12 deficiency Vitamin D deficiency Obesity (BMI 30-39.9) Nephrolithiasis Hypertension Dyslipidemia Diabetes type 2, uncontrolled COPD (chronic obstructive pulmonary disease) Surgical History Hx of umbilical hernia repair Hx of cystoscopy Hx of lithotripsy Hx of colonoscopy Hx of esophagogastroduodenoscopy Hx of adenoidectomy Hx of hernia repair Hx of appendectomy Family History Father Diabetes Mother CVD (cardiovascular disease) Cancer Social History Household Members: Significant Other Housing: Apartment Do you presently have visiting nurse or other home services: No Alcohol intake: current Alcohol intake frequency: a few times a week Patient Tobacco Use Status: Former Tobacco user Tobacco use type: Cigarette e-Cigarette/Vaping Use: Never Used Second Hand Smoke Exposure: No service: No Current occupational status: unemployed and disabled Cognitive needs: No Hearing needs: No Vision needs: No Questionnaire PHQ-9 Over the last 2 weeks, how often have you been bothered by any of the following problems? 1. Little interest or pleasure in doing things: not at all 2. Feeling down, depressed, or hopeless: not at all 3. Trouble falling or staying asleep, or sleeping too much: not at all 4. Feeling tired or having little energy: not at all 5. Poor appetite or overeating: not at all 6. Feeling bad about yourself - or that you are a failure or have let yourself or your family down: not at all 7. Trouble concentrating on things, such as reading the newspaper or watching television: not at all 8. Moving or speaking so slowly that other people could have noticed. Or the opposite - being so fidgety or restless that you have been moving around a lot more than usual: not at all 9. Thoughts that you would be better off or of hurting yourself in some way: not at all Total score: 0 Depression Screening Interpretation: Negative Depression Screening Done: Yes 99088 - PHQ-9 Billing: Yes Source: Developed by Drs. Sam Sharp, Paula Allen, Samson Zavala and colleagues, with an educational fawn from [employer]. Thrive Questionnaire Date Thrive assessed: 05/04/24 I am a: Patient What is your living situation today?: I have a steady place to live Within the past 12 months, did the food you bought not last and you didn't have the money to get more?: Never true Within the past 12 months, did you worry whether your food would run out before you got money to buy more?: Never true Do you have trouble paying for medicines?: No Do you have trouble getting transportation to medical appointments?: No Do you have trouble paying your heating and electricity bill?: No Do you have trouble taking care of your child, family member or friend?: No Do you have trouble with day-to-day activities such as bathing, preparing meals, shopping, managing finances, etc.?: No Are you currently unemployed and looking for a job?: No Are you interested in more education?: No Please select the resources that you would like help with: None THRIVE Score: 0 AUDIT C Alcohol Use Questionnaire (AUDIT-C) 1. How often do you have a drink containing alcohol?: 2-3 times a week 2. How many drinks containing alcohol do you have on a typical day when you are drinking?: 1 or 2 3. How often do you have six or more drinks on one occasion?: Never Total Score: 3 Score Reviewed/Action Taken: Yes VILLA-7 AMB Questionnaire VILLA-7 Date VILLA - 7 assessed: 05/04/24 Feeling nervous, anxious, or on edge: 0 = Not at all Not being able to stop or control worryin = Not at all Worrying too much about different things: 0 = Not at all Trouble relaxin = Not at all Being so restless that it is hard to sit still: 0 = Not at all Becoming easily annoyed or irritable: 0 = Not at all Feeling afraid as if something awful might happen: 0 = Not at all Total VILLA-7 score (0-4 normal; 5-9 mild; 10-14 moderate; 15-21 severe): 0 Source: Developed by Drs. Sam Sharp, Paula Allen, Samson Zavala and colleagues, with an educational fawn from [employer]. Review of Systems Const Denies chills, Denies headache(s) and Denies weight loss ENT Denies headache(s) Card Denies chest pain, Denies syncope, Denies irregular heart rhythm and Denies dyspnea Resp Denies chest congestion, Denies cough and Denies dyspnea GI Denies abdominal pain, Denies change in stool character, Denies nausea and Denies vomiting Musc Denies deformity and Denies joint swelling Neuro Denies syncope and Denies headache(s) Physical exam (Primary Care) Vital Signs: Last Vital Signs Pulse 85 05/04/24 13:05 BP 132/90 H 05/04/24 13:05 Pulse Ox 99 05/04/24 13:05 Oxygen Delivery Method Room Air 05/04/24 13:05 BMI result Body Mass Index 32.1 Tobacco/Smoking Status: Tobacco use Status Tobacco use date assessed 05/04/24 05/04/24 13:06 Patient Tobacco Use Status Former Tobacco user 05/04/24 13:06 Tobacco use type Cigarette 05/04/24 13:06 e-Cigarette/Vaping Use Never Used 05/04/24 13:06 PHQ-9: PHQ-9 Score PHQ-9: Total score 0 05/04/24 13:40 Depression Screening Interpretation: Negative Thrive Assessment: Date of Thrive Assessment Date Thrive assessed 05/04/24 05/04/24 13:06 Const General: cooperative, comfortable, no acute distress and alert Neck Neck: Yes no lymphadenopathy Thyroid: Thyroid normal Resp Effort & Inspection: normal respiratory effort Auscultation: clear to auscultation bilaterally Percussion: percussion normal Cardio Jugular venous distension: no JVD Palpation: normal PMI Rate: regular rate Rhythm: regular rhythm Heart sounds: S1 normal heart sound present and S2 normal heart sound present GI Inspection: Yes normal to inspection Palpation (GI): No hepatosplenomegaly present Skin General skin exam: no rashes or lesions noted Extrem General: Yes no clubbing, cyanosis or edema Assessment and Plan Assessment & Plan (1) Type 2 diabetes mellitus with obesity: Code(s): E11.69 - Type 2 diabetes mellitus with other specified complication; E66.9 - Obesity, unspecified Plan: stable; same rx (2) Gout: Code(s): M10.9 - Gout, unspecified Plan: stable; same rx (3) Hypertension: Code(s): I10 - Essential (primary) hypertension Plan: stable; same rx Orders: Orders Lipid Panel Today Z13.220 - Encounter for screening for lipoid disorders Comprehensive [place]. Panel Fast Today Z13.9 - Encounter for screening, unspecified Microalbumin, Random (w Creat) Today E11.69 - Type 2 diabetes mellitus with other specified complication, E66.01 - Morbid (severe) obesity due to excess calories AMB Hemoglobin A1c Today E11.69 - Type 2 diabetes mellitus with other specified complication, E66.9 - Obesity, unspecified Thyroid Stimulating Hormone Today Z13.29 - Encounter for screening for other suspected endocrine disorder Complete Blood Count Auto Diff Today Z13.0 - Encounter for screening for diseases of the blood and blood-forming organs and certain disorders involving the immune mechanism Hemoglobin A1c Today R73.9 - Hyperglycemia, unspecified Medications: Refilled Ventolin HFA 90 mcg/actuation (albuterol sulfate) 2 puffs inhalation Q6H PRN 18 grams 3RF for wheezing NS J44.9 - Chronic obstructive pulmonary disease, unspecified fluticasone propion-salmeterol 250-50 mcg/dose (Advair Diskus) 1 inh inhalation BID 90 days 60 ea 3RF copd J44.9 - Chronic obstructive pulmonary disease, unspecified fluticasone propionate 110 mcg/actuation GENERIC IS ok 2 puffs inhalation BID 30 days 12 grams 5RF ASTHMA/COPD MDD ASTHMA/COPD J44.9 - Chronic obstructive pulmonary disease, unspecified Coding Level of Care Code Est Pt Level 4 (61081) Diagnoses Type 2 diabetes mellitus with obesity E11.69; E66.9 Gout M10.9 Hypertension I10
== END 2024-05-04 13:36 | disposition home or self-care (01) ==
PROVIDERS: PCP Internal Medicine; Visit Provider Internal Medicine
DX: E11.65 Type 2 diabetes mellitus with hyperglycemia (principal); M10.9 Gout, unspecified; I10 Essential (primary) hypertension; J44.9 Chronic obstructive pulmonary disease, unspecified
CPT/HCPCS: 83036; 99214

== ENCOUNTER 2024-05-25 08:20 | Outpatient (REF) | payer OTHER, SELFPAY ==
[2024-05-25 08:41] LABS: MANUAL DIFF FLAG NO
[2024-05-25 09:21] LABS: Basophils Percent Auto 0.4 % (0-2); Eosinophils Absolute Auto 0.1 X10*3/uL (0.0-0.4); Hematocrit 41.7 % (42.0-52.0); Imm Gran Abs Auto 0.01 X10*3/uL (0.00-0.03); Imm Gran Pct Auto 0.2 % (0.0-0.4); Lymphocytes Absolute Auto 1.8 X10*3/uL (1.2-4.9); Lymphocytes Percent Auto 38.5 % (20-40); Mean Corpuscular Hemoglobin 35.9 pg (27.0-33.0); Mean Corpuscular Volume 99.8 fL (80.0-98.0); Mean Platelet Volume 9.5 fL (9.4-12.4); Monocytes Absolute Auto 0.4 X10*3/uL (0.1-1.2); Monocytes Percent Auto 8.6 % (2-11); Neutrophils Absolute Auto 2.3 x10*3/uL (2.0-8.3); Neutrophils Percent Auto 49.3 % (45-73); Platelet Count 191 X10*3/uL (160-400); Red Blood Count 4.18 X10*6/uL (4.60-5.80); Red Cell Distribution Width 12.2 % (11.0-16.0); White Blood Count 4.7 X10*3/uL (4.8-10.8)
[2024-05-25 09:48] LABS: Estimated Average Glucose 126 mg/dL
[2024-05-25 10:12] LABS: Alanine Aminotransferase 34 U/L (0-40); Alkaline Phosphatase 97 U/L (39-117); Anion Gap 11 (12-20); Aspartate Amino Transferase 31 U/L (5-37); Bilirubin Total 0.3 mg/dL (0.0-1.0); Blood Urea Nitrogen 8 mg/dL (9-16); Calcium 9.6 mg/dL (8.4-10.2); Carbon Dioxide 27 mmol/L (22-29); Chloride 107 mmol/L (96-108); Cholesterol 116 mg/dL (<200); Estimated Glomerular Filt Rate > 60; Glucose Fasting 155 mg/dL (60-99); HDL Cholesterol 58 mg/dL (>40); LDL Cholesterol Calculated 42 mg/dL (<100); Potassium 3.8 mmol/L (3.3-5.1); Sodium 141 mmol/L (135-145); Total Protein 6.5 g/dL (6.5-8.0); Triglycerides 82 mg/dL (<150)
[2024-05-25 10:30] LABS: Thyroid Stimulating Hormone 1.39 uIU/mL (0.32-4.0)
[2024-05-25 10:52] LABS: Creatinine Urine 120.54 mg/dL
== END 2024-05-25 08:21 | disposition home or self-care (01) ==
LOC: HO.LAB 08:20
PROVIDERS: PCP Internal Medicine; Visit Provider Internal Medicine
DX: Z13.220 Encounter for screening for lipoid disorders (principal); Z13.9 Encounter for screening, unspecified; Z13.29 Encounter for screening for other suspected endocrine disorder; Z13.0 Encounter for screening for diseases of the blood and blood-forming organs and certain disorders involving the immune mechanism; E11.69 Type 2 diabetes mellitus with other specified complication; E66.01 Morbid (severe) obesity due to excess calories; G47.33 Obstructive sleep apnea (adult) (pediatric); J44.9 Chronic obstructive pulmonary disease, unspecified; R91.8 Other nonspecific abnormal finding of lung field
CPT/HCPCS: 36415; 80053; 80061; 82043; 82570; 83036; 84443; 85025; 99212

== ENCOUNTER 2024-05-25 09:10 | Outpatient (AMB) | payer OTHER, SELFPAY ==
[2024-05-25 09:17] VITALS: BP 122/70; PULSE 84; O2SAT 97; BMI 32.5
--- NOTE | 2024-05-25 09:17 | A.OFFVIS_ITS ---
Vital Signs 05/25/24 09:17 Height 5 ft 5 in Weight 195 lb 1.745 oz BMI 32.5 BP 122/70 Blood Pressure Location Lt brachial Position Sitting Pulse 84 Pulse Source Pulse Oximeter Pulse Oximetry (%) 97 Oxygen Delivery Method Room Air Intake Visit Reasons: Asthma Intake Note: pt is here for follow up and states he is not good in weather, all in stable Hand Cultivator Required: No Allergies MONALISA Inhibitors [MONALISA INHIBITORS] Allergy (Severe, Verified 05/25/24 09:25) SHORTNESS OF BREATH Penicillins Adverse Reaction (Intermediate, Verified 05/25/24 09:25) STOMACH UPSET stress induced anaphylaxis Allergy (Severe, Uncoded 05/25/24 09:25) Anaphylaxis Medication List - Last Reconciled 05/25/24 by Jovita Parrish MD allopurinol 100 mg PO DAILY 90 days amlodipine 10 mg PO DAILY 30 days blood sugar diagnostic (FreeStyle Lite Strips) 3 jeremias a day cholecalciferol (vitamin D3) 25 mcg PO DAILY cyanocobalamin (vitamin B-12) (Vitamin B-12) 250 mcg PO DAILY 60 days eluxadoline (Viberzi) 100 mg PO BID epinephrine (EpiPen 2-Benedict) 0.3 mg (0.3 mL) IM ONCE PRN flash glucose sensor (eASICStyle Arnulfo 14 Day Sensor kit) As directed fluticasone propion-salmeterol 250-50 mcg/dose (Advair Diskus) 1 inh inhalation BID 90 days fluticasone propionate 50 mcg/actuation 1 - 2 sprays intranasal DAILY FreeStyle Lancets (lancets) 3 times a day NS hydrochlorothiazide 25 mg PO DAILY 30 days inhalat.spacing dev,large mask (BreatheRite Spacer and Mask, Adult) As directed losartan 50 mg PO DAILY metoclopramide HCl (Reglan) 10 mg PO QIDACHS pantoprazole (Protonix) 40 mg PO BID 30 days pyridoxine (vitamin B6) 100 mg PO DAILY 90 days rosuvastatin 20 mg PO DAILY tirzepatide (Mounjaro) 5 mg (0.5 mL) subcut QWEEK Ventolin HFA 90 mcg/actuation (albuterol sulfate) 2 puffs inhalation Q6H PRN NS Do you need a note to return to daycare/school/sports/work: No HPI HPI Asthma: Details: Jonn, 54 years old male, comes after 6 months for routine follow-up for his COPD. And allergic rhinitis He has been doing well except for increased cough and nasal congestion during hot and humid weather. He denies any wheezing. He is doing better since he is on Advair 250-51 inhalation b.i.d.. He is also on Mounjaro for diabetes mellitus and with that has lost some weight. [facility] Medical History Hospital discharge follow-up Radiologic findings of lung field, abnormal Bronchitis Obesity BPH (benign prostatic hyperplasia) Asthma Type 2 diabetes mellitus with obesity Allergic rhinitis SARAH (obstructive sleep apnea) Diverticulosis History of postoperative nausea and vomiting Anaphylaxis Anxiety Dysphagia IBS (irritable bowel syndrome) Asthma Sleep apnea Fatty liver Non-toxic multinodular goiter B12 deficiency Vitamin D deficiency Obesity (BMI 30-39.9) Nephrolithiasis Hypertension Dyslipidemia Diabetes type 2, uncontrolled COPD (chronic obstructive pulmonary disease) Surgical History Hx of umbilical hernia repair Hx of cystoscopy Hx of lithotripsy Hx of colonoscopy Hx of esophagogastroduodenoscopy Hx of adenoidectomy Hx of hernia repair Hx of appendectomy Family History Father Diabetes Mother CVD (cardiovascular disease) Cancer Social History Household Members: Significant Other Housing: Apartment Do you presently have visiting nurse or other home services: No Alcohol intake: current Alcohol intake frequency: a few times a week Patient Tobacco Use Status: Former Tobacco user Tobacco use type: Cigarette e-Cigarette/Vaping Use: Never Used Second Hand Smoke Exposure: No service: No Current occupational status: unemployed and disabled Cognitive needs: No Hearing needs: No Vision needs: No Review of Systems Const All systems reviewed & are unremarkable except as noted in HPI and below Eyes Reports no additional complaints ENT Reports nasal congestion (INTERMITTENT USUALLY WITH CHANGE OF WEATHER) Card Denies chest pain, Denies irregular heart rhythm and Denies leg edema Resp Reports as per HPI GI Reports no additional complaints Reports no additional complaints Musc Reports no additional complaints Skin/Breast Reports system reviewed and no additional complaints, except as documented Neuro Reports no additional complaints Psych Reports no additional complaints Physical Exam Vital Signs: Last Vital Signs Pulse 84 05/25/24 09:17 BP 122/70 05/25/24 09:17 Pulse Ox 97 05/25/24 09:17 Oxygen Delivery Method Room Air 05/25/24 09:17 BMI result Body Mass Index 32.5 Const General: healthy appearing, comfortable, no acute distress, alert and awake Orientation/consciousness: patient oriented x3 HEENT Head: Yes normal to inspection General nose exam: No nasal polyps present, No nasal discharge present and Other nasal findings present (HE DOES HAVE MILD BILATERAL NASAL CONGESTION) Face and sinus: Yes sinuses nontender Mouth: oropharynx normal (THERE IS MILD ERYTHEMA THE OROPHARYNX) Throat: Yes posterior oropharynx normal Eyes General: appearance normal, both eyes and all related structures Neck Neck: Yes normal visual inspection, Yes no lymphadenopathy, Yes trachea midline and Yes no JVD Thyroid: Thyroid normal Chest Chest palpation & inspection: normal inspection of the chest, normal palpation of entire chest wall and no tenderness Resp Other: Percussion note is resonant, breath sounds are slightly distant , especially decreased over the basilar areas. But there are no wheezes . Also no Crepitation are heard . Cardio Palpation: normal PMI Rate: regular rate Rhythm: regular rhythm Heart sounds: no gallops and no murmurs Peripheral pulses: Peripheral pulses 2+ throughout GI Palpation (GI): Soft to palpation, nontender, No hepatosplenomegaly present and no masses Auscultation: normal bowel sounds Back/Spine/Pelvis Thoracic/Lumbar Spine: thoracic and lumbar spine normal to inspection Skin General skin exam: no rashes or lesions noted Neuro General: patient oriented x3 and no focal motor deficits Cranial nerves: Yes CN's II-XII intact bilaterally Extrem General: Yes normal to inspection, Yes no clubbing, cyanosis or edema and Yes no calf tenderness Psych Speech and movement: Normal speech and movement present Assessment & Plan Assessment & Plan (1) SARAH (obstructive sleep apnea): Comment: SARAH HAS RESOLVED AFTER SIGNIFICANT WEIGHT LOSS. DOES NOT USE CPAP, CLAIMS THAT HE IS SLEEPING OKAY, I DID CAUTION HIM THAT HE NEEDS TO LOSE MORE WEIGHT . Code(s): G47.33 - Obstructive sleep apnea (adult) (pediatric) Category: Medical Plan: HE IS COMPLIANT WITH THE DIET WELL, AND IS DETERMINED TO KEEP HIS WEIGHT UNDER CONTROL. (2) COPD (chronic obstructive pulmonary disease): Comment: [id number] ASTHMA/COPD overlap . CONTROLLED WITH THE CURRENT REGIMEN . Code(s): J44.9 - Chronic obstructive pulmonary disease, unspecified Category: Medical Plan: CONTINUE FLUTICASONE-SALMETEROL 250-50 1 INHALATION B.I.D.. AND USE VENTOLIN HFA 2 PUFFS Q 6 HOURS ONLY P.R.N., (3) Radiologic findings of lung field, abnormal: Comment: X-RAY CHEST ON 10/29/23 REPORTED TO SHOWS STREAKY MARKINGS IN THE BASILAR AREAS, RAISING POSSIBILITY OF MICROATELECTASIS. REPEAT CHEST X-RAY ON SHOWED MUCH DECREASE IN THESE MARKINGS, Code(s): R91.8 - Other nonspecific abnormal finding of lung field Category: Medical Plan: ADVISED TO CONTINUE DOING DEEP BREATHING EXERCISES 2 TO 3 TIMES A DAY (4) Allergic rhinitis: Comment: MINIMAL.and CONTROLLED Code(s): J30.9 - Allergic rhinitis, unspecified Category: Medical Plan: FLONASE NASAL SPRAY 1 SPRAY IN EACH NOSTRIL B.I.D P.R.N. Coding Level of Care Code Est Pt Level 3 (78881) Diagnoses SARAH (obstructive sleep apnea) G47.33 COPD (chronic obstructive pulmonary disease) J44.9 Radiologic findings of lung field, abnormal R91.8 Allergic rhinitis J30.9
== END 2024-05-25 09:33 | disposition home or self-care (01) ==
PROVIDERS: PCP Internal Medicine; Visit Provider Internal Medicine
DX: G47.33 Obstructive sleep apnea (adult) (pediatric) (principal); J44.9 Chronic obstructive pulmonary disease, unspecified; R91.8 Other nonspecific abnormal finding of lung field; J30.9 Allergic rhinitis, unspecified
CPT/HCPCS: 99213

== ENCOUNTER 2024-06-30 08:42 | Outpatient (REF) | payer OTHER, SELFPAY ==
--- NOTE | ~2024-06-30 | FL_ITS ---
EXAMINATION: XR FLUOROSCOPY UPPER GI WITH AIR CLINICAL INFORMATION: Dysphagia. COMPARISON: None TECHNIQUE: Fluoroscopic air contrast upper GI examination was performed utilizing standard techniques with thin and thick barium and effervescent granules. Numerous spot images were obtained. FINDINGS: Lateral cine images of the oropharynx and hypopharynx demonstrate normal swallow mechanism with normal epiglottic inversion and soft palate elevation. No tracheal penetration, glottic or subglottic aspiration identified. No nasopharyngeal reflux present. Hypopharyngeal structures appear normal without evidence of mass or diverticulum. There was no significant cricopharyngeal achalasia. A large bridging anterior osteophyte is present at C5-C6, however, no significant mass effect is seen. Dual and single contrast images of the esophagus demonstrate normal caliber, contour, and mucosal pattern. No evidence of stricture, mass, or ulcerations identified. Esophageal peristalsis was normal. A very small type I hiatal hernia is present. There is mild narrowing of the GE junction. Severe gastroesophageal reflux is seen up to the thoracic inlet. Dual contrast and single contrast images of the stomach demonstrated a normal contour. The areae gastrica have a prominent appearance, suggestive of gastritis. No masses or ulcerations are seen. Contrast freely passed into the gastric antrum and duodenal bulb without delay. Single and air-contrast images of the duodenal bulb demonstrate no abnormality. The duodenal sweep has a normal appearance, course, and mucosal fold appearance. The imaged proximal jejunum has a normal fold pattern and caliber. FLUOROSCOPY TIME: 3 minutes 15 seconds Number of Spot Images: 7 Number of Cine: 13 DOSE AREA PRODUCT: 2162 uGy-m2 (microgray-meter squared) FL/FL barium swallow IMPRESSION: 1. Large bridging anterior osteophyte at C5-C6. While there is no significant mass effect seen, suspect this may be contributing to the patient's dysphagia. 2. Very small type I hiatal hernia. 3. Mild narrowing of the GE junction. 4. Severe gastroesophageal reflux. 4. Prominent appearance of the areae gastricae, suggestive of gastritis. This procedure was performed by Kp Herman PA-C, and supervised by Dr. Sneed Electronically signed by: Lukas Sneed MD 06/30/2024 04:18 PM EDT
== END 2024-06-30 08:43 | disposition home or self-care (01) ==
LOC: HO.XRAY 08:42
PROVIDERS: PCP Internal Medicine; Visit Provider Nurse Practitioner
DX: R13.10 Dysphagia, unspecified (principal); K22.4 Dyskinesia of esophagus
CPT/HCPCS: 74220

== ENCOUNTER → 2024-06-30 08:43 | Outpatient (BNV) | payer OTHER, SELFPAY | PROVIDERS: PCP Internal Medicine; Visit Provider Radiology Diagnostic Radiology | DX: R13.10 Dysphagia, unspecified (principal) | CPT/HCPCS: 74246 ==

== ENCOUNTER 2024-07-15 08:08 | Outpatient (AMB) | payer OTHER, SELFPAY ==
[2024-07-15 08:48] VITALS: BP 139/80; PULSE 82; BMI 32.7
--- NOTE | 2024-07-15 08:48 | MHC.OFFVIS ---
Vital Signs 07/15/24 08:48 Height 5 ft 5 in Weight 196 lb 10.437 oz BMI 32.7 BP 139/80 Blood Pressure Location Lt brachial Position Sitting Pulse 82 Intake Visit Reasons: 3 month f/u Intake Note: Jonn presents to in office follow up s/p barium swallow. CC: Driver Guard Required: No Allergies MONALISA Inhibitors [MONALISA INHIBITORS] Allergy (Severe, Verified 07/15/24 09:04) SHORTNESS OF BREATH Penicillins Adverse Reaction (Intermediate, Verified 07/15/24 09:04) STOMACH UPSET stress induced anaphylaxis Allergy (Severe, Uncoded 05/25/24 09:25) Anaphylaxis HPI HPI 3 month f/u: Details: Assessment & Plan (1) Dysphagia: Code(s): R13.10 - Dysphagia, unspecified Category: Medical (2) Esophageal spasm: Comment: Failed a trial of dicyclomine is already on amlodipine Code(s): K22.4 - Dyskinesia of esophagus Category: Medical (3) Gastroparesis: Code(s): K31.84 - Gastroparesis Category: Medical Plan He says that Dr. Wen said to him I don't know why I am doing this again.... apparently, she did not read my note about serial dilations, but she did the procedure. She wants him to have a barium swallow, and since this is low risk I will order it. but given his clinical improvement with dilations, this does not present a strong argument for acalasia etc. He feels that the pantoprozole bid is working well for the GERD. ROV 3 mos. Orders: Orders FL barium swallow 04/22/24 R13.10 - Dysphagia, unspecified, K22.4 - Dyskinesia of esophagus Medications: New metoclopramide HCl (Reglan) 10 mg PO QIDACHS 120 tabs 6RF K31.84 - Gastroparesis BARIUM SWALLOW 06/30/24 FINDINGS: Lateral cine images of the oropharynx and hypopharynx demonstrate normal swallow mechanism with normal epiglottic inversion and soft palate elevation. No tracheal penetration, glottic or subglottic aspiration identified. No nasopharyngeal reflux present. Hypopharyngeal structures appear normal without evidence of mass or diverticulum. There was no significant cricopharyngeal achalasia. A large bridging anterior osteophyte is present at C5-C6, however, no significant mass effect is seen. Dual and single contrast images of the esophagus demonstrate normal caliber, contour, and mucosal pattern. No evidence of stricture, mass, or ulcerations identified. Esophageal peristalsis was normal. A very small type I hiatal hernia is present. There is mild narrowing of the GE junction. Severe gastroesophageal reflux is seen up to the thoracic inlet. Dual contrast and single contrast images of the stomach demonstrated a normal contour. The areae gastrica have a prominent appearance, suggestive of gastritis. No masses or ulcerations are seen. Contrast freely passed into the gastric antrum and duodenal bulb without delay. Single and air-contrast images of the duodenal bulb demonstrate no abnormality. The duodenal sweep has a normal appearance, course, and mucosal fold appearance. The imaged proximal jejunum has a normal fold pattern and caliber. FLUOROSCOPY TIME: 3 minutes 15 seconds Number of Spot Images: 7 Number of Cine: 13 DOSE AREA PRODUCT: 2162 uGy-m2 (microgray-meter squared) FL/FL barium swallow IMPRESSION: 1. Large bridging anterior osteophyte at C5-C6. While there is no significant mass effect seen, suspect this may be contributing to the patient's dysphagia. 2. Very small type I hiatal hernia. 3. Mild narrowing of the GE junction. 4. Severe gastroesophageal reflux. 4. Prominent appearance of the areae gastricae, suggestive of gastritis. CORRESPONDENCE On 07/07/24 @ 09:28 Griselda Ko Wrote To Griselda Ko (2) The short answer is, maybe. It does not show movement disorder but there might be osteophytes from cervical spine impinging the esophagus. At this point, we might want to refer him out to [facility] for an esophageal manometry to rule out achalasia. If you can explain this to him and ask if he would be willing to go to [facility] I will refer him for the exam. On 07/07/24 @ 09:10 Roxanna Ray Wrote To Griselda Ko Patient called- asking for results of Barium swallow and if indicates any reason for dysphagia TODAY'S VISIT. HE IS HERE TODAY WITH HIS who is supportive. He was quite worried because the radiologist told him ?something was wrong? on his barium swallow but did not explained to him further. I let him know that there were osteophytes that could be affecting his swallowing, however his symptoms are mid-sternal and not in the early phases of swallowing so I think this is simply an incidental finding. I explained that I do want to get esophageal manometry to rule out achalasia and we spent a long time discussing the possible treatments for this problem that could include surgery, Botox injections or more aggressive dilation at a tertiary center. In the meantime I think it is reasonable to do a trial of dicyclomine. We try doing this in the past but we could not get a liquid formula approved for him and we agreed today that they will grind/crush the pills and put them in yogurt or applesauce. He is already on amlodipine and for now I would rather not change his calcium channel sidney unless we think it would offer him some improvement. He continues on his Reglan 10 mg 4 times a day, his Viberzi 100 mg twice a day, 40 mg twice a day. He is centrally obese and he is on Mounjaro which likely is contributing to slowed gastric and colonic motility and could be also worsening the severe reflux seen on the barium swallow. He is agreeable to going ot [facility] for the manometry ROV 6 weeks to roselia balderrama. [facility] Medical History Hospital discharge follow-up Radiologic findings of lung field, abnormal Bronchitis Obesity BPH (benign prostatic hyperplasia) Asthma Type 2 diabetes mellitus with obesity Allergic rhinitis SARAH (obstructive sleep apnea) Diverticulosis History of postoperative nausea and vomiting Anaphylaxis Anxiety Dysphagia IBS (irritable bowel syndrome) Asthma Sleep apnea Fatty liver Non-toxic multinodular goiter B12 deficiency Vitamin D deficiency Obesity (BMI 30-39.9) Nephrolithiasis Hypertension Dyslipidemia Diabetes type 2, uncontrolled COPD (chronic obstructive pulmonary disease) Surgical History Hx of umbilical hernia repair Hx of cystoscopy Hx of lithotripsy Hx of colonoscopy Hx of esophagogastroduodenoscopy Hx of adenoidectomy Hx of hernia repair Hx of appendectomy Family History Father Diabetes Mother CVD (cardiovascular disease) Cancer Social History Household Members: Significant Other Housing: Apartment Do you presently have visiting nurse or other home services: No Alcohol intake: current Alcohol intake frequency: a few times a week Patient Tobacco Use Status: Former Tobacco user Tobacco use type: Cigarette e-Cigarette/Vaping Use: Never Used Second Hand Smoke Exposure: No service: No Current occupational status: unemployed and disabled Cognitive needs: No Hearing needs: No Vision needs: No Review of Systems Const Denies fatigue, Denies fever(s), Denies night sweats, Denies poor appetite and Denies weight loss ENT Reports Normal hearing present, Denies dental pain, Reports dysphagia, Denies hearing loss, Denies mouth pain, Denies odynophagia, Denies throat swelling, Denies tongue swelling and Reports other (Dentition adequate) Card Reports no additional complaints Resp Reports no additional complaints GI Details: Denies abdominal pain, Denies melena, Denies bloating, Denies hematochezia, Denies constipation, Denies GI cramping, Reports dysphagia, Denies excessive flatus, Denies early satiety, Reports heartburn, Denies diarrhea, Denies nausea, Denies odynophagia, Denies vomiting and Denies hematemesis Skin/Breast Denies pruritus, Denies lesions, Denies rash and Denies jaundice Neuro Reports Normal hearing present and Denies Abnormal speech present Endo Denies fatigue Aller/Immun Denies throat swelling and Denies tongue swelling Physical Exam Vital Signs: Last Vital Signs Pulse 82 07/15/24 08:48 BP 139/80 07/15/24 08:48 BMI result Body Mass Index 32.7 Const General: cooperative, no acute distress, well developed and well groomed Nutritional Appearance: well nourished and obese Orientation/consciousness: oriented to person, oriented to place and oriented to time Limitations: No language barrier HEENT Head: Yes normocephalic and Yes atraumatic Eyes General: appearance normal, both eyes and all related structures Pupils: Equal, round and reactive pupils present Neck Neck: Yes normal visual inspection and Yes no lymphadenopathy Thyroid: Thyroid normal Resp Effort & Inspection: normal respiratory effort and able to speak in complete sentences Auscultation: clear to auscultation bilaterally Cardio Rate: regular rate Rhythm: regular rhythm Heart sounds: Normal, physiologic split S2 sound present Peripheral pulses: radial pulses present and posterior tibial pulses present GI Inspection: No distended, No Abdominal panniculus present and Yes obesity Palpation (GI): Soft to palpation, nontender, no guarding, not rigid and No hepatosplenomegaly present Percussion: Yes normal to percussion Auscultation: normal bowel sounds Rectal Exam - Male: Yes deferred Skin General skin exam: no rashes or lesions noted, turgor normal, skin not dry, no jaundice, No spider nevi and no striae Rashes: no rashes Nails: normal Neuro General: oriented to person, oriented to place and oriented to time Cranial nerves: Yes Equal, round and reactive pupils present and Yes Normal hearing present Speech: No Abnormal speech present Extrem General: Yes normal to inspection, No clubbing, No cyanosis and No edema Psych Appearance: grossly normal and well kempt Mental Status: mental status grossly normal Speech and movement: Normal speech and movement present Affect: normal affect Attitude: cooperative Thought process: Normal thought process present and not confabulating Thought content: Normal thought content present Insight: Fair insight present (Psych) Judgement: Fair judgement present (Psych) Assessment & Plan Assessment & Plan (1) Erosive esophagitis: Code(s): K22.10 - Ulcer of esophagus without bleeding Category: Medical (2) GERD (gastroesophageal reflux disease): Code(s): K21.9 - Gastro-esophageal reflux disease without esophagitis Category: Medical (3) Gastroparesis: Code(s): K31.84 - Gastroparesis Category: Medical (4) Small bowel obstruction: Comment: 06/2020 with inflammation in the jejunum uncertain cause but may be related to him running out of his Reglan and taking Metamucil Code(s): K56.609 - Unspecified intestinal obstruction, unspecified as to partial versus complete obstruction Category: Medical Plan HE IS HERE TODAY WITH HIS who is supportive. He was quite worried because the radiologist told him ?something was wrong? on his barium swallow but did not explained to him further. I let him know that there were osteophytes that could be affecting his swallowing, however his symptoms are mid-sternal and not in the early phases of swallowing so I think this is simply an incidental finding. I explained that I do want to get esophageal manometry to rule out achalasia and we spent a long time discussing the possible treatments for this problem that could include surgery, Botox injections or more aggressive dilation at a tertiary center. In the meantime I think it is reasonable to do a trial of dicyclomine. We try doing this in the past but we could not get a liquid formula approved for him and we agreed today that they will grind/crush the pills and put them in yogurt or applesauce. He is already on amlodipine and for now I would rather not change his calcium channel sidney unless we think it would offer him some improvement. He continues on his Reglan 10 mg 4 times a day, his Viberzi 100 mg twice a day, 40 mg twice a day. He is centrally obese and he is on Mounjaro which likely is contributing to slowed gastric and colonic motility and could be also worsening the severe reflux seen on the barium swallow. He is agreeable to going ot [facility] for the manometry ROV 6 weeks to roselia balderrama. Medications: New dicyclomine 20 mg PO TID 90 tabs 3RF 30 days Coding Level of Care Code Est Pt Level 4 (93589) Diagnoses Erosive esophagitis K22.10 GERD (gastroesophageal reflux disease) K21.9 Gastroparesis K31.84 Small bowel obstruction K56.609 Time Spent (min) 35
== END 2024-07-15 10:04 | disposition home or self-care (01) ==
PROVIDERS: PCP Internal Medicine; Visit Provider Nurse Practitioner
DX: K22.10 Ulcer of esophagus without bleeding (principal); K21.9 Gastro-esophageal reflux disease without esophagitis; K31.84 Gastroparesis; K56.609 Unspecified intestinal obstruction, unspecified as to partial versus complete obstruction
CPT/HCPCS: 99214

== ENCOUNTER → 2024-07-15 08:08 | Outpatient (BNVA) | payer OTHER, SELFPAY | PROVIDERS: PCP Internal Medicine; Visit Provider Nurse Practitioner | DX: K22.10 Ulcer of esophagus without bleeding (principal); K21.9 Gastro-esophageal reflux disease without esophagitis; K31.84 Gastroparesis; K56.609 Unspecified intestinal obstruction, unspecified as to partial versus complete obstruction | CPT/HCPCS: 99212 ==

== ENCOUNTER 2024-08-10 08:22 | Outpatient (AMB) | payer OTHER, SELFPAY ==
[2024-08-10 08:27] VITALS: BP 142/74; PULSE 83; O2SAT 96; BMI 33.6
--- NOTE | 2024-08-10 08:27 | MHC.PC.OV ---
Vital Signs 08/10/24 08:27 Height 5 ft 5 in Weight 202 lb BMI 33.6 BP 142/74 H Blood Pressure Location Lt brachial Position Sitting Pulse 83 Pulse Source Pulse Oximeter Pulse Oximetry (%) 96 Oxygen Delivery Method Room Air Intake Visit Reasons: 3 Month F/U Allergies MONALISA Inhibitors [MONALISA INHIBITORS] Allergy (Severe, Verified 07/15/24 09:04) SHORTNESS OF BREATH Penicillins Adverse Reaction (Intermediate, Verified 07/15/24 09:04) STOMACH UPSET stress induced anaphylaxis Allergy (Severe, Uncoded 05/25/24 09:25) Anaphylaxis Medication List - Last Reconciled 08/10/24 by Beto Kelly MD allopurinol 100 mg PO DAILY 90 days amlodipine 10 mg PO DAILY 30 days blood sugar diagnostic (FreeStyle Lite Strips) 3 jeremias a day cholecalciferol (vitamin D3) 25 mcg PO DAILY cyanocobalamin (vitamin B-12) (Vitamin B-12) 250 mcg PO DAILY 60 days dicyclomine 20 mg PO TID 30 days eluxadoline (Viberzi) 100 mg PO BID epinephrine (EpiPen 2-Benedict) 0.3 mg (0.3 mL) IM ONCE PRN flash glucose sensor (FreeStyle Arnulfo 14 Day Sensor kit) As directed fluticasone propion-salmeterol 250-50 mcg/dose (Advair Diskus) 1 inh inhalation BID 90 days fluticasone propionate 50 mcg/actuation 1 - 2 sprays intranasal DAILY FreeStyle Lancets (lancets) 3 times a day NS hydrochlorothiazide 25 mg PO DAILY 30 days inhalat.spacing dev,large mask (BreatheRite Spacer and Mask, Adult) As directed losartan 50 mg PO DAILY metoclopramide HCl (Reglan) 10 mg PO QIDACHS pantoprazole (Protonix) 40 mg PO BID 30 days pyridoxine (vitamin B6) 100 mg PO DAILY 90 days rosuvastatin 20 mg PO DAILY tirzepatide (Mounjaro) 5 mg (0.5 mL) subcut QWEEK Ventolin HFA 90 mcg/actuation (albuterol sulfate) 2 puffs inhalation Q6H PRN NS Tobacco use date assessed: 05/04/24 Dental Screening Dental Screen Date: 10/29/23 HPI 3 Month F/U HPI Details DM in good control; due for labs PFSH Medical History Hospital discharge follow-up Radiologic findings of lung field, abnormal Bronchitis Obesity BPH (benign prostatic hyperplasia) Asthma Type 2 diabetes mellitus with obesity Allergic rhinitis SARAH (obstructive sleep apnea) Diverticulosis History of postoperative nausea and vomiting Anaphylaxis Anxiety Dysphagia IBS (irritable bowel syndrome) Asthma Sleep apnea Fatty liver Non-toxic multinodular goiter B12 deficiency Vitamin D deficiency Obesity (BMI 30-39.9) Nephrolithiasis Hypertension Dyslipidemia Diabetes type 2, uncontrolled COPD (chronic obstructive pulmonary disease) Surgical History Hx of umbilical hernia repair Hx of cystoscopy Hx of lithotripsy Hx of colonoscopy Hx of esophagogastroduodenoscopy Hx of adenoidectomy Hx of hernia repair Hx of appendectomy Family History Father Diabetes Mother CVD (cardiovascular disease) Cancer Social History Household Members: Significant Other Housing: Apartment Do you presently have visiting nurse or other home services: No Alcohol intake: current Alcohol intake frequency: a few times a week Patient Tobacco Use Status: Former Tobacco user Tobacco use type: Cigarette e-Cigarette/Vaping Use: Never Used Second Hand Smoke Exposure: No service: No Current occupational status: unemployed and disabled Cognitive needs: No Hearing needs: No Vision needs: No Questionnaire PHQ-9 Over the last 2 weeks, how often have you been bothered by any of the following problems? 1. Little interest or pleasure in doing things: not at all 2. Feeling down, depressed, or hopeless: not at all 3. Trouble falling or staying asleep, or sleeping too much: not at all 4. Feeling tired or having little energy: not at all 5. Poor appetite or overeating: not at all 6. Feeling bad about yourself - or that you are a failure or have let yourself or your family down: not at all 7. Trouble concentrating on things, such as reading the newspaper or watching television: not at all 8. Moving or speaking so slowly that other people could have noticed. Or the opposite - being so fidgety or restless that you have been moving around a lot more than usual: not at all 9. Thoughts that you would be better off or of hurting yourself in some way: not at all Total score: 0 Depression Screening Interpretation: Negative Depression Screening Done: Yes 22189 - PHQ-9 Billing: Yes Source: Developed by Drs. Sam Sharp, Paula Allen, Samson Zavala and colleagues, with an educational fawn from [employer]. Thrive Questionnaire Date Thrive assessed: 05/04/24 Are you currently unemployed and looking for a job?: No AUDIT C Alcohol Use Questionnaire (AUDIT-C) 1. How often do you have a drink containing alcohol?: 2-3 times a week 2. How many drinks containing alcohol do you have on a typical day when you are drinking?: 1 or 2 3. How often do you have six or more drinks on one occasion?: Never Total Score: 3 Score Reviewed/Action Taken: Yes VILLA-7 AMB Questionnaire VILLA-7 Date VILLA - 7 assessed: 05/04/24 Source: Developed by Drs. Sma Sharp, Paula Allen, Samson Zavala and colleagues, with an educational fawn from [employer]. Review of Systems Const Denies chills, Denies headache(s) and Denies weight loss ENT Denies headache(s) Card Denies chest pain, Denies syncope, Denies irregular heart rhythm and Denies dyspnea Resp Denies chest congestion, Denies cough and Denies dyspnea GI Denies abdominal pain, Denies change in stool character, Denies nausea and Denies vomiting Musc Denies deformity and Denies joint swelling Neuro Denies syncope and Denies headache(s) Physical exam (Primary Care) Vital Signs: Last Vital Signs Pulse 83 08/10/24 08:27 BP 142/74 H 08/10/24 08:27 Pulse Ox 96 08/10/24 08:27 Oxygen Delivery Method Room Air 08/10/24 08:27 BMI result Body Mass Index 33.6 Tobacco/Smoking Status: Tobacco use Status Tobacco use date assessed 05/04/24 08/10/24 08:31 Patient Tobacco Use Status Former Tobacco user 08/10/24 08:31 Tobacco use type Cigarette 08/10/24 08:31 e-Cigarette/Vaping Use Never Used 08/10/24 08:31 PHQ-9: PHQ-9 Score PHQ-9: Total score 0 08/10/24 08:35 Depression Screening Interpretation: Negative Thrive Assessment: Date of Thrive Assessment Date Thrive assessed 05/04/24 08/10/24 08:31 Const General: cooperative, comfortable, no acute distress and alert Neck Neck: Yes no lymphadenopathy Thyroid: Thyroid normal Resp Effort & Inspection: normal respiratory effort Auscultation: clear to auscultation bilaterally Percussion: percussion normal Cardio Jugular venous distension: no JVD Palpation: normal PMI Rate: regular rate Rhythm: regular rhythm Heart sounds: S1 normal heart sound present and S2 normal heart sound present GI Inspection: Yes normal to inspection Palpation (GI): No hepatosplenomegaly present Skin General skin exam: no rashes or lesions noted Extrem General: Yes no clubbing, cyanosis or edema Results AMB Hemoglobin A1c AMB Hemoglobin A1c 6.0 % Last Edit by Jennifer Silva CMA on 08/10/24 08:41 Results Reviewed Results Reviewed: Laboratory Last Values Hgb A1c (Clinic) 6.0 % (4.0-6.0) 08/10/24 08:35 Coding Level of Care Code Est Pt Level 3 (60954) Diagnoses Type 2 diabetes mellitus with obesity E11.69; E66.9 Assessment & Plan Assessment & Plan (1) Type 2 diabetes mellitus with obesity: Code(s): E11.69 - Type 2 diabetes mellitus with other specified complication; E66.9 - Obesity, unspecified Category: Medical Plan: stable; same rx; do labs Orders: Orders AMB Hemoglobin A1c Today E11.69 - Type 2 diabetes mellitus with other specified complication, E66.9 - Obesity, unspecified Complete Blood Count Auto Diff Today Z13.0 - Encounter for screening for diseases of the blood and blood-forming organs and certain disorders involving the immune mechanism Comprehensive [place]. Panel Fast Today Z13.9 - Encounter for screening, unspecified Hemoglobin A1c Today R73.9 - Hyperglycemia, unspecified Thyroid Stimulating Hormone Today Z13.29 - Encounter for screening for other suspected endocrine disorder Microalbumin, Random (w Creat) Today E11.69 - Type 2 diabetes mellitus with other specified complication, E66.01 - Morbid (severe) obesity due to excess calories Lipid Panel Today Z13.220 - Encounter for screening for lipoid disorders
== END 2024-08-10 09:00 | disposition home or self-care (01) ==
PROVIDERS: PCP Internal Medicine; Visit Provider Internal Medicine
DX: E11.69 Type 2 diabetes mellitus with other specified complication (principal); E66.811 Obesity, class 1; Z68.33 Body mass index [BMI] 33.0-33.9, adult

== ENCOUNTER → 2024-08-10 08:22 | Outpatient (BNVA) | payer OTHER, SELFPAY | PROVIDERS: PCP Internal Medicine; Visit Provider Internal Medicine | DX: E11.69 Type 2 diabetes mellitus with other specified complication (principal); E66.9 Obesity, unspecified | CPT/HCPCS: 83036; 96127; 99212 ==

== ENCOUNTER 2024-08-11 15:45 | Emergency (ER) | payer OTHER, SELFPAY ==
--- NOTE | ~2024-08-11 | XR_ITS ---
EXAMINATION: XR CHEST CLINICAL INFORMATION: Shortness of breath COMPARISON: 06/21/2024 TECHNIQUE: 2 views of the chest were obtained. FINDINGS: Lungs grossly are clear. No infiltrates or pleural effusions. Heart and pulmonary vessels normal. XR/XR chest 2V IMPRESSION: No active disease. Electronically signed by: Rafa Lawson MD 08/11/2024 04:27 PM EDT
[2024-08-11 15:51] VITALS: BP 173/109; PULSE 102; RESP 18; O2SAT 96; BMI 33.7
--- NOTE | 2024-08-11 15:52 | ECG_ITS ---
Test Reason : shortness of breath Blood Pressure : / mmHG Vent. Rate : 100 BPM Atrial Rate : 000 BPM P-R Int : 000 ms QRS Dur : 090 ms QT Int : 364 ms P-R-T Axes : 000 065 042 degrees QTc Int : 469 ms Artifact in tracing Probably sinus rhythm Normal ECG When compared with ECG of 17-OCT-2023 09:39, No significant changes seen Referred By: Teresa Grady Electronically Signed By:PERCY KAY
[2024-08-11] MEDS: Albuterol Sulfate 90 MCG 8 GM INHALER 16 PUFF INHALE (16:01)
[2024-08-11 16:07] VITALS: PULSE 114; RESP 32; O2SAT 96
[2024-08-11 16:34] LABS: MANUAL DIFF FLAG NO
--- NOTE | 2024-08-11 16:34 | ED_ITS ---
HPI - SOB/Dyspnea General Chief Complaint: Dyspnea Stated Complaint: Asthma Time Seen by Provider: 08/11/24 16:01 Source: patient, family (), RN notes reviewed and old records reviewed Mode of arrival: ambulatory Limitations: no limitations History of Present Illness ED Provider: GEMMA RIOS PA-C HPI Narrative: 54-year-old male with pmhx significant for moderate persistent asthma, hypertension, HDL, non-insulin dependent diabetes type 2, GERD, stress induced anaphylaxis, gout presents to the ED today for evaluation of shortness of breath, wheezing, and chest tightness which began at approximately 0200 this morning. Reports that while outside yesterday he felt his allergies kick up and began sneezing. Reports asthma attack shortly after this which continued into the morning. Reports using his inhaler about 5 times prior to arrival in the ED today. Admits to being hospitalized for his asthma multiple times in the past, the most recent being in September of 2023. He has never required intubation. In triage, patient with audible wheezes and diminished lung sounds throughout. Immediately brought back to [facility] bed for treatment. Denies fever, chills, cough, sputum production, chest pain. No recent travel or long car rides. Related Data Home Medications ?Medication ?Instructions ?Recorded ?Confirmed fluticasone propionate 50 1 - 2 spray intranasal DAILY 08/15/20 08/10/24 mcg/actuation nasal spray,suspension Previous Rx's ?Medication ?Instructions ?Recorded hydrochlorothiazide 25 mg tablet 25 mg PO DAILY 30 days #30 tabs 02/17/21 FreeStyle Lancets 28 gauge #100 ea 03/16/21 (lancets) blood sugar diagnostic (FreeStyle #100 ea 03/16/21 Lite Strips) cyanocobalamin (vitamin B-12) 250 250 mcg PO DAILY 60 days #60 tabs 08/31/21 mcg tablet (Vitamin B-12) cholecalciferol (vitamin D3) 25 25 mcg PO DAILY #30 caps 04/13/22 mcg (1,000 unit) capsule amlodipine 10 mg tablet 10 mg PO DAILY 30 days #30 tabs 04/23/22 flash glucose sensor (FreeStyle #2 ea 12/21/22 Arnulfo 14 Day Sensor kit) losartan 50 mg tablet 50 mg PO DAILY #30 tabs 12/23/22 eluxadoline 100 mg tablet (Viberzi) 100 mg PO BID #60 tabs 03/21/23 epinephrine 0.3 mg/0.3 mL 0.3 mg (0.3 mL) IM ONCE PRN 07/03/23 injection, auto-injector (EpiPen anaphylaxis #2 ea 2-Benedict) rosuvastatin 20 mg tablet 20 mg PO DAILY #60 tabs 07/10/23 inhalat.spacing dev,large mask #1 ea 11/11/23 (BreatheRite Spacer and Mask, Adult) allopurinol 100 mg tablet 100 mg PO DAILY 90 days #90 tabs 12/24/23 pyridoxine (vitamin B6) 100 mg 100 mg PO DAILY 90 days #90 tabs 12/24/23 tablet pantoprazole 40 mg tablet,delayed 40 mg PO BID 30 days #60 tabs 02/26/24 release (Protonix) metoclopramide HCl 10 mg tablet 10 mg PO QIDACHS #120 tabs 04/22/24 (Reglan) Ventolin HFA 90 mcg/actuation 2 puff inhalation Q6H PRN for 05/04/24 aerosol inhaler (albuterol sulfate) wheezing #18 grams fluticasone 250 mcg-salmeterol 50 1 inh inhalation BID copd 90 days 05/04/24 mcg/dose blistr powdr for #60 ea inhalation (Advair Diskus) tirzepatide 5 mg/0.5 mL 5 mg (0.5 mL) subcut QWEEK #2 mL 07/05/24 subcutaneous pen injector (Mounjaro) dicyclomine 20 mg tablet 20 mg PO TID 30 days #90 tabs 07/15/24 levalbuterol tartrate 45 2 inh inhalation Q20M #15 grams 08/11/24 mcg/actuation aerosol inhaler (Xopenex HFA) prednisone 20 mg tablet 40 mg (2 x 20 mg) PO DAILY 5 days 08/11/24 #10 tabs Allergies Allergy/AdvReac Type Severity Reaction Status Date / Time MONALISA Inhibitors Allergy Severe SHORTNESS Verified 08/11/24 15:53 [MONALISA INHIBITORS] OF BREATH albuterol AdvReac Intermediate Palpitation Verified 08/11/24 19:33 s Penicillins AdvReac Intermediate STOMACH Verified 08/11/24 15:53 UPSET stress induced anaphylaxis Allergy Severe Anaphylaxis Uncoded 05/25/24 09:25 Review of Systems 2 Review of Systems: Constitutional: No fever, chills, fatigue, night sweats, weight changes ENT/Mouth: No ear pain, hearing loss, nasal congestion, sinus pain, rhinorrhea, sore throat Eyes: No eye pain, swelling, redness, vision changes, discharge Cardio: No chest pain, palpitations, BYRNE, orthopnea, peripheral edema, +chest tightness Pulm: No cough, sputum, dyspnea, hemoptysis, +sob, +wheezing GI: No nausea, vomiting, hematemesis, abdominal pain, diarrhea, constipation, hematochezia, melena : No irregular bleeding, dysuria, frequency, urgency, hesitancy, hematuria, flank pain, urinary flow changes, urinary incontinence or retention MSK: No back pain, neck pain, joint pain, myalgias Skin: No lesions, rashes Neuro: No weakness, numbness, paresthesias, LOC, dizziness, headache Psych: No anxiety/panic, depression, SI/HI, AH/VH All other systems reviewed and are negative. [facility] Past Medical History Attestation statement: The following information was validated with the patient. Source: old records reviewed and nursing notes reviewed Medical History Hospital discharge follow-up Radiologic findings of lung field, abnormal Bronchitis Obesity BPH (benign prostatic hyperplasia) Asthma Type 2 diabetes mellitus with obesity Allergic rhinitis SARAH (obstructive sleep apnea) Diverticulosis History of postoperative nausea and vomiting Anaphylaxis Anxiety Dysphagia IBS (irritable bowel syndrome) Asthma Sleep apnea Fatty liver Non-toxic multinodular goiter B12 deficiency Vitamin D deficiency Obesity (BMI 30-39.9) Nephrolithiasis Hypertension Dyslipidemia Diabetes type 2, uncontrolled COPD (chronic obstructive pulmonary disease) Surgical History Hx of umbilical hernia repair Hx of cystoscopy Hx of lithotripsy Hx of colonoscopy Hx of esophagogastroduodenoscopy Hx of adenoidectomy Hx of hernia repair Hx of appendectomy Family History Family History Father Diabetes Mother CVD (cardiovascular disease) Cancer Social History Social History Household Members: Significant Other Housing: Apartment Do you presently have visiting nurse or other home services: No Alcohol intake: current Alcohol intake frequency: a few times a week Patient Tobacco Use Status: Former Tobacco user Tobacco use type: Cigarette Smoked in Last 30 Days: No e-Cigarette/Vaping Use: Never Used Second Hand Smoke Exposure: No Use of substances other than those prescribed or required for medical reasons: No Advance Directives: No Advance Directives Information Provided: Yes service: No Current occupational status: unemployed and disabled Cognitive needs: No Hearing needs: No Vision needs: No Physical Exam 2 Vital Signs: Vital Signs: Last Vital Signs Temp 98.5 F 08/11/24 20:03 Pulse 100 08/11/24 20:03 Resp 18 08/11/24 20:03 BP 158/101 H 08/11/24 20:03 Pulse Ox 96 08/11/24 20:03 O2 Del Method Room Air 08/11/24 20:03 BMI result Body Mass Index 33.7 hypertensive, tachycardic, tachypneic General: Well appearing, in no acute distress. Skin: Warm, dry, intact. No rashes or lesions. Head: Normocephalic, atraumatic. EENT: Hearing is intact b/l. Conjunctiva clear. Sclera is anicteric. PERRLA. EOM intact. Moist mucous membranes.? Cardiac: Chest wall symmetric. RRR. No MRG. No JVD. Lungs: No tripoding. No increased effort of breathing. Speaking in 2-3 word sentences. lungs diminished throughout, no rales/ rhonchi/ crackles. Back: No midline spinous or paraspinal tenderness. No step off deformity. Ext: Upper and lower extremities atraumatic, without tenderness, deformity, swelling or erythema. Full ROM throughout. no calf tenderness b/l. Neuro: AOx3. Normal speech. Ambulating with steady gait. Psych: Appropriate mood and affect. Responds appropriately to questions. Course Course Course Narrative: 1715 -- on arrival, patient hypertensive to 173/109, tachycardic to 114 and tachypneic to 32. Satting 94% on room air. Immediately brought back to minor care bed. Triage provider ordered albuterol, magnesium and Solu-Medrol > administered. > CBC without leukocytosis or left shift. No anemia. H&H stable. Chemistry without acute electrolyte abnormality requiring intervention. No BRANDY. Normal liver function. Troponin 6.2. Given timing of symptoms to ED, will repeat for delta. BNP WNL at 25, CHF unlikely. Chest x-ray without effusion, no infiltrate or consolidation to suggest pneumonia. Viral serology pending. 1846 -- patient has tested negative for covid, flu, and rsv. > on chart review, patient was seen at [facility] for asthma exacerbation in September of 2023. He returned shortly after being discharged with rebound tachycardia secondary to excessive albuterol use. Patient states he still uses albuterol at home as rescue inhaler. Given history of rebound tachycardia, I advised him to discontinue use of albuterol and switch to xopinex. will give dose of this ED. xopenex and prednisone sent to pharmacy > On re-evaluation, patient reports significant improvement in breathing following albuterol, solumedrol, and magnesium. his vitals have improved. still hypertensive to 157/94. no longer tachypneic or tachycardic. satting 96% on RA. ambulatory O2 95% on RA, does not endorse sob or wheezing. 1909 -- Sign out given to Teresa DALAL pending repeat troponin and disposition. Reevaluation(s) Reevaluation #1: Patient was given to me via sign-out pending repeat troponin and disposition. Patient re-evaluated, lungs are clear to auscultation bilaterally. Patient is feeling much better. Patient is not tachycardic. Discussed that he is mildly hypertensive at 158/101. He is not lightheaded, does not have any chest pain. He admits that he did not take his hypertensive medication today. Discussed the importance of taking his blood pressure medications daily. Given strict return precautions. He understands and agrees with plan. Patient stable for discharge. Medications Administered Discontinued Medications Generic Name Dose Route Start Last Admin Trade Name Freq PRN Reason Stop Dose Admin Albuterol Sulfate 16 puff 08/11/24 15:56 08/11/24 16:01 Albuterol Sulfate 90 Mcg 8 Gm Inhaler INHALE 08/11/24 15:57 16 puff ONCE ONE Administration Magnesium Sulfate 2 gm in 50 mls @ 150 mls/hr 08/11/24 15:52 08/11/24 17:16 Magnesium Sulfate/H2o IV 08/11/24 16:11 Infused ONCE ONE Infusion Levalbuterol HCl 5 mg 08/11/24 18:16 08/11/24 18:57 Levalbuterol Hcl 1.25 Mg/3 Ml Vial.Neb INHALE 08/11/24 18:17 5 mg ONCE ONE Administration Methylprednisolone Sodium Succinate 125 mg 08/11/24 15:52 08/11/24 16:41 Methylprednisolone Sod Succ 125 Mg/2 Ml Vial IVPUSH 08/11/24 15:53 125 mg ONCE ONE Administration Medical Decision Making Medical Decision Making [facility] Narrative: 54-year-old male with past medical history significant for moderate persistent asthma, hypertension, HDL, non-insulin dependent diabetes type 2, GERD, stress induced anaphylaxis, gout presents to the ED today for evaluation of shortness of breath and wheezing which began at approximately 0200 this morning. on arrival, patient hypertensive, tachycardic, and tachypneic. No tripoding. No increased effort of breathing. Speaking in 2-3 word sentences. lungs diminished throughout, no rales/ rhonchi/ crackles. Differential diagnosis includes viral syndrome, asthma exacerbation, pneumonia, bronchitis, ACS, arrhythmia, pleural effusion. PE less likely. Plan for viral serology, labs, CXR, ekg, breathing treatment, steroids, re- evaluation. Differential Diagnosis Differential Diagnoses: The differential diagnosis associated with the presentation includes as above. Admission/Observation Consideration of admission/observation: Escalation of care including admission/observation considered Admission considered on presentation Lab Data [facility] Lab Attestation statement: I reviewed the patient's lab results. as above. 08/11/24 16:25 08/11/24 16:25 Labs: Lab Results 08/11/24 08/11/24 08/11/24 Range/Units 16:25 16:27 19:07 WBC 5.5 (4.8-10.8) X10*3/uL RBC 4.43 L (4.60-5.80) X10*6/uL Hgb 15.6 (14.0-18.0) g/dl Hct 45.0 (42.0-52.0) % MCV 101.6 H (80.0-98.0) fL MCH 35.2 H (27.0-33.0) pg MCHC 34.7 (31.0-36.0) g/dl RDW 12.3 (11.0-16.0) % Plt Count 150 L (160-400) X10*3/uL MPV 8.9 L (9.4-12.4) fL Immature Gran % (Auto) 0.4 (0.0-0.4) % Neut % (Auto) 56.7 (45-73) % Lymph % (Auto) 31.1 (20-40) % [place] % (Auto) 7.8 (2-11) % Eos % (Auto) 3.3 (0-4) % Baso % (Auto) 0.7 (0-2) % Lymph # (Auto) 1.7 (1.2-4.9) X10*3/uL [place] # (Auto) 0.4 (0.1-1.2) X10*3/uL Eos # (Auto) 0.2 (0.0-0.4) X10*3/uL Baso # (Auto) 0.0 (0.0-0.2) X10*3/uL Abs Immat Gran (auto) 0.02 (0.00-0.03) X10*3/uL Absolute Neuts (auto) 3.1 (2.0-8.3) x10*3/uL Absolute Nucleated RBC 0.000 (0.0-0.012) X10*3/uL Nucleated RBC % (auto) 0.0 (0.0-0.2) /100WBC Sodium 143 (135-145) mmol/L Potassium 3.6 (3.3-5.1) mmol/L Chloride 106 (96-108) mmol/L Carbon Dioxide 26 (22-29) mmol/L Anion Gap 15 (12-20) BUN 7 L (9-16) mg/dL Creatinine 0.94 (0.5-1.4) mg/dL Estim Creat Clear Calc 93.5 Estimated GFR > 60 Random Glucose 121 H (60-115) mg/dL Calcium 9.0 D (8.4-10.2) mg/dL Magnesium 1.6 (1.6-2.6) mg/dL Total Bilirubin 0.6 (0.0-1.0) mg/dL Direct Bilirubin 0.3 (0.0-0.5) mg/dL AST 34 (5-37) U/L ALT 36 (0-40) U/L Alkaline Phosphatase 89 (39-117) U/L Troponin I High Sens 6.2 6.2 (<3.5-35.0) ng/L B-Natriuretic Peptide 25 (<100) pg/mL Total Protein 7.1 (6.5-8.0) g/dL Albumin 4.3 (3.5-5.0) g/dL Influenza Type A (PCR) NEGATIVE (Negative) Influenza Type B (PCR) NEGATIVE (Negative) RSV RNA Qual (PCR) NEGATIVE (Negative) SARS-CoV-2 RNA (RT-PCR) NEGATIVE (Negative) Independent Interpretation I performed an independent interpretation of an: Plain X-Ray Interpretation: CXR without infiltrate or consolidation, agree with radiologists infiltration Radiology Impression Discussion of test interpretation with radiology: I have reviewed the radiologist's reading. Radiologist Impression: EXAMINATION: XR CHEST CLINICAL INFORMATION: Shortness of breath COMPARISON: 06/21/2024 TECHNIQUE: 2 views of the chest were obtained. FINDINGS: Lungs grossly are clear. No infiltrates or pleural effusions. Heart and pulmonary vessels normal. XR/XR chest 2V IMPRESSION: No active disease. Electronically signed by: Rafa Lawson MD 08/11/2024 04:27 PM EDT RP Independent Historian Clinical information obtained from an independent historian. History obtained from or confirmed by: Spouse () External Record Review External record reviewed: Inpatient record, Office record, Outpatient record, Prior outpatient labs, Prior outpatient radiology, Primary care record, Outside ED record and Other Prescription Management I considered prescription management with: Other (xopenex, prednisone) Chronic Conditions Patient?s care impacted by: Other (asthma) Social Determinants Patient?s care significantly limited by Social Determinants of Health including: Other Social Determinant of Health Critical Care Time Critical Care Time Critical Care Time: No Discharge Plan Discharge Clinical Impression: Asthma exacerbation Patient Disposition: Still a Patient Instructions: Prednisone (By mouth), Levalbuterol (By breathing), Asthma (ED) Additional Instructions: You were evaluated in the ED today for asthma exacerbation. You were treated with breathing treatment and steroids with improvement. Your blood work today is reassuring. Your chest xray does not demonstrate pneumonia. You tested negative for covid, flu, and RSV. As discussed, please discontinue albuterol use due to side effects of rebound tachycardia. Instead, I have sent a levalbuterol (xopenex) inhaler to your pharmacy to use as a rescue inhaler. Prednisone is a steroid that has been sent to your pharmacy. Take this as prescribed. Please return to the ED with new or worsening symptoms. In the case of an emergency call 911. Prescriptions: New prednisone 20 mg tablet 40 mg PO DAILY 5 Days Qty: 10 0RF levalbuterol tartrate [Xopenex HFA] 45 mcg/actuation HFA aerosol inhaler 2 inh inhalation Q20M Qty: 15 0RF No Action (DME) FreeStyle Lite Strips Strip See Rx Instructions .ROUTE .MEDSUPPLY Qty: 100 11RF Rx Instructions: 3 jeremias a day (DME) lancets [FreeStyle Lancets] 28 gauge misc See Rx Instructions topical TID Qty: 100 11RF Rx Instructions: 3 times a day cyanocobalamin (vitamin B-12) [Vitamin B-12] 250 mcg tablet 250 mcg PO DAILY 60 Days Qty: 60 3RF cholecalciferol (vitamin D3) 25 mcg (1,000 unit) capsule 25 mcg PO DAILY Qty: 30 11RF amlodipine 10 mg tablet 10 mg PO DAILY 30 Days Qty: 30 6RF losartan 50 mg tablet 50 mg PO DAILY Qty: 30 11RF Mounjaro 5 mg/0.5 mL pen injector 5 mg subcut QWEEK Qty: 2 0RF allopurinol 100 mg tablet 100 mg PO DAILY 90 Days Qty: 90 1RF pyridoxine (vitamin B6) 100 mg tablet 100 mg PO DAILY 90 Days Qty: 90 1RF epinephrine [EpiPen 2-Benedict] 0.3 mg/0.3 mL auto-injector 0.3 mg IM ONCE PRN (Reason: anaphylaxis) Qty: 2 0RF albuterol sulfate [Ventolin HFA] 90 mcg/actuation HFA aerosol inhaler 2 puff inhalation Q6H PRN (Reason: for wheezing) Qty: 18 3RF fluticasone propion-salmeterol [Advair Diskus] 250-50 mcg/dose blister with device 1 inh inhalation BID 90 Days Qty: 60 3RF hydrochlorothiazide 25 mg tablet 25 mg PO DAILY 30 Days Qty: 30 6RF fluticasone propionate 50 mcg/actuation spray,suspension 1 - 2 spray intranasal DAILY (DME) FreeStyle Arnulfo 14 Day Sensor Kit See Rx Instructions miscellaneous .MEDSUPPLY Qty: 2 0RF Rx Instructions: As directed Viberzi 100 mg tablet 100 mg PO BID Qty: 60 5RF Rx Instructions: must administer with a meal/food pantoprazole [Protonix] 40 mg tablet,delayed release (DR/EC) 40 mg PO BID 30 Days Qty: 60 6RF metoclopramide HCl [Reglan] 10 mg tablet 10 mg PO QIDACHS Qty: 120 6RF rosuvastatin 20 mg tablet 20 mg PO DAILY Qty: 60 3RF (DME) BreatheRite Spacer-Mask,Adult Spacer See Rx Instructions .Route Qty: 1 0RF Rx Instructions: As directed dicyclomine 20 mg tablet 20 mg PO TID 30 Days Qty: 90 3RF Interventions: ED Discharge Assessment Last Done: 08/11/24 20:03 Discharge Date/Time: 08/11/24 20:06 Print Language: Kosovan
[2024-08-11 16:37] LABS: Basophils Percent Auto 0.7 % (0-2); Eosinophils Absolute Auto 0.2 X10*3/uL (0.0-0.4); Eosinophils Percent Auto 3.3 % (0-4); Hemoglobin 15.6 g/dl (14.0-18.0); Imm Gran Abs Auto 0.02 X10*3/uL (0.00-0.03); Imm Gran Pct Auto 0.4 % (0.0-0.4); Lymphocytes Absolute Auto 1.7 X10*3/uL (1.2-4.9); Lymphocytes Percent Auto 31.1 % (20-40); Mean Corpuscular HGB Conc 34.7 g/dl (31.0-36.0); Mean Corpuscular Hemoglobin 35.2 pg (27.0-33.0); Mean Corpuscular Volume 101.6 fL (80.0-98.0); Mean Platelet Volume 8.9 fL (9.4-12.4); Monocytes Absolute Auto 0.4 X10*3/uL (0.1-1.2); Monocytes Percent Auto 7.8 % (2-11); Neutrophils Absolute Auto 3.1 x10*3/uL (2.0-8.3); Neutrophils Percent Auto 56.7 % (45-73); Platelet Count 150 X10*3/uL (160-400); Red Blood Count 4.43 X10*6/uL (4.60-5.80); Red Cell Distribution Width 12.3 % (11.0-16.0); White Blood Count 5.5 X10*3/uL (4.8-10.8)
[2024-08-11] MEDS: Magnesium Sulfate/H2O 2 GM/50 ML PIGGYBACK IV (16:41)
[2024-08-11] MEDS: methylPREDNISolone Sod Succ 125 MG/2 ML VIAL IVPUSH (16:41)
[2024-08-11 16:56] LABS: Alanine Aminotransferase 36 U/L (0-40); Albumin Level 4.3 g/dL (3.5-5.0); Alkaline Phosphatase 89 U/L (39-117); Anion Gap 15 (12-20); Aspartate Amino Transferase 34 U/L (5-37); Bilirubin Direct 0.3 mg/dL (0.0-0.5); Bilirubin Total 0.6 mg/dL (0.0-1.0); Blood Urea Nitrogen 7 mg/dL (9-16); Carbon Dioxide 26 mmol/L (22-29); Chloride 106 mmol/L (96-108); Creatinine Clr Calc Pharmacy 93.5; Estimated Glomerular Filt Rate > 60; Glucose Random 121 mg/dL (60-115); Magnesium 1.6 mg/dL (1.6-2.6); Potassium 3.6 mmol/L (3.3-5.1); Sodium 143 mmol/L (135-145); Total Protein 7.1 g/dL (6.5-8.0)
[2024-08-11 17:01] LABS: B Type Natriuretic Peptide 25 pg/mL (<100)
[2024-08-11 17:02] LABS: Troponin-I High Sensitivity 6.2 ng/L (<3.5-35.0)
[2024-08-11 17:39] LABS: Influenza A PCR NEGATIVE (Negative); Influenza B PCR NEGATIVE (Negative); Resp Syncy Virus RNA Qual PCR NEGATIVE (Negative); SARS COV2 PCR INHOUSE NEGATIVE (Negative)
[2024-08-11 17:53] VITALS: BP 157/94; PULSE 100; RESP 20; TEMP 36.3; O2SAT 96
[2024-08-11] MEDS: levalbuterol HCL 1.25 MG/3 ML VIAL.NEB 5 MG INHALE (18:57)
[2024-08-11 19:04] VITALS: PULSE 93; RESP 20; O2SAT 97
[2024-08-11 19:33] LABS: Troponin-I High Sensitivity 6.2 ng/L (<3.5-35.0)
[2024-08-11 19:59] VITALS: BP 158/101; PULSE 100; RESP 18; TEMP 36.9; O2SAT 96
[2024-08-11 20:03] VITALS: BP 158/101; PULSE 100; RESP 18; TEMP 36.9; O2SAT 96
== END 2024-08-11 20:06 | disposition still patient (30) ==
PROVIDERS: Physician Assistant Medical; Emergency Provider Emergency Medicine; PCP Internal Medicine
DX: J45.901 Unspecified asthma with (acute) exacerbation (principal); R06.02 Shortness of breath; R07.89 Other chest pain; Z03.818 Encounter for observation for suspected exposure to other biological agents ruled out; Z79.899 Other long term (current) drug therapy
CPT/HCPCS: 0241U; 36415; 71046; 80048; 80076; 83735; 83880; 84484; 85025; 93005; 94640; 96365; 96375; 99284; 99285; J2919; J3475

== ENCOUNTER → 2024-08-11 15:52 | Outpatient (BNV) | payer OTHER, SELFPAY | PROVIDERS: Emergency Provider Emergency Medicine; PCP Internal Medicine; Visit Provider Internal Medicine | DX: R06.02 Shortness of breath (principal); R94.31 Abnormal electrocardiogram [ECG] [EKG] | CPT/HCPCS: 93010 ==

== ENCOUNTER 2024-08-18 08:12 | Outpatient (REF) | payer OTHER, SELFPAY ==
[2024-08-18 08:31] LABS: MANUAL DIFF FLAG NO
[2024-08-18 08:59] LABS: Basophils Percent Auto 0.5 % (0-2); Eosinophils Absolute Auto 0.1 X10*3/uL (0.0-0.4); Hematocrit 45.4 % (42.0-52.0); Hemoglobin 15.7 g/dl (14.0-18.0); Imm Gran Abs Auto 0.12 X10*3/uL (0.00-0.03); Imm Gran Pct Auto 1.4 % (0.0-0.4); Lymphocytes Absolute Auto 2.6 X10*3/uL (1.2-4.9); Lymphocytes Percent Auto 29.5 % (20-40); Mean Corpuscular HGB Conc 34.6 g/dl (31.0-36.0); Mean Corpuscular Hemoglobin 34.9 pg (27.0-33.0); Mean Corpuscular Volume 100.9 fL (80.0-98.0); Mean Platelet Volume 8.9 fL (9.4-12.4); Monocytes Absolute Auto 0.8 X10*3/uL (0.1-1.2); Monocytes Percent Auto 9.5 % (2-11); Neutrophils Absolute Auto 5.1 x10*3/uL (2.0-8.3); Neutrophils Percent Auto 58.1 % (45-73); Platelet Count 186 X10*3/uL (160-400); Red Cell Distribution Width 12.2 % (11.0-16.0); White Blood Count 8.7 X10*3/uL (4.8-10.8)
[2024-08-18 09:16] LABS: Estimated Average Glucose 143 mg/dL; Hemoglobin A1c % 6.6 % (<6.0); Total Hemoglobin (HGBA1C) 4022.5071 umol/L
[2024-08-18 09:46] LABS: Alanine Aminotransferase 66 U/L (0-40); Albumin Level 3.9 g/dL (3.5-5.0); Alkaline Phosphatase 95 U/L (39-117); Anion Gap 12 (12-20); Aspartate Amino Transferase 41 U/L (5-37); Bilirubin Total 0.6 mg/dL (0.0-1.0); Blood Urea Nitrogen 10 mg/dL (9-16); Calcium 9.1 mg/dL (8.4-10.2); Carbon Dioxide 33 mmol/L (22-29); Chloride 99 mmol/L (96-108); Cholesterol 151 mg/dL (<200); Estimated Glomerular Filt Rate > 60; Glucose Fasting 244 mg/dL (60-99); HDL Cholesterol 75 mg/dL (>40); LDL Cholesterol Calculated 58 mg/dL (<100); Potassium 3.5 mmol/L (3.3-5.1); Sodium 140 mmol/L (135-145); Total Protein 6.2 g/dL (6.5-8.0); Triglycerides 92 mg/dL (<150)
[2024-08-18 09:53] LABS: Thyroid Stimulating Hormone 2.56 uIU/mL (0.32-4.0)
== END 2024-08-18 08:13 | disposition home or self-care (01) ==
LOC: HO.LAB 08:12
PROVIDERS: PCP Internal Medicine; Visit Provider Internal Medicine
DX: R73.9 Hyperglycemia, unspecified (principal); Z13.0 Encounter for screening for diseases of the blood and blood-forming organs and certain disorders involving the immune mechanism; Z13.9 Encounter for screening, unspecified; Z13.220 Encounter for screening for lipoid disorders; Z13.29 Encounter for screening for other suspected endocrine disorder
CPT/HCPCS: 36415; 80053; 80061; 83036; 84443; 85025

== ENCOUNTER 2024-08-20 12:58 | Outpatient (REF) | payer OTHER, SELFPAY ==
[2024-08-20 14:44] LABS: Creatinine Urine 131.12 mg/dL; Microalbum/Creatinine Ratio Ur 63.3 ug/mg cr (<30)
== END 2024-08-20 12:59 | disposition home or self-care (01) ==
LOC: HO.LNP 12:58
PROVIDERS: Visit Provider Internal Medicine
DX: E11.69 Type 2 diabetes mellitus with other specified complication (principal); E66.01 Morbid (severe) obesity due to excess calories; J45.909 Unspecified asthma, uncomplicated; J30.2 Other seasonal allergic rhinitis; G47.33 Obstructive sleep apnea (adult) (pediatric); Z79.899 Other long term (current) drug therapy
CPT/HCPCS: 82043; 82570; 99212

== ENCOUNTER 2024-08-20 13:14 | Outpatient (AMB) | payer OTHER, SELFPAY ==
[2024-08-20 13:34] VITALS: BP 138/92; PULSE 92; O2SAT 97; BMI 33.6
--- NOTE | 2024-08-20 13:34 | MHC.OFFVIS ---
Vital Signs 08/20/24 13:34 Height 5 ft 5 in Weight 201 lb 11.567 oz BMI 33.6 BP 138/92 H Blood Pressure Location Lt brachial Position Sitting Pulse 92 Pulse Source Pulse Oximeter Pulse Oximetry (%) 97 Oxygen Delivery Method Room Air Intake Visit Reasons: asthma Intake Note: pt is here for follow up of ER had 3 visits, and today he feels not that great, wheezy, head hurts. Food And Beverage Manager Required: No Allergies MONALISA Inhibitors [MONALISA INHIBITORS] Allergy (Severe, Verified 08/20/24 14:13) SHORTNESS OF BREATH albuterol Adverse Reaction (Intermediate, Verified 08/20/24 14:13) Palpitations Penicillins Adverse Reaction (Intermediate, Verified 08/20/24 14:13) STOMACH UPSET stress induced anaphylaxis Allergy (Severe, Uncoded 08/20/24 14:13) Anaphylaxis Medication List - Last Reconciled 08/20/24 by Jovita Parrish MD allopurinol 100 mg PO DAILY 90 days amlodipine 10 mg PO DAILY 30 days blood sugar diagnostic (FreeStyle Lite Strips) 3 jeremias a day cholecalciferol (vitamin D3) 25 mcg PO DAILY cyanocobalamin (vitamin B-12) (Vitamin B-12) 250 mcg PO DAILY 60 days dicyclomine 20 mg PO TID 30 days eluxadoline (Viberzi) 100 mg PO BID epinephrine (EpiPen 2-Benedict) 0.3 mg (0.3 mL) IM ONCE PRN flash glucose sensor (FreeStyle Arnulfo 14 Day Sensor kit) As directed fluticasone propion-salmeterol 250-50 mcg/dose (Advair Diskus) 1 inh inhalation BID 90 days fluticasone propionate 50 mcg/actuation 1 - 2 sprays intranasal DAILY FreeStyle Lancets (lancets) 3 times a day NS hydrochlorothiazide 25 mg PO DAILY 30 days inhalat.spacing dev,large mask (BreatheRite Spacer and Mask, Adult) As directed levalbuterol tartrate 45 mcg/actuation (Xopenex HFA) 2 inhalations inhalation Q20M losartan 50 mg PO DAILY metoclopramide HCl (Reglan) 10 mg PO QIDACHS pantoprazole (Protonix) 40 mg PO BID 30 days pyridoxine (vitamin B6) 100 mg PO DAILY 90 days rosuvastatin 20 mg PO DAILY tirzepatide (Mounjaro) 5 mg (0.5 mL) subcut QWEEK Do you need a note to return to daycare/school/sports/work: No HPI HPI asthma: Details: MR. LYNCH 54 YEARS OLD GENTLEMAN, HAS LONGSTANDING HISTORY OF BRONCHIAL ASTHMA, ALLERGIC RHINITIS, OBSTRUCTIVE SLEEP APNEA. OBSTRUCTIVE SLEEP APNEA HAS RESOLVED WITH WEIGHT LOSS AFTER HE STARTED ON MOUNJARO INJECTIONS. BRONCHIAL ASTHMA HAS REMAINED FAIRLY CONTROLLED BUT HE REACTS TO ENVIRONMENTAL TRIGGERS AND GETS ACUTE ATTACKS OF ASTHMA QUITE FREQUENTLY. LATELY IT HAS ALL BEEN UNDER GOOD CONTROL WITH THE USE OF OTC ANTIHISTAMINIC AGENT. I CHECKED HIS LIST OF MEDS AND INSTEAD OF ADVAIR HE HAS BEEN USING ONLY SEREVENT -50 1 INHALATION B.I.D., HE DID NOT GET ANY STEROIDS PART, CLAIMS THAT INSURANCE DID NOT PAY FOR THAT. 2 WEEKS AGO HE STARTED HAVING ACUTE SYMPTOMS OF COUGH WHEEZING AND TIGHTNESS IN THE CHEST, WHILE HE WAS IN HIS BEDROOM. HE SAY IS THERE WAS NO NEW CHANGE IN THE HOUSE ENVIRONMENT. HE DOES HAVE THE SAME OLD DOG WHO DOES MOVE AROUND IN THE HOUSE BUT DOES NOT SLEEP IN THE BEDROOM. HE ALSO HAS THE OLD CAT WHICH IS IN THE HOUSE BUT DOES NOT COME NEAR HIM. THERE WAS NO NEW SPRAY ANY NEW CLEANING AGENT USED PRIOR TO THIS ATTACK. HE ALSO DID NOT HAVE ANY ACUTE RESPIRATORY INFECTION. FOR 1 DAY HE TREATED HIMSELF AT HOME BUT THEN SYMPTOMS GOT WORSE AND HE ENDED UP IN THE EMERGENCY ROOM. HIS VIRAL PANEL WAS NEGATIVE. CHEST X-RAY WAS NEGATIVE. HE WAS TREATED WITH QUARANTINE WAS USE OF ALBUTEROL , IV MAGNESIUM SOLUTION AND PREDNISONE. HE FELT VERY WARM WHEN HE WAS ON MAGNESIUM DRIP , SO IT HAD TO BE STOPPED IN THE MID WAY. AT HOME HE HAS COMPLETED THE COURSE OF PREDNISONE A FEW DAYS AGO, HE STILL USING SEREVENT TWICE A DAY. DOES NOT HAVE ANY INHALED STEROID. HE IS USING LEVALBUTEROL FEW TIMES EVERY DAY. HE STILL HAS FREQUENT COUGH, HE STILL FEELS CONGESTED IN THE CHEST. HE IS AFRAID THAT HE MIGHT GET AN ACUTE ATTACK ANY TIME. [facility] Medical History Hospital discharge follow-up Radiologic findings of lung field, abnormal Bronchitis Obesity BPH (benign prostatic hyperplasia) Asthma Type 2 diabetes mellitus with obesity Allergic rhinitis SARAH (obstructive sleep apnea) Diverticulosis History of postoperative nausea and vomiting Anaphylaxis Anxiety Dysphagia IBS (irritable bowel syndrome) Asthma Sleep apnea Fatty liver Non-toxic multinodular goiter B12 deficiency Vitamin D deficiency Obesity (BMI 30-39.9) Nephrolithiasis Hypertension Dyslipidemia Diabetes type 2, uncontrolled COPD (chronic obstructive pulmonary disease) Surgical History Hx of umbilical hernia repair Hx of cystoscopy Hx of lithotripsy Hx of colonoscopy Hx of esophagogastroduodenoscopy Hx of adenoidectomy Hx of hernia repair Hx of appendectomy Family History Father Diabetes Mother CVD (cardiovascular disease) Cancer Social History Household Members: Significant Other Housing: Apartment Do you presently have visiting nurse or other home services: No Alcohol intake: current Alcohol intake frequency: a few times a week Patient Tobacco Use Status: Former Tobacco user Tobacco use type: Cigarette e-Cigarette/Vaping Use: Never Used Second Hand Smoke Exposure: No service: No Current occupational status: unemployed and disabled Cognitive needs: No Hearing needs: No Vision needs: No Review of Systems Const All systems reviewed & are unremarkable except as noted in HPI and below Eyes Reports no additional complaints ENT Reports nasal congestion (INTERMITTENT USUALLY WITH CHANGE OF WEATHER) Card Denies chest pain, Denies irregular heart rhythm and Denies leg edema Resp Reports as per HPI GI Reports no additional complaints Reports no additional complaints Musc Reports no additional complaints Skin/Breast Reports system reviewed and no additional complaints, except as documented Neuro Reports no additional complaints Psych Reports no additional complaints Physical Exam Vital Signs: Last Vital Signs Pulse 92 08/20/24 13:34 BP 138/92 H 08/20/24 13:34 Pulse Ox 97 08/20/24 13:34 Oxygen Delivery Method Room Air 08/20/24 13:34 BMI result Body Mass Index 33.6 Const General: healthy appearing, comfortable, no acute distress, alert and awake Orientation/consciousness: patient oriented x3 HEENT Head: Yes normal to inspection General nose exam: No nasal polyps present, No nasal discharge present and Other nasal findings present (HE DOES HAVE MILD BILATERAL NASAL CONGESTION) Face and sinus: Yes sinuses nontender Mouth: oropharynx normal (THERE IS MILD ERYTHEMA THE OROPHARYNX) Throat: Yes posterior oropharynx normal Eyes General: appearance normal, both eyes and all related structures Neck Neck: Yes normal visual inspection, Yes no lymphadenopathy, Yes trachea midline and Yes no JVD Thyroid: Thyroid normal Chest Chest palpation & inspection: normal inspection of the chest, normal palpation of entire chest wall and no tenderness Resp Other: Percussion note is resonant, breath sounds are slightly distant , especially decreased over the basilar areas. But there are no wheezes . Also no Crepitation are heard . Cardio Palpation: normal PMI Rate: regular rate Rhythm: regular rhythm Heart sounds: no gallops and no murmurs Peripheral pulses: Peripheral pulses 2+ throughout GI Palpation (GI): Soft to palpation, nontender, No hepatosplenomegaly present and no masses Auscultation: normal bowel sounds Back/Spine/Pelvis Thoracic/Lumbar Spine: thoracic and lumbar spine normal to inspection Skin General skin exam: no rashes or lesions noted Neuro General: patient oriented x3 and no focal motor deficits Cranial nerves: Yes CN's II-XII intact bilaterally Extrem General: Yes normal to inspection, Yes no clubbing, cyanosis or edema and Yes no calf tenderness Psych Speech and movement: Normal speech and movement present Results Reviewed Results Reviewed: CHEST XRAY 08/11 IMPRESSION: No active disease. Assessment & Plan Assessment & Plan (1) Asthma: Comment: PATIENT DOES HAVE CHRONIC BRONCHIAL ASTHMA WHICH WAS UNDER CONTROLLED. BUT MORE RECENTLY HE SUFFERING FROM ACUTE EXACERBATION, WHICH SEEMS TO BE DUE TO ACUTE ALLERGIC CHALLENGE. IT SEEMS THAT HE IS REACTING TO AND UNDETECTED ENVIRONMENTAL ALLERGY . Code(s): J45.909 - Unspecified asthma, uncomplicated Category: Medical Plan: I TALKED TO HIM AND HIS IN DETAIL ABOUT THE ENVIRONMENTAL ALLERGY PROBLEMS. ADVISE THAT HE SHOULD STAY AWAY FROM THE DOG AND CAT. USE AIR PURIFIER. ALL THE TIME TRY TO AVOID EXPOSURE TO ANY CLEANING AGENTS ARE PERFUMES. MONTELUKAST 10 MG DAILY IS STARTED. CONTINUE SEREVENT-51 INHALATION B.I.D.. ADD FLOVENT-TO 22 PUFFS B.I.D. ( IF NOT AVAILABLE THEN AN ALTERNATIVE PREP WOULD NEED TO BE USED) PREDNISONE 5 MG 2 TABLETS B.I.D. FOR 5 DAYS THEN 1 TABLET B.I.D. FOR 5 DAYS, AFTER THAT 1 TABLET DAILY FOR ANOTHER 5 DAYS. ALSO A COURSE OF Z-BENEDICT, EMPIRICALLY ANTI-INFLAMMATORY AGENTS. WILL CHECK HIM IN 2 WEEKS (2) Allergic rhinitis: Comment: MINIMAL.and CONTROLLED Code(s): J30.9 - Allergic rhinitis, unspecified Category: Medical Plan: MAY USE OTC ANTIHISTAMINIC AGENT SUCH CLARITIN ZYRTEC NEEDED (3) SARAH (obstructive sleep apnea): Comment: DID HAVE HISTORY OF SARAH FOR MANY YEARS. RESOLVED AFTER SIGNIFICANT WEIGHT LOSS. DOES NOT USE CPAP, CLAIMS THAT HE IS SLEEPING OKAY, I DID CAUTION HIM THAT HE NEEDS TO LOSE MORE WEIGHT . Code(s): G47.33 - Obstructive sleep apnea (adult) (pediatric) Category: Medical Plan: CONTINUE TO WATCH THE WEIGHT AND MAKE SURE THAT THERE IS NO WEIGHT GAIN. Medications: New prednisone 2 TABS BID X 5 DAYS 1 TAB BID X 5 DAYS , THEN 1 TAB DAILY 5 mg PO DAILY 20 days 40 ea 0RF aSTHMA azithromycin For 250 mg dose pack: take 500 mg today (day 1), then 250 mg for 4 days (days 2-5) PO 6 tabs 0RF montelukast 10 mg PO DAILY 30 days 30 tabs 3RF ALLERGIC ASTHMA fluticasone propionate 220 mcg/actuation 2 puffs inhalation BID 30 days 12 grams 3RF ASTHMA Coding Level of Care Code Est Pt Level 4 (36543) Diagnoses Asthma J45.909 Allergic rhinitis J30.9 SARAH (obstructive sleep apnea) G47.33
== END 2024-08-20 14:15 | disposition home or self-care (01) ==
PROVIDERS: PCP Internal Medicine; Visit Provider Internal Medicine
DX: J45.909 Unspecified asthma, uncomplicated (principal); J30.9 Allergic rhinitis, unspecified; G47.33 Obstructive sleep apnea (adult) (pediatric)
CPT/HCPCS: 99214

== ENCOUNTER 2024-09-01 15:28 | Outpatient (AMB) | payer OTHER, SELFPAY ==
--- NOTE | 2024-09-01 15:32 | A.OFFVIS_ITS ---
Vital Signs 09/01/24 15:34 Height 5 ft 5 in Weight 202 lb 13.204 oz BMI 33.7 BP 156/82 H Blood Pressure Location Rt brachial Position Sitting Pulse 88 Pulse Source Pulse Oximeter Pulse Oximetry (%) 96 Oxygen Delivery Method Room Air Intake Visit Reasons: asthma Corporate Pilot Required: No Supervisor Detasseling Crew: Supervisor Detasseling Crew offered & declined Accompanied by: Spouse Allergies MONALISA Inhibitors [MONALISA INHIBITORS] Allergy (Severe, Verified 09/01/24 15:58) SHORTNESS OF BREATH albuterol Adverse Reaction (Intermediate, Verified 09/01/24 15:58) Palpitations Penicillins Adverse Reaction (Intermediate, Verified 09/01/24 15:58) STOMACH UPSET stress induced anaphylaxis Allergy (Severe, Uncoded 09/01/24 15:58) Anaphylaxis Medication List - Last Reconciled 09/01/24 by Jovita Parrish MD allopurinol 100 mg PO DAILY 90 days amlodipine 10 mg PO DAILY 30 days blood sugar diagnostic (FreeStyle Lite Strips) 3 jeremias a day cholecalciferol (vitamin D3) 25 mcg PO DAILY cyanocobalamin (vitamin B-12) (Vitamin B-12) 250 mcg PO DAILY 60 days dicyclomine 20 mg PO TID 30 days eluxadoline (Viberzi) 100 mg PO BID epinephrine (EpiPen 2-Benedict) 0.3 mg (0.3 mL) IM ONCE PRN flash glucose sensor ([employer] Arnulfo 14 Day Sensor kit) As directed fluticasone propion-salmeterol 250-50 mcg/dose (Advair Diskus) 1 inh inhalation BID 90 days fluticasone propionate 50 mcg/actuation 1 - 2 sprays intranasal DAILY FreeStyle Lancets (lancets) 3 times a day NS hydrochlorothiazide 25 mg PO DAILY 30 days inhalat.spacing dev,large mask (BreatheRite Spacer and Mask, Adult) As directed levalbuterol tartrate 45 mcg/actuation (Xopenex HFA) 2 inhalations inhalation Q20M losartan 50 mg PO DAILY metoclopramide HCl (Reglan) 10 mg PO QIDACHS montelukast 10 mg PO DAILY 30 days pantoprazole (Protonix) 40 mg PO BID 30 days prednisone 5 mg PO DAILY 20 days pyridoxine (vitamin B6) 100 mg PO DAILY 90 days rosuvastatin 20 mg PO DAILY tirzepatide (Mounjaro) 5 mg (0.5 mL) subcut QWEEK Do you need a note to return to daycare/school/sports/work: No HPI HPI asthma: Details: Jonn is back after a few weeks for follow-up. Breathing status has definitely improved. He is still using prednisone 5 mg daily. He is now on Advair 250-51 inhalation b.i.d., Using levalbuterol p.r.n.. He feels somewhat congested and wheezy mostly in the morning hours. Has to use the rescue inhaler a few. Times in the mornings Rest of the day he is feeling fine and better. [facility] Medical History Hospital discharge follow-up Radiologic findings of lung field, abnormal Bronchitis Obesity BPH (benign prostatic hyperplasia) Asthma Type 2 diabetes mellitus with obesity Allergic rhinitis SARAH (obstructive sleep apnea) Diverticulosis History of postoperative nausea and vomiting Anaphylaxis Anxiety Dysphagia IBS (irritable bowel syndrome) Asthma Sleep apnea Fatty liver Non-toxic multinodular goiter B12 deficiency Vitamin D deficiency Obesity (BMI 30-39.9) Nephrolithiasis Hypertension Dyslipidemia Diabetes type 2, uncontrolled COPD (chronic obstructive pulmonary disease) Surgical History Hx of umbilical hernia repair Hx of cystoscopy Hx of lithotripsy Hx of colonoscopy Hx of esophagogastroduodenoscopy Hx of adenoidectomy Hx of hernia repair Hx of appendectomy Family History Father Diabetes Mother CVD (cardiovascular disease) Cancer Social History Household Members: Significant Other Housing: Apartment Do you presently have visiting nurse or other home services: No Alcohol intake: current Alcohol intake frequency: a few times a week Patient Tobacco Use Status: Former Tobacco user Tobacco use type: Cigarette e-Cigarette/Vaping Use: Never Used Second Hand Smoke Exposure: No service: No Current occupational status: unemployed and disabled Cognitive needs: No Hearing needs: No Vision needs: No Review of Systems Const All systems reviewed & are unremarkable except as noted in HPI and below Eyes Reports no additional complaints ENT Reports nasal congestion (INTERMITTENT USUALLY WITH CHANGE OF WEATHER) Card Denies chest pain, Denies irregular heart rhythm and Denies leg edema Resp Reports as per HPI GI Reports no additional complaints Reports no additional complaints Musc Reports no additional complaints Skin/Breast Reports system reviewed and no additional complaints, except as documented Neuro Reports no additional complaints Psych Reports no additional complaints Physical Exam Vital Signs: Last Vital Signs Pulse 88 09/01/24 15:34 BP 156/82 H 09/01/24 15:34 Pulse Ox 96 09/01/24 15:34 Oxygen Delivery Method Room Air 09/01/24 15:34 BMI result Body Mass Index 33.7 Const General: healthy appearing, comfortable, no acute distress, alert and awake Orientation/consciousness: patient oriented x3 HEENT Head: Yes normal to inspection General nose exam: No nasal polyps present, No nasal discharge present and Other nasal findings present (HE DOES HAVE MILD BILATERAL NASAL CONGESTION) Face and sinus: Yes sinuses nontender Mouth: oropharynx normal (THERE IS MILD ERYTHEMA THE OROPHARYNX) Throat: Yes posterior oropharynx normal Eyes General: appearance normal, both eyes and all related structures Neck Neck: Yes normal visual inspection, Yes no lymphadenopathy, Yes trachea midline and Yes no JVD Thyroid: Thyroid normal Chest Chest palpation & inspection: normal inspection of the chest, normal palpation of entire chest wall and no tenderness Resp Other: Percussion note is resonant, breath sounds are slightly distant , especially decreased over the basilar areas. But there are no wheezes . Also no Crepitation are heard . Cardio Palpation: normal PMI Rate: regular rate Rhythm: regular rhythm Heart sounds: no gallops and no murmurs Peripheral pulses: Peripheral pulses 2+ throughout GI Palpation (GI): Soft to palpation, nontender, No hepatosplenomegaly present and no masses Auscultation: normal bowel sounds Back/Spine/Pelvis Thoracic/Lumbar Spine: thoracic and lumbar spine normal to inspection Skin General skin exam: no rashes or lesions noted Neuro General: patient oriented x3 and no focal motor deficits Cranial nerves: Yes CN's II-XII intact bilaterally Extrem General: Yes normal to inspection, Yes no clubbing, cyanosis or edema and Yes no calf tenderness Psych Speech and movement: Normal speech and movement present Assessment & Plan Assessment & Plan (1) Asthma: Comment: PATIENT DOES HAVE CHRONIC BRONCHIAL ASTHMA WHICH WAS UNDER CONTROL. BUT MORE RECENTLY HE HAS BEEN SUFFERING FROM ACUTE EXACERBATION, WHICH SEEMS TO BE DUE TO ACUTE ALLERGIC CHALLENGE. IT SEEMS THAT HE IS REACTING TO AN UNDETECTED ENVIRONMENTAL ALLERGY . WITH A COURSE OF PREDNISONE, Z-BENEDICT, AND ADDITION OF SINGULAIR 10 MG DAILY HE IS FEELING BETTER. HE IS DOWN TO PREDNISONE 5 MG A DAY. Code(s): J45.909 - Unspecified asthma, uncomplicated Category: Medical Plan: ADVISED TO TAKE PREDNISONE 5 MG ON ALTERNATE DAYS FOR NEXT WEEK, THEN STOP CONTINUE ADVAIR 250-50 1 INHALATION B.I.D. . USE LEVALBUTEROL 2 PUFFS Q 4-6 HOURS P.R.N. FOR ACUTE WHEEZING. CONTINUE SINGULAIR 10 MG DAILY. ADVISED TO USE HUMIDIFICATION IN THE BEDROOM AT NIGHT (2) SARAH (obstructive sleep apnea): Comment: DID HAVE HISTORY OF SARAH FOR MANY YEARS. RESOLVED AFTER SIGNIFICANT WEIGHT LOSS. DOES NOT USE CPAP, CLAIMS THAT HE IS SLEEPING OKAY, I DID CAUTION HIM THAT HE NEEDS TO LOSE MORE WEIGHT . Code(s): G47.33 - Obstructive sleep apnea (adult) (pediatric) Category: Medical Plan: HE IS CAUTIONED, AND KEEP MAKE SURE THE WEIGHT STAYS DOWN (3) Radiologic findings of lung field, abnormal: Comment: X-RAY CHEST ON 10/29/23 REPORTED TO SHOWS STREAKY MARKINGS IN THE BASILAR AREAS, RAISING POSSIBILITY OF MICROATELECTASIS. REPEAT CHEST X-RAY ON SHOWED MUCH DECREASE IN THESE MARKINGS, Code(s): R91.8 - Other nonspecific abnormal finding of lung field Category: Medical Plan: NO ACTIVE DISEASE IN THE LUNG AT THIS TIME AND HE IS ADVISED TO KEEP ON DOING DEEP BREATHING EXERCISES. Coding Level of Care Code Est Pt Level 3 (85114) Diagnoses Asthma J45.909 SARAH (obstructive sleep apnea) G47.33 Radiologic findings of lung field, abnormal R91.8
[2024-09-01 15:34] VITALS: BP 156/82; PULSE 88; O2SAT 96; BMI 33.7
== END 2024-09-01 15:59 | disposition home or self-care (01) ==
LOC: HO.HPS 15:28
PROVIDERS: PCP Internal Medicine; Visit Provider Internal Medicine
DX: J45.909 Unspecified asthma, uncomplicated (principal); G47.33 Obstructive sleep apnea (adult) (pediatric); R91.8 Other nonspecific abnormal finding of lung field
CPT/HCPCS: 99213

== ENCOUNTER → 2024-09-01 15:28 | Outpatient (BNVA) | payer OTHER, SELFPAY | PROVIDERS: PCP Internal Medicine; Visit Provider Internal Medicine | DX: J45.909 Unspecified asthma, uncomplicated (principal); G47.33 Obstructive sleep apnea (adult) (pediatric); R91.8 Other nonspecific abnormal finding of lung field | CPT/HCPCS: 99212 ==

== ENCOUNTER 2024-09-02 09:14 | Outpatient (AMB) | payer OTHER, SELFPAY ==
--- NOTE | 2024-09-02 09:29 | MHC.OFFVIS ---
Vital Signs 09/02/24 10:08 Height 5 ft 5 in Weight 201 lb 0.985 oz BMI 33.5 Intake Visit Reasons: 6 week follow up Intake Note: Jonn presents to in office follow up of erosive esophagitis. CC: Patient reports that he was seen at the ER in July d/t an asthma attack. He states that he is doing well with medication and denies having any new GI concerns. Legal Document Assistant Required: No Accompanied by: Allergies MONALISA Inhibitors [MONALISA INHIBITORS] Allergy (Severe, Verified 10/01/24 10:34) SHORTNESS OF BREATH albuterol Adverse Reaction (Intermediate, Verified 10/01/24 10:34) Palpitations Penicillins Adverse Reaction (Intermediate, Verified 10/01/24 10:34) STOMACH UPSET stress induced anaphylaxis Allergy (Severe, Uncoded 10/01/24 10:34) Anaphylaxis HPI HPI 6 week follow up: Details: Assessment & Plan (1) Erosive esophagitis: Code(s): K22.10 - Ulcer of esophagus without bleeding Category: Medical (2) GERD (gastroesophageal reflux disease): Code(s): K21.9 - Gastro-esophageal reflux disease without esophagitis Category: Medical (3) Gastroparesis: Code(s): K31.84 - Gastroparesis Category: Medical (4) Small bowel obstruction: Comment: 06/2020 with inflammation in the jejunum uncertain cause but may be related to him running out of his Reglan and taking Metamucil Code(s): K56.609 - Unspecified intestinal obstruction, unspecified as to partial versus complete obstruction Category: Medical Plan HE IS HERE TODAY WITH HIS who is supportive. He was quite worried because the radiologist told him ?something was wrong? on his barium swallow but did not explained to him further. I let him know that there were osteophytes that could be affecting his swallowing, however his symptoms are mid-sternal and not in the early phases of swallowing so I think this is simply an incidental finding. I explained that I do want to get esophageal manometry to rule out achalasia and we spent a long time discussing the possible treatments for this problem that could include surgery, Botox injections or more aggressive dilation at a tertiary center. In the meantime I think it is reasonable to do a trial of dicyclomine. We try doing this in the past but we could not get a liquid formula approved for him and we agreed today that they will grind/crush the pills and put them in yogurt or applesauce. He is already on amlodipine and for now I would rather not change his calcium channel sidney unless we think it would offer him some improvement. He continues on his Reglan 10 mg 4 times a day, his Viberzi 100 mg twice a day, 40 mg twice a day. He is centrally obese and he is on Mounjaro which likely is contributing to slowed gastric and colonic motility and could be also worsening the severe reflux seen on the barium swallow. He is agreeable to going ot [facility] for the manometry ROV 6 weeks to roselia balderrama. Medications: New dicyclomine 20 mg PO TID 90 tabs 3RF 30 days CORRESPONDENCE On 07/16/24 @ 16:33 Lynsey Wen Wrote To Ko,January (2) Pt scheduled for EGD with dilation on 07/20/24. No stricture on Barium swallow and he has been referred for an Esophgeal manometry to [facility] Ok to cancel EGD appt on 07/20 (ok to leave EGD appt on 10/12/24 as scheduled) Discussed with the patient and he is agreeable to wait for Manometry results Thanks TODAY'S VISIT. He is doing well without any problems with choking and his diarrhea is well controlled. He continues on his Reglan 10 mg 4 times a day, his Viberzi 100 mg twice a day, pantoprazole 40 mg twice a day. He is centrally obese and he is on Mounjaro which likely is contributing to slowed gastric and colonic motility and could be also worsening the severe reflux seen on the barium swallow. Return office visit in 6 months [facility] Medical History Chest pain Physical exam Bronchitis Acute asthma exacerbation Hospital discharge follow-up Radiologic findings of lung field, abnormal Obesity BPH (benign prostatic hyperplasia) Asthma Type 2 diabetes mellitus with obesity Allergic rhinitis SARAH (obstructive sleep apnea) Diverticulosis History of postoperative nausea and vomiting Anaphylaxis Anxiety Dysphagia IBS (irritable bowel syndrome) Asthma Sleep apnea Fatty liver Non-toxic multinodular goiter B12 deficiency Vitamin D deficiency Obesity (BMI 30-39.9) Nephrolithiasis Hypertension Dyslipidemia Diabetes type 2, uncontrolled COPD (chronic obstructive pulmonary disease) Surgical History Hx of umbilical hernia repair Hx of cystoscopy Hx of lithotripsy Hx of colonoscopy Hx of esophagogastroduodenoscopy Hx of adenoidectomy Hx of hernia repair Hx of appendectomy Family History Father Diabetes Mother CVD (cardiovascular disease) Cancer Social History Household Members: Significant Other Housing: Apartment Do you presently have visiting nurse or other home services: No Alcohol intake: current Alcohol intake frequency: a few times a week Patient Tobacco Use Status: Former Tobacco user Tobacco use type: Cigarette e-Cigarette/Vaping Use: Never Used Second Hand Smoke Exposure: No service: No Current occupational status: unemployed and disabled Cognitive needs: No Hearing needs: No Vision needs: No Review of Systems Const Denies fatigue, Denies fever(s), Denies night sweats, Denies poor appetite and Denies weight loss ENT Reports Normal hearing present, Denies dental pain, Reports dysphagia, Denies hearing loss, Denies mouth pain, Denies odynophagia, Denies throat swelling, Denies tongue swelling and Reports other (Dentition adequate) Card Reports no additional complaints Resp Reports no additional complaints GI Details: Denies abdominal pain, Denies melena, Denies bloating, Denies hematochezia, Denies constipation, Denies GI cramping, Reports dysphagia, Denies excessive flatus, Denies early satiety, Reports heartburn, Denies diarrhea, Reports nausea, Denies odynophagia, Denies vomiting and Denies hematemesis Skin/Breast Denies pruritus, Denies lesions, Denies rash and Denies jaundice Neuro Reports Normal hearing present and Denies Abnormal speech present Endo Denies fatigue Aller/Immun Denies throat swelling and Denies tongue swelling Physical Exam Vital Signs: BMI result Body Mass Index 33.5 Const General: cooperative, no acute distress, well developed and well groomed Nutritional Appearance: well nourished and obese Orientation/consciousness: oriented to person, oriented to place and oriented to time Limitations: No language barrier HEENT Head: Yes normocephalic and Yes atraumatic Eyes General: appearance normal, both eyes and all related structures Pupils: Equal, round and reactive pupils present Neck Neck: Yes normal visual inspection and Yes no lymphadenopathy Thyroid: Thyroid normal Resp Effort & Inspection: normal respiratory effort and able to speak in complete sentences Auscultation: clear to auscultation bilaterally Cardio Rate: regular rate Rhythm: regular rhythm Heart sounds: Normal, physiologic split S2 sound present Peripheral pulses: radial pulses present and posterior tibial pulses present GI Inspection: No distended, No Abdominal panniculus present and Yes obesity Palpation (GI): Soft to palpation, nontender, no guarding, not rigid and No hepatosplenomegaly present Percussion: Yes normal to percussion Auscultation: normal bowel sounds Rectal Exam - Male: Yes deferred Skin General skin exam: no rashes or lesions noted, turgor normal, skin not dry, no jaundice, No spider nevi and no striae Rashes: no rashes Nails: normal Neuro General: oriented to person, oriented to place and oriented to time Cranial nerves: Yes Equal, round and reactive pupils present and Yes Normal hearing present Speech: No Abnormal speech present Extrem General: Yes normal to inspection, No clubbing, No cyanosis and No edema Psych Appearance: grossly normal and well kempt Mental Status: mental status grossly normal Speech and movement: Normal speech and movement present Affect: normal affect Attitude: cooperative Thought process: Normal thought process present and not confabulating Thought content: Normal thought content present Insight: Fair insight present (Psych) and Limited insight present (Psych) Judgement: Fair judgement present (Psych) and Limited judgement present (Psych) Assessment & Plan Assessment & Plan (1) Erosive esophagitis: Code(s): K22.10 - Ulcer of esophagus without bleeding Category: Medical (2) GERD (gastroesophageal reflux disease): Code(s): K21.9 - Gastro-esophageal reflux disease without esophagitis Category: Medical (3) Gastroparesis: Code(s): K31.84 - Gastroparesis Category: Medical (4) Irritable bowel syndrome with diarrhea: Code(s): K58.0 - Irritable bowel syndrome with diarrhea Category: Medical (5) Dysphagia: Code(s): R13.10 - Dysphagia, unspecified Category: Medical (6) Esophageal spasm: Comment: Failed a trial of dicyclomine is already on amlodipine Code(s): K22.4 - Dyskinesia of esophagus Category: Medical (7) Nausea and vomiting: Comment: . Better with Reglan but not completely resolved Code(s): R11.2 - Nausea with vomiting, unspecified Category: Medical Plan He is doing well without any problems with choking and his diarrhea is well controlled. He continues on his Reglan 10 mg 4 times a day, his Viberzi 100 mg twice a day, pantoprazole 40 mg twice a day. He is centrally obese and he is on Mounjaro which likely is contributing to slowed gastric and colonic motility and could be also worsening the severe reflux seen on the barium swallow. Return office visit in 6 months Coding Level of Care Code Est Pt Level 3 (45285) Diagnoses Erosive esophagitis K22.10 GERD (gastroesophageal reflux disease) K21.9 Gastroparesis K31.84 Irritable bowel syndrome with diarrhea K58.0 Dysphagia R13.10 Esophageal spasm K22.4 Nausea and vomiting R11.2
[2024-09-02 10:08] VITALS: BMI 33.5
== END 2024-09-02 10:40 | disposition home or self-care (01) ==
LOC: HO.HGI 09:15
PROVIDERS: PCP Internal Medicine; Visit Provider Nurse Practitioner
DX: K22.10 Ulcer of esophagus without bleeding (principal); K21.9 Gastro-esophageal reflux disease without esophagitis; K31.84 Gastroparesis; K58.0 Irritable bowel syndrome with diarrhea; R13.10 Dysphagia, unspecified; K22.4 Dyskinesia of esophagus; R11.2 Nausea with vomiting, unspecified
CPT/HCPCS: 99213

== ENCOUNTER → 2024-09-02 09:14 | Outpatient (BNVA) | payer OTHER, SELFPAY | PROVIDERS: PCP Internal Medicine; Visit Provider Nurse Practitioner | DX: K22.10 Ulcer of esophagus without bleeding (principal); K21.9 Gastro-esophageal reflux disease without esophagitis; K31.84 Gastroparesis; K58.0 Irritable bowel syndrome with diarrhea; R13.10 Dysphagia, unspecified; K22.4 Dyskinesia of esophagus; R11.2 Nausea with vomiting, unspecified; E66.89 Other obesity not elsewhere classified; Z68.33 Body mass index [BMI] 33.0-33.9, adult; Z79.899 Other long term (current) drug therapy | CPT/HCPCS: 99212 ==

== ENCOUNTER → 2024-10-01 10:17 | Outpatient (BNVA) | payer OTHER, SELFPAY | PROVIDERS: PCP Internal Medicine; Visit Provider Internal Medicine | DX: J44.9 Chronic obstructive pulmonary disease, unspecified (principal); J30.9 Allergic rhinitis, unspecified; G47.33 Obstructive sleep apnea (adult) (pediatric) | CPT/HCPCS: 99212 ==

== ENCOUNTER 2024-10-01 10:21 | Outpatient (AMB) | payer OTHER, SELFPAY ==
[2024-10-01 10:19] VITALS: BP 130/100; PULSE 98; O2SAT 97; BMI 34.5
--- NOTE | 2024-10-01 10:19 | A.OFFVIS_ITS ---
Vital Signs 10/01/24 10:19 Height 5 ft 5 in Weight 207 lb 3.752 oz BMI 34.5 BP 130/100 H Blood Pressure Location Lt brachial Position Sitting Pulse 98 Pulse Source Pulse Oximeter Pulse Oximetry (%) 97 Oxygen Delivery Method Room Air Intake Visit Reasons: asthma Intake Note: pt is here for follow up and states he is done is prednisone, spacer is a lot of help. please send in refill of Xopenex for him Supervising Appraiser Required: No Allergies MONALISA Inhibitors [MONALISA INHIBITORS] Allergy (Severe, Verified 10/01/24 10:34) SHORTNESS OF BREATH albuterol Adverse Reaction (Intermediate, Verified 10/01/24 10:34) Palpitations Penicillins Adverse Reaction (Intermediate, Verified 10/01/24 10:34) STOMACH UPSET stress induced anaphylaxis Allergy (Severe, Uncoded 10/01/24 10:34) Anaphylaxis Medication List - Last Reconciled 10/01/24 by Jovita Parrish MD allopurinol 100 mg PO DAILY 90 days amlodipine 10 mg PO DAILY 30 days blood sugar diagnostic (FreeStyle Lite Strips) 3 jeremias a day cholecalciferol (vitamin D3) 25 mcg PO DAILY cyanocobalamin (vitamin B-12) (Vitamin B-12) 250 mcg PO DAILY 60 days dicyclomine 20 mg PO TID 30 days eluxadoline (Viberzi) 100 mg PO BID epinephrine (EpiPen 2-Benedict) 0.3 mg (0.3 mL) IM ONCE PRN flash glucose sensor (FreeStyle Arnulfo 14 Day Sensor kit) As directed fluticasone propion-salmeterol 250-50 mcg/dose (Advair Diskus) 1 inh inhalation BID 90 days fluticasone propionate 50 mcg/actuation 1 - 2 sprays intranasal DAILY FreeStyle Lancets (lancets) 3 times a day NS hydrochlorothiazide 25 mg PO DAILY 30 days inhalat.spacing dev,large mask (BreatheRite Spacer and Mask, Adult) As directed levalbuterol tartrate 45 mcg/actuation (Xopenex HFA) 2 inhalations inhalation Q20M losartan 50 mg PO DAILY metoclopramide HCl (Reglan) 10 mg PO QIDACHS montelukast 10 mg PO DAILY 30 days pantoprazole (Protonix) 40 mg PO BID 30 days prednisone 5 mg PO Q OTHER DAY pyridoxine (vitamin B6) 100 mg PO DAILY 90 days rosuvastatin 20 mg PO DAILY salmeterol (Serevent Diskus) 1 inh inhalation BID tirzepatide (Mounjaro) 5 mg (0.5 mL) subcut QWEEK Do you need a note to return to daycare/school/sports/work: No HPI HPI asthma: Details: ELYSE IS 54 YEARS OLD 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 HE HAS COMPLETED THE COURSE OF PREDNISONE AND NOW CONTINUES TO USE [id number] TWICE A DAY AND HAS LEVALBUTEROL TO USE FOR EMERGENCY, WHICH HE LIKES BECAUSE IT DOES NOT CAUSE TACHYCARDIA. HE USES THE SPACING DEVICE AND LIKES IT VERY MUCH. HE HAS BEEN DOING DEEP BREATHING EXERCISES. CLAIMS THAT HIS BREATHING IS HIS BASELINE. HE HAS PAST HISTORY OF OBSTRUCTIVE SLEEP APNEA BUT AFTER SIGNIFICANT WEIGHT LOSS HAS STOPPED USING IT. HE CLAIMS THAT HE SLEEPS WELL EXCEPT FOR WAKING ABOUT TWICE PER NIGHT TO GO TO THE BATHROOM. [facility] Medical History Chest pain Physical exam Bronchitis Acute asthma exacerbation Hospital discharge follow-up Radiologic findings of lung field, abnormal Obesity BPH (benign prostatic hyperplasia) Asthma Type 2 diabetes mellitus with obesity Allergic rhinitis SARAH (obstructive sleep apnea) Diverticulosis History of postoperative nausea and vomiting Anaphylaxis Anxiety Dysphagia IBS (irritable bowel syndrome) Asthma Sleep apnea Fatty liver Non-toxic multinodular goiter B12 deficiency Vitamin D deficiency Obesity (BMI 30-39.9) Nephrolithiasis Hypertension Dyslipidemia Diabetes type 2, uncontrolled COPD (chronic obstructive pulmonary disease) Surgical History Hx of umbilical hernia repair Hx of cystoscopy Hx of lithotripsy Hx of colonoscopy Hx of esophagogastroduodenoscopy Hx of adenoidectomy Hx of hernia repair Hx of appendectomy Family History Father Diabetes Mother CVD (cardiovascular disease) Cancer Social History Household Members: Significant Other Housing: Apartment Do you presently have visiting nurse or other home services: No Alcohol intake: current Alcohol intake frequency: a few times a week Patient Tobacco Use Status: Former Tobacco user Tobacco use type: Cigarette e-Cigarette/Vaping Use: Never Used Second Hand Smoke Exposure: No service: No Current occupational status: unemployed and disabled Cognitive needs: No Hearing needs: No Vision needs: No Review of Systems Const All systems reviewed & are unremarkable except as noted in HPI and below Eyes Reports no additional complaints ENT Reports nasal congestion (INTERMITTENT USUALLY WITH CHANGE OF WEATHER) Card Denies chest pain, Denies irregular heart rhythm and Denies leg edema Resp Reports as per HPI GI Reports no additional complaints Reports no additional complaints Musc Reports no additional complaints Skin/Breast Reports system reviewed and no additional complaints, except as documented Neuro Reports no additional complaints Psych Reports no additional complaints Physical Exam Vital Signs: Last Vital Signs Pulse 98 10/01/24 10:19 BP 130/100 H 10/01/24 10:19 Pulse Ox 97 10/01/24 10:19 Oxygen Delivery Method Room Air 10/01/24 10:19 BMI result Body Mass Index 34.5 Const General: healthy appearing, comfortable, no acute distress, alert and awake Orientation/consciousness: patient oriented x3 HEENT Head: Yes normal to inspection General nose exam: No nasal polyps present, No nasal discharge present and Other nasal findings present (HE DOES HAVE MILD BILATERAL NASAL CONGESTION) Face and sinus: Yes sinuses nontender Mouth: oropharynx normal (THERE IS MILD ERYTHEMA THE OROPHARYNX) Throat: Yes posterior oropharynx normal Eyes General: appearance normal, both eyes and all related structures Neck Neck: Yes normal visual inspection, Yes no lymphadenopathy, Yes trachea midline and Yes no JVD Thyroid: Thyroid normal Chest Chest palpation & inspection: normal inspection of the chest, normal palpation of entire chest wall and no tenderness Resp Other: Percussion note is resonant, breath sounds are slightly distant , especially decreased over the basilar areas. But there are no wheezes . Also no Crepitation are heard . Cardio Palpation: normal PMI Rate: regular rate Rhythm: regular rhythm Heart sounds: no gallops and no murmurs Peripheral pulses: Peripheral pulses 2+ throughout GI Palpation (GI): Soft to palpation, nontender, No hepatosplenomegaly present and no masses Auscultation: normal bowel sounds Back/Spine/Pelvis Thoracic/Lumbar Spine: thoracic and lumbar spine normal to inspection Skin General skin exam: no rashes or lesions noted Neuro General: patient oriented x3 and no focal motor deficits Cranial nerves: Yes CN's II-XII intact bilaterally Extrem General: Yes normal to inspection, Yes no clubbing, cyanosis or edema and Yes no calf tenderness Psych Speech and movement: Normal speech and movement present Assessment & Plan Assessment & Plan (1) Allergic rhinitis: Comment: MINIMAL.and CONTROLLED Code(s): J30.9 - Allergic rhinitis, unspecified Category: Medical Plan: USE FLONASE-52 SPRAY IN EACH NOSTRIL DAILY, P.R.N. MONTELUKAST 10 MG DAILY (2) SARAH (obstructive sleep apnea): Comment: DID HAVE HISTORY OF SARAH FOR MANY YEARS. RESOLVED AFTER SIGNIFICANT WEIGHT LOSS. DOES NOT USE CPAP, CLAIMS THAT HE IS SLEEPING OKAY, I DID CAUTION HIM THAT HE NEEDS TO LOSE MORE WEIGHT . Code(s): G47.33 - Obstructive sleep apnea (adult) (pediatric) Category: Medical Plan: ALERTED TO THE FACT THAT HE NEEDS TO CONTROL HIS WEIGHT OTHERWISE HE WILL START HAVING SYMPTOMS OF SARAH AGAIN. (3) COPD (chronic obstructive pulmonary disease): Comment: [id number] ASTHMA/COPD overlap . CONTROLLED WITH THE CURRENT REGIMEN . THE ACUTE EXACERBATION FOR WHICH HE WAS TREATED HAS RESOLVED. Code(s): J44.9 - Chronic obstructive pulmonary disease, unspecified Category: Medical Plan: CONTINUE ADVAIR 250-51 INHALATION B.I.D. PREDNISONE 5 MG ON ALTERNATE DAYS LEVALBUTEROL -45 2 INHALATIONS Q 4-6 HOURS P.R.N. Medications: Changed From levalbuterol tartrate 45 mcg/actuation (Xopenex HFA) 2 inhalations inhalation Q20M 15 grams 0RF To levalbuterol tartrate 45 mcg/actuation (Xopenex HFA) 2 inhalations inhalation Q4-6H 30 days 15 grams 4RF ASTHMA, TACHYCARDIA Coding Level of Care Code Est Pt Level 3 (41484) Diagnoses Allergic rhinitis J30.9 SARAH (obstructive sleep apnea) G47.33 COPD (chronic obstructive pulmonary disease) J44.9
== END 2024-10-01 10:36 | disposition home or self-care (01) ==
PROVIDERS: PCP Internal Medicine; Visit Provider Internal Medicine
DX: J30.9 Allergic rhinitis, unspecified (principal); G47.33 Obstructive sleep apnea (adult) (pediatric); J44.9 Chronic obstructive pulmonary disease, unspecified
CPT/HCPCS: 99213

== ENCOUNTER 2024-12-02 08:32 | Outpatient (REF) | payer OTHER, SELFPAY ==
--- OUTSIDE RECORDS SUMMARY | 2024-12-02 09:37 | XMS_ITS | Encounter Summary ---
Author Organization [facility] [employer] [facility] Address [address] [place] [address] 7 [place] [address] Care Team Providers Care Keeper Head Name Role Phone Unavailable Primary Care Provider Unavailabl e Encounter Details Date Type Department Care Team (Latest Contact Info) Description 02/20/2021 Abstract [facility] CONVERSIONS Dental, Provider, DDS Social History Tobacco Use Types Packs/Day Years Used Date Smoking Tobacco: Never Assessed Sex and Gender Information Value Date Recorded Sex Assigned at Male 08/27/2022 10:16 AM EDT Legal Sex Male 10:16 AM EDT Gender Identity Male 08/27/2022 10:16 AM EDT Sexual Orientation Straight 08/27/2022 10 :16 AM EDT documented as of this encounter Plan of Treatment Not on file documented as of this encounter Visit Diagnoses Not on filedocumented in this encounter
--- OUTSIDE RECORDS SUMMARY | 2024-12-02 09:37 | XMS_ITS | Clinical Summary ---
Author Organization [employer] [facility] Address [address] [place] [address] [address] [place] [address] Care Team Providers Care Sales Correspondent Name Role Phone Unavailable Primary Care Provider Unavailabl e Allergies Active Allergy Reactions Criticality Noted Date Comments Kayden Inhibitors 02/20/2021 Penicillins 12/21/2020 Other reaction(s): Abdominal pain Medications Ventolin HFA 108 (90 Base) MCG/ACT inhaler INHALE 2 PUFFS EVERY 6 HOURS NEEDED FOR SHORTNESS OF BREATH OR WHEEZING 05/29/20 23 Active alosetron (Lotronex) 0.5 MG tablet Take 0.5 mg by mouth 2 times daily. 12/17/19 23 Active amLODIPine (Norvasc) 10 MG tablet Take 10 mg by mouth in the morning. 12/20/19 23 Active dicyclomine (Bentyl) 20 MG tablet Take 20 mg by mouth 4 times daily. 02/21/20 23 Active Viberzi 100 MG tablet TAKE ONE TABLET BY MOUTH TWICE A DAY WITH A MEAL/FOOD 03/22/20 23 Active Flovent HFA 110 MCG/ACT inhaler Inhale 1 puff 2 times daily. 02/16/20 23 Active losartan (Cozaar) 50 MG tablet Take 50 mg by mouth in the morning. 12/24/19 23 Active metoclopramide (Reglan) 10 MG tablet TAKE 1 TABLET BY MOUTH BEFORE MEALS THREE TIMES A DAY AND TAKE TWO TABLETS BY MOUTH AT BEDTIME 03/21/20 23 Active omeprazole (PriLOSEC) [address] capsule Take 40 mg by mouth in the morning. 05/29/20 23 Active pyridoxine (Vitamin B-6) 100 MG tablet Take 100 mg by mouth in the morning. 12/29/19 23 Active Serevent Diskus 50 MCG/ACT aerosol powder INHALE ONE PUFF BY MOUTH TWICE A DAY FOR COPD 02/14/20 23 Active amLODIPine (Norvasc) 2.5 MG tablet Take 1 tablet by mouth at bed time. Active chlorhexidine (Peridex) 0.12 % solution Place 10 mL into mouth between cheek and gum every 8 (eight) hours. 08/08/20 21 Active dicyclomine (Bentyl) 10 MG/5ML syrup TAKE 10 ML BY MOUTH FOUR TIMES A DAY 08/16/20 22 Active doxycycline (Monodox) 100 MG capsule take 2 ( two) at once first day then on 1 capsule daily until gone 08/08/20 21 Active EPINEPHrine (Epipen) 0.3 MG/0.3ML injection syringe INJECT 0.3ML INTRAMUSCULARLY DIRECTED WHEN NEEDED FOR ANAPHYLAXIS 07/03/20 23 Active losartan (Cozaar) 25 MG tablet Take 1 tablet by mouth at bed time. Active rosuvastatin (Crestor) 20 MG tablet 07/10/20 23 Active Ozempic, 0.25 or 0.5 MG/DOSE, 2 MG/1.5ML solution pen-injector INJECT 0.4ML 0.5MG) UNDER THE SKIN EVERY WEEK 12/28/19 23 Active Mounjaro 5 MG/0.5ML solution pen-injector INJECT 5MG SUBCUTANEOUSLY ONCE A WEEK 07/04/20 23 Active Social History Tobacco Use Types Packs/Day Years Used Date Smoking Tobacco: Never Smokeless Tobacco: Never Tobacco Cessation:Counseling Given: Not Answered Alcohol Use Standard Drinks/Week Comments Not Currently 0 (1 standard drink = 0.6 oz pur e alcohol) Sex and Gender Information Value Date Recorded Sex Assigned at Male 08/27/2022 10:16 AM EDT Legal Sex Male 10:16 AM EDT Gender Identity Male 08/27/2022 10:16 AM EDT Sexual Orientation Straight 08/27/2022 10 :16 AM EDT Last Filed Vital Signs Vital Sign Reading Time Taken Comments Blood Pressure 140/82 06/26/2023 11:00 AM EDT Pulse 70 06/26/2023 11:00 AM EDT Temperature - - Respiratory Rate - - Oxygen Saturation - - Inhaled Oxygen Concentration - - Weight - - Height - - Body Mass Index - - Plan of Treatment Health Maintenance Due Date Last Done Comments CT Colonography 1970 Colonoscopy 1970 Colorectal Cancer Screening 1970 Depression Screening 1970 FIT DNA/Cologuard 1970 FIT 1970 FOBT 1970 HIV Screening 1970 Lipid Panel 1970 SDOH Screening 1970 Sigmoidoscopy 1970 Alcohol/Substance Use Screening 1982 Hepatitis C Screening 01/28/1988 Hepatitis B Vaccines (1 of 3 - 19+ 3-dose series) 1989 Pneumococcal Vaccine: 50+ Years (2 of 2 - PCV) 01/28/2020 09/03/2018 Dental Oral Exam 12/27/2023 06/26/2023, , 08/13/2008 Dental Prophylaxis 12/27/2023 06/26/2023, 1 11/14/2020, 02/20/2021 Dental X-Ray: Full Mouth 02/22/2024 02/20/2021 Dental X-Ray: Bitewings 06/27/2024 06/26/20 23, 08/22/2021, 02/20/2021, Additional history exists COVID-19 Vaccine ( - season) 2024 09/29/2021, 02/01/2021 Influenza Vaccine (#1) 2024 , 08/29/2021, 07/26/2020, Additional history exists Tobacco Screening 07/12/2024 07/12/2023 DTaP/Tdap/Td Vaccines (2 - Td or Tdap) 05/16/2025 05/16/2015 RSV Patients and Patients Aged 60 years or older (1 - 1-dose 75+ series) 2045 Zoster Vaccines Completed 12/15/2021, 09/29/2021 HIB Vaccines Aged Out No longer eligi ble based on patient's age to complete this topic HPV Vaccines Aged Out No longer eligi ble based on patient's age to complete this topic Hepatitis A Vaccines Aged Out No long er eligible based on patient's age to complete this topic IPV Vaccines Aged Out No longer eligi ble based on patient's age to complete this topic Meningococcal Vaccine Aged Out No mena madhav eligible based on patient's age to complete this topic RSV under 20 months Aged Out No longe r eligible based on patient's age to complete this topic Rotavirus Vaccines Aged Out No longer eligible based on patient's age to complete this topic Procedures Procedure Name Priority Date/Time Associated Diagnosis Comments Full PROPHYLAXIS - ADULT Routine 023 11:00 AM EDT BITEWINGS - 4 RADIOGRAPHIC IMAGES Routine 06/26/2023 11:00 AM EDT PERIODIC ORAL EVALUATION - ESTABLISHED PATIENT Routine 06/26/2023 11:00 AM EDT DIAGNOSTIC - DIAGNOSTIC IMAGING - INTRAORAL - COMPREHENSIVE SERIES OF RADIOGRAPHIC IMAGES Routine 02/20/2021 12:00 AM EDT from Last 3 Months or Most Recently Relevant to Health Maintenance Insurance [facility] MEDICAID STAND ADULT
[2024-12-02 10:33] LABS: Estimated Average Glucose 166 mg/dL; Hemoglobin A1C 227.9611 umol/L; Hemoglobin A1c % 7.4 % (<6.0)
== END 2024-12-02 08:33 | disposition home or self-care (01) ==
LOC: HO.LAB 08:32
PROVIDERS: PCP Internal Medicine; Visit Provider Internal Medicine
DX: E11.69 Type 2 diabetes mellitus with other specified complication (principal); E66.9 Obesity, unspecified; Z68.34 Body mass index [BMI] 34.0-34.9, adult; E11.65 Type 2 diabetes mellitus with hyperglycemia; Z91.148 Patient's other noncompliance with medication regimen for other reason
CPT/HCPCS: 36415; 83036; 96127; 99212

== ENCOUNTER 2024-12-02 08:32 | Outpatient (AMB) | payer OTHER, SELFPAY ==
[2024-12-02 08:41] VITALS: BP 136/70; PULSE 89; O2SAT 97; BMI 34.1
--- NOTE | 2024-12-02 08:41 | MHC.PC.OV ---
Vital Signs 12/02/24 08:41 Height 5 ft 5 in Weight 205 lb BMI 34.1 BP 136/70 Blood Pressure Location Lt brachial Position Sitting Pulse 89 Pulse Source Pulse Oximeter Pulse Oximetry (%) 97 Oxygen Delivery Method Room Air Intake Visit Reasons: 3mth f/u Allergies MONALISA Inhibitors [MONALISA INHIBITORS] Allergy (Severe, Verified 12/02/24 08:42) SHORTNESS OF BREATH albuterol Adverse Reaction (Intermediate, Verified 12/02/24 08:42) Palpitations Penicillins Adverse Reaction (Intermediate, Verified 12/02/24 08:42) STOMACH UPSET stress induced anaphylaxis Allergy (Severe, Uncoded 12/02/24 08:42) Anaphylaxis Medication List - Last Reconciled 12/02/24 by Beto Kelly MD allopurinol 100 mg PO DAILY 90 days amlodipine 10 mg PO DAILY 30 days blood sugar diagnostic (FreeStyle Lite Strips) 3 jeremias a day cholecalciferol (vitamin D3) 25 mcg PO DAILY cyanocobalamin (vitamin B-12) (Vitamin B-12) 250 mcg PO DAILY 60 days dicyclomine 20 mg PO TID 30 days eluxadoline (Viberzi) 100 mg PO BID epinephrine (EpiPen 2-Benedict) 0.3 mg (0.3 mL) IM ONCE PRN flash glucose sensor (FreeStyle Arnulfo 14 Day Sensor kit) As directed fluticasone propion-salmeterol 250-50 mcg/dose (Advair Diskus) 1 inh inhalation BID 90 days fluticasone propionate 50 mcg/actuation 1 - 2 sprays intranasal DAILY FreeStyle Lancets (lancets) 3 times a day NS hydrochlorothiazide 25 mg PO DAILY 30 days inhalat.spacing dev,large mask (BreatheRite Spacer and Mask, Adult) As directed levalbuterol tartrate 45 mcg/actuation (Xopenex HFA) 2 inhalations inhalation Q4-6H 30 days losartan 50 mg PO DAILY metoclopramide HCl (Reglan) 10 mg PO QIDACHS montelukast 10 mg PO DAILY 30 days pantoprazole (Protonix) 40 mg PO BID 30 days pyridoxine (vitamin B6) 100 mg PO DAILY 90 days rosuvastatin 20 mg PO DAILY salmeterol (Serevent Diskus) 1 inh inhalation BID Tobacco use date assessed: 12/02/24 Dental Screening Dental Screen Date: 12/02/24 Did you have a dental visit in the last 12 months?: Yes Did you have a dental problem in the last 6 months where you did not have access to dental care?: No Was dental information given to patient?: Patient has dentist HPI 3mth f/u HPI Details DM poor control and non-compliant with meds [facility] Medical History Chest pain Physical exam Bronchitis Acute asthma exacerbation Hospital discharge follow-up Radiologic findings of lung field, abnormal Obesity BPH (benign prostatic hyperplasia) Asthma Type 2 diabetes mellitus with obesity Allergic rhinitis SARAH (obstructive sleep apnea) Diverticulosis History of postoperative nausea and vomiting Anaphylaxis Anxiety Dysphagia IBS (irritable bowel syndrome) Asthma Sleep apnea Fatty liver Non-toxic multinodular goiter B12 deficiency Vitamin D deficiency Obesity (BMI 30-39.9) Nephrolithiasis Hypertension Dyslipidemia Diabetes type 2, uncontrolled COPD (chronic obstructive pulmonary disease) Surgical History Hx of umbilical hernia repair Hx of cystoscopy Hx of lithotripsy Hx of colonoscopy Hx of esophagogastroduodenoscopy Hx of adenoidectomy Hx of hernia repair Hx of appendectomy Family History Father Diabetes Mother CVD (cardiovascular disease) Cancer Social History Household Members: Significant Other Housing: Apartment Do you presently have visiting nurse or other home services: No Alcohol intake: current Alcohol intake frequency: a few times a week Patient Tobacco Use Status: Former Tobacco user Tobacco use type: Cigarette e-Cigarette/Vaping Use: Never Used Second Hand Smoke Exposure: No service: No Current occupational status: unemployed and disabled Cognitive needs: No Hearing needs: No Vision needs: No Questionnaire PHQ-9 Over the last 2 weeks, how often have you been bothered by any of the following problems? 1. Little interest or pleasure in doing things: not at all 2. Feeling down, depressed, or hopeless: not at all 3. Trouble falling or staying asleep, or sleeping too much: not at all 4. Feeling tired or having little energy: not at all 5. Poor appetite or overeating: not at all 6. Feeling bad about yourself - or that you are a failure or have let yourself or your family down: not at all 7. Trouble concentrating on things, such as reading the newspaper or watching television: not at all 8. Moving or speaking so slowly that other people could have noticed. Or the opposite - being so fidgety or restless that you have been moving around a lot more than usual: not at all 9. Thoughts that you would be better off or of hurting yourself in some way: not at all Total score: 0 Depression Screening Interpretation: Negative Depression Screening Done: Yes 61105 - PHQ-9 Billing: Yes Source: Developed by Drs. Sam Sharp, Paula Allen, Samson Zavala and colleagues, with an educational fawn from [employer]. Thrive Questionnaire Date Thrive assessed: 12/02/24 I am a: Patient What is your living situation today?: I have a steady place to live Within the past 12 months, did the food you bought not last and you didn't have the money to get more?: Never true Within the past 12 months, did you worry whether your food would run out before you got money to buy more?: Never true Do you have trouble paying for medicines?: No Do you have trouble getting transportation to medical appointments?: No Do you have trouble paying your heating and electricity bill?: No Do you have trouble taking care of your child, family member or friend?: No Do you have trouble with day-to-day activities such as bathing, preparing meals, shopping, managing finances, etc.?: No Are you currently unemployed and looking for a job?: No Are you interested in more education?: No Currently or been in a relationship where the following occur: No concerns reported THRIVE Score: 0 AUDIT C Alcohol Use Questionnaire (AUDIT-C) 1. How often do you have a drink containing alcohol?: 2-3 times a week 2. How many drinks containing alcohol do you have on a typical day when you are drinking?: 1 or 2 3. How often do you have six or more drinks on one occasion?: Never Total Score: 3 Score Reviewed/Action Taken: Yes VILLA-7 AMB Questionnaire VILLA-7 Date VILLA - 7 assessed: 12/02/24 Feeling nervous, anxious, or on edge: 0 = Not at all Not being able to stop or control worryin = Not at all Worrying too much about different things: 0 = Not at all Trouble relaxin = Not at all Being so restless that it is hard to sit still: 0 = Not at all Becoming easily annoyed or irritable: 0 = Not at all Feeling afraid as if something awful might happen: 0 = Not at all Total VILLA-7 score (0-4 normal; 5-9 mild; 10-14 moderate; 15-21 severe): 0 Source: Developed by Drs. Sam Sharp, Paula Allen, Samson Zavala and colleagues, with an educational fawn from [employer]. Review of Systems Const Denies chills, Denies headache(s) and Denies weight loss ENT Denies headache(s) Card Denies chest pain, Denies syncope, Denies irregular heart rhythm and Denies dyspnea Resp Denies chest congestion, Denies cough and Denies dyspnea GI Denies abdominal pain, Denies change in stool character, Denies nausea and Denies vomiting Musc Denies deformity and Denies joint swelling Neuro Denies syncope and Denies headache(s) Physical exam (Primary Care) Vital Signs: Last Vital Signs Pulse 89 12/02/24 08:41 BP 136/70 12/02/24 08:41 Pulse Ox 97 12/02/24 08:41 Oxygen Delivery Method Room Air 12/02/24 08:41 BMI result Body Mass Index 34.1 Tobacco/Smoking Status: Tobacco use Status Tobacco use date assessed 12/02/24 12/02/24 08:47 Patient Tobacco Use Status Former Tobacco user 12/02/24 08:47 Tobacco use type Cigarette 12/02/24 08:47 e-Cigarette/Vaping Use Never Used 12/02/24 08:47 PHQ-9: PHQ-9 Score PHQ-9: Total score 0 12/02/24 08:47 Depression Screening Interpretation: Negative Thrive Assessment: Date of Thrive Assessment Date Thrive assessed 12/02/24 12/02/24 08:47 Currently or been in a relationship where the following occur: No concerns reported Const General: cooperative, comfortable, no acute distress and alert Neck Neck: Yes no lymphadenopathy Thyroid: Thyroid normal Resp Effort & Inspection: normal respiratory effort Auscultation: clear to auscultation bilaterally Percussion: percussion normal Cardio Jugular venous distension: no JVD Palpation: normal PMI Rate: regular rate Rhythm: regular rhythm Heart sounds: S1 normal heart sound present and S2 normal heart sound present GI Inspection: Yes normal to inspection Palpation (GI): No hepatosplenomegaly present Skin General skin exam: no rashes or lesions noted Extrem General: Yes no clubbing, cyanosis or edema Coding Level of Care Code Est Pt Level 3 (66806) Diagnoses Type 2 diabetes mellitus with obesity E11.69; E66.9 Additional Codes PHQ-9 - 40548 - PHQ-9 Billing: Yes ([id number]) Assessment & Plan Assessment & Plan (1) Type 2 diabetes mellitus with obesity: Code(s): E11.69 - Type 2 diabetes mellitus with other specified complication; E66.9 - Obesity, unspecified Category: Medical Plan: advised to be more compliant with monitoring and meds Orders: Orders Hemoglobin A1c Today R73.9 - Hyperglycemia, unspecified
== END 2024-12-02 09:09 | disposition home or self-care (01) ==
PROVIDERS: PCP Internal Medicine
DX: E11.69 Type 2 diabetes mellitus with other specified complication (principal); E66.9 Obesity, unspecified; Z68.34 Body mass index [BMI] 34.0-34.9, adult

== ENCOUNTER 2024-12-15 08:36 | Outpatient (REF) | payer OTHER, SELFPAY ==
--- NOTE | ~2024-12-15 | US_ITS ---
CLINICAL HISTORY: N20.0 - Calculus of kidney US Renal Comparison: US/HI/SR - US RENAL BI - 11/25/23 13:34 EST Findings: Right kidney normal size and echotexture, 10.4 cm length. Left kidney normal size and echotexture, 10.8 cm length. No hydronephrosis of either kidney. Normal color doppler. There is a 6 mm nonobstructive calculus within the midportion of the right kidney. There are 2 nonobstructive calculi within the left kidney, a 5 mm calculus within the lower pole and a 4 mm calculus within the upper pole. IMPRESSION: 1. Small nonobstructive calculi within the bilateral kidneys. This document has been electronically signed by: Qi Lopez MD on 12/15/2024 16:13:57
--- OUTSIDE RECORDS SUMMARY | 2024-12-15 09:03 | XMS_ITS | Clinical Summary ---
Author Organization [email or web address] [facility] Address [address] [place] [address] [address] [place] [address] Care Team Providers Care Radio Commentator Name Role Phone Unavailable Primary Care Provider [...] ESTABLISHED PATIENT Routine 06/26/2023 11:00 AM EDT INTRAORAL - COMPLETE SERIES OF RADIOGRAPHIC IMAGES Routine 02/20/2021 12:00 AM EDT from Last 3 Months or Most Recently Relevant to Health Maintenance Insurance [facility] MEDICAID STAND ADULT
--- OUTSIDE RECORDS SUMMARY | 2024-12-15 09:03 | XMS_ITS | Encounter Summary ---
Author Organization [facility] [employer] [facility] Address [address] [place] [address] [address] [place] [address] Care Team Providers Care Furniture Sprayer Name Role Phone Unavailable Primary Care Provider Unavailabl e Encounter Details Date Type Department Care Team (Latest Contact Info) Description 02/20/2021 Abstract [facility] CONVERSIONS Dental, Provider, DDS Social History Tobacco [...]
== END 2024-12-15 08:37 | disposition home or self-care (01) ==
LOC: HO.US 08:36
PROVIDERS: PCP Internal Medicine; Visit Provider Urology
DX: N20.0 Calculus of kidney (principal)
CPT/HCPCS: 76775

== ENCOUNTER → 2024-12-15 08:37 | Outpatient (BNV) | payer OTHER, SELFPAY | PROVIDERS: PCP Internal Medicine; Visit Provider Radiology Diagnostic Radiology | DX: N20.0 Calculus of kidney (principal) | CPT/HCPCS: 76775 ==

== ENCOUNTER 2024-12-23 07:32 | Outpatient (AMB) | payer OTHER, SELFPAY ==
--- OUTSIDE RECORDS SUMMARY | 2024-12-23 07:34 | XMS_ITS | Encounter Summary ---
Author Organization [facility] [employer] [facility] Address [address] [place] [address] [address] [place] [address] Care Team Providers Care Paper Cup Handle Machine Operator Name Role Phone Unavailable Primary Care Provider Unavailabl e Encounter Details Date Type Department Care Team (Latest Contact Info) Description 02/20/2021 Abstract [facility] CONVERSIONS Dental, Provider, DDS Social [...]
--- NOTE | 2024-12-23 07:36 | A.OFFVIS_ITS ---
Intake Visit Reasons: 1y/US(set) Intake Note: Patient presents today for follow up on: nephrolithiasis and ultrasound results Imaging Completed: 12/15/24 Urology Medication: Vitamin B6 Antibiotic Allergies: Penicillins Blood Thinners: None Confirmed Pharmacy: [facility] Required: No Accompanied by: Unknown Allergies MONALISA Inhibitors [MONALISA INHIBITORS] Allergy (Severe, Verified 12/23/24 08:09) SHORTNESS OF BREATH albuterol Adverse Reaction (Intermediate, Verified 12/23/24 08:09) Palpitations Penicillins Adverse Reaction (Intermediate, Verified 12/23/24 08:09) STOMACH UPSET stress induced anaphylaxis Allergy (Severe, Uncoded 12/23/24 08:09) Anaphylaxis Medication List - Last Reconciled 12/23/24 [facility] allopurinol 100 mg PO DAILY 90 days amlodipine 10 mg PO DAILY 30 days blood sugar diagnostic (FreeStyle Lite Strips) 3 jeremias a day cholecalciferol (vitamin D3) 25 mcg PO DAILY cyanocobalamin (vitamin B-12) (Vitamin B-12) 250 mcg PO DAILY 60 days dicyclomine 20 mg PO TID 30 days eluxadoline (Viberzi) 100 mg PO BID epinephrine (EpiPen 2-Benedict) 0.3 mg (0.3 mL) IM ONCE PRN flash glucose sensor (FreeStyle Arnulfo 14 Day Sensor kit) As directed fluticasone propion-salmeterol 250-50 mcg/dose (Advair Diskus) 1 inh inhalation BID 90 days fluticasone propionate 50 mcg/actuation 1 - 2 sprays intranasal DAILY FreeStyle Lancets (lancets) 3 times a day NS hydrochlorothiazide 25 mg PO DAILY 30 days inhalat.spacing dev,large mask (BreatheRite Spacer and Mask, Adult) As directed levalbuterol tartrate 45 mcg/actuation (Xopenex HFA) 2 inhalations inhalation Q4-6H 30 days losartan 50 mg PO DAILY metoclopramide HCl (Reglan) 10 mg PO QIDACHS pantoprazole (Protonix) 40 mg PO BID 30 days pyridoxine (vitamin B6) 100 mg PO DAILY 90 days rosuvastatin 20 mg PO DAILY salmeterol (Serevent Diskus) 1 inh inhalation BID HPI Comments Details: Jonn is a very pleasant 54-year-old male patient of Dr. Kelly who was accompanied by his significant other at today's office visit. He has a past medical history of obesity, asthma, BPH, type 2 diabetes, allergic rhinitis, SARAH, diverticulosis, fatty liver, she vitamin-D deficiency, vitamin B12 deficiency, nephrolithiasis, hypertension, dyslipidemia and COPD. He presents to the office today for follow-up of his nephrolithiasis. Recent renal imaging results reviewed with the patient today. 12/22 bilateral kidneys are normal in size and echotexture. No hydronephrosis bilaterally. There is a 6 mm nonobstructing calculus in the right mid pole and 2 nonobstructing calculi within the left kidney measuring approximately 5 mm and 4 mm. In discussion with the patient today he reports to be doing and feeling well. He denies having had any bothersome urinary issues or concerns since his last office visit here. He denies any bothersome urinary issues or concerns. Reports compliance with vitamin B6 and increased amounts of water daily. He denies urinary urgency, urinary frequency, incontinence, nocturia, hematuria, dysuria, foul smelling urine, changes to urinary stream, flank pain, fever, and or chills. He is happy with her current voiding parameters. In office urinalysis results reviewed with the patient today. We discussed surveillance monitoring of prostate cancer in offered JOHNNIE however patient deferred. In review of patient's chart PSAs are as follows: 04/16 0.9, 10/17 0.9, 12/20 1.1 He otherwise offers no other issues or concerns at this time. PREVIOUS OFFICE NOTE: Nephrolithiasis Longstanding recurrent stone formers Multiple prior ESWL Imaging - 04/16 renal ultrasound 2 x 4 mm stone left kidney asymptomatic - 04/17 renal ultrasound multiple 4 mm - 7mm stones on the right kidney, 2 small stones in left kidney - 12/19 renal ultrasound 3 mm stone bilateral - 12/20 renal ultrasound, left cyst 1.1 cm, right 3 mm stone - 12/21 renal ultrasound left cyst confirmed, bilateral 3 mm small stone Intervention - 06/17 ESWL Therapy - lemon water with allopurinol and vitamin B6 Plan - surveillance imaging Lower urinary tract symptoms PSA 0.9 PFSH Medical History Chest pain Physical exam Bronchitis Acute asthma exacerbation Hospital discharge follow-up Radiologic findings of lung field, abnormal Obesity BPH (benign prostatic hyperplasia) Asthma Type 2 diabetes mellitus with obesity Allergic rhinitis SARAH (obstructive sleep apnea) Diverticulosis History of postoperative nausea and vomiting Anaphylaxis Anxiety Dysphagia IBS (irritable bowel syndrome) Asthma Sleep apnea Fatty liver Non-toxic multinodular goiter B12 deficiency Vitamin D deficiency Obesity (BMI 30-39.9) Nephrolithiasis Hypertension Dyslipidemia Diabetes type 2, uncontrolled COPD (chronic obstructive pulmonary disease) Surgical History Hx of umbilical hernia repair Hx of cystoscopy Hx of lithotripsy Hx of colonoscopy Hx of esophagogastroduodenoscopy Hx of adenoidectomy Hx of hernia repair Hx of appendectomy Family History Father Diabetes Mother CVD (cardiovascular disease) Cancer Social History Household Members: Significant Other Housing: Apartment Do you presently have visiting nurse or other home services: No Alcohol intake: current Alcohol intake frequency: a few times a week Patient Tobacco Use Status: Former Tobacco user Tobacco use type: Cigarette e-Cigarette/Vaping Use: Never Used Second Hand Smoke Exposure: No service: No Current occupational status: unemployed and disabled Cognitive needs: No Hearing needs: No Vision needs: No Review of Systems Const All systems reviewed & are unremarkable except as noted in HPI and below Physical Exam Const General: cooperative, healthy appearing, comfortable, no acute distress, well developed, alert and awake Nutritional Appearance: overweight Orientation/consciousness: patient oriented x3 Limitations: no limitations HEENT Head: Yes normal to inspection, Yes normocephalic and Yes atraumatic Ears: hearing grossly normal bilaterally Eyes General: appearance normal, both eyes and all related structures Neck Neck: Yes normal visual inspection and Yes trachea midline Chest Chest palpation & inspection: normal inspection of the chest Resp Effort & Inspection: normal respiratory effort and able to speak in complete sentences Cardio Rate: regular rate GI Inspection: Yes normal to inspection General: Yes no CVA tenderness Back/Spine/Pelvis Back: no CVA tenderness Skin General skin exam: no rashes or lesions noted Neuro General: patient oriented x3 Extrem General: Yes normal to inspection Psych Appearance: grossly normal and well kempt Mental Status: mental status grossly normal Speech and movement: Normal speech and movement present and Clear speech present Affect: normal affect Attitude: cooperative Thought process: Normal thought process present Thought content: Normal thought content present Insight: Fair insight present (Psych) Judgement: Fair judgement present (Psych) Results AMB Urinalysis, Automated UA Leukoctes 0 Rodney/uL Last Edit by [employer] Francisco J on 12/23/24 08:05 UA Nitrite Last Edit by Kyle Marx on 12/23/24 08:05 UA Urobilinogen 0.2 mg/dL Last Edit by [employer] Marx on 12/23/24 08:05 UA Protein 15 mg/dL Last Edit by Kyle Marx on 12/23/24 08:05 UA pH 6.0 Last Edit by Kyle Marx on 12/23/24 08:05 UA Blood 0 Lenard/uL Last Edit by [employer] on 12/23/24 08:05 UA Specific Clive 1.015 Last Edit by [employer] Marx on 12/23/24 08:05 UA Ketone Last Edit by [employer] Alexiaamelie on 12/23/24 08:05 UA Bilirubin 0 mg/dL Last Edit by [employer] Alexiaamelie on 12/23/24 08:05 UA Glucose 0 mg/dL Last Edit by [employer] on 12/23/24 08:05 Results Reviewed Results Reviewed: Laboratory Last Values Urine pH (Auto) 6.0 12/23/24 07:48 Specific Clive (Auto) 1.015 12/23/24 07:48 Urine Protein (Auto) 15 mg/dL 12/23/24 07:48 Glucose (UA)(Auto) 0 mg/dL 12/23/24 07:48 Urine Blood (Auto) 0 Lenard/uL 12/23/24 07:48 Urine Bilirubin (Auto) 0 mg/dL 12/23/24 07:48 Urine Urobilinogen (Auto) 0.2 mg/dL 12/23/24 07:48 Leukocyte Esterase (Auto) 0 Rodney/uL 12/23/24 07:48 Date of Service: 12/15/24 US Renal Comparison: US/GA/SR - US RENAL BI - 11/25/23 13:34 EST Findings: Right kidney normal size and echotexture, 10.4 cm length. Left kidney normal size and echotexture, 10.8 cm length. No hydronephrosis of either kidney. Normal color doppler. There is a 6 mm nonobstructive calculus within the midportion of the right kidney. There are 2 nonobstructive calculi within the left kidney, a 5 mm calculus within the lower pole and a 4 mm calculus within the upper pole. IMPRESSION: 1. Small nonobstructive calculi within the bilateral kidneys. Assessment & Plan Assessment & Plan (1) Nephrolithiasis: Code(s): N20.0 - Calculus of kidney Category: Medical Plan In office urinalysis results with the patient today; as noted above. Recent renal imaging results reviewed with the patient today; as noted above. Will continue with surveillance monitoring. Patient currently denies any bothersome urinary issues or concerns. He reports be happy with current voiding parameters. Will obtain PSA. Will obtain renal ultrasound in 1 year. Continue vitamin B6. Discussed, educated, and stressed the importance of continuing to drink plenty of water daily. Follow-up in 1 year with imaging and PSA to be completed prior; or sooner with any issues, concerns, and or questions. Orders: Orders US renal BI 1 Year N20.0 - Calculus of kidney Prostate Specific Antigen Today Z08 - Encounter for follow-up examination after completed treatment for malignant neoplasm, Z85.46 - Personal history of malignant neoplasm of prostate AMB Urinalysis Automated Today Z13.9 - Encounter for screening, unspecified Patient Instructions: The patient had an opportunity to ask questions regarding the treatment plan. All questions were answered. Physical exam, labs, and imaging were discussed and reviewed in detail. As well as risks, benefits, and discussion of treatment choices. No major barriers to understanding were identified. The patient expressed understanding and agreement with the above treatment plan. The patient was made aware they should contact our office by phone for worsening of their current condition, the appearance of new symptoms, or with any questions or concerns. Compliance is encouraged with any medications and follow up testing that is ordered. It is a privilege to be allowed the opportunity to participate in? your urological care.? Again, if you have any questions or concerns If you have any questions or concerns please do not hesitate to contact me. The office is [phone]. This note is constructed using voice recognition software. While every effort has been made to ensure accuracy dishing machine operator errors may have been included. Yours sincerely, MADISON Schuster Coding Level of Care Code Est Pt Level 3 (27470) Diagnoses Nephrolithiasis N20.0
== END 2024-12-23 08:08 | disposition home or self-care (01) ==
PROVIDERS: PCP Internal Medicine; Visit Provider Nurse Practitioner Family
DX: N20.0 Calculus of kidney (principal); Z13.9 Encounter for screening, unspecified
CPT/HCPCS: 99213

== ENCOUNTER → 2024-12-23 07:32 | Outpatient (BNVA) | payer OTHER, SELFPAY | PROVIDERS: PCP Internal Medicine; Visit Provider Nurse Practitioner Family | DX: N20.0 Calculus of kidney (principal) | CPT/HCPCS: 81003; 99212 ==

== ENCOUNTER 2025-02-02 09:03 | Outpatient (AMB) | payer OTHER, SELFPAY ==
[2025-02-02 09:42] VITALS: BP 140/90; PULSE 100; O2SAT 99; BMI 33.7
--- NOTE | 2025-02-02 09:42 | MHC.OFFVIS ---
Vital Signs 02/02/25 09:42 Height 5 ft 5 in Weight 202 lb 13.204 oz BMI 33.7 BP 140/90 H Blood Pressure Location Lt brachial Pulse 100 Pulse Source Pulse Oximeter Pulse Oximetry (%) 99 Oxygen Delivery Method Room Air Intake Visit Reasons: COPD Intake Note: pt is here for follow up and states only at times it does get tight at times, but much better than last visits, Retail Sales Professional Required: No Allergies MONALISA Inhibitors [MONALISA INHIBITORS] Allergy (Severe, Verified 02/02/25 10:19) SHORTNESS OF BREATH albuterol Adverse Reaction (Intermediate, Verified 02/02/25 10:19) Palpitations Penicillins Adverse Reaction (Intermediate, Verified 02/02/25 10:19) STOMACH UPSET stress induced anaphylaxis Allergy (Severe, Uncoded 02/02/25 10:19) Anaphylaxis Medication List - Last Reconciled 02/02/25 by Jovita Parrish MD allopurinol 100 mg PO DAILY 90 days amlodipine 10 mg PO DAILY 30 days blood sugar diagnostic (FreeStyle Lite Strips) 3 jeremias a day cholecalciferol (vitamin D3) 25 mcg PO DAILY cyanocobalamin (vitamin B-12) (Vitamin B-12) 250 mcg PO DAILY 60 days dicyclomine 20 mg PO TID 30 days eluxadoline (Viberzi) 100 mg PO BID epinephrine (EpiPen 2-Benedict) 0.3 mg (0.3 mL) IM ONCE PRN flash glucose sensor (FreeStyle Arnulfo 14 Day Sensor kit) As directed fluticasone propion-salmeterol 250-50 mcg/dose (Advair Diskus) 1 inh inhalation BID 90 days fluticasone propionate 50 mcg/actuation 1 - 2 sprays intranasal DAILY FreeStyle Lancets (lancets) 3 times a day NS hydrochlorothiazide 25 mg PO DAILY 30 days inhalat.spacing dev,large mask (BreatheRite Spacer and Mask, Adult) As directed levalbuterol tartrate 45 mcg/actuation (Xopenex HFA) 2 inhalations inhalation Q4-6H 30 days losartan 50 mg PO DAILY metoclopramide HCl (Reglan) 10 mg PO QIDACHS pantoprazole (Protonix) 40 mg PO BID 30 days pyridoxine (vitamin B6) 100 mg PO DAILY 90 days rosuvastatin 20 mg PO DAILY Do you need a note to return to daycare/school/sports/work: No HPI HPI COPD: Details: THIS 55 YEARS OLD VERY PLEASANT GENTLEMAN IS HERE TODAY ACCOMPANIED BY HIS , FOR 4 MONTHS FOLLOW-UP. CLAIMS THAT HIS BREATHING HAS BEEN FAIRLY STABLE WITHOUT ANY ACUTE EXACERBATIONS. HE STILL GETS INTERMITTENT SPASMS IN HIS CHEST BUT NOT DEFINITE WHEEZING. .COUGH IS MINIMAL HE GETS SHORT OF BREATH ON WALKING UP [facility] [employer] [facility]. OVERALL HIS BREATHING STATUS HAS REMAINED VERY STABLE. [facility] Medical History Chest pain Physical exam Bronchitis Acute asthma exacerbation Hospital discharge follow-up Radiologic findings of lung field, abnormal Obesity BPH (benign prostatic hyperplasia) Asthma Type 2 diabetes mellitus with obesity Allergic rhinitis SARAH (obstructive sleep apnea) Diverticulosis History of postoperative nausea and vomiting Anaphylaxis Anxiety Dysphagia IBS (irritable bowel syndrome) Asthma Sleep apnea Fatty liver Non-toxic multinodular goiter B12 deficiency Vitamin D deficiency Obesity (BMI 30-39.9) Nephrolithiasis Hypertension Dyslipidemia Diabetes type 2, uncontrolled COPD (chronic obstructive pulmonary disease) Surgical History Hx of umbilical hernia repair Hx of cystoscopy Hx of lithotripsy Hx of colonoscopy Hx of esophagogastroduodenoscopy Hx of adenoidectomy Hx of hernia repair Hx of appendectomy Family History Father Diabetes Mother CVD (cardiovascular disease) Cancer Social History Household Members: Significant Other Housing: Apartment Do you presently have visiting nurse or other home services: No Alcohol intake: current Alcohol intake frequency: a few times a week Patient Tobacco Use Status: Former Tobacco user Tobacco use type: Cigarette e-Cigarette/Vaping Use: Never Used Second Hand Smoke Exposure: No service: No Current occupational status: unemployed and disabled Cognitive needs: No Hearing needs: No Vision needs: No Review of Systems Const All systems reviewed & are unremarkable except as noted in HPI and below Eyes Reports no additional complaints ENT Reports nasal congestion (INTERMITTENT USUALLY WITH CHANGE OF WEATHER) Card Denies chest pain, Denies irregular heart rhythm and Denies leg edema Resp Reports as per HPI GI Reports no additional complaints Reports no additional complaints Musc Reports no additional complaints Skin/Breast Reports system reviewed and no additional complaints, except as documented Neuro Reports no additional complaints Psych Reports no additional complaints Physical Exam Vital Signs: Last Vital Signs Pulse 100 02/02/25 09:42 BP 140/90 H 02/02/25 09:42 Pulse Ox 99 02/02/25 09:42 Oxygen Delivery Method Room Air 02/02/25 09:42 BMI result Body Mass Index 33.7 Const General: healthy appearing, comfortable, no acute distress, alert and awake Orientation/consciousness: patient oriented x3 HEENT Head: Yes normal to inspection General nose exam: No nasal polyps present, No nasal discharge present and Other nasal findings present (HE DOES HAVE MILD BILATERAL NASAL CONGESTION) Face and sinus: Yes sinuses nontender Mouth: oropharynx normal (THERE IS MILD ERYTHEMA THE OROPHARYNX) Throat: Yes posterior oropharynx normal Eyes General: appearance normal, both eyes and all related structures Neck Neck: Yes normal visual inspection, Yes no lymphadenopathy, Yes trachea midline and Yes no JVD Thyroid: Thyroid normal Chest Chest palpation & inspection: normal inspection of the chest, normal palpation of entire chest wall and no tenderness Resp Other: Percussion note is resonant, breath sounds are slightly distant , especially decreased over the basilar areas. But there are no wheezes . Also no Crepitation are heard . Cardio Palpation: normal PMI Rate: regular rate Rhythm: regular rhythm Heart sounds: no gallops and no murmurs Peripheral pulses: Peripheral pulses 2+ throughout GI Palpation (GI): Soft to palpation, nontender, No hepatosplenomegaly present and no masses Auscultation: normal bowel sounds Back/Spine/Pelvis Thoracic/Lumbar Spine: thoracic and lumbar spine normal to inspection Skin General skin exam: no rashes or lesions noted Neuro General: patient oriented x3 and no focal motor deficits Cranial nerves: Yes CN's II-XII intact bilaterally Extrem General: Yes normal to inspection, Yes no clubbing, cyanosis or edema and Yes no calf tenderness Psych Speech and movement: Normal speech and movement present Assessment & Plan Assessment & Plan (1) COPD (chronic obstructive pulmonary disease): Comment: [id number] ASTHMA/COPD overlap . CONTROLLED WITH THE CURRENT REGIMEN . Code(s): J44.9 - Chronic obstructive pulmonary disease, unspecified Category: Medical Plan: ADVISED TO CONTINUE THE PRESENT REGIMEN WHICH INCLUDES ADVAIR 250-51 INHALATION B.I.D. AND LEVALBUTEROL INHALER WITH THE HELP OF HIS SPACER HE, Q 6 HOURS P.R.N.. HE ENDS UP USING IT ABOUT TWICE A DAY ON A REGULAR BASIS. (2) SARAH (obstructive sleep apnea): Comment: DID HAVE HISTORY OF SARAH FOR MANY YEARS. RESOLVED AFTER SIGNIFICANT WEIGHT LOSS. DOES NOT USE CPAP, CLAIMS THAT HE IS SLEEPING OKAY, I DID CAUTION HIM THAT HE NEEDS TO LOSE MORE WEIGHT . Code(s): G47.33 - Obstructive sleep apnea (adult) (pediatric) Category: Medical Plan: ABOVE (3) Asthma: Comment: HE HAS HISTORY OF CHRONIC BRONCHIAL ASTHMA WHICH HAS NOW GONE INTO COPD ASTHMA/COPD OVERLAP SYNDROME. IT REMAINS WELL CONTROLLED. Code(s): J45.909 - Unspecified asthma, uncomplicated Category: Medical Plan: UNDER COPD (4) Allergic rhinitis: Comment: MINIMAL.and CONTROLLED , DENIES ANY ACUTE ATTACKS Code(s): J30.9 - Allergic rhinitis, unspecified Category: Medical Plan: MAY USE FLONASE-51 OR 2 SPRAYS IN EACH NOSTRIL DAILY NEEDED Coding Level of Care Code Est Pt Level 3 (41161) Diagnoses COPD (chronic obstructive pulmonary disease) J44.9 SARAH (obstructive sleep apnea) G47.33 Asthma J45.909 Allergic rhinitis J30.9
--- OUTSIDE RECORDS SUMMARY | 2025-02-02 09:54 | XMS_ITS | Clinical Summary ---
Author Organization [employer] [facility] Address [address] [place] [address] [address] [place] [address] Care Team Providers Care Glass Presser Name Role Phone Unavailable Primary Care Provider [...] Most Recently Relevant to Health Maintenance Insurance [facility] MEDICAID STAND ADULT
--- OUTSIDE RECORDS SUMMARY | 2025-02-02 09:54 | XMS_ITS | Encounter Summary ---
Author Organization [facility] Address [address] [place] [address] [address] [place] [address] Care Team Providers Care Head Swamper Name Role Phone Unavailable Primary Care Provider Unavailabl e Encounter Details Date Type Department Care Team (Latest Contact Info) Description 02/20/2021 Abstract [facility] CONVERSIONS Dental, Provider, DDS Social History [...]
== END 2025-02-02 10:06 | disposition home or self-care (01) ==
LOC: HO.HPS 09:03
PROVIDERS: PCP Internal Medicine; Visit Provider Internal Medicine
DX: J44.9 Chronic obstructive pulmonary disease, unspecified (principal); G47.33 Obstructive sleep apnea (adult) (pediatric); J45.909 Unspecified asthma, uncomplicated; J30.9 Allergic rhinitis, unspecified
CPT/HCPCS: 99213

== ENCOUNTER → 2025-02-02 09:03 | Outpatient (BNVA) | payer OTHER, SELFPAY | PROVIDERS: PCP Internal Medicine; Visit Provider Internal Medicine | DX: J44.9 Chronic obstructive pulmonary disease, unspecified (principal); J30.9 Allergic rhinitis, unspecified; G47.33 Obstructive sleep apnea (adult) (pediatric); Z87.891 Personal history of nicotine dependence | CPT/HCPCS: 99212 ==

== ENCOUNTER 2025-03-02 08:31 | Outpatient (AMB) | payer OTHER, SELFPAY ==
--- NOTE | 2025-03-02 08:38 | MHC.PC.OV ---
Vital Signs 03/02/25 08:42 Height 5 ft 5 in Weight 197 lb 8 oz BMI 32.9 BP 130/80 Blood Pressure Location Lt brachial Position Sitting Pulse 86 Pulse Source Pulse Oximeter Temp 97.3 F Temp Source Temporal Artery Scan Pulse Oximetry (%) 98 Oxygen Delivery Method Room Air Intake Visit Reasons: Transfer from [facility] 3 months f/u Intake Note: Patient is here today for DANILO from PAT[facility]IC[facility] Garcia f/u. Litigator Required: No Hr Associate: Present Accompanied by: Spouse Allergies MONALISA Inhibitors [MONALISA INHIBITORS] Allergy (Severe, Verified 03/02/25 09:00) SHORTNESS OF BREATH albuterol Adverse Reaction (Intermediate, Verified 03/02/25 09:00) Palpitations Penicillins Adverse Reaction (Intermediate, Verified 03/02/25 09:00) STOMACH UPSET stress induced anaphylaxis Allergy (Severe, Uncoded 03/02/25 09:00) Anaphylaxis Medication List - Last Reconciled 03/02/25 by Jane Colon PA-C allopurinol 100 mg PO DAILY 90 days amlodipine 10 mg PO DAILY 30 days blood sugar diagnostic (FreeStyle Lite Strips) 3 jeremias a day cholecalciferol (vitamin D3) 25 mcg PO DAILY cyanocobalamin (vitamin B-12) (Vitamin B-12) 250 mcg PO DAILY 60 days dicyclomine 20 mg PO TID 30 days eluxadoline (Viberzi) 100 mg PO BID epinephrine (EpiPen 2-Benedict) 0.3 mg (0.3 mL) IM ONCE PRN flash glucose sensor (FreeStyle Arnulfo 14 Day Sensor kit) As directed fluticasone propion-salmeterol 250-50 mcg/dose (Advair Diskus) 1 inh inhalation BID 90 days fluticasone propionate 50 mcg/actuation 1 - 2 sprays intranasal DAILY FreeStyle Lancets (lancets) 3 times a day NS hydrochlorothiazide 25 mg PO DAILY 30 days inhalat.spacing dev,large mask (BreatheRite Spacer and Mask, Adult) As directed levalbuterol tartrate 45 mcg/actuation (Xopenex HFA) 2 inhalations inhalation Q4-6H 30 days losartan 50 mg PO DAILY metoclopramide HCl (Reglan) 10 mg PO QIDACHS pantoprazole (Protonix) 40 mg PO BID 30 days pyridoxine (vitamin B6) 100 mg PO DAILY 90 days rosuvastatin 20 mg PO DAILY Tobacco use date assessed: 03/02/25 Dental Screening Dental Screen Date: 12/02/24 HPI Transfer from [facility] 3 months f/u HPI Details 55-year-old male with past medical history of type 2 diabetes, COPD, hypertension, dyslipidemia, obstructive sleep apnea, GERD, BPH last seen 11/[address] Kelly coming in for transfer of care.?Patient was seen by pulmonology 01/2025 continue on current medication regimen, no longer using CPAP after weight loss. Urology 11/2024 continue surveillance monitoring for nephrolithiasis plan to obtain PSA and renal ultrasound in 1 year and continue on vitamin B6. Patient does also follow with Gastroenterology last seen 08/2024 continued on Reglan, Viberzi, pantoprazole and follow up in 6 months. Presenting with diabetes management and gastrointestinal issues, specifically IBS and gastroparesis. Enduring gastrointestinal disturbance since age 20, with symptoms aligning with IBS, characterized by both diarrhea and constipation. Reports nausea and morning vomiting suggestive of gastroparesis, exacerbated by certain medications previously trialed for diabetes control, leading to consistent symptom presence for approximately 35 years. Diabetes management challenges include recent elevation in glucose levels (A1c at 7.5) following discontinuation of Trulicity and Mounjaro due to nausea and rash side effects. Past effective control on metformin, discontinued for exceeding control thresholds. Previous indication of an enlarged prostate, although clinical evidence such as PSA tests are normal, with no related urinary symptoms. Occasional stress-induced anaphylaxis once encountered during maternal terminal illness, with no recurrent episodes. colonoscopy: last year and follows with GI PSA: UTD follows with urology [facility] Medical History Chest pain Physical exam Bronchitis Acute asthma exacerbation Hospital discharge follow-up Radiologic findings of lung field, abnormal Obesity BPH (benign prostatic hyperplasia) Asthma Type 2 diabetes mellitus with obesity Allergic rhinitis SARAH (obstructive sleep apnea) Diverticulosis History of postoperative nausea and vomiting Anaphylaxis Anxiety Dysphagia IBS (irritable bowel syndrome) Asthma Sleep apnea Fatty liver Non-toxic multinodular goiter B12 deficiency Vitamin D deficiency Obesity (BMI 30-39.9) Nephrolithiasis Hypertension Dyslipidemia Diabetes type 2, uncontrolled COPD (chronic obstructive pulmonary disease) Surgical History Hx of umbilical hernia repair Hx of cystoscopy Hx of lithotripsy Hx of colonoscopy Hx of esophagogastroduodenoscopy Hx of adenoidectomy Hx of hernia repair Hx of appendectomy Family History Father Diabetes Mother CVD (cardiovascular disease) Cancer Social History Household Members: Significant Other Housing: Apartment Do you presently have visiting nurse or other home services: No Alcohol intake: current Alcohol intake frequency: a few times a week Patient Tobacco Use Status: Former Tobacco user Tobacco use type: Cigarette e-Cigarette/Vaping Use: Never Used Second Hand Smoke Exposure: Yes service: No Current occupational status: unemployed and disabled Cognitive needs: No Hearing needs: No Vision needs: No Questionnaire PHQ-9 Over the last 2 weeks, how often have you been bothered by any of the following problems? 1. Little interest or pleasure in doing things: not at all 2. Feeling down, depressed, or hopeless: not at all 3. Trouble falling or staying asleep, or sleeping too much: nearly every day 4. Feeling tired or having little energy: nearly every day 5. Poor appetite or overeating: not at all 6. Feeling bad about yourself - or that you are a failure or have let yourself or your family down: not at all 7. Trouble concentrating on things, such as reading the newspaper or watching television: not at all 8. Moving or speaking so slowly that other people could have noticed. Or the opposite - being so fidgety or restless that you have been moving around a lot more than usual: not at all 9. Thoughts that you would be better off or of hurting yourself in some way: not at all Total score: 6 Depression Screening Interpretation: Positive Depression Screening Follow-up: Existing condition and Declines treatment Depression Screening Done: Yes Source: Developed by Drs. Sam Sharp, Paula Allen, Samson Zavala and colleagues, with an educational fawn from [employer]. Thrive Questionnaire Date Thrive assessed: 12/02/24 I am a: Patient What is your living situation today?: I have a steady place to live Within the past 12 months, did the food you bought not last and you didn't have the money to get more?: Never true Within the past 12 months, did you worry whether your food would run out before you got money to buy more?: Never true Do you have trouble paying for medicines?: No Do you have trouble getting transportation to medical appointments?: No Do you have trouble paying your heating and electricity bill?: No Do you have trouble taking care of your child, family member or friend?: No Do you have trouble with day-to-day activities such as bathing, preparing meals, shopping, managing finances, etc.?: No Are you currently unemployed and looking for a job?: No Are you interested in more education?: No Please select the resources that you would like help with: None Currently or been in a relationship where the following occur: I choose not to answer THRIVE Score: 0 AUDIT C Alcohol Use Questionnaire (AUDIT-C) 1. How often do you have a drink containing alcohol?: 4 or more times a week 2. How many drinks containing alcohol do you have on a typical day when you are drinking?: 3 or 4 3. How often do you have six or more drinks on one occasion?: Less than monthly Total Score: 6 Score Reviewed/Action Taken: Yes VILLA-7 AMB Questionnaire VILLA-7 Date VILLA - 7 assessed: 12/02/24 Feeling nervous, anxious, or on edge: 0 = Not at all Not being able to stop or control worryin = Not at all Worrying too much about different things: 0 = Not at all Trouble relaxin = Not at all Being so restless that it is hard to sit still: 0 = Not at all Becoming easily annoyed or irritable: 0 = Not at all Feeling afraid as if something awful might happen: 0 = Not at all Total VILLA-7 score (0-4 normal; 5-9 mild; 10-14 moderate; 15-21 severe): 0 Source: Developed by Drs. Sam Sharp, Paula Allen, Samson Zavala and colleagues, with an educational fawn from [employer]. VILLA-7 Assessment Billing VILLA-7 Assessment Tool: VILLA-7 Assessment 98068 Review of Systems Const Denies body aches, Denies chills, Denies fever(s), Denies headache(s) and Denies poor appetite Eyes Reports no additional complaints ENT Denies dysphagia, Denies dizziness, Denies headache(s) and Denies odynophagia Card Denies chest pain, Denies syncope, Denies edema, Denies irregular heart rhythm, Denies lightheadedness and Denies dyspnea Resp Denies cough and Denies dyspnea GI Reports abdominal pain, Reports bloating, Reports constipation, Denies dysphagia, Reports dyspepsia, Reports heartburn, Reports diarrhea, Reports nausea, Denies odynophagia and Reports vomiting Reports no additional complaints Musc Reports no additional complaints and Denies abnormal gait Skin/Breast Reports system reviewed and no additional complaints, except as documented Neuro Denies abnormal gait, Denies dizziness, Denies syncope and Denies headache(s) Psych Reports no additional complaints Physical exam (Primary Care) Vital Signs: Last Vital Signs Temp 97.3 F 03/02/25 08:42 Pulse 86 03/02/25 08:42 BP 130/80 03/02/25 08:42 Pulse Ox 98 03/02/25 08:42 Oxygen Delivery Method Room Air 03/02/25 08:42 BMI result Body Mass Index 32.9 Tobacco/Smoking Status: Tobacco use Status Tobacco use date assessed 03/02/25 03/02/25 08:51 Patient Tobacco Use Status Former Tobacco user 03/02/25 08:39 Tobacco use type Cigarette 03/02/25 08:39 e-Cigarette/Vaping Use Never Used 03/02/25 08:39 PHQ-9: PHQ-9 Score PHQ-9: Total score 6 03/02/25 09:58 Depression Screening Interpretation: Positive Depression Screening Follow-up: Existing condition and Declines treatment Thrive Assessment: Date of Thrive Assessment Date Thrive assessed 12/02/24 03/02/25 08:39 Currently or been in a relationship where the following occur: I choose not to answer Const General: cooperative, healthy appearing, comfortable and no acute distress Orientation/consciousness: patient oriented x3 HENMT Head: Yes normocephalic Ears: hearing grossly normal bilaterally General nose exam: Normal external nose present Eyes General: appearance normal, both eyes and all related structures Conjunctivae: conjunctivae normal Neck Neck: Yes full ROM and Yes no lymphadenopathy Resp Effort & Inspection: normal respiratory effort Auscultation: clear to auscultation bilaterally, no crackles, no rales, no rhonchi and no wheezes Cardio Rate: regular rate Rhythm: regular rhythm Skin General skin exam: no rashes or lesions noted Neuro General: patient oriented x3 Gait exam (Neuro): Normal gait present Extrem General: Yes normal to inspection, Yes full ROM and No edema Psych Affect: normal affect Attitude: cooperative Insight: Good insight present (Psych) Judgement: Good judgement present (Psych) Results AMB Hemoglobin A1c AMB Hemoglobin A1c 7.5 % Last Edit by JUAN Sanchez on 03/02/25 09:11 Results Reviewed Results Reviewed: Laboratory Last Values Hgb A1c (Clinic) 7.5 % (4.0-6.0) H 03/02/25 08:38 Coding Level of Care Code Est Pt Level 4 (62718) Diagnoses BPH (benign prostatic hyperplasia) N40.0 Asthma J45.909 Type 2 diabetes mellitus with obesity E11.69; E66.9 GERD (gastroesophageal reflux disease) K21.9 Irritable bowel syndrome with diarrhea K58.0 SARAH (obstructive sleep apnea) G47.33 Obesity (BMI 30-39.9) E66.9 Hypertension I10 Dyslipidemia E78.5 COPD (chronic obstructive pulmonary disease) J44.9 Depression F32.A Anxiety F41.9 Additional Codes VILLA-7 Assessment Billing - VILLA-7 Assessment Tool: VILLA-7 Assessment [id number] ([id number]) Assessment & Plan Assessment & Plan (1) BPH (benign prostatic hyperplasia): Code(s): N40.0 - Benign prostatic hyperplasia without lower urinary tract symptoms Category: Medical Plan: Continue to follow with Urology last PSA within normal limits. Per Urology repeat PSA in 1 year (2) Asthma: Comment: HE HAS HISTORY OF CHRONIC BRONCHIAL ASTHMA WHICH HAS NOW GONE INTO COPD ASTHMA/COPD OVERLAP SYNDROME. IT REMAINS WELL CONTROLLED. Code(s): J45.909 - Unspecified asthma, uncomplicated Category: Medical Plan: Asthma currently controlled on present medications. Continue on current inhalers. Continue to follow with pulmonology Avoid triggers such as allergies. (3) Type 2 diabetes mellitus with obesity: Code(s): E11.69 - Type 2 diabetes mellitus with other specified complication; E66.9 - Obesity, unspecified Category: Medical Plan: Decrease the amount of carbohydrates such as pasta, bread, rice, and potatoes and limit the amount of sweets. Although fruits are generally healthy they should be eaten in moderation as they are still high in sugar. Hemoglobin A1c goal of less than 7%. A1c elevated in the clinic today. Plan to restart on Jardiance at this time. Follow up in 3 months (4) GERD (gastroesophageal reflux disease): Code(s): K21.9 - Gastro-esophageal reflux disease without esophagitis Category: Medical Plan: Avoid trigger foods such as citrus, tomato products, soda, caffeine, spicy foods and other foods that may be irritating to your stomach. Avoid laying flat 3-4 hours after eating and elevate the head of the bed 30 degrees to prevent acid from moving into the esophagus. Continue on pantoprazole (5) Irritable bowel syndrome with diarrhea: Code(s): K58.0 - Irritable bowel syndrome with diarrhea Category: Medical Plan: Patient currently following with GI and on a multitude of medications including dicyclomine, Reglan and Viberzi. (6) SARAH (obstructive sleep apnea): Comment: DID HAVE HISTORY OF SARAH FOR MANY YEARS. RESOLVED AFTER SIGNIFICANT WEIGHT LOSS. DOES NOT USE CPAP, CLAIMS THAT HE IS SLEEPING OKAY, I DID CAUTION HIM THAT HE NEEDS TO LOSE MORE WEIGHT . Code(s): G47.33 - Obstructive sleep apnea (adult) (pediatric) Category: Medical Plan: Patient no longer using CPAP continue to follow with pulmonology. (7) Obesity (BMI 30-39.9): Code(s): E66.9 - Obesity, unspecified Category: Medical Plan: Healthy diet and regular exercise is encouraged. (8) Hypertension: Code(s): I10 - Essential (primary) hypertension Category: Medical Plan: Continue on current blood pressure medication. Avoid salt intake and encourage healthy diet and regular exercise. (9) Dyslipidemia: Code(s): E78.5 - Hyperlipidemia, unspecified Category: Medical Plan: Avoid foods that are high in cholesterol such as red meat, fried foods, eggs and baked goods. Triglyceride goal of less than 150 and LDL goal of less than 100. Continue on rosuvastatin. Ordered for repeat blood work for 3 months (10) COPD (chronic obstructive pulmonary disease): Comment: [id number] ASTHMA/COPD overlap . CONTROLLED WITH THE CURRENT REGIMEN . Code(s): J44.9 - Chronic obstructive pulmonary disease, unspecified Category: Medical Plan: Currently following with pulmonology in stable on current inhalers. (11) Depression: Code(s): F32.A - Depression, unspecified Category: Medical Plan: Patient having history of anxiety and depression declining medication management and counseling at this time. (12) Anxiety: Comment: hx of stress induced anaphylaxis Code(s): F41.9 - Anxiety disorder, unspecified Category: Medical Plan: See above Plan This note was constructed using voice recognition software. While every effort has been made to ensure accuracy and ground transportation operator, still areas may have been included sometimes these areas may affect the content or meeting of the given symptoms. Total time spent caring for the patient today was 30 minutes. This includes time spent before the visit reviewing the chart, time spent during the visit, and time spent after the visit and documentation. Patient was informed and verbally consented to the use of an ambient scribe for clinic note documentation during this visit. Orders: Orders AMB Hemoglobin A1c Today E11.69 - Type 2 diabetes mellitus with other specified complication, E66.9 - Obesity, unspecified Lipid Panel 3 Months E78.00 - Pure hypercholesterolemia, unspecified Hemoglobin A1c 3 Months E11.65 - Type 2 diabetes mellitus with hyperglycemia Referrals Podiatry Referral E11.69 - Type 2 diabetes mellitus with other specified complication, E66.9 - Obesity, unspecified Medications: New empagliflozin (Jardiance) 10 mg PO DAILY 90 tabs 0RF Refilled flash glucose sensor (FreeStyle Arnulfo 14 Day Sensor kit) As directed 2 ea 0RF E11.65 - Type 2 diabetes mellitus with hyperglycemia blood sugar diagnostic (FreeStyle Lite Strips) 3 jeremias a day 100 ea 11RF E11.65 - Type 2 diabetes mellitus with hyperglycemia
[2025-03-02 08:42] VITALS: BP 130/80; PULSE 86; TEMP 36.3; O2SAT 98; BMI 32.9
--- OUTSIDE RECORDS SUMMARY | 2025-03-02 08:53 | XMS_ITS | Clinical Summary ---
Author Organization [employer] Address [address] [facility] [address] [place] [address] Care Team Providers Care Industrial X Ray Operator Name Role Phone Unavailable Primary Care [...] 08/22/2021, 02/20/2021, Additional history exists COVID-19 Vaccine (3 - 2023- season) 2024 09/29/2021, 02/01/2021 Influenza Vaccine (#1) [...] Most Recently Relevant to Health Maintenance Insurance [facility]AL-[facility] MEDICAID STAND ADULT
--- OUTSIDE RECORDS SUMMARY | 2025-03-02 08:53 | XMS_ITS | Encounter Summary ---
Author Organization [employer] [facility] Address [address] [place] [address] 7 h Floor [place] [id number] Care Team Providers Care Ecological Risk Assessor Name Role Phone Unavailable Primary Care Provider Unavailabl e Encounter Details Date Type Department Care Team (Latest Contact Info) Description 02/20/2021 Abstract [facility]HC CONVERSIONS Dental, Provider, DDS Social History Tobacco [...]
== END 2025-03-02 10:10 | disposition home or self-care (01) ==
DX: E11.69 Type 2 diabetes mellitus with other specified complication (principal); J44.9 Chronic obstructive pulmonary disease, unspecified; N40.0 Benign prostatic hyperplasia without lower urinary tract symptoms; J45.909 Unspecified asthma, uncomplicated; E66.9 Obesity, unspecified; K21.9 Gastro-esophageal reflux disease without esophagitis; K58.0 Irritable bowel syndrome with diarrhea; G47.33 Obstructive sleep apnea (adult) (pediatric); Z68.32 Body mass index [BMI] 32.0-32.9, adult; I10 Essential (primary) hypertension; E78.5 Hyperlipidemia, unspecified; F32.A Depression, unspecified

== ENCOUNTER → 2025-03-02 08:31 | Outpatient (BNVA) | payer OTHER, SELFPAY | PROVIDERS: PCP Internal Medicine | DX: N40.0 Benign prostatic hyperplasia without lower urinary tract symptoms (principal); E11.69 Type 2 diabetes mellitus with other specified complication; E66.9 Obesity, unspecified; Z68.32 Body mass index [BMI] 32.0-32.9, adult; K21.9 Gastro-esophageal reflux disease without esophagitis; K58.0 Irritable bowel syndrome with diarrhea; G47.33 Obstructive sleep apnea (adult) (pediatric); I10 Essential (primary) hypertension; E78.5 Hyperlipidemia, unspecified; J44.9 Chronic obstructive pulmonary disease, unspecified; F32.A Depression, unspecified; F41.9 Anxiety disorder, unspecified | CPT/HCPCS: 83036; 96127; 99212 ==

== ENCOUNTER 2025-03-10 07:51 | Outpatient (REF) | payer OTHER, SELFPAY ==
--- OUTSIDE RECORDS SUMMARY | 2025-03-10 07:55 | XMS_ITS | Encounter Summary ---
Author Organization [employer] Address [address] [facility] [address] [place] [address] Care Team Providers Care Watch Train Inspector Name Role Phone Unavailable Primary Care Provider Unavailabl e Reason for Visit * Reason Onset Date Comments appt 03/08/2025 Encounter Details Date Type Department Care Team (Late st Contact Info) Description 03/08/2025 Telephone [facility]ULT [facility] [address] [place] [address] Brendan Watson appt Social History Tobacco Use Types Packs/Day Years Used Date Smoking Tobacco: Never Smokeless Tobacco: Never Alcohol Use Standard Drinks/Week Comments Not Currently 0 (1 standard drink = 0.6 oz pur e alcohol) Sex and Gender Information Value Date Recorded Sex Assigned at Male 08/27/2022 10:16 AM EDT Legal Sex Male 10:16 AM EDT Gender Identity Male 08/27/2022 10:16 AM EDT Sexual Orientation Straight 08/27/2022 10 :16 AM EDT documented as of this encounter Miscellaneous Notes * Telephone Encounter - Carole Coles - 03/08/2025 1:51 PM EDT Patient called in looking for an appt believe that he has a cavity. Some sensitivity with cold and hot and sometimes throbs with cold and hot. Has not been seen since 2022. Explained there is a waiting list for cleanings and exams which is what is due. He says he was supposed to get a call from theoffice to schedule appt for cleaning an exam and didn't receive the call. Explained I would reach out to office for follow up with patient documented in this encounter Plan of Treatment Not on file documented as of this encounter Visit Diagnoses Not on filedocumented in this encounter
--- OUTSIDE RECORDS SUMMARY | 2025-03-10 07:55 | XMS_ITS | Clinical Summary ---
Author Organization [employer] Address [address] [facility] [address] [place] [address] Care Team Providers Care Vault Worker Name Role Phone Unavailable Primary Care Provider [...] SUBCUTANEOUSLY ONCE A WEEK 07/04/20 23 Active chlorhexidine (Peridex) 0.12 % solution Swish 15 mL morning and night for 1 minute. Spit, do not swallow. Do not eat or drink for 30 minutes following use. 473 mL 03/09/20 25 Active Active Problems No known active problems Encounters Date Type Department Care Team Description 03/09/2025 10:00 AM EDT Office Visit [facility] [address] [place] [address] Neisha Watters 03/08/2025 Telephone [facility] ADULT D[facility] [address] [place] [address] Brendan Watson appt from Last 3 Months Social History Tobacco Use Types Packs/Day Years [...] 02/20/2021 Dental X-Ray: Full Mouth 02/22/2024 02/20/2021 COVID-19 Vaccine ( season) 2024 09/29/2021, 02/01/2021 Influenza Vaccine (#1) 2024 , 08/29/2021, 07/26/2020, Additional history exists DTaP/Tdap/Td Vaccines (2 - Td or Tdap) 05/16/2025 05/16/2015 Tobacco Screening 03/09/2026 03/09/2025 Dental X-Ray: Bitewings 03/10/2026 03/09/20, 06/26/2023, 08/22/2021, Additional history exists RSV Patients and Patients Aged 60 years [...] patient's age to complete this topic Meningococcal B Vaccine Aged Out No l onger eligible based on patient's age to complete [...] Procedure Name Priority Date/Time Associated Diagnosis Comments CASE PRESENTATION, DETAILED AND EXTENSIVE TREATMENT PLANNING Routine 03/09/2025 10:00 AM EDT BITEWING - SINGLE RADIOGRAPHIC IMAGE Routine 03/09/2025 10:00 AM EDT INTRAORAL - PERIAPICAL FIRST RADIOGRAPHIC IMAGE Routine 03/09/2025 10:00 AM EDT LIMITED ORAL EVALUATION - PROBLEM FOCUSED Routine 03/09/2025 10:00 AM EDT Full PROPHYLAXIS - ADULT Routine 023 11:00 AM EDT PERIODIC ORAL EVALUATION - ESTABLISHED PATIENT Routine 06/26/2023 11:00 AM EDT INTRAORAL - COMPLETE SERIES OF RADIOGRAPHIC IMAGES Routine 02/20/2021 12:00 AM EDT from Last 3 Months or Most Recently Relevant to Health Maintenance Insurance [facility] MED[facility] STAND ADULT
--- OUTSIDE RECORDS SUMMARY | 2025-03-10 07:55 | XMS_ITS | Encounter Summary ---
Author Organization [facility] Address [address] [place] [address] [address] [place] [address] Care Team Providers Care Submarine Cable Equipment Technician Name Role Phone Unavailable Primary Care Provider [...]
--- OUTSIDE RECORDS SUMMARY | 2025-03-10 07:55 | XMS_ITS | Encounter Summary ---
Author Organization [employer] Address [address] [facility] [address] [place] [address] Care Team Providers Care Animal Care Attendant Name Role Phone Unavailable Primary Care Provider Unavailabl e Reason for Visit * Reason Comments Dental Pain Upper left dental pa in Encounter Details Date Type Department Care Team (Late st Contact Info) Description 03/09/2025 10:00 AM EDT Office Visit [facility] [address] [place] [address] WattersXu barreratai [address] [place] [address] Social History Tobacco Use Types Packs/Day Years [...] AM EDT documented as of this encounter Progress Notes * Neisha Watters - 03/09/2025 10:00 AM EDT Images from the original note were not included. Dental procedures in this visit [id number] - LIMITED ORAL EVALUATION - PROBLEM FOCUSED (Completed) Service provider: Neisha Watters Billing provider: Neisha Watters [id number] - INTRAORAL - PERIAPICAL FIRST RADIOGRAPHIC IMAGE (Completed) Service provider: Neisha Watters Billing provider: Neisha Watters [id number] - BITEWING - SINGLE RADIOGRAPHIC IMAGE (Completed) Service provider: Neisha Watters Billing provider: Neisha Watters [id number] - CASE PRESENTATION, DETAILED AND EXTENSIVE TREATMENT PLANNING (Completed) Service provider: Neisha Watters Billing provider: Neisha Watters Patient ID: Jonn Hussein is a 55 y.o. male. Time Out: Timeout Date: 03/09/25, Timeout Time: 1020 Location: [facility] Tooth: UR Procedure: Exam and X-rays Verified the above with patient, speech language assistant, and provider. Confirmed via patient's chart, intraorally and by radiographs. Air Traffic Systems Technician: not applicable Chief Complaint Patient presents with Dental Pain Upper left dental pain Medical Hx: Vitals: There were no vitals taken for this visit. Past Medical History: Diagnosis Date Asthma Diabetes mellitus ([facility]) Hypertension Medications: Outpatient Encounter Medications as of 03/09/2025 Medication Sig Dispense Refill alosetron (Lotronex) 0.5 MG tablet Take 0.5 mg by mouth 2 times daily. amLODIPine (Norvasc) 10 MG tablet Take 10 mg by mouth in the morning. amLODIPine (Norvasc) 2.5 MG tablet Take 1 tablet by mouth at bed time. chlorhexidine (Peridex) 0.12 % solution Place 10 mL into mouth between cheek and gum every 8 (eight) hours. chlorhexidine (Peridex) 0.12 % solution Swish 15 mL morning and night for 1 minute. Spit, do not swallow. Do not eat or drink for 30 minutes following use. 473 mL 0 dicyclomine (Bentyl) 10 MG/5ML syrup TAKE 10 ML BY MOUTH FOUR TIMES A DAY dicyclomine (Bentyl) 20 MG tablet Take 20 mg by mouth 4 times daily. doxycycline (Monodox) 100 MG capsule take 2 ( two) at once first day then on 1 capsule daily until gone EPINEPHrine (Epipen) 0.3 MG/0.3ML injection syringe INJECT 0.3ML INTRAMUSCULARLY DIRECTED WHEN NEEDED FOR ANAPHYLAXIS Flovent HFA 110 MCG/ACT inhaler Inhale 1 puff 2 times daily. losartan (Cozaar) 25 MG tablet Take 1 tablet by mouth at bed time. losartan (Cozaar) 50 MG tablet Take 50 mg by mouth in the morning. metoclopramide (Reglan) 10 MG tablet TAKE 1 TABLET BY MOUTH BEFORE MEALS THREE TIMES A DAY AND TAKETWO TABLETS BY MOUTH AT BEDTIME Mounjaro 5 MG/0.5ML solution pen-injector INJECT 5MG SUBCUTANEOUSLY ONCE A WEEK omeprazole (PriLOSEC) [address] capsule Take 40 mg by mouth in the morning. Ozempic, 0.25 or 0.5 MG/DOSE, 2 MG/1.5ML solution pen-injector INJECT 0.4ML 0.5MG) UNDER THE SKIN EVERY WEEK pyridoxine (Vitamin B-6) 100 MG tablet Take 100 mg by mouth in the morning. rosuvastatin (Crestor) 20 MG tablet Serevent Diskus 50 MCG/ACT aerosol powder INHALE ONE PUFF BY MOUTH TWICE A DAY FOR COPD Ventolin HFA 108 (90 Base) MCG/ACT inhaler INHALE 2 PUFFS EVERY 6 HOURS NEEDED FOR SHORTNESS OF BREATH OR WHEEZING Viberzi 100 MG tablet TAKE ONE TABLET BY MOUTH TWICE A DAY WITH A MEAL/FOOD No facility-administered encounter medications on file as of 03/09/2025. 55 y/o male presents for a periodic exam seen by Dr. Neisha Watters, DANETTE. Chief Complaint: I came for my cleaning appointment Medical History: Patient does not report any changes in health issues that could alter the Treatment Plan. Medical consult / medical clearance needed: no Allergies: Reviewed in EHR Medications: Reviewed in EHR Radiographs: X-rays taken today: PA and BW taken today Discussion: -Pt stated that patient has sensitivity to cold and hot foods and beverages. -Upon exam, #3 and #4 has existing amalgam restorations with food lodgment as evident. -#3, #4 Percussion -ve, palpation -ve and endo ice - no lingering pain Dx: Normal pulp Normal apical tissues -Pt stated that patient doesn't floss regularly. -Advised patient to brush/ floss twice a day and use sensodyne along with lukewarm water rinses. -OHI reviewed. Emphasis was laid on maintaining good oral hygiene regimen at home along with regular visits to dentist. -Pt was informed that symptoms don't improve, there is a possibility that existing restorations in #3, #4 need to replaced and excavation of existing restorations along with any recurrent decay will be done to evaluate restorability of tooth and course of treatment will be finalized from there on including RCT/post/core/crown/extraction as needed. -Pt was informed that pt needs to contact medical front desk coordinator for any financial queries related to recommended treatment. -Pt understood, was satisfied with our conversation and agreed with tx plan; dismissed in good condition. -All questions answered. Soft tissue exam: WNL; OCS- negative Head and neck exam: Lymph Nodes, Lips, Palate, Buccal Mucosa, Floor of Mouth, Tongue, Tonsils, Alveolar Ridges, Oropharynx, Salivary Ducts, Vestibules - no abnormal findings. TMJ/Occlusal - TMJ is within normal limits. Oral Cancer Risk - low Oral Hygiene Instruction Provided - Yes Oral Hygiene Instructions: [place] two times daily, modified richter technique, Floss daily, Electric toothbrush, Soft bristle toothbrush, [place]ena Tongue. Referrals - None Treatment plan: -SHELLY Rx: Peridex NV: SHELLY Inspector Electromechanical: Britt Dentist: Dr. Neisha Watters, DMD documented in this encounter Plan of Treatment Scheduled Orders Name Type Priority Associated Diagnoses Orde r Schedule COMPREHENSIVE ORAL EVALUATION - NEW OR ESTABLISHED PATIENT Dental Routine 1 Occurrence s starting 03/09/2025 PROPHYLAXIS - ADULT Dental Routine 1 Occ urrences starting 03/09/2025 documented as of this encounter Procedures Procedure Name Priority Date/Time Associated Diagnosis Comments LIMITED ORAL EVALUATION - PROBLEM FOCUSED Routine 03/09/2025 10:00 AM EDT INTRAORAL - PERIAPICAL FIRST RADIOGRAPHIC IMAGE Routine 03/09/2025 10:00 AM EDT CASE PRESENTATION, DETAILED AND EXTENSIVE TREATMENT PLANNING Routine 03/09/2025 10:00 AM EDT BITEWING - SINGLE RADIOGRAPHIC IMAGE Routine 03/09/2025 10:00 AM EDT documented in this encounter Visit Diagnoses Not on filedocumented in this encounter
[2025-03-10 09:27] LABS: Prostate Specific Antigen 0.47 ng/mL (<0.05-4.0)
== END 2025-03-10 07:52 | disposition home or self-care (01) ==
LOC: HO.LAB 07:51
PROVIDERS: Nurse Practitioner Family
DX: K22.10 Ulcer of esophagus without bleeding (principal); Z08 Encounter for follow-up examination after completed treatment for malignant neoplasm; Z85.46 Personal history of malignant neoplasm of prostate; K21.9 Gastro-esophageal reflux disease without esophagitis; R13.10 Dysphagia, unspecified; K58.0 Irritable bowel syndrome with diarrhea; K22.4 Dyskinesia of esophagus; R11.2 Nausea with vomiting, unspecified
CPT/HCPCS: 36415; 84153; 99212

== ENCOUNTER 2025-03-10 08:44 | Outpatient (AMB) | payer OTHER, SELFPAY ==
--- NOTE | 2025-03-10 09:02 | MHC.OFFVIS ---
Vital Signs 03/10/25 09:34 Height 5 ft 5 in Weight 193 lb 9.054 oz BMI 32.2 Intake Visit Reasons: 6 month follow up Intake Note: Patient presents for 6 month follow up Allergies MONALISA Inhibitors [MONALISA INHIBITORS] Allergy (Severe, Verified 03/10/25 09:34) SHORTNESS OF BREATH albuterol Adverse Reaction (Intermediate, Verified 03/10/25 09:34) Palpitations Penicillins Adverse Reaction (Intermediate, Verified 03/10/25 09:34) STOMACH UPSET stress induced anaphylaxis Allergy (Severe, Uncoded 03/10/25 09:34) Anaphylaxis HPI HPI 6 month follow up: Details: Assessment & Plan (1) Erosive esophagitis: Code(s): K22.10 - Ulcer of esophagus without bleeding Category: Medical (2) GERD (gastroesophageal reflux disease): Code(s): K21.9 - Gastro-esophageal reflux disease without esophagitis Category: Medical (3) Gastroparesis: Code(s): K31.84 - Gastroparesis Category: Medical (4) Irritable bowel syndrome with diarrhea: Code(s): K58.0 - Irritable bowel syndrome with diarrhea Category: Medical (5) Dysphagia: Code(s): R13.10 - Dysphagia, unspecified Category: Medical (6) Esophageal spasm: Comment: Failed a trial of dicyclomine is already on amlodipine Code(s): K22.4 - Dyskinesia of esophagus Category: Medical (7) Nausea and vomiting: Comment: . Better with Reglan but not completely resolved Code(s): R11.2 - Nausea with vomiting, unspecified Category: Medical Plan He is doing well without any problems with choking and his diarrhea is well controlled. He continues on his Reglan 10 mg 4 times a day, his Viberzi 100 mg twice a day, pantoprazole 40 mg twice a day. He is centrally obese and he is on Mounjaro which likely is contributing to slowed gastric and colonic motility and could be also worsening the severe reflux seen on the barium swallow. Return office visit in 6 months TODAY'S VISIT He is here today with his who is supportive. He continues on his Reglan 10 mg 4 times a day, his Viberzi 100 mg twice a day, pantoprazole 40 mg twice a day. He finds he could not tolerate the GLP'1 or others and this cured most of my morning sickness. He is now on Jardiance. His A1C is not up to 8, but this is an ongoing process. He has severe bor borygmus and IBS with slime that also has calmed down. SO ? now is do we need reglan, he will trial stopping it and we will progress according. He may have an element of underlying gastoparesis that was greatly exacerbated by the GLP-1. Return office visit in 6 months or sooner if he needs my continued guidance on adjusting his medications after cessation of the GLP-1 [facility] Medical History (Updated 03/10/25 @ 10:06 by BOB Castle) Asthma Diverticulosis Chest pain Neck pain Tendinitis of right forearm Contusion of right hand Cough Chest pain Physical exam Bronchitis Acute asthma exacerbation Hospital discharge follow-up Radiologic findings of lung field, abnormal Obesity BPH (benign prostatic hyperplasia) Type 2 diabetes mellitus with obesity Allergic rhinitis SARAH (obstructive sleep apnea) History of postoperative nausea and vomiting Anaphylaxis Anxiety Dysphagia IBS (irritable bowel syndrome) Asthma Sleep apnea Fatty liver Non-toxic multinodular goiter B12 deficiency Vitamin D deficiency Obesity (BMI 30-39.9) Nephrolithiasis Hypertension Dyslipidemia Diabetes type 2, uncontrolled COPD (chronic obstructive pulmonary disease) Surgical History Hx of umbilical hernia repair Hx of cystoscopy Hx of lithotripsy Hx of colonoscopy Hx of esophagogastroduodenoscopy Hx of adenoidectomy Hx of hernia repair Hx of appendectomy Family History Father Diabetes Mother CVD (cardiovascular disease) Cancer Social History Household Members: Significant Other Housing: Apartment Do you presently have visiting nurse or other home services: No Alcohol intake: current Alcohol intake frequency: a few times a week Patient Tobacco Use Status: Former Tobacco user Tobacco use type: Cigarette e-Cigarette/Vaping Use: Never Used Second Hand Smoke Exposure: Yes service: No Current occupational status: unemployed and disabled Cognitive needs: No Hearing needs: No Vision needs: No Review of Systems Const Denies fatigue, Denies fever(s), Denies night sweats, Denies poor appetite and Reports weight loss ENT Reports Normal hearing present, Denies dental pain, Denies dysphagia, Denies hearing loss, Denies mouth pain, Denies odynophagia, Denies throat swelling, Denies tongue swelling and Reports other (Dentition adequate) Card Reports no additional complaints Resp Reports no additional complaints GI Details: Denies abdominal pain, Denies melena, Denies bloating, Denies hematochezia, Denies constipation, Denies GI cramping, Denies dysphagia, Denies excessive flatus, Denies early satiety, Reports heartburn, Reports diarrhea, Denies nausea, Denies odynophagia, Denies vomiting and Denies hematemesis Skin/Breast Denies pruritus, Denies lesions, Denies rash and Denies jaundice Neuro Reports Normal hearing present and Denies Abnormal speech present Endo Denies fatigue Aller/Immun Denies throat swelling and Denies tongue swelling Physical Exam Const General: cooperative, no acute distress, well developed and well groomed Nutritional Appearance: well nourished and obese centrally obese Orientation/consciousness: oriented to person, oriented to place and oriented to time Limitations: No language barrier HEENT Head: Yes normocephalic and Yes atraumatic Eyes General: appearance normal, both eyes and all related structures Pupils: Equal, round and reactive pupils present Neck Neck: Yes normal visual inspection and Yes no lymphadenopathy Thyroid: Thyroid normal Resp Effort & Inspection: normal respiratory effort and able to speak in complete sentences Auscultation: clear to auscultation bilaterally Cardio Rate: regular rate Rhythm: regular rhythm Heart sounds: Normal, physiologic split S2 sound present Peripheral pulses: radial pulses present and posterior tibial pulses present GI Inspection: No distended, No Abdominal panniculus present and Yes obesity Palpation (GI): Soft to palpation, nontender, no guarding, not rigid and No hepatosplenomegaly present Percussion: Yes normal to percussion Auscultation: normal bowel sounds Rectal Exam - Male: Yes deferred Skin General skin exam: no rashes or lesions noted, turgor normal, skin not dry, no jaundice, No spider nevi and no striae Rashes: no rashes Nails: normal Neuro General: oriented to person, oriented to place and oriented to time Cranial nerves: Yes Equal, round and reactive pupils present and Yes Normal hearing present Speech: No Abnormal speech present Extrem General: Yes normal to inspection, No clubbing, No cyanosis and No edema Psych Appearance: grossly normal and well kempt Mental Status: mental status grossly normal Speech and movement: Normal speech and movement present Affect: normal affect Attitude: cooperative Thought process: Normal thought process present and not confabulating Thought content: Normal thought content present Insight: Fair insight present (Psych) Judgement: Fair judgement present (Psych) Assessment & Plan Assessment & Plan (1) Erosive esophagitis: Code(s): K22.10 - Ulcer of esophagus without bleeding Category: Medical (2) Dysphagia: Code(s): R13.10 - Dysphagia, unspecified Category: Medical (3) GERD (gastroesophageal reflux disease): Code(s): K21.9 - Gastro-esophageal reflux disease without esophagitis Category: Medical (4) Irritable bowel syndrome with diarrhea: Code(s): K58.0 - Irritable bowel syndrome with diarrhea Category: Medical (5) Esophageal spasm: Comment: Failed a trial of dicyclomine is already on amlodipine Code(s): K22.4 - Dyskinesia of esophagus Category: Medical (6) Nausea and vomiting: Comment: Seems to have been completely mediated by his use of GLP 1/G IP medications Code(s): R11.2 - Nausea with vomiting, unspecified Category: Medical (7) Gastroparesis: Comment: Question now of [place] cliff diabetic disease versus GLP 1/GI IP induced dysfunction Code(s): K31.84 - Gastroparesis Category: Medical (8) Small bowel obstruction: Comment: 06/2020 with inflammation in the jejunum uncertain cause but may be related to him running out of his Reglan and taking Metamucil Code(s): K56.609 - Unspecified intestinal obstruction, unspecified as to partial versus complete obstruction Category: Medical Plan He is here today with his who is supportive. He continues on his Reglan 10 mg 4 times a day, his Viberzi 100 mg twice a day, pantoprazole 40 mg twice a day. He finds he could not tolerate the GLP'1 or others and this cured most of my morning sickness. He is now on Jardiance. His A1C is not up to 8, but this is an ongoing process. He has severe bor borygmus and IBS with slime that also has calmed down. SO ? now is do we need reglan, he will trial stopping it and we will progress according. He may have an element of underlying gastoparesis that was greatly exacerbated by the GLP-1. Return office visit in 6 months or sooner if he needs my continued guidance on adjusting his medications after cessation of the GLP-1 Medications: Refilled dicyclomine 20 mg PO TID 30 days 90 tabs 3RF metoclopramide HCl (Reglan) 10 mg PO QIDACHS 120 tabs 6RF K31.84 - Gastroparesis eluxadoline (Viberzi) must administer with a meal/food 100 mg PO BID 60 tabs 5RF pantoprazole (Protonix) 40 mg PO BID 30 days 60 tabs 6RF K21.9 - Gastro-esophageal reflux disease without esophagitis, K22.10 - Ulcer of esophagus without bleeding Coding Level of Care Code Est Pt Level 3 (23349) Diagnoses Erosive esophagitis K22.10 Dysphagia R13.10 GERD (gastroesophageal reflux disease) K21.9 Irritable bowel syndrome with diarrhea K58.0 Esophageal spasm K22.4 Nausea and vomiting R11.2 Gastroparesis K31.84 Small bowel obstruction K56.609
[2025-03-10 09:34] VITALS: BMI 32.2
== END 2025-03-10 10:02 | disposition home or self-care (01) ==
LOC: HO.HGI 08:45
PROVIDERS: PCP Internal Medicine; Visit Provider Nurse Practitioner
DX: K22.10 Ulcer of esophagus without bleeding (principal); R13.10 Dysphagia, unspecified; K21.9 Gastro-esophageal reflux disease without esophagitis; K58.0 Irritable bowel syndrome with diarrhea; K22.4 Dyskinesia of esophagus; R11.2 Nausea with vomiting, unspecified; K31.84 Gastroparesis; K56.609 Unspecified intestinal obstruction, unspecified as to partial versus complete obstruction
CPT/HCPCS: 99213

== ENCOUNTER 2025-05-27 10:17 | Outpatient (REF) | payer OTHER, SELFPAY ==
[2025-05-27 10:53] LABS: Hemoglobin A1C 202.7445 umol/L; Total Hemoglobin (HGBA1C) 4072.7714 umol/L
--- OUTSIDE RECORDS SUMMARY | 2025-05-27 11:02 | XMS_ITS | Clinical Summary ---
Author Organization [employer] Address [address] [facility] [address] [place] [address] Care Team Providers Care Unit Secy Name Role Phone Unavailable Primary Care Provider [...] following use. 473 mL 03/09/20 25 Active acetaminophen (Tylenol) 500 MG tablet Take 1 tablet (500 mg) by mouth every 6 (six) hours if needed for mild pain for up to 20 doses. 20 tablet 04/09/20 25 Active ibuprofen 600 MG tablet Take 1 tablet (600 mg) by mouth every 6 (six) hours if needed for mild pain for up to 20 doses. 20 tablet 04/09/20 25 Active chlorhexidine (Peridex) 0.12 % solution Swish 15 mL morning and night for 1 minute. Spit, do not swallow. Do not eat or drink for 30 minutes following use. 473 mL 05/04/20 25 Active acetaminophen (Tylenol) 500 MG tablet Take 1 tablet (500 mg) by mouth every 6 (six) hours if needed for mild pain for up to 20 doses. 20 tablet 05/04/20 25 Active ibuprofen 600 MG tablet Take 1 tablet (600 mg) by mouth every 6 (six) hours if needed for mild pain for up to 20 doses. 20 tablet 05/04/20 25 Active clindamycin (Cleocin) 300 MG capsule Take 1 capsule (300 mg) by mouth 4 times daily for 7 days. 28 capsule 05/04/20 25 025 Active Problems No known active problems Encounters Date Type Department Care Team Description 05/04/2025 8:00 AM EDT Office Visit [facility] [address] [place] [address] Watters, Harmanpreet 04/13/2025 2:30 PM EDT Office Visit [facility] [address] [place] [address] Watters, Harmanpreet 04/09/2025 11:30 AM EDT Office Visit [facility] [address] [place] [address] Watters, Harmanpreet 03/09/2025 10:00 AM EDT Office Visit [facility] [address] [place] [address] Watters, Harmanpreet 03/08/2025 Telephone [facility] [address] [place] [address] Brendan Watson appt from Last 3 Months [...] Sign Reading Time Taken Comments Blood Pressure 126/80 05/04/2025 8:08 AM EDT Pulse 70 06/26/2023 11:00 AM [...] Panel 1970 SDOH Screening 1970 Sigmoidoscopy 1970 Disability Screening 1970 Alcohol/Substance Use Screening 1982 Hepatitis C Screening 01/28/1988 Hepatitis B Vaccines (1 of 3 - 19+ 3-dose series) 1989 Pneumococcal Vaccine: 50+ Years (2 of 2 - PCV) 01/28/2020 09/03/2018 Dental Oral Exam 12/27/2023 06/26/2023, , 08/13/2008 Dental Prophylaxis 12/27/2023 06/26/2023, 1 11/14/2020, 02/20/2021 Dental X-Ray: Full Mouth 02/22/2024 02/20/2021 COVID-19 Vaccine (3 - season) 2024 09/29/2021, 02/01/2021 DTaP/Tdap/Td Vaccines (2 - Td or Tdap) 05/16/2025 05/16/2015 Influenza Vaccine (#1) 2025 , 08/29/2021, 07/26/2020, Additional history exists Dental X-Ray: Bitewings 04/10/2026 04/09/20, 03/09/2025, 06/26/2023, Additional history exists Tobacco Screening 05/04/2026 05/04/2025 RSV Patients and Patients Aged 60 years [...] Procedure Name Priority Date/Time Associated Diagnosis Comments 3 EXTRACTION, ERUPTED TOOTH OR EXPOSED ROOT (ELEVATION/FORCEPS REMOVAL) Routine 05/04/2025 8:00 AM EDT CASE PRESENTATION, DETAILED AND EXTENSIVE TREATMENT PLANNING Routine 05/04/2025 8:00 AM EDT NO CHARGE VISIT Routine 04/13/2025 2:30 PM EDT CASE PRESENTATION, DETAILED AND EXTENSIVE TREATMENT PLANNING Routine 04/09/2025 11:30 AM EDT 3 INTRAORAL - PERIAPICAL FIRST RADIOGRAPHIC IMAGE Routine 04/09/2025 11:30 AM EDT BITEWING - SINGLE RADIOGRAPHIC IMAGE Routine 04/09/2025 11:30 AM EDT PALLIATIVE (EMERGENCY) TREATMENT OF DENTAL PAIN - MINOR PROCEDURE Routine 04/09/2025 11:30 AM EDT CASE PRESENTATION, DETAILED AND EXTENSIVE [...] Most Recently Relevant to Health Maintenance Insurance DENTAL-[facility] MEDICAID STAND ADULT
[2025-05-27 11:29] LABS: Cholesterol 145 mg/dL (<200); HDL Cholesterol 54 mg/dL (>40); Triglycerides 91 mg/dL (<150)
== END 2025-05-27 10:18 | disposition home or self-care (01) ==
LOC: HO.LAB 10:17
DX: E78.00 Pure hypercholesterolemia, unspecified (principal); E11.65 Type 2 diabetes mellitus with hyperglycemia
CPT/HCPCS: 36415; 80061; 83036

== ENCOUNTER 2025-06-02 08:24 | Outpatient (AMB) | payer OTHER, SELFPAY ==
--- OUTSIDE RECORDS SUMMARY | 2025-06-02 08:33 | XMS_ITS | Clinical Summary ---
Author Organization [employer] Address [address] [facility] [address] [place] [address] Care Team Providers Care Senior Analyst Developer Name Role Phone Unavailable Primary Care Provider [...] Description 05/04/2025 8:00 AM EDT Office Visit [facility] [address] [place] [address] Watters, Harmanpreet 04/13/2025 2:30 PM EDT Office Visit [facility] [address] [place] [address] Watters, Harmanpreet 04/09/2025 11:30 AM EDT Office Visit [facility] [address] [place] [address] Watters, Harmanpreet 03/09/2025 10:00 AM EDT Office Visit [facility] [address] [place] [address] Watters, Harmanpreet 03/08/2025 Telephone [facility] [address] [place] [address] Brendan Watson appt from Last 3 Months [...] Most Recently Relevant to Health Maintenance Insurance [facility] MEDICAID STAND ADULT
--- NOTE | 2025-06-02 08:40 | A.OFFPC_ITS ---
Vital Signs 06/02/25 08:42 Height 5 ft 5 in Weight 188 lb 4 oz BMI 31.3 BP 132/72 Blood Pressure Location Lt brachial Position Sitting Pulse 72 Pulse Source Pulse Oximeter Pulse Oximetry (%) 97 Oxygen Delivery Method Room Air Intake Visit Reasons: 3 month f/u Medical Staff Manager Required: No Accompanied by: Self / Same As Patient Allergies MONALISA Inhibitors (MONALISA INHIBITORS) Allergy (Severe, Verified 06/02/25 08:41) SHORTNESS OF BREATH albuterol Adverse Reaction (Intermediate, Verified 06/02/25 08:41) Palpitations Penicillins Adverse Reaction (Intermediate, Verified 06/02/25 08:41) STOMACH UPSET stress induced anaphylaxis Allergy (Severe, Uncoded 03/10/25 09:34) Anaphylaxis Medication List - Last Reconciled 06/02/25 by Jane Colon PA-C amlodipine 10 mg PO DAILY 30 days blood sugar diagnostic (FreeStyle Lite Strips) 3 jeremias a day cholecalciferol (vitamin D3) 25 mcg PO DAILY cyanocobalamin (vitamin B-12) (Vitamin B-12) 250 mcg PO DAILY 60 days dicyclomine 20 mg PO TID 30 days empagliflozin (Jardiance) 10 mg PO DAILY epinephrine (EpiPen 2-Benedict) 0.3 mg (0.3 mL) IM ONCE PRN flash glucose sensor (FreeStyle Arnulfo 14 Day Sensor kit) As directed fluticasone propion-salmeterol 250-50 mcg/dose (Advair Diskus) 1 ea PO BID fluticasone propionate 50 mcg/actuation 1 - 2 sprays intranasal DAILY FreeStyle Lancets (lancets) 3 times a day NS hydrochlorothiazide 25 mg PO DAILY 30 days inhalat.spacing dev,large mask (BreatheRite Spacer and Mask, Adult) As directed levalbuterol tartrate 45 mcg/actuation (Xopenex HFA) 2 inhalations inhalation Q4-6H 30 days losartan 50 mg PO DAILY metoclopramide HCl (Reglan) 10 mg PO QIDACHS pantoprazole (Protonix) 40 mg PO BID 30 days pyridoxine (vitamin B6) 100 mg PO DAILY 90 days Tobacco use date assessed: 06/02/25 Dental Screening Dental Screen Date: 06/02/25 Did you have a dental visit in the last 12 months?: Yes Did you have a dental problem in the last 6 months where you did not have access to dental care?: Yes Was dental information given to patient?: Patient has dentist HPI 3 month f/u 2 HPI Details 55-year-old male with past medical histo ry of type 2 diabetes, COPD, hypertension, dyslipidemia, obstructive sleep apnea, GERD, BPH last seen 02/2025 coming in for follow up.? In review of the notes, patient was seen by [facility]/21 continued on Reglan, pantoprazole and Viberzi GLP 1 injection was discontinued and follow up in 6 months. The patient's Hemoglobin A1c has improved from 7.5% to 6.7% with the use of Jardiance at the lowest dose of 10 mg, without any reported side effects. The patient reports unexplained bruising and prolonged healing of a blood blister, with no associated pain or known cause. 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 The patient experiences stress-induced anxiety, particularly in crowded environments, and has requested medication for an upcoming plane trip. [facility], [facility] Medical History Asthma Diverticulosis Chest pain Neck pain Tendinitis of right forearm Contusion of right hand Cough Chest pain Physical exam Bronchitis Acute asthma exacerbation Hospital discharge follow-up Radiologic findings of lung field, abnormal Obesity BPH (benign prostatic hyperplasia) Type 2 diabetes mellitus with obesity Allergic rhinitis SARAH (obstructive sleep apnea) History of postoperative nausea and vomiting Anaphylaxis Anxiety Dysphagia IBS (irritable bowel syndrome) Asthma Sleep apnea Fatty liver Non-toxic multinodular goiter B12 deficiency Vitamin D deficiency Obesity (BMI 30-39.9) Nephrolithiasis Hypertension Dyslipidemia Diabetes type 2, uncontrolled COPD (chronic obstructive pulmonary disease) Surgical History Hx of umbilical hernia repair Hx of cystoscopy Hx of lithotripsy Hx of colonoscopy Hx of esophagogastroduodenoscopy Hx of adenoidectomy Hx of hernia repair Hx of appendectomy Family History Father Diabetes Mother CVD (cardiovascular disease) Cancer Social History Household Members: Significant Other Housing: Apartment Do you presently have visiting nurse or other home services: No Alcohol intake: current Alcohol intake frequency: a few times a week Patient Tobacco Use Status: Former Tobacco user Tobacco use type: Cigarette e-Cigarette/Vaping Use: Never Used Second Hand Smoke Exposure: Yes service: No Current occupational status: unemployed and disabled Cognitive needs: No Hearing needs: No Vision needs: No Questionnaire Thrive Questionnaire Date Thrive assessed: 06/02/25 I am a: Patient What is your living situation today?: I have a steady place to live Within the past 12 months, did the food you bought not last and you didn't have the money to get more?: Never true Within the past 12 months, did you worry whether your food would run out before you got money to buy more?: Never true Do you have trouble paying for medicines?: No Do you have trouble getting transportation to medical appointments?: No Do you have trouble paying your heating and electricity bill?: No Do you have trouble taking care of your child, family member or friend?: No Do you have trouble with day-to-day activities such as bathing, preparing meals, shopping, managing finances, etc.?: No Are you currently unemployed and looking for a job?: No Are you interested in more education?: No Please select the resources that you would like help with: None Currently or been in a relationship where the following occur: I choose not to answer THRIVE Score: 0 VILLA-7 AMB Questionnaire VILLA-7 Date VILLA - 7 assessed: 06/02/25 Source: Developed by Drs. Sam Sharp, Paula Allen, Samson Zavala and colleagues, with an educational fawn from [employer]. Review of Systems Const Denies body aches, Denies chills, Denies fever(s), Denies headache(s) and Denies poor appetite Eyes Reports no additional complaints ENT Denies dizziness and Denies headache(s) Card Denies chest pain, Denies edema, Denies lightheadedness and Denies dyspnea Resp Denies cough and Denies dyspnea GI Denies abdominal pain, Denies diarrhea, Denies nausea and Denies vomiting Reports no additional complaints Musc Reports as per HPI and Denies abnormal gait Skin/Breast Reports system reviewed and no additional complaints, except as documented Neuro Denies abnormal gait, Denies dizziness and Denies headache(s) Psych Reports no additional complaints Physical exam (Primary Care) Vital Signs: Last Vital Signs Pulse 72 06/02/25 08:42 BP 132/72 06/02/25 08:42 Pulse Ox 97 06/02/25 08:42 Oxygen Delivery Method Room Air 06/02/25 08:42 BMI result Body Mass Index 31.3 Tobacco/Smoking Status: Tobacco use Status Tobacco use date assessed 06/02/25 06/02/25 08:42 Patient Tobacco Use Status Former Tobacco user 06/02/25 08:42 Tobacco use type Cigarette 06/02/25 08:42 e-Cigarette/Vaping Use Never Used 06/02/25 08:42 Thrive Assessment: Date of Thrive Assessment Date Thrive assessed 06/02/25 06/02/25 08:42 Currently or been in a relationship where the following occur: I choose not to answer Const General: cooperative, healthy appearing, comfortable and no acute distress Orientation/consciousness: patient oriented x3 HENMT Head: Yes normocephalic Ears: hearing grossly normal bilaterally General nose exam: Normal external nose present Eyes General: appearance normal, both eyes and all related structures Conjunctivae: conjunctivae normal Neck Neck: Yes full ROM and Yes no lymphadenopathy Resp Effort & Inspection: normal respiratory effort Auscultation: clear to auscultation bilaterally, no crackles, no rales, no rhonchi and no wheezes Cardio Rate: regular rate Rhythm: regular rhythm Back/Spine/Pelvis Other: No tenderness to palpation over cervical spine Skin General skin exam: no rashes or lesions noted Neuro General: patient oriented x3 Gait exam (Neuro): Normal gait present Extrem Other: No tenderness to palpation over bilateral shoulders. Intact strength, sensation, pulses in bilateral upper extremities Pain elicited in bilateral 3rd digit when arms raised at shoulder height - no pain above or below shoulder height General: Yes normal to inspection, Yes full ROM and No edema Psych Affect: normal affect Attitude: cooperative Insight: Good insight present (Psych) Judgement: Good judgement present (Psych) Coding Level of Care Code Est Pt Level 4 (18905) Diagnoses Mild intermittent asthma without complication J45.20 Asthma severity: mild Asthma persistence: intermittent Asthma complication type: uncomplicated Type 2 diabetes mellitus with obesity E11.69; E66.9 GERD (gastroesophageal reflux disease) K21.9 Obesity (BMI 30-39.9) E66.9 Primary hypertension I10 Hypertension type: primary hypertension Dyslipidemia E78.5 Easy bruising R23.3 Neck pain M54.2 Assessment & Plan Assessment & Plan (1) Asthma: Comment: HE HAS HISTORY OF CHRONIC BRONCHIAL ASTHMA WHICH HAS NOW GONE INTO COPD ASTHMA/COPD OVERLAP SYNDROME. IT REMAINS WELL CONTROLLED. Code(s): J45.909 - Unspecified asthma, uncomplicated Category: Medical Qualifiers: Asthma severity: mild Asthma persistence: intermittent Asthma complication type: uncomplicated Qualified Code(s): J45.20 - Mild intermittent asthma, uncomplicated Plan: Asthma currently controlled on present medications. Continue on current inhalers. Continue to follow with pulmonology Avoid triggers such as allergies. (2) Type 2 diabetes mellitus with obesity: Code(s): E11.69 - Type 2 diabetes mellitus with other specified complication; E66.9 - Obesity, unspecified Category: Medical Plan: Decrease the amount of carbohydrates such as pasta, bread, rice, and potatoes and limit the amount of sweets. Although fruits are generally healthy they should be eaten in moderation as they are still high in sugar. Hemoglobin A1c goal of less than 7%. A1c on last blood work 6.7% no change in medication. (3) GERD (gastroesophageal reflux disease): Code(s): K21.9 - Gastro-esophageal reflux disease without esophagitis Category: Medical Plan: Avoid trigger foods such as citrus, tomato products, soda, caffeine, spicy foods and other foods that may be irritating to your stomach. Avoid laying flat 3-4 hours after eating and elevate the head of the bed 30 degrees to prevent acid from moving into the esophagus. Continue on pantoprazole and continue to follow with GI (4) Obesity (BMI 30-39.9): Code(s): E66.9 - Obesity, unspecified Category: Medical Plan: Healthy diet and regular exercise is encouraged. Noted 9 lb weight loss since last visit. (5) Hypertension: Code(s): I10 - Essential (primary) hypertension Category: Medical Qualifiers: Hypertension type: primary hypertension Qualified Code(s): I10 - Essential (primary) hypertension Plan: Continue on current blood pressure medication. Avoid salt intake and encourage healthy diet and regular exercise. (6) Dyslipidemia: Code(s): E78.5 - Hyperlipidemia, unspecified Category: Medical Plan: Avoid foods that are high in cholesterol such as red meat, fried foods, eggs and baked goods. Triglyceride goal of less than 150 and LDL goal of less than 100. No longer taking Rosuvastatin but LDL is within goal. (7) Easy bruising: Code(s): R23.3 - Spontaneous ecchymoses Category: Medical Plan: Patient reports occasional easy bruising most recently a few weeks ago with a large bruise on the abdomen which has since resolved. He has not identify any inciting events and does not routinely use NSAIDs or anticoagulation. Plan to order for blood work for further evaluation. (8) Neck pain: Code(s): M54.2 - Cervicalgia Category: Medical Plan: Patient reporting neck pain and bilateral middle finger pain when lifting the arms at shoulder height. He does have a known bone spur in the cervical region which may be causing compression of nerves responsible for pain in the middle fingers. Plan to obtain cervical spine x-ray for further evaluation and consider nerve study test. On exam there was no tenderness to palpation of the spine or bilateral shoulders. He has intact strength and sensation of bilateral upper extremities Plan The management of Type 2 Diabetes Mellitus will continue with the current regimen of Jardiance, as the patient's Hemoglobin A1c has shown significant improvement. The patient is advised to maintain dietary modifications to support glycemic control. For the osteophyte at C5-C6, a neck x-ray is planned to assess any changes since the last imaging. Depending on the results, a referral to a back specialist may be considered for further evaluation and management. The patient reports easy bruising, and a comprehensive blood workup is ordered to evaluate potential clotting issues or liver function abnormalities. The patient is advised to monitor for any new or worsening symptoms. For anxiety, lorazepam is prescribed for use during the upcoming plane trip to manage stress-induced symptoms. The patient is instructed on the appropriate use and potential side effects of the medication. This note was constructed using voice recognition software. While every effort has been made to ensure accuracy and open shank coverer, still areas may have been included sometimes these areas may affect the content or meeting of the given symptoms. Total time spent caring for the patient today was 30 minutes. This includes time spent before the visit reviewing the chart, time spent during the visit, and time spent after the visit and documentation. Patient was informed and verbally consented to the use of an ambient scribe for clinic note documentation during this visit. Orders: Orders XR cervical spine 2V Today M54.2 - Cervicalgia Complete Blood Count Auto Diff Today R23.3 - Spontaneous ecchymoses, Z00.00 - Encounter for general adult medical examination without abnormal findings Comprehensive Met. Panel Today R23.3 - Spontaneous ecchymoses, Z00.00 - Encounter for general adult medical examination without abnormal findings TSH reflex Free T4 Today R23.3 - Spontaneous ecchymoses, Z00.00 - Encounter for general adult medical examination without abnormal findings Vitamin B12 and Folate Today R23.3 - Spontaneous ecchymoses, Z13.21 - Encounter for screening for nutritional disorder Mixing Study (PT/PTT) Today R23.3 - Spontaneous ecchymoses Medications: New blood-glucose meter (FreeStyle Kalida Lite kit) As directed 1 ea 0RF E11.69 - Type 2 diabetes mellitus with other specified complication, E66.9 - Obesity, unspecified Changed From amlodipine 10 mg PO DAILY 30 days 30 tabs 6RF I10 - Essential (primary) hypertension To amlodipine 10 mg PO DAILY 90 tabs 2RF I10 - Essential (primary) hypertension Refilled epinephrine (EpiPen 2-Benedict) 0.3 mg (0.3 mL) IM ONCE PRN 2 ea 0RF anaphylaxis empagliflozin (Jardiance) 10 mg PO DAILY 90 tabs 1RF losartan 50 mg PO DAILY 90 tabs 1RF Discontinued flash glucose sensor (FreeStyle Arnulfo 14 Day Sensor kit) Discontinued Reason: Insurance Denied As directed 2 ea 0RF E11.65 - Type 2 diabetes mellitus with hyperglycemia rosuvastatin Discontinued Reason: Patient no longer taking 20 mg PO DAILY 60 tabs 3RF E11.69 - Type 2 diabetes mellitus with other specified complication, E66.9 - Obesity, unspecified
[2025-06-02 08:42] VITALS: BP 132/72; PULSE 72; O2SAT 97; BMI 31.3
== END 2025-06-02 09:58 | disposition home or self-care (01) ==
LOC: HO.HMCH 08:25
DX: J45.20 Mild intermittent asthma, uncomplicated (principal); E11.69 Type 2 diabetes mellitus with other specified complication; E66.9 Obesity, unspecified; K21.9 Gastro-esophageal reflux disease without esophagitis; I10 Essential (primary) hypertension; E78.5 Hyperlipidemia, unspecified; R23.3 Spontaneous ecchymoses; M54.2 Cervicalgia; Z68.31 Body mass index [BMI] 31.0-31.9, adult

== ENCOUNTER → 2025-06-02 08:24 | Outpatient (BNVA) | payer OTHER, SELFPAY | DX: I10 Essential (primary) hypertension (principal); J44.9 Chronic obstructive pulmonary disease, unspecified; E78.5 Hyperlipidemia, unspecified; G47.33 Obstructive sleep apnea (adult) (pediatric); K21.9 Gastro-esophageal reflux disease without esophagitis; N40.0 Benign prostatic hyperplasia without lower urinary tract symptoms; J45.20 Mild intermittent asthma, uncomplicated; E11.69 Type 2 diabetes mellitus with other specified complication; E66.9 Obesity, unspecified; M79.645 Pain in left finger(s); R23.3 Spontaneous ecchymoses; M54.2 Cervicalgia; Z68.31 Body mass index [BMI] 31.0-31.9, adult | CPT/HCPCS: 99212 ==

== ENCOUNTER 2025-08-02 08:01 | Outpatient (REF) | payer OTHER, SELFPAY ==
--- OUTSIDE RECORDS SUMMARY | 2025-08-02 08:05 | XMS_ITS | Clinical Summary ---
Author Organization [employer] Address [address] [facility] [address] [place] [address] Care Team Providers Care Blunger Name Role Phone Unavailable Primary Care Provider [...] 20 doses. 20 tablet 05/04/20 25 Active Active Problems No known active problems Encounters Date Type Department Care Team Description 05/04/2025 8:00 AM EDT Office Visit [facility] [address] [place] [address] Neisha Watters from Last 3 Months Social History Tobacco [...] 02/20/2021 Dental X-Ray: Full Mouth 02/22/2024 02/20/2021 DTaP/Tdap/Td Vaccines (2 - Td or Tdap) 05/16/2025 05/16/2015 COVID-19 Vaccine (3 - season) 2025 09/29/2021, 02/01/2021 Influenza Vaccine (#1) 2025 , 08/29/2021, 07/26/2020, [...] TREATMENT PLANNING Routine 05/04/2025 8:00 AM EDT BITEWING - SINGLE RADIOGRAPHIC IMAGE Routine 04/09/2025 11:30 AM EDT Full PROPHYLAXIS - ADULT Routine 023 11:00 AM EDT PERIODIC ORAL EVALUATION - ESTABLISHED PATIENT Routine 06/26/2023 11:00 AM EDT INTRAORAL - COMPLETE SERIES OF RADIOGRAPHIC IMAGES Routine 02/20/2021 12:00 AM EDT from Last 3 Months or Most Recently Relevant to Health Maintenance Insurance [facility] AD[place]
--- OUTSIDE RECORDS SUMMARY | 2025-08-02 08:05 | XMS_ITS | Encounter Summary ---
Author Organization [facility] [facility] Address [address] [place] [address] [address] [place] [id number] Care Team Providers Care Human Resources Manager Name Role Phone Unavailable Primary Care Provider [...]
--- OUTSIDE RECORDS SUMMARY | 2025-08-02 08:05 | XMS_ITS | Encounter Summary ---
Author Organization [employer] Address [address] [facility] [address] [place] [address] Care Team Providers Care Bicycle I Assembler Name Role Phone Unavailable Primary Care Provider Unavailabl e Reason for Visit * Reason Onset Date Comments appt 03/08/2025 Encounter Details Date Type Department Care Team (Late st Contact Info) Description 03/08/2025 Telephone [facility] [address] [place] [address] Brendan Watson appt Social History Tobacco Use [...]
[2025-08-02 08:16] LABS: MANUAL DIFF FLAG NO
[2025-08-02 08:24] LABS: Hematocrit 41.5 % (42.0-52.0); Hemoglobin 14.6 g/dl (14.0-18.0); Imm Gran Abs Auto 0.02 X10*3/uL (0.00-0.03); Imm Gran Pct Auto 0.5 % (0.0-0.4); Lymphocytes Absolute Auto 1.6 X10*3/uL (1.2-4.9); Mean Corpuscular HGB Conc 35.2 g/dl (31.0-36.0); Mean Corpuscular Hemoglobin 36.4 pg (27.0-33.0); Mean Corpuscular Volume 103.5 fL (80.0-98.0); NRBC Abs Auto 0.000 X10*3/uL (0.0-0.012); NRBC Pct Auto 0.0 /100WBC (0.0-0.2); Platelet Count 145 X10*3/uL (160-400); Red Blood Count 4.01 X10*6/uL (4.60-5.80); White Blood Count 4.2 X10*3/uL (4.8-10.8)
[2025-08-02 08:55] LABS: Alanine Aminotransferase 36 U/L (0-40); Albumin Level 3.9 g/dL (3.5-5.0); Alkaline Phosphatase 101 U/L (39-117); Anion Gap 10 (12-20); Aspartate Amino Transferase 32 U/L (5-37); Blood Urea Nitrogen 5 mg/dL (9-16); Calcium 8.8 mg/dL (8.4-10.2); Carbon Dioxide 24 mmol/L (22-29); Chloride 109 mmol/L (96-108); Estimated Glomerular Filt Rate > 60; Potassium 3.6 mmol/L (3.3-5.1); Sodium 139 mmol/L (135-145); Total Protein 6.3 g/dL (6.5-8.0)
[2025-08-02 09:07] LABS: INTERNATIONAL NORM RATIO 1.0 (0.9-1.1); Partial Thromboplastin Time 28.3 SEC (26.7-34.1); Prothrombin Time 11.2 SEC (10.9-12.4)
[2025-08-02 09:19] LABS: Folate 2.2 ng/mL (> or = 4.0); Vitamin B12 200 pg/mL (200-900)
== END 2025-08-02 08:02 | disposition home or self-care (01) ==
LOC: HO.LAB 08:01
DX: J44.9 Chronic obstructive pulmonary disease, unspecified (principal); J30.9 Allergic rhinitis, unspecified; E66.9 Obesity, unspecified; G47.33 Obstructive sleep apnea (adult) (pediatric); R23.3 Spontaneous ecchymoses; Z87.891 Personal history of nicotine dependence; Z68.32 Body mass index [BMI] 32.0-32.9, adult; Z00.00 Encounter for general adult medical examination without abnormal findings; Z13.21 Encounter for screening for nutritional disorder
CPT/HCPCS: 36415; 80053; 82607; 82746; 84443; 85025; 85610; 85611; 85730; 85732; 99212

== ENCOUNTER 2025-08-02 08:38 | Outpatient (AMB) | payer OTHER, SELFPAY ==
--- NOTE | 2025-08-02 09:00 | MHC.OFFVIS ---
Vital Signs 08/02/25 09:01 Height 5 ft 5 in Weight 192 lb 14.472 oz BMI 32.1 BP 130/90 H Blood Pressure Location Lt brachial Position Sitting Pulse 75 Pulse Source Pulse Oximeter Pulse Oximetry (%) 99 Oxygen Delivery Method Room Air Intake Visit Reasons: COPD Intake Note: pt is here for follow up and states he is feeling alright, had URI but better. Parking Officer Required: No Passenger Car Cleaning Supervisor: Passenger Car Cleaning Supervisor offered & declined Allergies MONALISA Inhibitors (MONALISA INHIBITORS) Allergy (Severe, Verified 08/02/25 09:04) SHORTNESS OF BREATH albuterol Adverse Reaction (Intermediate, Verified 08/02/25 09:04) Palpitations Penicillins Adverse Reaction (Intermediate, Verified 08/02/25 09:04) STOMACH UPSET stress induced anaphylaxis Allergy (Severe, Uncoded 08/02/25 09:04) Anaphylaxis Medication List - Last Reconciled 08/02/25 by Jovita Parrish MD amlodipine 10 mg PO DAILY blood sugar diagnostic (FreeStyle Lite Strips) 3 jeremias a day blood-glucose meter (FreeStyle Roark Lite kit) As directed cholecalciferol (vitamin D3) 25 mcg PO DAILY cyanocobalamin (vitamin B-12) (Vitamin B-12) 250 mcg PO DAILY 60 days dicyclomine 20 mg PO TID 30 days empagliflozin (Jardiance) 10 mg PO DAILY epinephrine (EpiPen 2-Benedict) 0.3 mg (0.3 mL) IM ONCE PRN fluticasone propion-salmeterol 250-50 mcg/dose (Advair Diskus) 1 ea PO BID fluticasone propionate 50 mcg/actuation 1 - 2 sprays intranasal DAILY FreeStyle Lancets (lancets) 3 times a day NS hydrochlorothiazide 25 mg PO DAILY 30 days inhalat.spacing dev,large mask (BreatheRite Spacer and Mask, Adult) As directed levalbuterol tartrate 45 mcg/actuation (Xopenex HFA) 2 inhalations inhalation Q4-6H 30 days losartan 50 mg PO DAILY metoclopramide HCl (Reglan) 10 mg PO QIDACHS pantoprazole (Protonix) 40 mg PO BID 30 days pyridoxine (vitamin B6) 100 mg PO DAILY 90 days Do you need a note to return to daycare/school/sports/work: No HPI HPI COPD: Details: THIS 55 YEARS OLD GENTLEMAN HAS BEEN DOING VERY WELL DURING THE PAST 6 MONTHS. RECENTLY HAD A MILD URI WHICH IS NOW AT THE TAIL END. USES ADVAIR 250-50 TWICE A DAY AND LEVALBUTEROL ONCE OR TWICE A DAY . HE IS WATCHING HIS WEIGHT BUT HAS GAINED ABOUT 4 LB IN THE LAST 6 MONTHS. SLEEPS OKAY, NO PROBLEM PFSH Medical History Neck pain Asthma Diverticulosis Chest pain Tendinitis of right forearm Contusion of right hand Cough Chest pain Physical exam Bronchitis Acute asthma exacerbation Hospital discharge follow-up Radiologic findings of lung field, abnormal Obesity BPH (benign prostatic hyperplasia) Type 2 diabetes mellitus with obesity Allergic rhinitis SARAH (obstructive sleep apnea) History of postoperative nausea and vomiting Anaphylaxis Anxiety Dysphagia IBS (irritable bowel syndrome) Asthma Sleep apnea Fatty liver Non-toxic multinodular goiter B12 deficiency Vitamin D deficiency Obesity (BMI 30-39.9) Nephrolithiasis Hypertension Dyslipidemia Diabetes type 2, uncontrolled COPD (chronic obstructive pulmonary disease) Surgical History Hx of umbilical hernia repair Hx of cystoscopy Hx of lithotripsy Hx of colonoscopy Hx of esophagogastroduodenoscopy Hx of adenoidectomy Hx of hernia repair Hx of appendectomy Family History Father Diabetes Mother CVD (cardiovascular disease) Cancer Social History Household Members: Significant Other Housing: Apartment Do you presently have visiting nurse or other home services: No Alcohol intake: current Alcohol intake frequency: a few times a week Patient Tobacco Use Status: Former Tobacco user Tobacco use type: Cigarette e-Cigarette/Vaping Use: Never Used Second Hand Smoke Exposure: Yes service: No Current occupational status: unemployed and disabled Cognitive needs: No Hearing needs: No Vision needs: No Review of Systems Const All systems reviewed & are unremarkable except as noted in HPI and below Eyes Reports no additional complaints ENT Reports nasal congestion (INTERMITTENT USUALLY WITH CHANGE OF WEATHER) Card Denies chest pain, Denies irregular heart rhythm and Denies leg edema Resp Reports as per HPI GI Reports no additional complaints Reports no additional complaints Musc Reports no additional complaints Skin/Breast Reports system reviewed and no additional complaints, except as documented Neuro Reports no additional complaints Psych Reports no additional complaints Physical Exam Vital Signs: Last Vital Signs Pulse 75 08/02/25 09:01 BP 130/90 H 08/02/25 09:01 Pulse Ox 99 08/02/25 09:01 Oxygen Delivery Method Room Air 08/02/25 09:01 BMI result Body Mass Index 32.1 Const General: healthy appearing, comfortable, no acute distress, alert and awake Orientation/consciousness: patient oriented x3 HEENT Head: Yes normal to inspection General nose exam: No nasal polyps present, No nasal discharge present and Other nasal findings present (HE DOES HAVE MILD BILATERAL NASAL CONGESTION) Face and sinus: Yes sinuses nontender Mouth: oropharynx normal (THERE IS MILD ERYTHEMA THE OROPHARYNX) Throat: Yes posterior oropharynx normal Eyes General: appearance normal, both eyes and all related structures Neck Neck: Yes normal visual inspection, Yes no lymphadenopathy, Yes trachea midline and Yes no JVD Thyroid: Thyroid normal Chest Chest palpation & inspection: normal inspection of the chest, normal palpation of entire chest wall and no tenderness Resp Other: Percussion note is resonant, breath sounds are slightly distant , especially decreased over the basilar areas. But there are no wheezes . Also no Crepitation are heard . Cardio Palpation: normal PMI Rate: regular rate Rhythm: regular rhythm Heart sounds: no gallops and no murmurs Peripheral pulses: Peripheral pulses 2+ throughout GI Palpation (GI): Soft to palpation, nontender, No hepatosplenomegaly present and no masses Auscultation: normal bowel sounds Back/Spine/Pelvis Thoracic/Lumbar Spine: thoracic and lumbar spine normal to inspection Skin General skin exam: no rashes or lesions noted Neuro General: patient oriented x3 and no focal motor deficits Cranial nerves: Yes CN's II-XII intact bilaterally Extrem General: Yes normal to inspection, Yes no clubbing, cyanosis or edema and Yes no calf tenderness Psych Speech and movement: Normal speech and movement present Assessment & Plan Assessment & Plan (1) Obesity: Comment: HE REMAINS MODERATELY OBESE. PREVIOUSLY HE HAS LOST SIGNIFICANT AMOUNT OF WEIGHT. Code(s): E66.9 - Obesity, unspecified Category: Medical Plan: TALKED TO HIM ABOUT, WATCHING DIET AND TRYING TO WALK A FEW MILES EVERY DAY. (2) Allergic rhinitis: Comment: MINIMAL.and CONTROLLED , DENIES ANY ACUTE ATTACKS Code(s): J30.9 - Allergic rhinitis, unspecified Category: Medical Plan: FLONASE-50 1 INHALATION IN EACH NOSTRIL B.I.D. (3) SARAH (obstructive sleep apnea): Comment: DID HAVE HISTORY OF SARAH FOR MANY YEARS. RESOLVED AFTER SIGNIFICANT WEIGHT LOSS. DOES NOT USE CPAP, CLAIMS THAT HE IS SLEEPING OKAY, I DID CAUTION HIM THAT HE NEEDS TO LOSE MORE WEIGHT . Code(s): G47.33 - Obstructive sleep apnea (adult) (pediatric) Category: Medical Plan: JUST WATCH THE WEIGHT , SLEEP IN LATERAL POSITION. (4) COPD (chronic obstructive pulmonary disease): Comment: [id number] ASTHMA/COPD overlap . CONTROLLED WITH THE CURRENT REGIMEN . Code(s): J44.9 - Chronic obstructive pulmonary disease, unspecified Category: Medical Plan: CONTINUE USING ADVAIR 250-51 INHALATION B.I.D.. USE ALBUTEROL HFA 2 PUFFS Q 6 HOURS ONLY P.R.N. Coding Level of Care Code Est Pt Level 3 (94045) Diagnoses Obesity E66.9 Allergic rhinitis J30.9 SARAH (obstructive sleep apnea) G47.33 COPD (chronic obstructive pulmonary disease) J44.9
[2025-08-02 09:01] VITALS: BP 130/90; PULSE 75; O2SAT 99; BMI 32.1
== END 2025-08-02 09:14 | disposition home or self-care (01) ==
PROVIDERS: PCP Internal Medicine; Visit Provider Internal Medicine
DX: E66.9 Obesity, unspecified (principal); J30.9 Allergic rhinitis, unspecified; G47.33 Obstructive sleep apnea (adult) (pediatric); J44.9 Chronic obstructive pulmonary disease, unspecified
CPT/HCPCS: 99213

== ENCOUNTER 2025-08-16 15:07 | Outpatient (REF) | payer OTHER, SELFPAY ==
--- NOTE | ~2025-08-16 | US_ITS ---
EXAMINATION: US RETROPERITONEUM HISTORY: N20.0 - Calculus of kidney TECHNIQUE: Real-time grayscale ultrasound imaging of the kidneys was performed and images were reviewed. COMPARISON: Comparison is made with the prior examination dated 12/15/2024. FINDINGS: Right kidney: The right kidney measures 11.9 x 6.0 x 6.5 cm. Renal parenchymal echotexture and thickness are normal. There are no masses. There is a 2 mm nonobstructing calculus in the mid to lower pole region. There is mild hydronephrosis. Left Kidney: The left kidney measures 11.3 x 4.7 x 5.5 cm. Renal parenchymal echotexture and thickness are normal. There are no masses. There are 4 mm nonobstructing calculi at the upper and lower poles. There is no hydronephrosis. The urinary bladder is unremarkable. Bilateral ureteral jets are identified. Before voiding, the urinary bladder measured 8.0 x 4.5 x 5.3 cm, for an estimated volume of 101 mL. After voiding, there is no post void bladder residual. The prostate measures 3.4 x 3.2 x 2.7 cm, for an estimated volume of 15.6 mL. US/US retroperitoneal comp IMPRESSION: 1. Bilateral nephrolithiasis as described. 2. Mild right hydronephrosis. If there is clinical concern for ureteral calculi, unenhanced CT could be performed. 3. No post void bladder residual. 4. Prostate volume of 15.6 mL. Electronically signed by: Sam Diaz MD 08/17/2025 07:06 AM EDT
--- NOTE | ~2025-08-16 | XR_ITS ---
EXAMINATION: XR CERVICAL SPINE CLINICAL INFORMATION: M54.2 - Cervicalgia COMPARISON: October 20, 2015. TECHNIQUE: AP, lateral, atlantoodontoid views and swimmer's projection. FINDINGS: Craniocervical junction is intact. Incomplete ankylosis and funneling of the morphology at C4-5. Syndesmophyte formation C5-6. Marginal osteophyte formation C6-7. No acute cortical disruption. No gross malalignment. No lytic or blastic lesions. XR/XR cervical spine 5V IMPRESSION: Cervical spondylosis C5-6 and C6-7 levels. Incomplete ankylosis C4-5. Electronically signed by: Sal De La O MD 08/16/2025 03:37 PM EDT
--- OUTSIDE RECORDS SUMMARY | 2025-08-16 19:21 | XMS_ITS | Clinical Summary ---
Author Organization [employer] Address [address] [place] [address] Care Team Providers Care [employer] Name Role Phone Unavailable Primary Care Provider [...] Active Active Problems No known active problems Social History Tobacco Use Types Packs/Day Years [...] Tdap) 05/16/2025 05/16/2015 COVID-19 Vaccine (3 - 2024- season) 2025 09/29/2021, 02/01/2021 Influenza Vaccine (#1) 2025 , 08/29/2021, 07/26/2020, Additional history exists Dental X-Ray: Bitewings 04/10/2026 04/09/20 25, 03/09/2025, 06/26/2023, Additional history exists Tobacco Screening [...] Procedure Name Priority Date/Time Associated Diagnosis Comments BITEWING - SINGLE RADIOGRAPHIC IMAGE Routine 04/09/2025 11:30 AM EDT Full PROPHYLAXIS - ADULT Routine 023 11:00 AM EDT PERIODIC ORAL EVALUATION - ESTABLISHED PATIENT Routine 06/26/2023 11:00 AM EDT INTRAORAL - COMPLETE SERIES OF RADIOGRAPHIC IMAGES Routine 02/20/2021 12:00 AM EDT from Last 3 Months or Most Recently Relevant to Health Maintenance Insurance [facility] STAND ADULT
--- OUTSIDE RECORDS SUMMARY | 2025-08-16 19:21 | XMS_ITS | Encounter Summary ---
Author Organization [employer] Address [address] [facility] [place] [address] Care Team Providers Care Neurosurgery Spine Physician Name Role Phone Unavailable Primary Care Provider Unavailabl e Reason for Visit * Reason Onset Date Comments appt 03/08/2025 Encounter Details Date Type Department Care Team (Late st Contact Info) Description 03/08/2025 Telephone C [facility] [address] [place] [address] Brendan Watson appt Social History Tobacco Use [...]
--- OUTSIDE RECORDS SUMMARY | 2025-08-16 19:21 | XMS_ITS | Encounter Summary ---
Author Organization [employer] [facility] Address [address] [place] [address] [address] [place] [address] Care Team Providers Care Plating Technician Name Role Phone Unavailable Primary Care [...]
== END 2025-08-16 15:08 | disposition home or self-care (01) ==
LOC: HO.US 15:07
PROVIDERS: Visit Provider Nurse Practitioner Family
DX: N20.0 Calculus of kidney (principal); M54.2 Cervicalgia
CPT/HCPCS: 72050; 76770

== ENCOUNTER → 2025-08-16 15:09 | Outpatient (BNV) | payer OTHER, SELFPAY | PROVIDERS: Visit Provider Radiology Diagnostic Radiology | DX: M47.812 Spondylosis without myelopathy or radiculopathy, cervical region (principal); M45.2 Ankylosing spondylitis of cervical region | CPT/HCPCS: 72050 ==

== ENCOUNTER 2025-09-02 08:54 | Outpatient (AMB) | payer OTHER, SELFPAY ==
[2025-09-02 09:07] VITALS: BP 128/68; PULSE 84; O2SAT 94; BMI 31.8
--- NOTE | 2025-09-02 09:07 | MHC.PC.OV ---
Vital Signs 09/02/25 09:07 Height 5 ft 5 in Weight 191 lb BMI 31.8 BP 128/68 Blood Pressure Location Lt brachial Position Sitting Pulse 84 Pulse Source Pulse Oximeter Pulse Oximetry (%) 94 Oxygen Delivery Method Room Air Intake Visit Reasons: f/u DM Allergies MONALISA Inhibitors (MONALISA INHIBITORS) Allergy (Severe, Verified 09/02/25 10:11) SHORTNESS OF BREATH albuterol Adverse Reaction (Intermediate, Verified 09/02/25 10:11) Palpitations Penicillins Adverse Reaction (Intermediate, Verified 09/02/25 10:11) STOMACH UPSET stress induced anaphylaxis Allergy (Severe, Uncoded 09/02/25 10:11) Anaphylaxis Medication List - Last Reconciled 09/02/25 by Jane Colon PA-C amlodipine 10 mg PO DAILY blood sugar diagnostic (FreeStyle Lite Strips) 3 jeremias a day blood-glucose meter (FreeStyle [place] Lite kit) As directed cholecalciferol (vitamin D3) 25 mcg PO DAILY cyanocobalamin (vitamin B-12) (Vitamin B-12) 250 mcg PO DAILY 60 days dicyclomine 20 mg PO TID 30 days empagliflozin (Jardiance) 10 mg PO DAILY epinephrine (EpiPen 2-Benedict) 0.3 mg (0.3 mL) IM ONCE PRN fluticasone propion-salmeterol 250-50 mcg/dose (Advair Diskus) 1 ea PO BID fluticasone propionate 50 mcg/actuation 1 - 2 sprays intranasal DAILY FreeStyle Lancets (lancets) 3 times a day NS hydrochlorothiazide 25 mg PO DAILY 30 days inhalat.spacing dev,large mask (BreatheRite Spacer and Mask, Adult) As directed levalbuterol tartrate 45 mcg/actuation (Xopenex HFA) 2 inhalations inhalation Q4-6H 30 days losartan 50 mg PO DAILY metoclopramide HCl (Reglan) 10 mg PO QIDACHS naproxen 500 mg PO BID 5 days ondansetron 4 mg PO Q8H 2 days pantoprazole (Protonix) 40 mg PO BID 30 days pyridoxine (vitamin B6) 100 mg PO DAILY 90 days Tobacco use date assessed: 06/02/25 Dental Screening Dental Screen Date: 06/02/25 HPI f/u DM HPI Details 55-year-old male with past medical history of type 2 diabetes, COPD, hypertension, dyslipidemia, obstructive sleep apnea, GERD, BPH last seen 05/2025 coming in for follow up. In review of the notes, patient was seen by pulm 07/2025 continued on current medication regimen and recommended weight loss. Presenting for evaluation of groin pain and management of his diabetes. He reports right-sided groin pain for the past month and a half, which is worse at night with a severity of 8-9/10 and improves during the day. The pain radiates down and is associated with a feeling of heaviness in the scrotum and the sensation that his right testicle is larger than the left. Regarding his type 2 diabetes, his HbA1c has risen to 7.0% from 6.7%. The patient admits to nonadherence with his medications, having missed approximately two weeks of pills over the past three months due to a bad gag reflex. [facility] Medical History Neck pain Asthma Diverticulosis Chest pain Tendinitis of right forearm Contusion of right hand Cough Chest pain Physical exam Bronchitis Acute asthma exacerbation Hospital discharge follow-up Radiologic findings of lung field, abnormal Obesity BPH (benign prostatic hyperplasia) Type 2 diabetes mellitus with obesity Allergic rhinitis SARAH (obstructive sleep apnea) History of postoperative nausea and vomiting Anaphylaxis Anxiety Dysphagia IBS (irritable bowel syndrome) Asthma Sleep apnea Fatty liver Non-toxic multinodular goiter B12 deficiency Vitamin D deficiency Obesity (BMI 30-39.9) Nephrolithiasis Hypertension Dyslipidemia Diabetes type 2, uncontrolled COPD (chronic obstructive pulmonary disease) Surgical History Hx of umbilical hernia repair Hx of cystoscopy Hx of lithotripsy Hx of colonoscopy Hx of esophagogastroduodenoscopy Hx of adenoidectomy Hx of hernia repair Hx of appendectomy Family History Father Diabetes Mother CVD (cardiovascular disease) Cancer Social History Household Members: Significant Other Housing: Apartment Do you presently have visiting nurse or other home services: No Alcohol intake: current Alcohol intake frequency: a few times a week Patient Tobacco Use Status: Former Tobacco user Tobacco use type: Cigarette e-Cigarette/Vaping Use: Never Used Second Hand Smoke Exposure: Yes service: No Current occupational status: unemployed and disabled Cognitive needs: No Hearing needs: No Vision needs: No Questionnaire Thrive Questionnaire Date Thrive assessed: 06/02/25 I am a: Patient What is your living situation today?: I have a steady place to live Within the past 12 months, did the food you bought not last and you didn't have the money to get more?: Never true Within the past 12 months, did you worry whether your food would run out before you got money to buy more?: Never true Do you have trouble paying for medicines?: No Do you have trouble getting transportation to medical appointments?: No Do you have trouble paying your heating and electricity bill?: No Do you have trouble taking care of your child, family member or friend?: No Do you have trouble with day-to-day activities such as bathing, preparing meals, shopping, managing finances, etc.?: No Are you currently unemployed and looking for a job?: No Are you interested in more education?: No Please select the resources that you would like help with: None Currently or been in a relationship where the following occur: I choose not to answer THRIVE Score: 0 VILLA-7 AMB Questionnaire VILLA-7 Date VILLA - 7 assessed: 06/02/25 Source: Developed by Drs. Sam Sharp, Paula Allen, Samson Zavala and colleagues, with an educational fawn from [employer]. Review of Systems Const Denies body aches, Denies chills, Denies fever(s), Denies headache(s) and Denies poor appetite Eyes Reports no additional complaints ENT Denies dizziness and Denies headache(s) Card Denies chest pain, Denies edema, Denies lightheadedness and Denies dyspnea Resp Denies dyspnea GI Denies abdominal pain, Denies nausea and Denies vomiting Reports as per HPI Musc Reports no additional complaints and Denies abnormal gait Skin/Breast Reports system reviewed and no additional complaints, except as documented Neuro Denies abnormal gait, Denies dizziness and Denies headache(s) Psych Reports no additional complaints Physical exam (Primary Care) Vital Signs: Last Vital Signs Pulse 84 09/02/25 09:07 BP 128/68 09/02/25 09:07 Pulse Ox 94 09/02/25 09:07 Oxygen Delivery Method Room Air 09/02/25 09:07 BMI result Body Mass Index 31.8 Tobacco/Smoking Status: Tobacco use Status Tobacco use date assessed 06/02/25 09/02/25 09:08 Patient Tobacco Use Status Former Tobacco user 09/02/25 09:08 Tobacco use type Cigarette 09/02/25 09:08 e-Cigarette/Vaping Use Never Used 09/02/25 09:08 Thrive Assessment: Date of Thrive Assessment Date Thrive assessed 06/02/25 09/02/25 09:08 Currently or been in a relationship where the following occur: I choose not to answer Const General: cooperative, healthy appearing, comfortable and no acute distress Orientation/consciousness: patient oriented x3 HENMT Head: Yes normocephalic Ears: hearing grossly normal bilaterally General nose exam: Normal external nose present Eyes General: appearance normal, both eyes and all related structures Conjunctivae: conjunctivae normal Neck Neck: Yes full ROM and Yes no lymphadenopathy Resp Effort & Inspection: normal respiratory effort Auscultation: clear to auscultation bilaterally, no crackles, no rales, no rhonchi and no wheezes Cardio Rate: regular rate Rhythm: regular rhythm Other: computer lab assistant Makenzie Kapoor present for exam as customer development representative Male General Exam: Yes normal external exam Penis: normal penis Meatus: meatus normal and no meatla discharge Scrotum: scrotum normal, not edematous and not erythematous Testes: testicular swelling on the right and testicular tenderness on the right Skin General skin exam: no rashes or lesions noted Neuro General: patient oriented x3 Gait exam (Neuro): Normal gait present Extrem General: Yes normal to inspection, Yes full ROM and No edema Psych Affect: normal affect Attitude: cooperative Insight: Good insight present (Psych) Judgement: Good judgement present (Psych) Office Procedures Flu Questionnaire Does the patient have a severe egg allergy?: No Does the patient have severe life threatening allergies?: No Does the patient have a fever or illness today?: No Has the patient ever had Guillain-[place] Syndrome?: No Has the patient ever had any past reaction to a flu shot?: No Results AMB Hemoglobin A1c AMB Hemoglobin A1c 7.0 % Last Edit by Naty Hernandez CMA on 09/02/25 09:24 AMB Urinalysis, Automated UA Leukoctes 0 Rodney/uL Last Edit by Catherine Tapia, COLETTE on 09/02/25 10:28 UA Nitrite Negative Last Edit by Catherine Tapia, COLETTE on 09/02/25 10:28 UA Urobilinogen 0.2 mg/dL Last Edit by Catherine Tapia, COLETTE on 09/02/25 10:28 UA Protein 0 mg/dL Last Edit by Catherine Tapia, ANALYTICAL STRATEGIST on 09/02/25 10:28 UA pH 6.0 Last Edit by Catherine Tapia, ANALYTICAL STRATEGIST on 09/02/25 10:28 UA Blood 0 Lenard/uL Last Edit by Catherine Tapia, ANALYTICAL STRATEGIST on 09/02/25 10:28 UA Specific [place] 1.010 Last Edit by Catherine Tapia, COLETTE on 09/02/25 10:28 UA Ketone Negative Last Edit by Catherine Tapia, COLTETE on 09/02/25 10:28 UA Bilirubin 0 mg/dL Last Edit by Catherine Tapia, ANALYTICAL STRATEGIST on 09/02/25 10:28 UA Glucose 1000 mg/dL Last Edit by Catherine Tapia, COLETTE on 09/02/25 10:28 Immunizations Fluarix [id number] (PF) 45 mcg (15 mcg x 3)/0.5 mL IM syringe Performing Provider: Jane Colon PA-C Performing Location: [facility] [place] [facility] Administered by: Catherine Tapia CMA on 09/02/25 10:44 Dose Route Admin Location Dispensed Lot Number Expiration Date [facility] Life Director 0.5 mL IM Left Deltoid 0.5 mL [id number] 04/26/26 [id number] [employer] VIS Given Date VIS Provided VIS Publication Date 09/02/25 Single Vaccine 24 Eligibility Eligibility Date Funding Source Not VFC Eligible 09/02/25 Private pneumoc 20-cortney conj-dip cr(PF) 0.5 mL IM syringe Performing Provider: Jane Colon PA-C Performing Location: [facility] [place] [facility] Administered by: Catherine Tapia CMA on 09/02/25 10:44 Dose Route Admin Location Dispensed Lot Number Expiration Date [facility] Housing And Residence Life Director 0.5 mL IM Left Deltoid 0.5 mL [id number] 06/28/26 [employer] Total Dispensed Waste 0.5 mL 0 % VIS Given Date VIS Provided VIS Publication Date 09/02/25 Single Vaccine 25 Eligibility Eligibility Date Funding Source Not [facility] Eligible 09/02/25 Private Results Reviewed Results Reviewed: Laboratory Last Values Hgb A1c (Clinic) 7.0 % (4.0-6.0) H 09/02/25 09:08 Urine pH (Auto) 6.0 09/02/25 10:27 Specific [place] (Auto) 1.010 09/02/25 10:27 Urine Protein (Auto) 0 mg/dL 09/02/25 10:27 Glucose (UA)(Auto) 1000 mg/dL 09/02/25 10:27 Urine Ketones (Auto) Negative 09/02/25 10:27 Urine Blood (Auto) 0 Lenard/uL 09/02/25 10:27 Urine Nitrite (Auto) Negative 09/02/25 10:27 Urine Bilirubin (Auto) 0 mg/dL 09/02/25 10:27 Urine Urobilinogen (Auto) 0.2 mg/dL 09/02/25 10:27 Leukocyte Esterase (Auto) 0 Rodney/uL 09/02/25 10:27 Coding Level of Care Code Est Pt Level 4 (37939) Diagnoses Type 2 diabetes mellitus with obesity E11.69; E66.9 GERD (gastroesophageal reflux disease) K21.9 Obesity (BMI 30-39.9) E66.9 Primary hypertension I10 Hypertension type: primary hypertension Dyslipidemia E78.5 Scrotal pain N50.82 Assessment & Plan Assessment & Plan (1) Type 2 diabetes mellitus with obesity: Code(s): E11.69 - Type 2 diabetes mellitus with other specified complication; E66.9 - Obesity, unspecified Category: Medical Plan: Decrease the amount of carbohydrates such as pasta, bread, rice, and potatoes and limit the amount of sweets. Although fruits are generally healthy they should be eaten in moderation as they are still high in sugar. Hemoglobin A1c goal of less than 7%. A1c in the office today is 7%. Patient does admit to missing several days of his Jardiance. At this time no medication adjustments will be made but did reinforced medication adherence. (2) GERD (gastroesophageal reflux disease): Code(s): K21.9 - Gastro-esophageal reflux disease without esophagitis Category: Medical Plan: Avoid trigger foods such as citrus, tomato products, soda, caffeine, spicy foods and other foods that may be irritating to your stomach. Avoid laying flat 3-4 hours after eating and elevate the head of the bed 30 degrees to prevent acid from moving into the esophagus. Continue on pantoprazole and continue to follow with GI (3) Obesity (BMI 30-39.9): Code(s): E66.9 - Obesity, unspecified Category: Medical Plan: Healthy diet and regular exercise is encouraged. (4) Hypertension: Code(s): I10 - Essential (primary) hypertension Category: Medical Qualifiers: Hypertension type: primary hypertension Qualified Code(s): I10 - Essential (primary) hypertension Plan: Continue on current blood pressure medication. Avoid salt intake and encourage healthy diet and regular exercise. (5) Dyslipidemia: Code(s): E78.5 - Hyperlipidemia, unspecified Category: Medical Plan: Avoid foods that are high in cholesterol such as red meat, fried foods, eggs and baked goods. Triglyceride goal of less than 150 and LDL goal of less than 100. No longer taking Rosuvastatin but LDL is within goal. (6) Scrotal pain: Code(s): N50.82 - Scrotal pain Category: Medical Plan: The patient's pain is primarily located in the scrotum, with radiation to the groin, and is most tender over the epididymis on exam. While the differential includes an inguinal hernia or hydrocele, the findings are most suspicious for epididymitis, possibly from a bacterial source despite a clean urinalysis. The plan is to empirically treat for a potential infection with a 7-day course of Ciprofloxacin twice daily. An urgent scrotal ultrasound will be ordered to confirm the diagnosis and rule out other pathologies. For pain management, a refill of naproxen will be provided. To alleviate anxiety related to the ultrasound, two tablets of lorazepam will be prescribed to be taken before the procedure. Plan This note was constructed using voice recognition software. While every effort has been made to ensure accuracy and environmental engineer scientist, still areas may have been included sometimes these areas may affect the content or meeting of the given symptoms. Total time spent caring for the patient today was 30 minutes. This includes time spent before the visit reviewing the chart, time spent during the visit, and time spent after the visit and documentation. Patient was informed and verbally consented to the use of an ambient scribe for clinic note documentation during this visit. Orders: Orders AMB Hemoglobin A1c Today Z13.9 - Encounter for screening, unspecified AMB Urinalysis Automated Today Z13.9 - Encounter for screening, unspecified US scrotum Today N50.82 - Scrotal pain Influenza [id number] Immunization Today Z23 - Encounter for immunization Pneumococcal 20 Immunization Today Z23 - Encounter for immunization Medications: New lorazepam take 30-60 minutes prior to US 0.5 mg PO DAILY PRN 2 tabs 0RF anxiety ciprofloxacin HCl 500 mg PO BID 14 tabs 0RF 7 days Refilled naproxen 500 mg PO BID 10 tabs 0RF 5 days
--- OUTSIDE RECORDS SUMMARY | 2025-09-02 09:34 | XMS_ITS | Encounter Summary ---
Author Organization [employer] Address [address] [facility] [address] [place] [address] Care Team Providers Care Fruit Harvester Machine Operator Name Role Phone Unavailable Primary Care Provider Unavailabl e Reason for Visit * Reason Onset Date Comments appt 03/08/2025 Encounter Details Date Type Department Care Team (Late st Contact Info) Description 03/08/2025 Telephone [facility] [address] [place] [address] Brendan Watson appt Social History Tobacco Use [...]
--- OUTSIDE RECORDS SUMMARY | 2025-09-02 09:34 | XMS_ITS | Clinical Summary ---
Author Organization [employer] Address [address] [facility] [address] [place] [address] Care Team Providers Care Brick Washer Name Role Phone Unavailable Primary Care Provider [...] Most Recently Relevant to Health Maintenance [facility] ST[facility]
--- OUTSIDE RECORDS SUMMARY | 2025-09-02 09:35 | XMS_ITS | Encounter Summary ---
Author Organization [employer] [facility] Address [address] [place] [address] [address] [place] [address] Care Team Providers Care Digital Communications Manager Name Role Phone Unavailable Primary Care [...]
== END 2025-09-02 10:48 | disposition home or self-care (01) ==
LOC: HO.HMCH 08:55
DX: E11.69 Type 2 diabetes mellitus with other specified complication (principal); E66.9 Obesity, unspecified; Z68.31 Body mass index [BMI] 31.0-31.9, adult; K21.9 Gastro-esophageal reflux disease without esophagitis; I10 Essential (primary) hypertension; E78.5 Hyperlipidemia, unspecified; N50.82 Scrotal pain; Z23 Encounter for immunization

== ENCOUNTER → 2025-09-02 08:54 | Outpatient (BNVA) | payer OTHER, SELFPAY | DX: E11.69 Type 2 diabetes mellitus with other specified complication (principal); E66.9 Obesity, unspecified; I10 Essential (primary) hypertension; E78.5 Hyperlipidemia, unspecified; K21.9 Gastro-esophageal reflux disease without esophagitis; N50.82 Scrotal pain; Z68.31 Body mass index [BMI] 31.0-31.9, adult | CPT/HCPCS: 81003; 83036; 90471; 90472; 90656; 90677; 99212 ==

== ENCOUNTER 2025-09-08 08:38 | Outpatient (AMB) | payer OTHER, SELFPAY ==
--- OUTSIDE RECORDS SUMMARY | 2025-09-08 09:00 | XMS_ITS | Encounter Summary ---
Author Organization [employer] Address [address] [facility] [address] [place] [address] Care Team Providers Care Employment Adjudicator Name Role Phone Unavailable Primary Care Provider Unavailabl e Reason for Visit * Reason Onset Date Comments appt 03/08/2025 Encounter Details Date Type Department Care Team (Late st Contact Info) Description 03/08/2025 Telephone [facility] [address] [place] [address] Brendan Watson appt Social History Tobacco Use [...]
--- OUTSIDE RECORDS SUMMARY | 2025-09-08 09:00 | XMS_ITS | Clinical Summary ---
Author Organization [employer] Address [address] [facility] [address] [place] [address] Care Team Providers Care Cage Maker Name Role Phone Unavailable Primary Care Provider [...] Most Recently Relevant to Health Maintenance [facility] ST[facility]
--- OUTSIDE RECORDS SUMMARY | 2025-09-08 09:00 | XMS_ITS | Encounter Summary ---
Author Organization [employer] [facility] Address [address] [place] [address] [address] [place] [address] Care Team Providers Care Restaurant Hourly Team Member Name Role Phone Unavailable Primary Care Provider [...]
--- NOTE | 2025-09-08 09:15 | A.OFFVIS_ITS ---
Vital Signs 09/08/25 09:20 Height 5 ft 5 in Weight 191 lb BMI 31.8 BP 110/66 Blood Pressure Location Rt brachial Position Sitting Pulse 82 Pulse Source Pulse Oximeter Pulse Oximetry (%) 96 Oxygen Delivery Method Room Air Intake Visit Reasons: 6m Intake Note: Est pt for mgmt of CIC + GERD. CC; Pt denies any new GI concerns or sx at this time. Pt does report having muscular abd pain but believes it is related to a current urological concern which he is addressing with the necessary providers/offices. He reports he has an upcoming scrotal US. Record Clerk Required: No Accompanied by: Self / Same As Patient Allergies MONALISA Inhibitors (MONALISA INHIBITORS) Allergy (Severe, Verified 09/08/25 09:16) SHORTNESS OF BREATH albuterol Adverse Reaction (Intermediate, Verified 09/08/25 09:16) Palpitations Penicillins Adverse Reaction (Intermediate, Verified 09/08/25 09:16) STOMACH UPSET stress induced anaphylaxis Allergy (Severe, Uncoded 09/08/25 09:16) Anaphylaxis HPI HPI 6m: Details: Assessment & Plan (1) Erosive esophagitis: Code(s): K22.10 - Ulcer of esophagus without bleeding Category: Medical (2) Dysphagia: Code(s): R13.10 - Dysphagia, unspecified Category: Medical (3) GERD (gastroesophageal reflux disease): Code(s): K21.9 - Gastro-esophageal reflux disease without esophagitis Category: Medical (4) Irritable bowel syndrome with diarrhea: Code(s): K58.0 - Irritable bowel syndrome with diarrhea Category: Medical (5) Esophageal spasm: Comment: Failed a trial of dicyclomine is already on amlodipine Code(s): K22.4 - Dyskinesia of esophagus Category: Medical (6) Nausea and vomiting: Comment: Seems to have been completely mediated by his use of GLP 1/G IP medications Code(s): R11.2 - Nausea with vomiting, unspecified Category: Medical (7) Gastroparesis: Comment: Question now of [place] diabetic disease versus GLP 1/GI IP induced dysfunction Code(s): K31.84 - Gastroparesis Category: Medical (8) Small bowel obstruction: Comment: 06/2020 with inflammation in the jejunum uncertain cause but may be related to him running out of his Reglan and taking Metamucil Code(s): K56.609 - Unspecified intestinal obstruction, unspecified as to partial versus complete obstruction Category: Medical Plan He is here today with his who is supportive. He continues on his Reglan 10 mg 4 times a day, his Viberzi 100 mg twice a day, pantoprazole 40 mg twice a day. He finds he could not tolerate the GLP'1 or others and this cured most of my morning sickness. He is now on Jardiance. His A1C is not up to 8, but this is an ongoing process. He has severe bor borygmus and IBS with slime that also has calmed down. SO ? now is do we need reglan, he will trial stopping it and we will progress according. He may have an element of underlying gastoparesis that was greatly exacerbated by the GLP-1. Return office visit in 6 months or sooner if he needs my continued guidance on adjusting his medications after cessation of the GLP-1 Medications: Refilled dicyclomine 20 mg PO TID 30 days 90 tabs 3RF metoclopramide HCl (Reglan) 10 mg PO QIDACHS 120 tabs 6RF K31.84 - Gastroparesis eluxadoline (Viberzi) must administer with a meal/food 100 mg PO BID 60 tabs 5RF pantoprazole (Protonix) 40 mg PO BID 30 days 60 tabs 6RF K21.9 - Gastro- esophageal reflux disease without esophagitis, K22.10 - Ulcer of esophagus without bleeding TODAY'S VISIT [facility] Medical History (Updated 09/08/25 @ 12:36 by BOB Castle) Gastroparesis Nausea and vomiting Neck pain Asthma Diverticulosis Chest pain Tendinitis of right forearm Contusion of right hand Cough Chest pain Physical exam Bronchitis Acute asthma exacerbation Hospital discharge follow-up Radiologic findings of lung field, abnormal Obesity BPH (benign prostatic hyperplasia) Type 2 diabetes mellitus with obesity Allergic rhinitis SARAH (obstructive sleep apnea) History of postoperative nausea and vomiting Anaphylaxis Anxiety Dysphagia IBS (irritable bowel syndrome) Asthma Sleep apnea Fatty liver Non-toxic multinodular goiter B12 deficiency Vitamin D deficiency Obesity (BMI 30-39.9) Nephrolithiasis Hypertension Dyslipidemia Diabetes type 2, uncontrolled COPD (chronic obstructive pulmonary disease) Surgical History Hx of umbilical hernia repair Hx of cystoscopy Hx of lithotripsy Hx of colonoscopy Hx of esophagogastroduodenoscopy Hx of adenoidectomy Hx of hernia repair Hx of appendectomy Family History Father Diabetes Mother CVD (cardiovascular disease) Cancer Social History Household Members: Significant Other Housing: Apartment Do you presently have visiting nurse or other home services: No Alcohol intake: current Alcohol intake frequency: a few times a week Patient Tobacco Use Status: Former Tobacco user Tobacco use type: Cigarette e-Cigarette/Vaping Use: Never Used Second Hand Smoke Exposure: Yes service: No Current occupational status: unemployed and disabled Cognitive needs: No Hearing needs: No Vision needs: No Review of Systems Const Denies fatigue, Denies fever(s), Denies night sweats, Denies poor appetite and Reports weight loss ENT Reports Normal hearing present, Denies dental pain, Denies dysphagia, Denies hearing loss, Denies mouth pain, Denies odynophagia, Denies throat swelling, Denies tongue swelling and Reports other (Dentition adequate) Card Reports no additional complaints Resp Reports no additional complaints GI Details: Denies abdominal pain, Denies melena, Denies bloating, Denies hematochezia, Denies constipation, Denies GI cramping, Denies dysphagia, Denies excessive flatus, Denies early satiety, Reports heartburn, Denies diarrhea, Reports loose stools, Reports nausea, Denies odynophagia, Denies vomiting and Denies hematemesis Details: Right groin pain Reports testicular pain Skin/Breast Denies pruritus, Denies lesions, Denies rash and Denies jaundice Neuro Reports Normal hearing present and Denies Abnormal speech present Endo Denies fatigue Aller/Immun Denies throat swelling and Denies tongue swelling Physical Exam Vital Signs: Last Vital Signs Pulse 82 09/08/25 09:20 BP 110/66 09/08/25 09:20 Pulse Ox 96 09/08/25 09:20 Oxygen Delivery Method Room Air 09/08/25 09:20 BMI result Body Mass Index 31.8 Const General: cooperative, no acute distress, well developed, in distress mild and well groomed Nutritional Appearance: well nourished and obese Orientation/consciousness: oriented to person, oriented to place and oriented to time Limitations: No language barrier HEENT Head: Yes normocephalic and Yes atraumatic Eyes General: appearance normal, both eyes and all related structures Pupils: Equal, round and reactive pupils present Neck Neck: Yes normal visual inspection and Yes no lymphadenopathy Thyroid: Thyroid normal Resp Effort & Inspection: normal respiratory effort and able to speak in complete sentences Auscultation: clear to auscultation bilaterally Cardio Rate: regular rate Rhythm: regular rhythm Heart sounds: Normal, physiologic split S2 sound present Peripheral pulses: radial pulses present and posterior tibial pulses present GI Inspection: No distended, No Abdominal panniculus present and Yes obesity Palpation (GI): Soft to palpation, nontender, no guarding, not rigid and No hepatosplenomegaly present Percussion: Yes normal to percussion Auscultation: normal bowel sounds Rectal Exam - Male: Yes deferred Skin General skin exam: no rashes or lesions noted, turgor normal, skin not dry, no jaundice, No spider nevi and no striae Rashes: no rashes Nails: normal Neuro General: oriented to person, oriented to place and oriented to time Cranial nerves: Yes Equal, round and reactive pupils present and Yes Normal hearing present Speech: No Abnormal speech present Extrem General: Yes normal to inspection, No clubbing, No cyanosis and No edema Psych Appearance: grossly normal and well kempt Mental Status: mental status grossly normal Speech and movement: Normal speech and movement present Affect: normal affect Attitude: cooperative Thought process: Normal thought process present and not confabulating Thought content: Normal thought content present Insight: Good insight present (Psych) Judgement: Good judgement present (Psych) Assessment & Plan Assessment & Plan (1) Erosive esophagitis: Code(s): K22.10 - Ulcer of esophagus without bleeding Category: Medical (2) GERD (gastroesophageal reflux disease): Code(s): K21.9 - Gastro-esophageal reflux disease without esophagitis Category: Medical (3) Small bowel obstruction: Comment: 06/2020 with inflammation in the jejunum uncertain cause but may be related to him running out of his Reglan and taking Metamucil Code(s): K56.609 - Unspecified intestinal obstruction, unspecified as to partial versus complete obstruction Category: Medical (4) Scrotal pain: Code(s): N50.82 - Scrotal pain Category: Medical Plan He continues on his Reglan 10 mg 4 times a day, his Viberzi 100 mg twice a day, pantoprazole 40 mg twice a day BUT AT THE LAST visit we were going to experiment with cessation of the Reglan since he was off of his GLP 1 which may have been causing idiopathic gastroparesis. It appears that he is doing well off of the Reglan. He is having nausea but he says that this is indirect response to severe pain that has developed in the right groin/scrotal area. This pain is ever present somewhat less in the morning and increases from 2-3 out of 10-7 to 8/10 throughout the day. It even bothers him when he is lying flat. He presented to Urology who ordered a renal ultrasound and treated him for possible prostatitis but did not offer any follow-up to assess for resolution. He then presented to his primary care provider who has ordered a scrotal ultrasound. He wants to know if this could have anything to do with his colon, and I suppose it could, but since he is moving his bowels normally I do not think he has any issue with intestinal torsion etc.. His primary care provider did a thorough scrotal exam and did not seem to find any particular areas of herniation. I tell him that if the ultrasound comes back without any findings I will order a CAT scan to try to get him more help. We also discussed the possibility of hip problems and sacroiliitis but my spinal exam does not seem to elicit pain with the traditional movements designed to diagnose these conditions. For now see him in 6 months and he can call me if he needs the CAT scan placed. Medications: Refilled dicyclomine 20 mg PO TID 90 tabs 3RF 30 days pantoprazole (Protonix) 40 mg PO BID 60 tabs 6RF 30 days K21.9 - Gastro- esophageal reflux disease without esophagitis, K22.10 - Ulcer of esophagus without bleeding Discontinued metoclopramide HCl (Reglan) Discontinued Reason: Doctor's Order 10 mg PO QIDACHS 120 tabs 6RF K31.84 - Gastroparesis Coding Level of Care Code Est Pt Level 4 (67184) Diagnoses Erosive esophagitis K22.10 GERD (gastroesophageal reflux disease) K21.9 Small bowel obstruction K56.609 Scrotal pain N50.82 Time Spent (min) 34
[2025-09-08 09:20] VITALS: BP 110/66; PULSE 82; O2SAT 96; BMI 31.8
== END 2025-09-08 10:19 | disposition home or self-care (01) ==
LOC: HO.HGI 08:38
PROVIDERS: Visit Provider Nurse Practitioner
DX: K22.10 Ulcer of esophagus without bleeding (principal); K21.9 Gastro-esophageal reflux disease without esophagitis; K56.609 Unspecified intestinal obstruction, unspecified as to partial versus complete obstruction; N50.82 Scrotal pain
CPT/HCPCS: 99214

== ENCOUNTER → 2025-09-08 08:38 | Outpatient (BNVA) | payer OTHER, SELFPAY | PROVIDERS: Visit Provider Nurse Practitioner | DX: K22.10 Ulcer of esophagus without bleeding (principal); K21.9 Gastro-esophageal reflux disease without esophagitis; K56.609 Unspecified intestinal obstruction, unspecified as to partial versus complete obstruction; N50.82 Scrotal pain | CPT/HCPCS: 99212 ==

== ENCOUNTER 2025-09-15 12:04 | Outpatient (REF) | payer OTHER, SELFPAY ==
--- NOTE | ~2025-09-15 | US_ITS ---
EXAMINATION: US SCROTUM HISTORY: N50.82 - Scrotal pain. COMPARISON: There are no prior studies available for comparison. FINDINGS: Real-time grayscale ultrasound imaging of the scrotum was performed. RIGHT TESTICLE: The right testis measures 4.0 x 2.1 x 2.6 cm and demonstrates normal homogeneous echotexture. No masses are seen. The right testis demonstrates normal color Doppler flow. RIGHT EPIDIDYMIS: Normal in size, shape, and vascularity. LEFT TESTICLE: The left testis measures 4.2 x 2.2 x 2.6 cm and demonstrates normal homogeneous echotexture. No masses are seen. The left testis demonstrates normal color Doppler flow. LEFT EPIDIDYMIS: Normal in size, shape, and vascularity. VARICOCELE: None. HYDROCELE: No significant hydrocele is seen. OTHER COMMENTS: None. US/US scrotum IMPRESSION: Unremarkable scrotal ultrasound. Electronically signed by: Sam Diaz MD 09/15/2025 01:24 PM [facility]
--- OUTSIDE RECORDS SUMMARY | 2025-09-15 23:11 | XMS_ITS | Encounter Summary ---
Author Organization [employer] [facility] Address [address] [place] [address] [address] [place] [address] Care Team Providers Care Hole Digger Operator Name Role Phone Unavailable Primary Care [...]
--- OUTSIDE RECORDS SUMMARY | 2025-09-15 23:11 | XMS_ITS | Clinical Summary ---
Author Organization [employer] Address [address] [facility] [address] [place] [address] Care Team Providers Care Signal Engineer Name Role Phone Unavailable Primary Care Provider [...] Most Recently Relevant to Health Maintenance [facility] ST[facility]
--- OUTSIDE RECORDS SUMMARY | 2025-09-15 23:11 | XMS_ITS | Encounter Summary ---
Author Organization [email or web address] Address [address] [facility] [address] [place] [address] Care Team Providers Care Technical Rep Name Role Phone Unavailable Primary Care Provider Unavailabl e Reason for Visit * Reason Onset Date Comments appt 03/08/2025 Encounter Details Date Type Department Care Team (Late st Contact Info) Description 03/08/2025 Telephone [facility] [address] [place] [address] Brendan Watson appt Social History Tobacco Use [...]
== END 2025-09-15 12:05 | disposition home or self-care (01) ==
LOC: HO.US 12:04
DX: N50.82 Scrotal pain (principal)
CPT/HCPCS: 76870

== ENCOUNTER → 2025-09-15 12:06 | Outpatient (BNV) | payer OTHER, SELFPAY | PROVIDERS: Visit Provider Radiology Diagnostic Radiology | DX: N50.82 Scrotal pain (principal) | CPT/HCPCS: 76870 ==

== ENCOUNTER 2025-10-27 12:41 | Outpatient (REF) | payer OTHER, SELFPAY ==
--- NOTE | ~2025-10-27 | CT_ITS ---
EXAMINATION: CT ABDOMEN PELVIS WITHOUT THEN WITH IV CONTRAST HISTORY: N50.82 - Scrotal pain COMPARISON: Comparison is made with the prior examination dated 06/22/2020. Correlation is also made with a scrotal ultrasound dated 09/15/2025. TECHNIQUE: CT scan of the abdomen and pelvis was performed before and after the intravenous administration of 85 mL Omnipaque 350. Coronal and sagittal reformatted images were generated and reviewed. This CT exam was performed with one or more of the following dose reduction techniques: automated exposure control, adjustment of the mA and/or kV according to patient size, use of iterative reconstruction technique. DLP: 1098 mGy-cm ABDOMEN: LOWER CHEST: The visualized lung bases are clear. There is no pleural effusion. CARDIOVASCULATURE: The heart is normal in size. There is no pericardial effusion. LIVER: The liver is normal in size and contour. No liver mass is identified. The hepatic and portal veins are patent. GALLBLADDER / BILE DUCTS: The gallbladder is unremarkable. There is no intra or extrahepatic biliary ductal dilatation. SPLEEN: The spleen is normal in size. No focal splenic lesion is identified. PANCREAS: The pancreas is unremarkable in appearance. ADRENAL GLANDS: Within normal limits. KIDNEYS/RETROPERITONEUM: Multiple bilateral renal calculi are noted measuring 2-3 mm in size. There is no hydronephrosis or hydroureter. No renal masses are identified. LYMPH NODES: No abdominal or pelvic lymphadenopathy. VASCULATURE: The abdominal aorta is normal in caliber. MESENTERY/PERITONEUM: No free fluid. No masses. There is no free intraperitoneal gas. STOMACH: The stomach is unremarkable. SMALL BOWEL: The small bowel is normal in caliber. COLON: There is diverticulosis of the colon. There is mild wall thickening of the sigmoid colon, likely representing chronic diverticular disease. No inflammatory stranding is seen to suggest acute diverticulitis. APPENDIX: The appendix is not seen, however no inflammatory changes are seen adjacent to the cecum . URINARY BLADDER/PELVIC ORGANS: The urinary bladder is nondistended, limiting evaluation. There are calcifications of the prostate. BONES / SOFT TISSUES: There are curvilinear sclerotic foci in both femoral heads, consistent with avascular necrosis, without change. CT/CT abdomen pelvis wo/w IV con IMPRESSION: 1. Bilateral nephrolithiasis as described, without evidence of ureteral obstruction. 2. Chronic-appearing diverticular disease of the sigmoid colon. 3. 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 Electronically signed by: Sam Diaz MD 10/27/2025 02:15 PM [facility]
[2025-10-27] MEDS: iohexoL 350 MG/ML 100 ML INFUS..BTL 85 ML IV (14:03)
--- OUTSIDE RECORDS SUMMARY | 2025-10-27 14:16 | XMS_ITS | Encounter Summary ---
Author Organization [employer] Address [address] [facility] [address] [place] [address] Care Team Providers Care Supervisor Fiber Locking Name Role Phone Unavailable Primary Care Provider Unavailabl e Reason for Visit * Reason Onset Date Comments appt 03/08/2025 Encounter Details Date Type Department Care Team (Late st Contact Info) Description 03/08/2025 Telephone [facility] [address] [place] [address] Brendan Watson appt Social History Tobacco Use [...]
--- OUTSIDE RECORDS SUMMARY | 2025-10-27 14:16 | XMS_ITS | Encounter Summary ---
Author Organization [employer] [facility] Address [address] [place] [address] [address] [place] [address] Care Team Providers Care Roustabout Supervisor Name Role Phone Unavailable Primary Care Provider [...]
--- OUTSIDE RECORDS SUMMARY | 2025-10-27 14:16 | XMS_ITS | Clinical Summary ---
Author Organization [employer] Address [address] [facility] [address] [place] [address] Care Team Providers Care Tubing Assembler Name Role Phone Unavailable Primary Care [...] Most Recently Relevant to Health Maintenance Insurance [facility] STAND ADULT
[2025-10-29 10:43] LABS: Creatinine POC 0.8 mg/dL (0.5-1.4); GFR POC > 60
== END 2025-10-27 12:42 | disposition home or self-care (01) ==
LOC: HO.CT 12:41
PROVIDERS: Visit Provider Nurse Practitioner Family
DX: N50.82 Scrotal pain (principal); N20.0 Calculus of kidney
CPT/HCPCS: 74178; 82565; Q9967

== ENCOUNTER → 2025-10-27 12:42 | Outpatient (BNV) | payer OTHER, SELFPAY | PROVIDERS: Visit Provider Radiology Diagnostic Radiology | DX: N50.82 Scrotal pain (principal) | CPT/HCPCS: 74178 ==